=== PATIENT | female | born 1945 | race Caucasian/White ===

== ENCOUNTER → 2016-06-11 | Outpatient (REF) | payer MEDICARE, MEDICAID ==
[~2016-06-11] MED LIST: *BLDWK1; *BLDWK2; *BLDWK3; *BLDWK7; *BLDWK8; *CXR; /ADVA50050; /GLIM4TA; /THIA10TA OR; /WARF3TA; /WARF4TA; /WARF5TA; ACET65TA PO; ADVAIR100 INHALATION; ALBOTERNEB INHALATION; ALBU83IN; ALBU83IN INH; ALBU83IN NEB; ALUMSUS2 PO; AMARYL2 PO; AMARYL4 PO; ANTIV 25 PO; APIDINJ2; ASPI1TAB6 PO; ASPI325T OR; ASPI32ECTA PO; ATARAX25 PO; ATOR1TAB18 PO; AVANDIA8; BABY81CH; BASE PO; BIAXINXL PO; BISA5TAB PO; BUDE150T PO; BUPR300T34 PO; CALC1CAP31 PO; CARV12.5 OR; CARV12.5 PO; CLAR5CHW; CLARITIN10 PO; CLOP75TA2 PO; COLA100C2; COLACE PO; CORE10CA; CORE6.25; COREG125 PO; COREG625 PO; COREGCR10 PO; CORTISPOR OTIC; COUM10TA; COUMADIN; COUMADIN ***DAW****; COUMADIN **daw**; COUMADIN PO; COUMADIN25 ***DAW***; COUMADIN25 PO; CRAN1TAB PO; CROMOLYN NEBULIZED; CYCL5TA PO; DARV100T; DARVOCET-N; DARVOCET-N PO; DIGO0.12 PO; DIOVAN160; DIOVAN160 PO; DIOVAN80 PO; DOC-Q-LACE PO; DOXY100T16 PO; DOXY10CA PO; DOXYCYC100 PO; DULC10SU2 PR; EFFE150C; EFFE150C OR; EFFE150C PO; EFFEXORXL1 PO; EFFEXORXL7; ENAL10TA2 OR; ENAL2.5T; ERYTHROOPT; FERR325T PO; FLEETS PR; FLEXERIL PO; FLEXERIL10; FLON1SPR; FURO1TAB15 PO; FURO80TA2 OR; FUROSEM PO; GLUC1TOUCH TOPICAL; GLUC4CHW PO; GLUCCOSEAC TOPICAL; GLUCOPH850 PO; GLUCOSACCS; GLUCOSE TEST; GLUCULTRA; GLUCULTRA TOPICAL; GLYBURIDE5; GLYBURIDE5 PO; IMDU60TA PO; IMOD2TAB14 PO; INSUH10VL SC; INSULANT; INSULANT SC; INSULIN; ISOS60TA2 PO; JANUVIA; JANUVIA100 PO; LANTINJ4 SC; LANTUS INSULIN; LANTUS SC; LANTUS SQ; LASI40TA; LASI80TA; LIPI80TA; LIPI80TA OR; LIPI80TA PO; LIPITOR40 2 TABS; LIPITOR80; LIPITOR80 PO; LISI-542 PO; LISI10TA4 PO; LOFIBRA PO; LOPE2TAB3 PO; LOPID600 PO; LOPRESS50 PO; LOTRISCREA TOPICALLY; LOZOL25; MAALSUS18 PO; MAALSUS8 PO; MAGO400T PO; MAPA325T2 PO; MAXAIR PO; MECL-68 PO; MECL25TA2; MECL25TA2 OR; MICR10CA PO; MILKSUS PO; NEBTUBING; NEURONTIN3; NEURONTIN3 PO; NEXIUM40 PO; NITR0.4S; NITROSTAT4 SL; NORVASC10 PO; NOVOINJ3 SC; NOVOLOG SC; NYST-6 TOP; OMEP20CA3 PO; OMEP20TA7 OR; OPTI0.5D5 OU; PERC5TAB8 OR; PRIL20CA; PRILOSEC20; PRILOSEC20 PO; PRILOSECOT PO; PROA1AER INH; PROAAER IN; PROAIR INH; PROVENTILI PO; REFRSOL OU; REGL5TAB2 PO; SENN8.6T7 PO; SPIR25TA2 PO; SYRINS1CC SUBQ; TRAM50TA2 OR; TRAM50TA2 PO; TRAMADOL PO; TRIC145T19; TRICOR145 PO; TRICOR160; TRICOR160 PO; TYL RE; TYLE167L PO; VALTREX100 PO; VASO10TA; VASO10TA8 PO; VASO2.5T; VASO5TAB; VASOTEC25 PO; VENL100T OR; VENL150C43 PO; VENL150T PO; VICO5TAB; VICODIN-ES PO; VITA50003 PO; VITAMIN D2 PO; VITMTA PO; WELL100T OR; WELL100T PO; WELLTAB40 PO; ZEST1TAB5 PO; ZITHROZPAK PO; ZOFR20TA PO; ZOFR4TAB3 PO; ZOLOFT50 PO; ZONEGRAM PO; [UNRECOGNIZED DRUG - CODE]; [UNRECOGNIZED DRUG - CODE] PO; [UNRECOGNIZED DRUG - CODE] SUBQ; [UNRECOGNIZED DRUG - OTHER]; [UNRECOGNIZED DRUG - OTHER]; [UNRECOGNIZED DRUG - OTHER]; [UNRECOGNIZED DRUG - OTHER] INHALATION; [UNRECOGNIZED DRUG - OTHER] INHALATION; [UNRECOGNIZED DRUG - OTHER] TOPICAL; [UNRECOGNIZED DRUG - OTHER] TOPICALLY; drisdol OR
[2016-06-11 10:42] LABS: BASO # 0.1 K/mm3 (0.0-0.2); BASO % 1.4 % (0.0-1.0); EOS # 0.4 K/mm3 (0.0-0.50); EOS % 6.4 % (0.0-3.0); LARGE UNSTAINED CELL # 0.2 K/mm3 (0.0-0.4); LARGE UNSTAINED CELL % 3.3 % (0.0-4.0); LYMPH # 1.6 K/mm3 (1.5-4.5); MEAN CORPUSCULAR HEMOGLOBIN 29.4 pg (27.0-33.0); MEAN CORPUSCULAR HGB CONC 31.4 g/dl (32.0-36.5); MEAN CORPUSCULAR VOLUME 93.8 fl (80.0-96.0); MONO # 0.5 K/mm3 (0.0-0.8); MONO % 8.3 % (0.0-5.0); NEUTROPHILS # 3.7 K/mm3 (1.8-7.7); NEUTROPHILS % 58.6 % (36.0-66.0); PLATELET COUNT, AUTOMATED 345 k/mm3 (150-450); RED CELL DISTRIBUTION WIDTH 14.3 % (11.5-14.5); WHITE BLOOD COUNT 6.3 K/mm3 (4.0-10.0)
[2016-06-11 11:12] LABS: ALBUMIN 3.6 GM/DL (3.2-5.2); CALCIUM LEVEL 8.6 MG/DL (8.8-10.2); CREATININE FOR GFR 1.51 MG/DL (0.55-1.02); GLOMERULAR FILTRATION RATE 36.2 (>39); POTASSIUM SERUM 4.8 MEQ/L (3.5-5.1)
== END ==
PROVIDERS: ATTEND Internal Medicine Nephrology
DX: N18.3 Chronic kidney disease, stage 3 (moderate) (principal); D63.1 Anemia in chronic kidney disease; N25.81 Secondary hyperparathyroidism of renal origin; E55.9 Vitamin D deficiency, unspecified; E11.22 Type 2 diabetes mellitus with diabetic chronic kidney disease

== ENCOUNTER → 2016-06-12 | Outpatient (REF) | payer MEDICARE, MEDICAID ==
[~2016-06-12] MED LIST changes: -IMOD2TAB14 PO; +IMOD2TAB16 PO
[2016-06-12 11:46] LABS: ALBUMIN 3.4 GM/DL (3.2-5.2); ALBUMIN/GLOBULIN RATIO 0.92 (1.00-1.93); BILIRUBIN,TOTAL 0.5 MG/DL (0.2-1.0); CALCIUM LEVEL 8.8 MG/DL (8.8-10.2); CREATININE FOR GFR 1.6 MG/DL (0.55-1.02); GLOMERULAR FILTRATION RATE 33.8 (>39); TOTAL PROTEIN 7.1 GM/DL (6.4-8.2)
== END ==
PROVIDERS: ATTEND Internal Medicine
DX: E11.22 Type 2 diabetes mellitus with diabetic chronic kidney disease (principal); I12.9 Hypertensive chronic kidney disease with stage 1 through stage 4 chronic kidney disease, or unspecified chronic kidney disease; N18.3 Chronic kidney disease, stage 3 (moderate); I25.10 Atherosclerotic heart disease of native coronary artery without angina pectoris; I48.0 Paroxysmal atrial fibrillation; I25.5 Ischemic cardiomyopathy; Z85.3 Personal history of malignant neoplasm of breast; J30.2 Other seasonal allergic rhinitis; J45.20 Mild intermittent asthma, uncomplicated; G47.33 Obstructive sleep apnea (adult) (pediatric); M15.9 Polyosteoarthritis, unspecified; R80.9 Proteinuria, unspecified; E55.9 Vitamin D deficiency, unspecified; F32.9 Major depressive disorder, single episode, unspecified; K21.9 Gastro-esophageal reflux disease without esophagitis; I69.90 Unspecified sequelae of unspecified cerebrovascular disease; R25.1 Tremor, unspecified; I87.312 Chronic venous hypertension (idiopathic) with ulcer of left lower extremity; Z92.89 Personal history of other medical treatment
CPT/HCPCS: 15271; 36415; 80053; 83036; 87070; 87077; 87186; G0463; Q4131

== ENCOUNTER → 2016-06-12 | Outpatient (REF) | payer MEDICARE, MEDICAID ==
[~2016-06-12] MED LIST changes: +IMOD2TAB14 PO; -IMOD2TAB16 PO
== END ==
LOC: M LAB REF 16:31
PROVIDERS: ATTEND Surgery
DX: I87.312 Chronic venous hypertension (idiopathic) with ulcer of left lower extremity (principal)

== ENCOUNTER → 2016-06-14 | Outpatient (REF) | payer MEDICARE, MEDICAID ==
[~2016-06-14] MED LIST changes: -LIPITOR40 2 TABS; +LIPITOR40 [, 2 TABS]
== END ==
LOC: M SFHCPLAZ 12:44
PROVIDERS: ATTEND Internal Medicine
DX: E11.9 Type 2 diabetes mellitus without complications (principal)

== ENCOUNTER → 2016-06-18 | Outpatient (REF) | payer MEDICARE, MEDICAID ==
[~2016-06-18] MED LIST changes: +LIPITOR40 2 TABS; -LIPITOR40 [, 2 TABS]
[2016-06-18 10:30] LABS: CALCIUM LEVEL 8.8 MG/DL (8.8-10.2); CREATININE FOR GFR 1.39 MG/DL (0.55-1.02); GLOMERULAR FILTRATION RATE 39.8 (>39)
== END ==
PROVIDERS: ATTEND Internal Medicine Cardiovascular Disease
DX: I50.9 Heart failure, unspecified (principal); I25.10 Atherosclerotic heart disease of native coronary artery without angina pectoris; N18.9 Chronic kidney disease, unspecified

== ENCOUNTER → 2016-07-24 | Outpatient (REF) | payer MEDICARE, MEDICAID ==
[~2016-07-24] MED LIST changes: -IMOD2TAB14 PO; +IMOD2TAB16 PO; -LIPITOR40 2 TABS; +LIPITOR40 [, 2 TABS]
== END ==
LOC: M LAB REF 16:24
PROVIDERS: ATTEND Surgery
DX: L08.9 Local infection of the skin and subcutaneous tissue, unspecified (principal)

== ENCOUNTER → 2016-08-05 | Outpatient (CLI) | payer MEDICARE, MEDICAID ==
[~2016-08-05] MED LIST changes: +LIPITOR40 2 TABS; -LIPITOR40 [, 2 TABS]
--- NOTE | 2016-08-05 11:41 | REP ---
LEFT LOWER EXTREMITY DUPLEX VENOUS ULTRASOUND: Venous insufficiency study. HISTORY: Left leg ulcer, question venous insufficiency, reflux. FINDINGS: The deep veins are anechoic and fully compressible from the groin to the popliteal fossa in the left lower extremity on two-dimensional scanning. Color flow imaging is homogeneous. Spectral Doppler interrogation show no evidence to suggest deep venous thrombosis. REFLUX STUDY FINDINGS: Reflux is noted in the greater saphenous vein at the saphenofemoral junction, 5.7 seconds in duration. The AP dimension of the greater saphenous vein at this level is 4.7 mm. Reflux greater than 0.5 seconds in duration is seen in the common femoral vein and minimal 0.6 second reflux is also noted in the proximal superficial femoral vein. The greater saphenous vein shows reflux of 3.0 seconds in duration with a 3.0 mm AP dimension at midthigh level. The greater saphenous vein could not be seen distal to this. The proximal greater saphenous vein torres are somewhat irregular. This and small size may be related to previous endovascular laser treatment. Reflux is seen into collateral vessels at midthigh. IMPRESSION: No evidence of DVT. Evidence of previous endovascular greater saphenous vein therapy. Reflux seen as above. Signed by Wilian Medina MD 08/05/2016 03:34 P
== END ==
LOC: M RAD 09:23
PROVIDERS: ATTEND Surgery
DX: L97.929 Non-pressure chronic ulcer of unspecified part of left lower leg with unspecified severity (principal)

== ENCOUNTER → 2016-08-13 | Outpatient (REF) ==
[~2016-08-13] MED LIST changes: -LIPITOR40 2 TABS; +LIPITOR40 [, 2 TABS]
[2016-08-13 11:26] LABS: CALCIUM LEVEL 8.5 MG/DL (8.8-10.2); CREATININE FOR GFR 1.48 MG/DL (0.55-1.02)
== END ==
PROVIDERS: ATTEND Internal Medicine
DX: I10 Essential (primary) hypertension (principal)

== ENCOUNTER → 2016-08-16 | Outpatient (REF) ==
[~2016-08-16] MED LIST changes: +LIPITOR40 2 TABS; -LIPITOR40 [, 2 TABS]
[2016-08-16 12:00] LABS: MEAN CORPUSCULAR HGB CONC 32.1 g/dl (32.0-36.5); MEAN CORPUSCULAR VOLUME 90.4 fl (80.0-96.0); RED CELL DISTRIBUTION WIDTH 13.4 % (11.5-14.5); WHITE BLOOD COUNT 4.8 K/mm3 (4.0-10.0)
[2016-08-16 12:16] LABS: CALCIUM LEVEL 8.2 MG/DL (8.8-10.2); CREATININE FOR GFR 1.33 MG/DL (0.55-1.02); GLOMERULAR FILTRATION RATE 41.9 (>39); POTASSIUM SERUM 4.2 MEQ/L (3.5-5.1)
--- NOTE | 2016-08-16 12:49 | REP ---
CHEST, SINGLE VIEW: AP view of the chest is performed and compared to prior study of 09/09/2015. There is cardiomegaly and pulmonary venous hypertension. I see no acute infiltrate. The mediastinal silhouette is unchanged. The visualized osseous structures appear intact. IMPRESSION: Cardiomegaly. Pulmonary venous hypertension. No acute infiltrate. Signed by Bakari Bryant MD 08/16/2016 05:00 P
== END ==
PROVIDERS: ATTEND Internal Medicine
DX: R19.7 Diarrhea, unspecified (principal); R05 Cough; R06.2 Wheezing

== ENCOUNTER → 2016-08-21 | Outpatient (REF) ==
[~2016-08-21] MED LIST changes: -LIPITOR40 2 TABS; +LIPITOR40 [, 2 TABS]
[2016-08-21 14:01] LABS: CALCIUM LEVEL 8.7 MG/DL (8.8-10.2); CREATININE FOR GFR 1.44 MG/DL (0.55-1.02); GLOMERULAR FILTRATION RATE 38.2 (>39); POTASSIUM SERUM 4.9 MEQ/L (3.5-5.1)
== END ==
PROVIDERS: ATTEND Internal Medicine
DX: I10 Essential (primary) hypertension (principal)

== ENCOUNTER → 2016-09-10 | Outpatient (REF) | payer MEDICARE, MEDICAID ==
[~2016-09-10] MED LIST changes: +LIPITOR40 2 TABS; -LIPITOR40 [, 2 TABS]
[2016-09-10 10:19] LABS: MEAN CORPUSCULAR HEMOGLOBIN 28.4 pg (27.0-33.0); MEAN CORPUSCULAR HGB CONC 30.7 g/dl (32.0-36.5); MEAN CORPUSCULAR VOLUME 92.6 fl (80.0-96.0); RED CELL DISTRIBUTION WIDTH 13.6 % (11.5-14.5); WHITE BLOOD COUNT 5.3 K/mm3 (4.0-10.0)
== END ==
PROVIDERS: ATTEND Internal Medicine
DX: I10 Essential (primary) hypertension (principal)

== ENCOUNTER → 2016-09-12 | Outpatient (CLI) | payer MEDICARE, MEDICAID ==
--- NOTE | 2016-09-12 12:57 | REP ---
Left lower extremity Duplex Doppler venous ultrasound: Real time compression and duplex Doppler interrogation of the left lower extremity deep venous system is performed. The left common femoral, superficial femoral and popliteal veins are fully compressible with transducer pressure and demonstrate normal spontaneous and phasic flow, without evidence of deep venous thrombosis. Impression: No evidence of deep venous thrombosis of the left lower extremity femoral popliteal venous system. Signed by Bakari Bryant MD 09/12/2016 12:49 P
== END ==
LOC: M RAD 12:13
PROVIDERS: ATTEND Internal Medicine
DX: M79.661 Pain in right lower leg (principal)

== ENCOUNTER → 2016-09-25 | Outpatient (REF) | payer MEDICARE, MEDICAID ==
[2016-09-25 11:07] LABS: CALCIUM LEVEL 8.4 MG/DL (8.8-10.2); CREATININE FOR GFR 1.59 MG/DL (0.55-1.02); GLOMERULAR FILTRATION RATE 34.1 (>39); POTASSIUM SERUM 4.9 MEQ/L (3.5-5.1)
== END ==
PROVIDERS: ATTEND Internal Medicine
DX: I10 Essential (primary) hypertension (principal)

== ENCOUNTER → 2016-10-09 | Outpatient (REF) | payer MEDICARE, MEDICAID ==
[~2016-10-09] MED LIST changes: +ACET650T2 PO; +FURO20TA2 PO; +FURO40TA2 PO; +MYSO50TA5 PO; +PREPOIN PR; +TOUJ1.2I SC
[2016-10-09 10:27] LABS: ALBUMIN 3.3 GM/DL (3.2-5.2); ALBUMIN/GLOBULIN RATIO 0.92 (1.00-1.93); BILIRUBIN,TOTAL 0.4 MG/DL (0.2-1.0); CALCIUM LEVEL 8.5 MG/DL (8.8-10.2); CREATININE FOR GFR 1.28 MG/DL (0.55-1.02); GLOMERULAR FILTRATION RATE 43.6 (>39); POTASSIUM SERUM 4.5 MEQ/L (3.5-5.1); TOTAL PROTEIN 6.9 GM/DL (6.4-8.2)
== END ==
PROVIDERS: ATTEND Internal Medicine
DX: E11.9 Type 2 diabetes mellitus without complications (principal); I25.10 Atherosclerotic heart disease of native coronary artery without angina pectoris

== ENCOUNTER 2016-10-12 07:49 | Inpatient (IN) | payer MEDICARE, MEDICAID ==
[~2016-10-12] VITALS: Ht 162.6 cm; Wt 134.6 kg
[~2016-10-12 07:49] MED LIST changes: -ACET650T2 PO; -FURO20TA2 PO; -FURO40TA2 PO; -MYSO50TA5 PO; -PREPOIN PR; -TOUJ1.2I SC
[2016-10-12] MEDS ORDERED: VENL150C43 PO (08:57)
[2016-10-12] MEDS ORDERED: NOVOINJ3 SC ×2 (08:57→12:26)
[2016-10-12] MEDS ORDERED: FURO40TA2 PO (08:57)
[2016-10-12] MEDS ORDERED: MYSO50TA5 PO (08:57)
[2016-10-12] MEDS ORDERED: TOUJ1.2I SC (08:57)
[2016-10-12] MEDS ORDERED: PREPOIN PR (08:57)
[2016-10-12] MEDS ORDERED: MORPHINE 4 MG/ML 1ML SYRINGE IV ONE (09:00)
[2016-10-12] MEDS ORDERED: ONDANSETRON 4MG/2ML VIAL (J2405) IV ONE (09:00)
[2016-10-12] MEDS ORDERED: NORCO, ANEXSIA 5/325MG TABLET (HYDROcodone/ACETAMINOPHEN) PO ONE (11:15)
[2016-10-12] MEDS ORDERED: CARVedilol 12.5 MG TAB PO ONE (12:00)
[2016-10-12] MEDS ORDERED: ASPIRIN 325 MG TAB PO ONE (12:00)
[2016-10-12] MEDS ORDERED: CLOPIDOGREL 75 MG TAB PO ONE (12:00)
[2016-10-12] MEDS ORDERED: LISINOPRIL 5 MG TAB PO ONE (12:00)
[2016-10-12] MEDS ORDERED: OMEPRAZOLE 20 MG CAP PO ONE (12:15)
[2016-10-12] MEDS ORDERED: SPIRONOLACTONE 12.5MG PER 1/2 TABLET PO ONE (12:15)
[2016-10-12] MEDS ORDERED: buPROPion **XL** TABLET 150MG (WELLBUTRIN XL) PO ONE (12:15)
[2016-10-12] MEDS ORDERED: LISINOPRIL 10 MG TAB PO ONE (12:15)
[2016-10-12] MEDS ORDERED: FURO20TA2 PO (12:28)
[2016-10-12] MEDS ORDERED: ACET650T2 PO (12:32)
[2016-10-12 12:45] LABS: BASO % 0.7 % (0.0-1.0); EOS # 0.2 K/mm3 (0.0-0.50); EOS % 2.9 % (0.0-3.0); LARGE UNSTAINED CELL # 0.2 K/mm3 (0.0-0.4); LARGE UNSTAINED CELL % 3.5 % (0.0-4.0); LYMPH # 1.3 K/mm3 (1.5-4.5); LYMPH % 19.7 % (24.0-44.0); MEAN CORPUSCULAR HEMOGLOBIN 29.4 pg (27.0-33.0); MEAN CORPUSCULAR VOLUME 91.9 fl (80.0-96.0); MONO # 0.5 K/mm3 (0.0-0.8); MONO % 8.8 % (0.0-5.0); NEUTROPHILS # 3.7 K/mm3 (1.8-7.7); NEUTROPHILS % 64.3 % (36.0-66.0); PLATELET COUNT, AUTOMATED 301 k/mm3 (150-450); RED CELL DISTRIBUTION WIDTH 14.1 % (11.5-14.5); WHITE BLOOD COUNT 5.7 K/mm3 (4.0-10.0)
[2016-10-12] MEDS ORDERED: MORPHINE 2 MG/ML 1ML SYRINGE IV ONE (13:00)
[2016-10-12 13:10] LABS: CALCIUM LEVEL 8.6 MG/DL (8.8-10.2); CREATININE FOR GFR 1.29 MG/DL (0.55-1.02); GLOMERULAR FILTRATION RATE 43.2 (>39); POTASSIUM SERUM 4.3 MEQ/L (3.5-5.1)
[2016-10-12] MEDS ORDERED: GLUCAGON FOR INJ 1 MG VIAL (J1610) SC PRN (13:15)
[2016-10-12] MEDS ORDERED: ONDANSETRON 4MG/2ML VIAL (J2405) IV PRN (13:15)
[2016-10-12] MEDS ORDERED: PREPARATION H OINTMENT (HEMORRHOID) PR PRN (13:15)
[2016-10-12] MEDS ORDERED: DEXTROSE 50% 50 ML SYRINGE IV PRN (13:15)
[2016-10-12] MEDS ORDERED: GLUCOSE 4 GM CHEW TABLET PO PRN (13:15)
[2016-10-12] MEDS ORDERED: LORazepam 2 MG/ML VIAL (J2060) IV ONE (13:30)
[2016-10-12] MEDS: VENLAFAXINE **XR** 75MG CAPSULE PO SCH (13:35)
[2016-10-12] MEDS: HEPARIN SOD (PORCINE) 5000 UNITS/ML VIAL SC SCH ×2 (14:00→21:19)
--- NOTE | 2016-10-12 14:28 | HPEPDOC ---
Medical History and Physical Date of Admission October 12, 2016 at 13:01 History and Physical PRIMARY CARE PROVIDER: Dr. Ramirez ATTENDING: Dick Lazo MD CHIEF COMPLAINT: Back pain HISTORY OF PRESENT ILLNESS: This is a 71-year-old female with past medical history of diabetes, CTD stage III with baseline creatinine 1.3, COPD, systolic and diastolic heart failure, hypertension, V. tach, CAD status post PCI, chronic venous stasis ulcer being managed by Dr. Chamorro who presents complaining of severe back pain. Patient states that she has chronic baseline lumbar back pain however states she 's been up and more active with physical therapy, and started to develop severe lower back pain since yesterday. Patient states she also has a broken bed where half of the bed is more elevated than the other half. Patient states the pain has progressed to radiculopathy down her right lower extremity. No weakness or sensory changes. No urinary incontinence/saddle anesthesia. Patient uses a walker to walk at baseline. In the ED patient had intractable lower back pain. X-ray with chronic changes. CT of the lumbar spine with severe stenosis with recommendations for neurosurgical consult. Have consulted Dr. Ge who will be evaluating the patient after the MRI is complete. PAST MEDICAL HISTORY: As per HPI PAST SURGICAL HISTORY: SOCIAL HISTORY:Denies tobacco, alcohol, illicit drug use. Lives at [facility]. FAMILY HISTORY: Non contributory ALLERGIES: Please see below. REVIEW OF SYSTEMS: HEENT: Denies sore throat/headache CARDIOVASCULAR: Denies chest pain/palpitations RESPIRATORY: No shortness of breath/cough GASTROINTESTINAL: denies nausea/vomiting GENITOURINARY: Denies dysuria/urinary urgency. MUSCULOSKELETAL: Denies myalgias/arthralgias NEUROLOGICAL: Denies any focal weakness Rest of ROS negative. HOME MEDICATIONS: Please see below. PHYSICAL EXAMINATION: Vitals: (see below) General: No acute distress, laying comfortably in bed. HEENT: Moist mucous membranes. Neck: No JVD or lymphadenopathy Cardiac: RRR, No murmurs Pulm: Diminsihed breath sounds at the bases b/l. No wheezing, rhonchi Abd: NT/ND + BS. morbidly obese. Ext: No edema or cyanosis. Strength 5/5 BLE. Sensation to fine touch/pinprick intact BLE. Chronic venous stasis ulcer LE wrapped in CHARLY wrap. Babinski negative b/l. Lumbar region tender to palpation. LABORATORY DATA: See below. IMAGING: Lumbar X ray with chronic changes. CT Lumbar spine/MRI Lumbar spine pending. MICROBIOLOGY: Please see below. ASSESSMENT/PLAN: 1. Lumbar pain with radiculopathy - h/o advanced degenerative disk disease. CT Lumbar spine with severe stenosis and recommendations for neurosurgical evaluation. MRI spine pending. Pain control with morphine/Percocet. Pain management consult .Physical therapy. Dr. Ge consulted. Neuro checks. 2. H/o CAD s/p PCI x5 - on asa/plavix/statin 3. HTN -controlled. 4. Diabetes mellitus- on Levemir and sliding scale insulin. 5. COPD- stable 6. CHF- systolic and diastolic- compensated. Continue Lasix. 7. Chronic venous stasis ulcer- being managed by Dr. Schneider outpatient. 8. History of V. tach 9. CK stage III- baseline creatinine 1.3. Stable. Avoid nephrotoxins. DVT prophylaxis- heparin subcutaneous Patient was followed by Dr. Rush starting 10/13/16 at 7 AM. Vital Signs Vital Signs Date Time Temp Pulse Resp B/P (MAP) Pulse Ox O2 Delivery O2 Flow Rate FiO2 10/12/16 12:21 74 150/67 10/12/16 11:55 18 10/12/16 10:02 97.9 94 Room Air Laboratory Data Labs 24H Laboratory Tests 2 10/12/16 12:32: White Blood Count 5.7, Red Blood Count 3.91L, Hemoglobin 11.5L, Hematocrit 35.9L , Mean Corpuscular Volume 91.9, Mean Corpuscular Hemoglobin 29.4, Mean Corpuscular Hemoglobin Concent 32.0, Red Cell Distribution Width 14.1, Platelet Count 301, Neutrophils (%) (Auto) 64.3, Lymphocytes (%) (Auto) 19.7L, Monocytes (%) (Auto) 8.8H, Eosinophils (%) (Auto) 2.9, Basophils (%) (Auto) 0.7, Neutrophils # (Auto) 3.7, Lymphocytes # (Auto) 1.3L, Monocytes # (Auto) 0.5, Eosinophils # (Auto) 0.2, Basophils # (Auto) 0.0, Large Unclassified Cells % 3.5 , Large Unclassified Cells # 0.2, Anion Gap 5L, Glomerular Filtration Rate 43.2 , Blood Urea Nitrogen 33H, Creatinine 1.29H, Sodium Level 141, Potassium Level 4.3, Chloride Level 108H, Carbon Dioxide Level 28, Calcium Level 8.6L CBC/BMP Laboratory Tests 10/12/16 12:32 Red Blood Count 3.91 L, Mean Corpuscular Volume 91.9, Mean Corpuscular Hemoglobin 29.4, Mean Corpuscular Hemoglobin Concent 32.0, Red Cell Distribution Width 14.1, Neutrophils (%) (Auto) 64.3, Lymphocytes (%) (Auto) 19.7 L, Monocytes (%) (Auto) 8.8 H, Eosinophils (%) (Auto) 2.9, Basophils (%) ( Auto) 0.7, Neutrophils # (Auto) 3.7, Lymphocytes # (Auto) 1.3 L, Monocytes # ( Auto) 0.5, Eosinophils # (Auto) 0.2, Basophils # (Auto) 0.0, Calcium Level 8.6 L Home Medications Scheduled (Kiel Moise) 300 Unit/Ml Inj, 32 UNIT SC QPM 1900 Aspirin (Aspirin EC) 325 Mg Tabec, 325 MG PO DAILY Atorvastatin Calcium (Lipitor) 80 Mg Tab, 80 MG PO QHS Bupropion HCl (Wellbutrin Xl) 300 Mg Tab, 300 MG PO DAILY Calcitriol (Calcitriol) 0.25 Mcg Cap, 0.25 MCG PO 5XW FRIDAY-FRIDAY Carvedilol (Carvedilol) 12.5 Mg Tab, 12.5 MG PO BID Clopidogrel Bisulfate (Clopidogrel) 75 Mg Tab, 75 MG PO DAILY Cranberry Extract (Cranberry) 300 Mg Tab, 300 MG PO BID Furosemide (Furosemide) 40 Mg Tab, 40 MG PO DAILY 0800 Furosemide (Furosemide) 20 Mg Tab, 20 MG PO QPM 1400 Insulin Aspart (Novolog Flexpen) 100 Unit/Ml Inj, 1 DOSE SC BID @ 0800 & 1200 70-90 = 7 units 91-150 = 9 units 151-250 = 10 units 251-350 = 11 units 351-450 = 12 units > 450 = 13 units Insulin Aspart (Novolog Flexpen) 100 Unit/Ml Inj, 1 DOSE SC DAILY @1600 70-90 = 8 units 91-150 = 10 units 151-250 = 11 units 251-350 = 12 units 351-450 = 13 units > 450 = 14 units Lisinopril (Lisinopril) 5 Mg Tab, 5 MG PO DAILY Multivitamins *[facility] (Thera M Plus [facility]*) 1 Tab Tab, 1 TAB PO DAILY Omeprazole (Omeprazole) 20 Mg Cap, 20 MG PO DAILY Primidone (Mysoline) 50 Mg Tab, 50 MG PO BID Spironolactone (Spironolactone) 25 Mg Tab, 12.5 MG PO DAILY Venlafaxine Hydrochloride (Venlafaxine HCl ER) 150 Mg Cap, 150 MG PO DAILY Scheduled PRN (Refresh Optive 0.5-0.9 %) 1 Steven Steven, 1 DROP OU QID PRN for DRY EYES (Preparation H 0.25-3-14-71.9 %) 1 Oin Oin, 1 OIN GA PRN PRN for HEMORRHOIDS Acetaminophen (Acetaminophen ER) 650 Mg Tab, 650 MG PO Q8H PRN for PAIN / FEVER Albuterol Sulfate (Albuterol Sulfate) 2.5 Mg/3 Ml Nebu, 2.5 MG INH Q4H PRN for SHORTNESS OF BREATH Milk Of Magnesia (Milk of Magnesia) 1,200 Mg/15 Ml Yesica, 30 ML PO DAILY PRN for CONSTIPATION Allergies Coded Allergies: Penicillins (Verified Allergy, Severe, ANAPHYLAXIS, 09/10/12) BLACKED OUT AFTER SHOT Penicillins Cross Reactors (Verified Allergy, Severe, ANAPHYLAXIS, 09/10/12) BLACKED OUT AFTER SHOT Captopril (Verified Allergy, Unknown, 09/10/12) Quinolones (Verified Allergy, Unknown, FLOXIN, 09/10/12) Streptokinase (Verified Adverse Reaction, Intermediate, BODY ACHE, MUSCLE SPASM, 10/12/16) BODY ACHE, MUSCLE SPASM Diphenhydramine (Verified Adverse Reaction, Mild, NAUSEA, 09/10/12) NAUSEA Methyldopa (Verified Adverse Reaction, Mild, MENTAL CHANGES, 10/12/16) MENTAL CHANGES, ATTEMPTED SUICIDE Sulfa Drugs (Verified Adverse Reaction, Mild, NAUSEA, 09/10/12) VOMITING Sulfa Drugs Cross Reactors (Verified Adverse Reaction, Mild, NAUSEA, ) VOMITING Aspartame (Verified Adverse Reaction, Unknown, 06/03/15) Hydrochlorothiazide (Verified Adverse Reaction, Unknown, DYAZIDE- NAUSEA, 09/10/12) Replaces MAXZIDE-25 Triamterene (Verified Adverse Reaction, Unknown, DYAZIDE- NAUSEA, 09/10/12) Replaces MAXZIDE-25 DICK LAZO MD October 12, 2016 14:28
--- NOTE | 2016-10-12 15:03 | REP ---
LUMBAR SPINE: HISTORY: Nontraumatic pain. COMPARISON: 07/10/2011 There is a mild dextroconvex curve. There is partial syndesmophyte formation seen on the right at L4-5. This is unchanged to slightly increased. The pedicles of L4 and L5 on the right are sclerotic. Degenerative facet joint changes are seen at L3-4 through L5-S1 bilaterally, increased from the prior exam. There is disc space narrowing at every level, which has increased from the prior exam. Once again, there is a grade 1 L3 upon L4 spondylolisthesis likely secondary to degenerative facet joint changes. This is stable. IMPRESSION: Chronic changes as described above. Signed by Terrence Arroyo DO 10/12/2016 03:46 P
[2016-10-12 16:30] VITALS: BP 133/61
[2016-10-12] MEDS: HumaLOG INSULIN (NovoLOG) PER UNIT SC SCH ×2 (17:22→21:00)
[2016-10-12] MEDS: FUROSEMIDE 20 MG TAB PO SCH (17:22)
[2016-10-12] MEDS: MORPHINE 2 MG/ML 1ML SYRINGE IV PRN (18:37)
[2016-10-12] MEDS: LEVEMIR (INSULIN DETEMIR) 1 UNITS/0.01ML SC SCH (21:00)
[2016-10-12] MEDS: ATORVASTATIN 20 MG TAB PO SCH (21:19)
[2016-10-12] MEDS: DOCUSATE SODIUM 100 MG CAP PO SCH (21:19)
[2016-10-12] MEDS: PRIMIDONE 50 MG TAB PO SCH (21:19)
[2016-10-12] MEDS: CARVedilol 12.5 MG TAB PO SCH (21:19)
[2016-10-12] MEDS: PERCOCET 5MG/325MG TAB PO PRN (21:24)
[2016-10-12 22:00] VITALS: BP 136/61
[2016-10-13] MEDS: HEPARIN SOD (PORCINE) 5000 UNITS/ML VIAL SC SCH ×3 (05:26→20:59)
[2016-10-13 06:00] VITALS: BP 133/60
[2016-10-13 06:06] LABS: MEAN CORPUSCULAR HEMOGLOBIN 28.8 pg (27.0-33.0); MEAN CORPUSCULAR HGB CONC 30.4 g/dl (32.0-36.5); MEAN CORPUSCULAR VOLUME 94.8 fl (80.0-96.0); RED CELL DISTRIBUTION WIDTH 14.1 % (11.5-14.5); WHITE BLOOD COUNT 5.7 K/mm3 (4.0-10.0)
[2016-10-13 06:27] LABS: CALCIUM LEVEL 8.4 MG/DL (8.8-10.2); CREATININE FOR GFR 1.45 MG/DL (0.55-1.02); GLOMERULAR FILTRATION RATE 37.8 (>39); POTASSIUM SERUM 3.8 MEQ/L (3.5-5.1)
[2016-10-13] MEDS: HumaLOG INSULIN (NovoLOG) PER UNIT SC SCH ×4 (07:30→21:00)
--- NOTE | 2016-10-13 07:56 | REP ---
CT LUMBAR SPINE WITHOUT CONTRAST: HISTORY: Back pain and radicular symptoms. COMPARISON: None. A CT examination cannot rule out an acute disc herniation. There is asymmetric disc space narrowing seen at every level. Partial syndesmophyte formation is seen at every level. Broad-based annular bulges are seen at every level. A broad-based annular bulge and thickening of the ligamentum flava at the L2-3 level causes spina stenosis. A disc extrusion cannot be ruled out. A large broad-based annular bulge and posterior spondylosis at the L3-4 level along with thickening of the ligamentum flava cause spinal stenosis. An acute disc extrusion cannot be ruled out. There is also evidence of bilateral foraminal narrowing, left greater than right. A large asymmetric broad-based annular bulge is seen at L4-5 and in conjunction with thickening of the ligamentum flava. This causes central canal stenosis. There is also evidence of bilateral foraminal narrowing. A disc extrusion cannot be ruled out. At the L5-S1 level, there is a large asymmetric broad-based annular bulge seen with a posterior calcification projecting into the central canal causing central canal stenosis. This has the appearance of an old calcified disc fragment, but could represent an old osseous fragment from old trauma. This needs to be correlated clinically. An acute disc herniation at this level cannot be ruled out. IMPRESSION: Marked multilevel chronic changes as described above. A disc herniation cannot be ruled out. MRI is necessary to rule out a disc herniation. Signed by Terrence Arroyo DO 10/13/2016 09:55 A
[2016-10-13] MEDS ORDERED: buPROPion **XL** TABLET 150MG (WELLBUTRIN XL) PO SCH (09:00)
--- NOTE | 2016-10-13 09:02 | REP ---
MRI LUMBAR SPINE: HISTORY: Back pain. The patient could not complete the exam. The only images to review are two sagittal sets of images, one T1 and the other T2. This markedly limited exam cannot rule out an acute disc herniation. When compared to an old exam of 02/05/2010 there is possibly no significant change. There is degenerative disc space narrowing at every level with loss of disc hydration. There is no change in the appearance of the marrow signal. There appears to be central canal stenosis at multiple levels, particularly L3-4. IMPRESSION: Markedly limited exam. A disc extrusion cannot be ruled out. The exam needs to be completed before further comment on the findings can be made. Signed by Terrence Arroyo DO 10/13/2016 09:58 A
[2016-10-13] MEDS: LISINOPRIL 5 MG TAB PO SCH (09:24)
[2016-10-13] MEDS: OMEPRAZOLE 20 MG CAP PO SCH (09:24)
[2016-10-13] MEDS: VENLAFAXINE **XR** 75MG CAPSULE PO SCH (09:24)
[2016-10-13] MEDS: DOCUSATE SODIUM 100 MG CAP PO SCH ×2 (09:25→21:00)
[2016-10-13] MEDS: PRIMIDONE 50 MG TAB PO SCH ×2 (09:25→21:01)
[2016-10-13] MEDS: MULTIVITAMINS/MINERALS THERAP 1 TAB PO SCH (09:25)
[2016-10-13] MEDS: CLOPIDOGREL 75 MG TAB PO SCH (09:25)
[2016-10-13] MEDS: ASPIRIN ENTERIC 325 MG TAB PO SCH (09:25)
[2016-10-13] MEDS: FUROSEMIDE 40 MG TAB PO SCH (09:25)
[2016-10-13] MEDS: PERCOCET 5MG/325MG TAB PO PRN ×2 (09:26→14:24)
[2016-10-13] MEDS: CARVedilol 12.5 MG TAB PO SCH ×2 (09:27→21:01)
[2016-10-13] MEDS: SPIRONOLACTONE 12.5MG PER 1/2 TABLET PO SCH (09:27)
[2016-10-13] MEDS: buPROPion **XL** TABLET 150MG (WELLBUTRIN XL) PO SCH (09:27)
--- NOTE | 2016-10-13 13:47 | REP ---
RIGHT HIP: HISTORY: Right hip pain. No trauma. COMPARISON: AP pelvis obtained 07/31/2007. Degenerative changes are seen involving the right hip, status quo with asymmetric hip joint space narrowing and buttressing. There is a cam deformity seen involving the superolateral femoral head with femoral head marginal osteophytosis. There is no evidence of an acute fracture or dislocation. IMPRESSION: Chronic changes. Signed by Terrence Arroyo DO 10/13/2016 02:47 P
--- NOTE | 2016-10-13 13:50 | REP ---
RIGHT KNEE: HISTORY: Pain. COMPARISON: None. FINDINGS: There is tricompartmental marginal osteophytosis with patellofemoral joint space narrowing and medial compartmental narrowing. There is subchondral sclerosis involving the medial compartment. There is no evidence of an acute fracture. A subtle lucency is seen involving the articular surface of the medial femoral condyle, possibly secondary to an osteochondral lesion. This could be evaluated with MRI if clinically relevant. IMPRESSION: Chronic changes as described above. Signed by Terrence Arroyo DO 10/13/2016 02:47 P
[2016-10-13] MEDS: FUROSEMIDE 20 MG TAB PO SCH (17:23)
[2016-10-13 18:04] LABS: COLLAGEN ADP 108 SECONDS (56-103)
--- NOTE | 2016-10-13 19:32 | IPN ---
DATE: 10/13/2016 Patient seen and examined at the bedside. Chart has been reviewed. This morning she complains of right hip pain, unable to ambulate due to severe pain. She denies any dysuria, urgency, or frequency. She states her back pain is improved today, rating the pain as 4-5 out of 10. No other issues per nursing. Patient states that around 5 a.m. this morning she tried to go to the bathroom and felt that she was slightly weaker on the right side, almost fell, but caught herself. Temperature 96.9, pulse 73, respiratory rate 18, blood pressure 133/60, 97% on room air. GENERALLY: Awake, alert, oriented times three, answering questions appropriately. LUNGS: Clear to auscultation. No wheezing, rales, or rhonchi. HEART: S1, S2, sinus rhythm. ABDOMEN: Soft, nontender, nondistended. Positive bowel sounds. Obese abdomen. EXTREMITIES: No pitting edema or cyanosis. Strength is 5/5. Chronic venous statis ulcer in left lower extremity wrapped in an David wrap. Negative Babinski. Lumbar region no costovertebral angle (CVA) tenderness. Right hip has some tenderness. Right knee has no effusion, range of motion is intact flexion, extension, abduction, adduction. White count 5.7, hemoglobin 10, hematocrit 35, platelet count 341. Sodium 143, potassium 3.9, chloride 108, bicarbonate 27, BUN 31, creatinine 1.45, glucose 101. ASSESSMENT AND PLAN: This is a 71-year-old female with history of chronic obstructive pulmonary disease (COPD), chronic kidney disease, baseline creatinine 1.3 to 1.6, type 2 diabetes, diastolic and systolic heart failure, hypertension, ventricular tachycardia, coronary artery disease (CAD), percutaneous coronary intervention (PCI), chronic venous stasis ulcer followed by Dr. Chamorro, presented to the emergency room with inability to ambulate due to right hip pain and back pain with radiculopathy in the right lower extremity with no urine incontinence of saddle anesthesia, using a walker at baseline. CURRENT ISSUES: 1. Right hip pain, right knee pain, lumbar pain with radiculopathy, history of advanced degenerative disc disease. CT of the lumbar spine showed severe stenosis. Recommendation for neurosurgical evaluation. Dr. Ge has been consulted as well as pain management. As needed pain medications, IV morphine for now. 2. History of coronary artery disease (CAD). Percutaneous coronary intervention (PCI) times five. On aspirin, Plavix and statin. 3. Hypertension, controlled. 4. Type 2 diabetes, on Levemir insulin. 5. Chronic obstructive pulmonary disease (COPD), stable. 6. Congestive heart failure (CHF), systolic and diastolic, compensated on Lasix. 7. Chronic venous ulcer. Managed by Dr. Chamorro as outpatient. 8. History of ventricular tachycardia. 9. Chronic kidney disease stage III, currently at baseline creatinine.
[2016-10-13] MEDS: LEVEMIR (INSULIN DETEMIR) 1 UNITS/0.01ML SC SCH (21:00)
[2016-10-13] MEDS: ATORVASTATIN 20 MG TAB PO SCH (21:01)
[2016-10-13] MEDS: MORPHINE 2 MG/ML 1ML SYRINGE IV PRN (21:04)
[2016-10-13 22:00] VITALS: BP 116/56
[2016-10-14] MEDS: PERCOCET 5MG/325MG TAB PO PRN ×4 (01:03→21:18)
[2016-10-14] MEDS: HEPARIN SOD (PORCINE) 5000 UNITS/ML VIAL SC SCH ×3 (05:50→21:14)
[2016-10-14 06:00] VITALS: BP 111/52
[2016-10-14 06:46] LABS: MEAN CORPUSCULAR HGB CONC 31.9 g/dl (32.0-36.5); WHITE BLOOD COUNT 6.2 K/mm3 (4.0-10.0)
[2016-10-14 07:06] LABS: CALCIUM LEVEL 7.9 MG/DL (8.8-10.2); CREATININE FOR GFR 1.49 MG/DL (0.55-1.02); GLOMERULAR FILTRATION RATE 36.6 (>39); POTASSIUM SERUM 4.1 MEQ/L (3.5-5.1)
[2016-10-14] MEDS: HumaLOG INSULIN (NovoLOG) PER UNIT SC SCH ×4 (07:28→21:13)
[2016-10-14] MEDS: CARVedilol 12.5 MG TAB PO SCH ×2 (07:29→21:17)
[2016-10-14] MEDS: SPIRONOLACTONE 12.5MG PER 1/2 TABLET PO SCH (07:29)
[2016-10-14] MEDS: VENLAFAXINE **XR** 75MG CAPSULE PO SCH (07:29)
[2016-10-14] MEDS: DOCUSATE SODIUM 100 MG CAP PO SCH ×2 (07:29→21:14)
[2016-10-14] MEDS: ASPIRIN ENTERIC 325 MG TAB PO SCH (07:29)
[2016-10-14] MEDS: CALCITRIOL 0.25 MCG CAP (S0169) PO SCH (07:30)
[2016-10-14] MEDS: OMEPRAZOLE 20 MG CAP PO SCH (07:30)
[2016-10-14] MEDS: PRIMIDONE 50 MG TAB PO SCH ×2 (07:30→21:15)
[2016-10-14] MEDS: buPROPion **XL** TABLET 150MG (WELLBUTRIN XL) PO SCH (07:30)
[2016-10-14] MEDS: FUROSEMIDE 40 MG TAB PO SCH (07:30)
[2016-10-14] MEDS: CLOPIDOGREL 75 MG TAB PO SCH (07:30)
[2016-10-14] MEDS: MULTIVITAMINS/MINERALS THERAP 1 TAB PO SCH (07:30)
[2016-10-14] MEDS: LISINOPRIL 5 MG TAB PO SCH (07:30)
[2016-10-14] MEDS: MORPHINE 2 MG/ML 1ML SYRINGE IV PRN ×2 (11:21→16:23)
--- NOTE | 2016-10-14 11:33 | IPNPDOC ---
Subjective Date Seen The patient was seen on 10/14/16. Subjective Chief Complaint/HPI The patient is a 71-year-old female admitted with a reason for visit of Lumbar Back Pain With Radiculopathy. Events since last encounter Patient was seen this morning at bedside. She reports lower back pain, unchanged. Pain radiates down her right leg. No new lower extremity weakness. No numbness or tingling. No saddle anesthesia. No bowel or bladder dysfunction ( retention or incontinence). No fevers, chills, chest pain/pressure, increased SOB, lightheadedness, dizziness, nausea, vomiting, abd pain. She was seen by neurosurgery and will attempt conservative management for now as she is not a good surgical candidate. Patient is aware of risk and would like to try and manage conservatively. Objective Physical Examination General Exam: Positive: Alert, Cooperative, No Acute Distress Eye Exam: Positive: Conjunctiva & lids normal, EOMI, Negative: Sclera icteric ENT Exam: Positive: Mucous membr. moist/pink, Pharynx Normal Neck Exam: Positive: Supple, Negative: thyromegaly Chest Exam: Positive: Normal air movement Heart Exam: Positive: Rate Normal, Regular Rhythm, Normal S1, Normal S2 Abdomen Exam: Positive: Normal bowel sounds, Soft, Other (obese), Negative: Tenderness Extremity Exam: Positive: Normal pulses, Other (left lower extremity wrapped in dressing), Negative: Edema Skin Exam: Positive: Nl turgor and temperature, Negative: Rash Neuro Exam: Positive: Cranial Nerves 3-12 NL Psych Exam: Positive: Mental status NL, Oriented x 3 Assessment /Plan Problems (1) Lumbar back pain with radiculopathy affecting right lower extremity Status: Acute Problem Specific Plan: Monitor Clinically Problem Text: * Pain management consulted for pain control * Lumbar MRI revealed degenerative disc space narrowing at every level with loss of disc hydration, central canal stenosis at multiple levels, particularly L3-4. * Work with physical therapy (2) Spinal stenosis of lumbar region Status: Chronic Problem Specific Plan: Monitor Clinically Problem Text: * Patient was evaluated by neurosurgery * Will attempt conservative management, surgery would be last resort as she is a surgical risk (3) Diabetes Status: Chronic Problem Specific Plan: Monitor Clinically Problem Text: * Continue Levemir * Insulin sliding scale with hypoglycemic protocol * Monitor blood sugars (4) Congestive heart failure Permanent Comment: Chronic systolic dysfunction with LVEF 20-25%, confirmed on repeat echocardiogram 05/2015: Echo 05/20/15 -- [place]: Severely Dilated LV with global hypokinesis, EF 20-25%, Mod Pulm HTN (mid to high 40s), Mild Mitral Stenosis c Mod Insufficiency; grade 2 diastolic dysfunction, severe left ventricular systolic dysfunction; Overall consistent with ischemic cardiomyopathy. Last Edited By: Jenny Lundy DO on Jun 03, 2015 15:44 Status: Chronic Problem Specific Plan: Monitor Clinically Problem Text: * Appears stable at this time * Continue Lasix and spironolactone (5) HTN (hypertension) Status: Chronic Problem Specific Plan: Monitor Clinically Problem Text: * BP stable * Continue Coreg, Lisinopril, Lasix and spironolactone (6) CAD (coronary artery disease) Status: Chronic Problem Specific Plan: Monitor Clinically Problem Text: * Status post PCI x 5 * Continue ASA, Plavix, beta shiva and statin therapy (7) COPD (chronic obstructive pulmonary disease) Status: Chronic Problem Specific Plan: Monitor Clinically Problem Text: * Breathing is stable (8) Hyperlipidemia Status: Chronic Problem Text: * Continue Lipitor (9) Depression Status: Chronic Problem Specific Plan: Monitor Clinically Problem Text: * Continue Effexor and Wellbutrin (10) Chronic ulcer of left lower extremity Status: Chronic Problem Specific Plan: Monitor Clinically Problem Text: * Managed by Dr. Chamorro as outpatient * precision agriculture specialist consulted Plan/VTE VTE Prophylaxis Ordered?: Yes (heparin) Plan Diet: Continue Current Activity: Encourage Ambulation Therapy: PT VS, I&O, 24H, Fishbone Vital Signs/I&O Vital Signs Date Time Temp Pulse Resp B/P (MAP) Pulse Ox O2 Delivery O2 Flow Rate FiO2 10/14/16 08:01 18 10/14/16 07:30 111/52 10/14/16 07:29 67 10/14/16 06:00 97.9 91 Room Air I&O- Last 24 Hours up to 6 AM 10/14/16 06:00 Intake Total 1080 ml Output Total 1350 ml Balance -270 ml Laboratory Data CBC/BMP Laboratory Tests 10/14/16 06:20 Red Blood Count 3.55 L, Mean Corpuscular Volume 94.0, Mean Corpuscular Hemoglobin 30.0, Mean Corpuscular Hemoglobin Concent 31.9 L, Red Cell Distribution Width 14.0, Calcium Level 7.9 L GME ATTESTATION GME ATTESTATION My preceptor for this patient encounter was physically present in the building during the encounter and was fully available. As needed, all aspects of the patient interview, examination, medical decision making process, and medical care plan development were reviewed and approved by the preceptor. Preceptor is aware and concurs with the plan as stated in the body of this note and will attest to such by his/her cosignature. BISHOP TREVIÑO DO October 14, 2016 11:33
--- NOTE | 2016-10-14 13:53 | CR ---
DATE OF CONSULTATION: 10/14/2016 CHIEF COMPLAINT: 1. Low back pain. 2. Right leg pain. REFERRING PHYSICIAN: Dr. Klever Lazo HISTORY OF PRESENT ILLNESS: Jacquelyn is a 71-year-old female with multiple medical comorbidities who resides at [facility] and was admitted 2 days ago for acute low back pain, right leg pain. Denies precipitating event. Two weeks prior to this admission, she had no complaints of back pain. Reports onset of intermittent low back pain in her 30s after she fractured her tail bone carrying her son and slipped and fell. States that she has attended animal care assistant and physical therapy but nothing of recent. She has not needed any medications or treatment for chronic pain at home prior to this admission. Rating pain level as a 6/10. Currently receiving Percocet 5/325 or morphine 2 mg IV p.r.n. for severe pain, which has been helpful. Describes pain as being in her right buttock and traveling down her right leg with severe right ankle pain. Imaging study reveals central canal stenosis at multiple levels. This was a limited exam, probably due to the patient's habitus. Denies bowel or bladder incontinence or urinary retention. No recent fever or illness. She is morbidly obese and denies any recent significant weight gain. PAST MEDICAL HISTORY: Diabetes. Chronic kidney disease (CKD) stage 3 with baseline creatinine of 1.3. Chronic obstructive pulmonary disease (COPD). Systolic and diastolic heart failure. Hypertension. V-tach. Coronary artery disease status post PCI. Chronic venous stasis ulcer. SOCIAL HISTORY: Resides at [facility] for the past 2 years. Denies tobacco, alcohol, illicit drug use. ALLERGIES: Multiple. See hospital listing. REVIEW OF SYSTEMS: HEENT: Denies sore throat/headache. CARDIOVASCULAR: Denies chest pains/shortness of breath. RESPIRATORY: No shortness of breath/cough. GASTROINTESTINAL: Denies nausea/vomiting. GENITOURINARY (): Denies dysuria/urinary urgency or urinary incontinence. MUSCULOSKELETAL: Denies myalgias/arthralgias. NEUROLOGICAL: Denies chronic headache or seizures. Remaining ROS - Negative except for reports in HPI. PHYSICAL EXAMINATION: Laying in bed in no acute distress. VITALS: 97.9, 67, 20, blood pressure 111/52, oxygen saturation 92% on room air. CARDIAC: Pansystolic grade 3/6 systolic murmur. Normal rate and rhythm. RESPIRATORY: Lung sounds clear. Respirations diminished in the bases. Morbidly obese habitus noted. Specific point tenderness noted over right sacroiliac joint. Tenderness noted over the right lumbar paraspinals. Skin is intact. Lower extremities are warm to the touch. Reporting normal sensation to light touch lower extremities. Able to roll side to side without much difficulty. ASSESSMENT: 1. Lumbar spinal stenosis. 2. Right sacroiliac joint pain. 3. Myofascial pain syndrome. 4. Lumbosacral radiculopathy. PLAN: The patient is on chronic Plavix therapy that would have to be held for 7 days prior to doing injection, although I will discuss this with Dr. Live to see if we can offer trigger point injections or right sacroiliac joint injection. Would recommend addition of gabapentin 100 mg t.i.d. Continue use of Percocet 1 tablet for moderate pain, 2 tablets for severe pain and consider discontinuing IV morphine. Continue efforts at physical therapy and rehabilitation. Thank you for allowing us to participate in the care of your patient Jacquelyn Lo. If you have any questions or concerns, please do not hesitate to contact me.
[2016-10-14 14:00] VITALS: BP 128/59
[2016-10-14] MEDS: FUROSEMIDE 20 MG TAB PO SCH (17:30)
[2016-10-14] MEDS: LEVEMIR (INSULIN DETEMIR) 1 UNITS/0.01ML SC SCH (21:14)
[2016-10-14] MEDS: ATORVASTATIN 20 MG TAB PO SCH (21:15)
[2016-10-14 22:00] VITALS: BP 139/63
[2016-10-15] MEDS: PERCOCET 5MG/325MG TAB PO PRN ×4 (02:43→22:49)
[2016-10-15 06:00] VITALS: BP 137/74
[2016-10-15] MEDS: HEPARIN SOD (PORCINE) 5000 UNITS/ML VIAL SC SCH ×3 (06:09→21:04)
[2016-10-15 07:03] LABS: MEAN CORPUSCULAR VOLUME 93.6 fl (80.0-96.0); RED CELL DISTRIBUTION WIDTH 14.2 % (11.5-14.5); WHITE BLOOD COUNT 6.3 K/mm3 (4.0-10.0)
[2016-10-15 07:28] LABS: CALCIUM LEVEL 8.2 MG/DL (8.8-10.2); CREATININE FOR GFR 1.24 MG/DL (0.55-1.02); GLOMERULAR FILTRATION RATE 45.3 (>39); POTASSIUM SERUM 4.6 MEQ/L (3.5-5.1)
[2016-10-15] MEDS: HumaLOG INSULIN (NovoLOG) PER UNIT SC SCH ×4 (08:42→21:00)
[2016-10-15] MEDS: MOM 30ML SUSPENSION UDC PO PRN (08:42)
[2016-10-15] MEDS: buPROPion **XL** TABLET 150MG (WELLBUTRIN XL) PO SCH (08:42)
[2016-10-15] MEDS: SPIRONOLACTONE 12.5MG PER 1/2 TABLET PO SCH (08:43)
[2016-10-15] MEDS: DOCUSATE SODIUM 100 MG CAP PO SCH ×2 (08:43→21:02)
[2016-10-15] MEDS: ASPIRIN ENTERIC 325 MG TAB PO SCH (08:43)
[2016-10-15] MEDS: MULTIVITAMINS/MINERALS THERAP 1 TAB PO SCH (08:43)
[2016-10-15] MEDS: LISINOPRIL 5 MG TAB PO SCH (08:43)
[2016-10-15] MEDS: VENLAFAXINE **XR** 75MG CAPSULE PO SCH (08:43)
[2016-10-15] MEDS: CALCITRIOL 0.25 MCG CAP (S0169) PO SCH (08:43)
[2016-10-15] MEDS: PRIMIDONE 50 MG TAB PO SCH ×2 (08:44→21:02)
[2016-10-15] MEDS: CLOPIDOGREL 75 MG TAB PO SCH (08:44)
[2016-10-15] MEDS: CARVedilol 12.5 MG TAB PO SCH ×2 (08:44→21:02)
[2016-10-15] MEDS: FUROSEMIDE 40 MG TAB PO SCH (08:44)
[2016-10-15] MEDS: OMEPRAZOLE 20 MG CAP PO SCH (08:44)
[2016-10-15] MEDS: GABAPENTIN 100 MG CAP PO SCH ×3 (08:44→21:02)
--- NOTE | 2016-10-15 11:07 | IPNPDOC ---
Subjective Date Seen The patient was seen on 10/15/16. Subjective Chief Complaint/HPI The patient is a 71-year-old female admitted with a reason for visit of Lumbar Back Pain With Radiculopathy. Events since last encounter Patient was seen this morning at bedside. She reports back pain, not significantly changed from yesterday. No increased weakness. No bowel or bladder dysfunction. No fevers or chills. No chest pain/pressure of increased SOB. She was seen by pain management yesterday and will implement recommendations today Objective Physical Examination General Exam: Positive: Alert, Cooperative, No Acute Distress Eye Exam: Positive: Conjunctiva & lids normal, EOMI, Negative: Sclera icteric ENT Exam: Positive: Mucous membr. moist/pink, Pharynx Normal Neck Exam: Positive: Supple, Negative: thyromegaly Chest Exam: Positive: Normal air movement Heart Exam: Positive: Rate Normal, Regular Rhythm, Normal S1, Normal S2 Abdomen Exam: Positive: Normal bowel sounds, Soft, Other (obese), Negative: Tenderness Extremity Exam: Positive: Edema (trace), Normal pulses, Other (left lower extremity wrapped in dressing) Skin Exam: Positive: Nl turgor and temperature, Other skin issue (has a chronic ulcer on left lower extremity), Negative: Rash Neuro Exam: Positive: Normal Speech, Cranial Nerves 3-12 NL Assessment /Plan Problems (1) Lumbar back pain with radiculopathy affecting right lower extremity Status: Acute Problem Specific Plan: Monitor Clinically Problem Text: * Pain medications adjusted based on pain management recommendations. Will see if trigger point injections are needed * Lumbar MRI revealed degenerative disc space narrowing at every level with loss of disc hydration, central canal stenosis at multiple levels, particularly L3-4. * Continue working with physical therapy (2) Spinal stenosis of lumbar region Status: Chronic Problem Specific Plan: Monitor Clinically Problem Text: * Patient was evaluated by neurosurgery * Will attempt conservative management, surgery would be last resort as she is a surgical risk (3) Diabetes Status: Chronic Problem Specific Plan: Monitor Clinically Problem Text: * Continue Levemir * Insulin sliding scale with hypoglycemic protocol * Monitor blood sugars (4) Congestive heart failure Permanent Comment: Chronic systolic dysfunction with LVEF 20-25%, confirmed on repeat echocardiogram 05/2015: Echo 05/20/15 -- Slezka: Severely Dilated LV with global hypokinesis, EF 20-25%, Mod Pulm HTN (mid to high 40s), Mild Mitral Stenosis c Mod Insufficiency; grade 2 diastolic dysfunction, severe left ventricular systolic dysfunction; Overall consistent with ischemic cardiomyopathy. Last Edited By: Jenny Lundy DO on Jun 03, 2015 15:44 Status: Chronic Problem Specific Plan: Monitor Clinically Problem Text: * Appears stable at this time * Continue Lasix and spironolactone (5) HTN (hypertension) Status: Chronic Problem Specific Plan: Monitor Clinically Problem Text: * BP stable * Continue Coreg, Lisinopril, Lasix and spironolactone (6) CAD (coronary artery disease) Status: Chronic Problem Specific Plan: Monitor Clinically Problem Text: * Status post PCI x 5 * Continue ASA, Plavix, beta shiva and statin therapy (7) COPD (chronic obstructive pulmonary disease) Status: Chronic Problem Specific Plan: Monitor Clinically Problem Text: * Breathing is stable (8) Hyperlipidemia Status: Chronic Problem Text: * Continue Lipitor (9) Depression Status: Chronic Problem Specific Plan: Monitor Clinically Problem Text: * Continue Effexor and Wellbutrin (10) Chronic ulcer of left lower extremity Status: Chronic Problem Specific Plan: Monitor Clinically Problem Text: * Managed by Dr. Chamorro as outpatient * global mobility specialist consulted Plan/VTE VTE Prophylaxis Ordered?: Yes (heparin) Plan Diet: Continue Current Activity: Encourage Ambulation Therapy: PT VS, I&O, 24H, Fishbone Vital Signs/I&O Vital Signs Date Time Temp Pulse Resp B/P (MAP) Pulse Ox O2 Delivery O2 Flow Rate FiO2 10/15/16 09:21 14 Room Air 10/15/16 08:44 62 137/74 10/15/16 06:00 96.6 98 I&O- Last 24 Hours up to 6 AM 10/15/16 06:00 Intake Total 1620 ml Output Total 0 ml Balance 1620 ml Laboratory Data CBC/BMP Laboratory Tests 10/15/16 06:32 Red Blood Count 3.59 L, Mean Corpuscular Volume 93.6, Mean Corpuscular Hemoglobin 29.0, Mean Corpuscular Hemoglobin Concent 31.0 L, Red Cell Distribution Width 14.2, Calcium Level 8.2 L GME ATTESTATION GME ATTESTATION My preceptor for this patient encounter was physically present in the building during the encounter and was fully available. As needed, all aspects of the patient interview, examination, medical decision making process, and medical care plan development were reviewed and approved by the preceptor. Preceptor is aware and concurs with the plan as stated in the body of this note and will attest to such by his/her cosignature. BISHOP TREVIÑO DO October 15, 2016 11:07
[2016-10-15 14:00] VITALS: BP 114/57
[2016-10-15] MEDS: FUROSEMIDE 20 MG TAB PO SCH (16:07)
[2016-10-15] MEDS: ATORVASTATIN 20 MG TAB PO SCH (21:04)
[2016-10-15] MEDS: LEVEMIR (INSULIN DETEMIR) 1 UNITS/0.01ML SC SCH (21:05)
[2016-10-15 22:00] VITALS: BP 127/60
[2016-10-16] MEDS: PERCOCET 5MG/325MG TAB PO PRN ×4 (05:25→23:39)
[2016-10-16] MEDS: HEPARIN SOD (PORCINE) 5000 UNITS/ML VIAL SC SCH ×3 (05:59→20:58)
[2016-10-16 06:00] VITALS: BP 143/83
[2016-10-16 06:51] LABS: MEAN CORPUSCULAR HEMOGLOBIN 29.3 pg (27.0-33.0); MEAN CORPUSCULAR HGB CONC 31.3 g/dl (32.0-36.5); MEAN CORPUSCULAR VOLUME 93.6 fl (80.0-96.0); RED CELL DISTRIBUTION WIDTH 14.4 % (11.5-14.5); WHITE BLOOD COUNT 6.1 K/mm3 (4.0-10.0)
[2016-10-16 07:22] LABS: CALCIUM LEVEL 8.4 MG/DL (8.8-10.2); CREATININE FOR GFR 1.31 MG/DL (0.55-1.02); GLOMERULAR FILTRATION RATE 42.5 (>39); POTASSIUM SERUM 4.5 MEQ/L (3.5-5.1)
--- NOTE | 2016-10-16 08:36 | IPNPDOC ---
Subjective Date Seen The patient was seen on 10/16/16. Subjective Chief Complaint/HPI The patient is a 71-year-old female admitted with a reason for visit of Lumbar Back Pain With Radiculopathy. Events since last encounter Patient was seen this morning at bedside. She reports back pain, not significantly changed from yesterday. No increased weakness. No bowel or bladder dysfunction. No fevers or chills. No chest pain/pressure of increased SOB. She reports feeling "woozy" when she sat up in bed, but it resolved after laying back down. Not currently complaining of any lightheadedness or dizziness. Objective Physical Examination General Exam: Positive: Alert, Cooperative, No Acute Distress Eye Exam: Positive: Conjunctiva & lids normal, EOMI, Negative: Sclera icteric ENT Exam: Positive: Mucous membr. moist/pink, Pharynx Normal Neck Exam: Positive: Supple, Negative: thyromegaly Chest Exam: Positive: Normal air movement Heart Exam: Positive: Rate Normal, Regular Rhythm, Normal S1, Normal S2, Murmurs Abdomen Exam: Positive: Normal bowel sounds, Soft, Other (obese), Negative: Tenderness Extremity Exam: Positive: Edema (trace), Normal pulses, Other (left lower extremity wrapped in dressing) Skin Exam: Positive: Nl turgor and temperature, Other skin issue (has a chronic ulceration on left lower anterior extremity), Negative: Rash Neuro Exam: Positive: Normal Speech, Cranial Nerves 3-12 NL Psych Exam: Positive: Mental status NL, Mood NL Assessment /Plan Problems (1) Lumbar back pain with radiculopathy affecting right lower extremity Status: Acute Problem Specific Plan: Monitor Clinically Problem Text: * Currently on Percocet and gabapentin. Will have trigger point injections tomorrow morning. * Lumbar MRI revealed degenerative disc space narrowing at every level with loss of disc hydration, central canal stenosis at multiple levels, particularly L3-4. Not a good surgical candidate * Continue working with physical therapy (2) Spinal stenosis of lumbar region Status: Chronic Problem Specific Plan: Monitor Clinically Problem Text: * Patient was evaluated by neurosurgery * Will attempt conservative management, surgery would be last resort as she is a surgical risk (3) Diabetes Status: Chronic Problem Specific Plan: Monitor Clinically Problem Text: * Continue Levemir * Insulin sliding scale with hypoglycemic protocol * Monitor blood sugars (4) Congestive heart failure Permanent Comment: Chronic systolic dysfunction with LVEF 20-25%, confirmed on repeat echocardiogram 05/2015: Echo 05/20/15 -- Andrea: Severely Dilated LV with global hypokinesis, EF 20-25%, Mod Pulm HTN (mid to high 40s), Mild Mitral Stenosis c Mod Insufficiency; grade 2 diastolic dysfunction, severe left ventricular systolic dysfunction; Overall consistent with ischemic cardiomyopathy. Last Edited By: Jenny Lundy DO on Jun 03, 2015 15:44 Status: Chronic Problem Specific Plan: Monitor Clinically Problem Text: * Appears stable at this time * Continue Lasix and spironolactone (5) HTN (hypertension) Status: Chronic Problem Specific Plan: Monitor Clinically Problem Text: * BP stable * Continue Coreg, Lisinopril, Lasix and spironolactone (6) CAD (coronary artery disease) Status: Chronic Problem Specific Plan: Monitor Clinically Problem Text: * Status post PCI x 5 * Continue ASA, beta shiva and statin therapy * Plavix on hold due to upcoming trigger point injections (7) COPD (chronic obstructive pulmonary disease) Status: Chronic Problem Specific Plan: Monitor Clinically Problem Text: * Breathing is stable (8) Hyperlipidemia Status: Chronic Problem Text: * Continue Lipitor (9) Depression Status: Chronic Problem Specific Plan: Monitor Clinically Problem Text: * Continue Effexor and Wellbutrin (10) Chronic ulcer of left lower extremity Status: Chronic Problem Specific Plan: Monitor Clinically Problem Text: * Managed by Dr. Chamorro as outpatient * word processing specialist consulted and dressing being changed 3x/week while inpatient Plan/VTE VTE Prophylaxis Ordered?: Yes (heparin) Plan Diet: Continue Current Activity: Encourage Ambulation Therapy: PT VS, I&O, 24H, Fishbone Vital Signs/I&O Vital Signs Date Time Temp Pulse Resp B/P (MAP) Pulse Ox O2 Delivery O2 Flow Rate FiO2 10/16/16 06:00 98.7 80 18 143/83 (103) 92 Room Air I&O- Last 24 Hours up to 6 AM 10/16/16 05:59 Intake Total 1460 ml Output Total 650 ml Balance 810 ml Laboratory Data CBC/BMP Laboratory Tests 10/16/16 06:16 Red Blood Count 3.79 L, Mean Corpuscular Volume 93.6, Mean Corpuscular Hemoglobin 29.3, Mean Corpuscular Hemoglobin Concent 31.3 L, Red Cell Distribution Width 14.4, Calcium Level 8.4 L GME ATTESTATION GME ATTESTATION My preceptor for this patient encounter was physically present in the building during the encounter and was fully available. As needed, all aspects of the patient interview, examination, medical decision making process, and medical care plan development were reviewed and approved by the preceptor. Preceptor is aware and concurs with the plan as stated in the body of this note and will attest to such by his/her cosignature. BISHOP TREVIÑO DO October 16, 2016 08:36
[2016-10-16] MEDS: MULTIVITAMINS/MINERALS THERAP 1 TAB PO SCH (08:40)
[2016-10-16] MEDS: CARVedilol 12.5 MG TAB PO SCH ×2 (08:40→20:58)
[2016-10-16] MEDS: PRIMIDONE 50 MG TAB PO SCH ×2 (08:40→20:57)
[2016-10-16] MEDS: ASPIRIN ENTERIC 325 MG TAB PO SCH (08:40)
[2016-10-16] MEDS: DOCUSATE SODIUM 100 MG CAP PO SCH ×2 (08:40→20:57)
[2016-10-16] MEDS: VENLAFAXINE **XR** 75MG CAPSULE PO SCH (08:40)
[2016-10-16] MEDS: buPROPion **XL** TABLET 150MG (WELLBUTRIN XL) PO SCH (08:40)
[2016-10-16] MEDS: SPIRONOLACTONE 12.5MG PER 1/2 TABLET PO SCH (08:41)
[2016-10-16] MEDS: CALCITRIOL 0.25 MCG CAP (S0169) PO SCH (08:41)
[2016-10-16] MEDS: HumaLOG INSULIN (NovoLOG) PER UNIT SC SCH ×4 (08:41→20:59)
[2016-10-16] MEDS: FUROSEMIDE 40 MG TAB PO SCH (08:42)
[2016-10-16] MEDS: LISINOPRIL 5 MG TAB PO SCH (08:42)
[2016-10-16] MEDS: GABAPENTIN 100 MG CAP PO SCH ×3 (08:42→20:57)
[2016-10-16] MEDS: OMEPRAZOLE 20 MG CAP PO SCH (08:43)
--- NOTE | 2016-10-16 13:18 | CR.PDOC ---
General Reason for Consultation/CC The patient is a 71-year-old female admitted with a reason for visit of Lumbar Back Pain With Radiculopathy. History of Present Illness HISTORY OF PRESENT ILLNESS: Ms Lo is a 71 yo female who was admitted for lumbar back pain with radiculopathy. Dr Herrera has been asked for a consult. ALLERGIES: Please see below. HOME MEDICATIONS: Please see below. PHYSICAL EXAMINATION: VITAL SIGNS: Please see below. GENERAL APPEARANCE: morbid obesity. NEURO: alert and orientated x3. LABORATORY DATA: Please see below. IMPRESSION: 1. Low back pain with right leg radiculopathy PLAN/RECOMMENDATIONS: -Patient failed to proceed with MRI study d/t pain. Recommend to arrange anesthesia consult for MRI with general anesthesia. Thank you for the consultation. Dr Javier Becerra, [facility] Vital Signs/I&O Vital Signs Date Time Temp Pulse Resp B/P (MAP) Pulse Ox O2 Delivery O2 Flow Rate FiO2 10/15/16 14:00 97.8 70 18 114/57 (76) 95 Room Air I&O- Last 24 Hours up to 6 AM 10/15/16 06:00 Intake Total 1620 ml Output Total 0 ml Balance 1620 ml Laboratory Data 24H Labs Laboratory Tests 2 10/14/16 17:08: Bedside Glucose (Misc Panel) 232H 10/14/16 21:06: Bedside Glucose (Misc Panel) 278H 10/15/16 06:32: Anion Gap 8, Glomerular Filtration Rate 45.3, Blood Urea Nitrogen 31H, Creatinine 1.24H, Sodium Level 141, Potassium Level 4.6, Chloride Level 108H, Carbon Dioxide Level 25, Calcium Level 8.2L 10/15/16 11:40: Bedside Glucose (Misc Panel) 162H 10/15/16 16:34: Bedside Glucose (Misc Panel) 299H CBC/BMP Laboratory Tests 10/15/16 06:32 Red Blood Count 3.59 L, Mean Corpuscular Volume 93.6, Mean Corpuscular Hemoglobin 29.0, Mean Corpuscular Hemoglobin Concent 31.0 L, Red Cell Distribution Width 14.2, Calcium Level 8.2 L Allergies Coded Allergies: Penicillins (Verified Allergy, Severe, ANAPHYLAXIS, 09/10/12) BLACKED OUT AFTER SHOT Penicillins Cross Reactors (Verified Allergy, Severe, ANAPHYLAXIS, 09/10/12) BLACKED OUT AFTER SHOT Captopril (Verified Allergy, Unknown, 09/10/12) Quinolones (Verified Allergy, Unknown, FLOXIN, 09/10/12) Streptokinase (Verified Adverse Reaction, Intermediate, BODY ACHE, MUSCLE SPASM, 10/12/16) BODY ACHE, MUSCLE SPASM Diphenhydramine (Verified Adverse Reaction, Mild, NAUSEA, 09/10/12) NAUSEA Methyldopa (Verified Adverse Reaction, Mild, MENTAL CHANGES, 10/12/16) MENTAL CHANGES, ATTEMPTED SUICIDE Sulfa Drugs (Verified Adverse Reaction, Mild, NAUSEA, 09/10/12) VOMITING Sulfa Drugs Cross Reactors (Verified Adverse Reaction, Mild, NAUSEA, ) VOMITING Aspartame (Verified Adverse Reaction, Unknown, 06/03/15) Hydrochlorothiazide (Verified Adverse Reaction, Unknown, DYAZIDE- NAUSEA, 09/10/12) Replaces MAXZIDE-25 Triamterene (Verified Adverse Reaction, Unknown, DYAZIDE- NAUSEA, 09/10/12) Replaces MAXZIDE-25 Home Medications Scheduled (Kiel Moise) 300 Unit/Ml Inj, 32 UNIT SC QPM, (Reported) 1900 Aspirin (Aspirin EC) 325 Mg Tabec, 325 MG PO DAILY, (Reported) Atorvastatin Calcium (Lipitor) 80 Mg Tab, 80 MG PO QHS, (Reported) Bupropion HCl (Wellbutrin Xl) 300 Mg Tab, 300 MG PO DAILY, (Reported) Calcitriol (Calcitriol) 0.25 Mcg Cap, 0.25 MCG PO 5XW, (Reported) FRIDAY-FRIDAY Carvedilol (Carvedilol) 12.5 Mg Tab, 12.5 MG PO BID, (Reported) Clopidogrel Bisulfate (Clopidogrel) 75 Mg Tab, 75 MG PO DAILY, (Reported) Cranberry Extract (Cranberry) 300 Mg Tab, 300 MG PO BID, (Reported) Furosemide (Furosemide) 40 Mg Tab, 40 MG PO DAILY, (Reported) 0800 Furosemide (Furosemide) 20 Mg Tab, 20 MG PO QPM, (Reported) 1400 Insulin Aspart (Novolog Flexpen) 100 Unit/Ml Inj, 1 DOSE SC BID, (Reported) @ 0800 & 1200 70-90 = 7 units 91-150 = 9 units 151-250 = 10 units 251-350 = 11 units 351-450 = 12 units > 450 = 13 units Insulin Aspart (Novolog Flexpen) 100 Unit/Ml Inj, 1 DOSE SC DAILY, (Reported) @1600 70-90 = 8 units 91-150 = 10 units 151-250 = 11 units 251-350 = 12 units 351-450 = 13 units > 450 = 14 units Lisinopril (Lisinopril) 5 Mg Tab, 5 MG PO DAILY, (Reported) Multivitamins *[facility] STOCKED* (Thera M Plus *[facility] STOCKED*) 1 Tab Tab, 1 TAB PO DAILY, (Reported) Omeprazole (Omeprazole) 20 Mg Cap, 20 MG PO DAILY, (Reported) Primidone (Mysoline) 50 Mg Tab, 50 MG PO BID, (Reported) Spironolactone (Spironolactone) 25 Mg Tab, 12.5 MG PO DAILY, (Reported) Venlafaxine Hydrochloride (Venlafaxine HCl ER) 150 Mg Cap, 150 MG PO DAILY, ( Reported) Scheduled PRN (Refresh Optive 0.5-0.9 %) 1 Steven Steven, 1 DROP OU QID PRN for DRY EYES, (Reported ) (Preparation H 0.25-3-14-71.9 %) 1 Oin Oin, 1 OIN [place] PRN PRN for HEMORRHOIDS, ( Reported) Acetaminophen (Acetaminophen ER) 650 Mg Tab, 650 MG PO Q8H PRN for PAIN / FEVER, (Reported) Albuterol Sulfate (Albuterol Sulfate) 2.5 Mg/3 Ml Nebu, 2.5 MG INH Q4H PRN for SHORTNESS OF BREATH, (Reported) Milk Of Magnesia (Milk of Magnesia) 1,200 Mg/15 Ml Yesica, 30 ML PO DAILY PRN for CONSTIPATION, (Reported) JOSÉ MIGUEL BECERRA PA-C October 15, 2016 16:56
[2016-10-16 14:00] VITALS: BP 165/73
--- NOTE | 2016-10-16 14:42 | CR.PDOC ---
General Reason for Consultation/CC The patient is a 71-year-old female admitted with a reason for visit of Lumbar Back Pain With Radiculopathy. History of Present Illness Pt seen. Her pain control is improved. She is scheduled for epidural injections tomorrow by pain service. In case this does not provide pain relief, MRI lumbar spine with anesthesia sedation will need to be arranged. Meanwhile, NSx signed off. We will be happy to reassess this pt if needed. Otherwise, no need to follow up with NSx. Thank you for the consultation. Dr Javier Becerra RPA-C Vital Signs/I&O Vital Signs Date Time Temp Pulse Resp B/P (MAP) Pulse Ox O2 Delivery O2 Flow Rate FiO2 10/16/16 14:24 20 10/16/16 08:40 80 143/83 10/16/16 06:00 98.7 92 Room Air I&O- Last 24 Hours up to 6 AM 10/16/16 06:00 Intake Total 1480 ml Output Total 650 ml Balance 830 ml Laboratory Data 24H Labs Laboratory Tests 2 10/15/16 16:34: Bedside Glucose (Misc Panel) 299H 10/15/16 20:05: Bedside Glucose (Misc Panel) 163H 10/16/16 05:37: Bedside Glucose (Misc Panel) 146H 10/16/16 06:16: Anion Gap 7L, Glomerular Filtration Rate 42.5, Blood Urea Nitrogen 28H, Creatinine 1.31H, Sodium Level 138, Potassium Level 4.5, Chloride Level 107, Carbon Dioxide Level 24, Calcium Level 8.4L 10/16/16 11:31: Bedside Glucose (Misc Panel) 234H CBC/BMP Laboratory Tests 10/16/16 06:16 Red Blood Count 3.79 L, Mean Corpuscular Volume 93.6, Mean Corpuscular Hemoglobin 29.3, Mean Corpuscular Hemoglobin Concent 31.3 L, Red Cell Distribution Width 14.4, Calcium Level 8.4 L Allergies Coded Allergies: Penicillins (Verified Allergy, Severe, ANAPHYLAXIS, 09/10/12) BLACKED OUT AFTER SHOT Penicillins Cross Reactors (Verified Allergy, Severe, ANAPHYLAXIS, 09/10/12) BLACKED OUT AFTER SHOT Captopril (Verified Allergy, Unknown, 09/10/12) Quinolones (Verified Allergy, Unknown, FLOXIN, 09/10/12) Streptokinase (Verified Adverse Reaction, Intermediate, BODY ACHE, MUSCLE SPASM, 10/12/16) BODY ACHE, MUSCLE SPASM Diphenhydramine (Verified Adverse Reaction, Mild, NAUSEA, 09/10/12) NAUSEA Methyldopa (Verified Adverse Reaction, Mild, MENTAL CHANGES, 10/12/16) MENTAL CHANGES, ATTEMPTED SUICIDE Sulfa Drugs (Verified Adverse Reaction, Mild, NAUSEA, 09/10/12) VOMITING Sulfa Drugs Cross Reactors (Verified Adverse Reaction, Mild, NAUSEA, ) VOMITING Aspartame (Verified Adverse Reaction, Unknown, 06/03/15) Hydrochlorothiazide (Verified Adverse Reaction, Unknown, DYAZIDE- NAUSEA, 09/10/12) Replaces MAXZIDE-25 Triamterene (Verified Adverse Reaction, Unknown, DYAZIDE- NAUSEA, 09/10/12) Replaces MAXZIDE-25 Home Medications Scheduled (Kiel Moise) 300 Unit/Ml Inj, 32 UNIT SC QPM, (Reported) 1900 Aspirin (Aspirin EC) 325 Mg Tabec, 325 MG PO DAILY, (Reported) Atorvastatin Calcium (Lipitor) 80 Mg Tab, 80 MG PO QHS, (Reported) Bupropion HCl (Wellbutrin Xl) 300 Mg Tab, 300 MG PO DAILY, (Reported) Calcitriol (Calcitriol) 0.25 Mcg Cap, 0.25 MCG PO 5XW, (Reported) FRIDAY-FRIDAY Carvedilol (Carvedilol) 12.5 Mg Tab, 12.5 MG PO BID, (Reported) Clopidogrel Bisulfate (Clopidogrel) 75 Mg Tab, 75 MG PO DAILY, (Reported) Cranberry Extract (Cranberry) 300 Mg Tab, 300 MG PO BID, (Reported) Furosemide (Furosemide) 40 Mg Tab, 40 MG PO DAILY, (Reported) 0800 Furosemide (Furosemide) 20 Mg Tab, 20 MG PO QPM, (Reported) 1400 Insulin Aspart (Novolog Flexpen) 100 Unit/Ml Inj, 1 DOSE SC BID, (Reported) @ 0800 & 1200 70-90 = 7 units 91-150 = 9 units 151-250 = 10 units 251-350 = 11 units 351-450 = 12 units > 450 = 13 units Insulin Aspart (Novolog Flexpen) 100 Unit/Ml Inj, 1 DOSE SC DAILY, (Reported) @1600 70-90 = 8 units 91-150 = 10 units 151-250 = 11 units 251-350 = 12 units 351-450 = 13 units > 450 = 14 units Lisinopril (Lisinopril) 5 Mg Tab, 5 MG PO DAILY, (Reported) Multivitamins *[facility] STOCKED* (Thera M Plus *[facility] STOCKED*) 1 Tab Tab, 1 TAB PO DAILY, (Reported) Omeprazole (Omeprazole) 20 Mg Cap, 20 MG PO DAILY, (Reported) Primidone (Mysoline) 50 Mg Tab, 50 MG PO BID, (Reported) Spironolactone (Spironolactone) 25 Mg Tab, 12.5 MG PO DAILY, (Reported) Venlafaxine Hydrochloride (Venlafaxine HCl ER) 150 Mg Cap, 150 MG PO DAILY, ( Reported) Scheduled PRN (Refresh Optive 0.5-0.9 %) 1 Steven Steven, 1 DROP OU QID PRN for DRY EYES, (Reported ) (Preparation H 0.25-3-14-71.9 %) 1 Oin Oin, 1 OIN [place] PRN PRN for HEMORRHOIDS, ( Reported) Acetaminophen (Acetaminophen ER) 650 Mg Tab, 650 MG PO Q8H PRN for PAIN / FEVER, (Reported) Albuterol Sulfate (Albuterol Sulfate) 2.5 Mg/3 Ml Nebu, 2.5 MG INH Q4H PRN for SHORTNESS OF BREATH, (Reported) Milk Of Magnesia (Milk of Magnesia) 1,200 Mg/15 Ml Yesica, 30 ML PO DAILY PRN for CONSTIPATION, (Reported) JOSÉ MIGUEL BECERRA PA-C October 16, 2016 14:42
[2016-10-16] MEDS: FUROSEMIDE 20 MG TAB PO SCH (18:25)
[2016-10-16] MEDS: ATORVASTATIN 20 MG TAB PO SCH (20:58)
[2016-10-16] MEDS: LEVEMIR (INSULIN DETEMIR) 1 UNITS/0.01ML SC SCH (20:59)
[2016-10-16 22:00] VITALS: BP 142/66
[2016-10-17 06:00] VITALS: BP 160/72
[2016-10-17] MEDS: PERCOCET 5MG/325MG TAB PO PRN ×3 (06:15→21:40)
[2016-10-17 07:03] LABS: MEAN CORPUSCULAR HEMOGLOBIN 29.1 pg (27.0-33.0); MEAN CORPUSCULAR HGB CONC 30.7 g/dl (32.0-36.5); MEAN CORPUSCULAR VOLUME 94.8 fl (80.0-96.0); RED CELL DISTRIBUTION WIDTH 14.5 % (11.5-14.5); WHITE BLOOD COUNT 6.4 K/mm3 (4.0-10.0)
[2016-10-17 07:19] LABS: CALCIUM LEVEL 8.5 MG/DL (8.8-10.2); CREATININE FOR GFR 1.39 MG/DL (0.55-1.02); GLOMERULAR FILTRATION RATE 39.7 (>39); POTASSIUM SERUM 4.4 MEQ/L (3.5-5.1)
[2016-10-17] MEDS: VENLAFAXINE **XR** 75MG CAPSULE PO SCH (08:09)
[2016-10-17] MEDS: CALCITRIOL 0.25 MCG CAP (S0169) PO SCH (08:09)
[2016-10-17] MEDS: OMEPRAZOLE 20 MG CAP PO SCH (08:09)
[2016-10-17] MEDS: CARVedilol 12.5 MG TAB PO SCH ×2 (08:09→21:40)
[2016-10-17] MEDS: buPROPion **XL** TABLET 150MG (WELLBUTRIN XL) PO SCH (08:09)
[2016-10-17] MEDS: PRIMIDONE 50 MG TAB PO SCH ×2 (08:09→21:40)
[2016-10-17] MEDS: GABAPENTIN 100 MG CAP PO SCH ×3 (08:09→21:40)
[2016-10-17] MEDS: LISINOPRIL 5 MG TAB PO SCH (08:10)
[2016-10-17] MEDS: ASPIRIN ENTERIC 325 MG TAB PO SCH (08:11)
[2016-10-17] MEDS: MULTIVITAMINS/MINERALS THERAP 1 TAB PO SCH (08:11)
[2016-10-17] MEDS: DOCUSATE SODIUM 100 MG CAP PO SCH ×2 (08:11→21:40)
--- NOTE | 2016-10-17 08:53 | IPNPDOC ---
Subjective Date Seen The patient was seen on 10/17/16. Subjective Chief Complaint/HPI The patient is a 71-year-old female admitted with a reason for visit of Lumbar Back Pain With Radiculopathy. Events since last encounter Patient was seen this morning at bedside. No acute overnight issues. She is scheduled for trigger point injections this morning. Patient is comfortable as long as she doesn't move around too much. No increased weakness. She is moving her bowels. No bladder dysfunction. No chest pain or increased shortness of breath. No nausea vomiting, dizziness. Afebrile and vitals are stable. Objective Physical Examination General Exam: Positive: Alert, Cooperative, No Acute Distress Eye Exam: Positive: Conjunctiva & lids normal, EOMI, Negative: Sclera icteric ENT Exam: Positive: Atraumatic, Pharynx Normal, Negative: Mucous membr. moist/pink Neck Exam: Positive: Supple, Negative: thyromegaly Chest Exam: Positive: Normal air movement Heart Exam: Positive: Rate Normal, Regular Rhythm, Normal S1, Normal S2, Murmurs Abdomen Exam: Positive: Normal bowel sounds, Soft, Other (obese), Negative: Tenderness Extremity Exam: Positive: Edema (trace), Normal pulses, Other (left lower extremity wrapped in dressing) Skin Exam: Positive: Nl turgor and temperature, Other skin issue (has a chronic ulceration on left lower anterior extremity), Negative: Rash Neuro Exam: Positive: Normal Speech, Cranial Nerves 3-12 NL Psych Exam: Positive: Mental status NL, Mood NL Assessment /Plan Problems (1) Lumbar back pain with radiculopathy affecting right lower extremity Status: Acute Problem Specific Plan: Monitor Clinically Problem Text: * Currently on Percocet and gabapentin. Will have trigger point injections this morning. * Lumbar MRI revealed degenerative disc space narrowing at every level with loss of disc hydration, central canal stenosis at multiple levels, particularly L3-4. Not a good surgical candidate * Continue working with physical therapy * Will need rehab upon discharge, likely to go to [facility], awaiting bed availability (2) Spinal stenosis of lumbar region Status: Chronic Problem Specific Plan: Monitor Clinically Problem Text: * Patient was evaluated by neurosurgery on 10/13 * Will attempt conservative management, surgery would be last resort as she is a surgical risk (3) Diabetes Status: Chronic Problem Specific Plan: Monitor Clinically Problem Text: * Continue Levemir * Insulin sliding scale with hypoglycemic protocol * Monitor blood sugars (4) Congestive heart failure Permanent Comment: Chronic systolic dysfunction with LVEF 20-25%, confirmed on repeat echocardiogram 05/2015: Echo 05/20/15 -- [place]: Severely Dilated LV with global hypokinesis, EF 20-25%, Mod Pulm HTN (mid to high 40s), Mild Mitral Stenosis c Mod Insufficiency; grade 2 diastolic dysfunction, severe left ventricular systolic dysfunction; Overall consistent with ischemic cardiomyopathy. Last Edited By: Jenny Lundy DO on Jun 03, 2015 15:44 Status: Chronic Problem Specific Plan: Monitor Clinically Problem Text: * Appears stable at this time * Continue Lasix and spironolactone (5) HTN (hypertension) Status: Chronic Problem Specific Plan: Monitor Clinically Problem Text: * BP stable * Continue Coreg, Lisinopril, Lasix and spironolactone (6) CAD (coronary artery disease) Status: Chronic Problem Specific Plan: Monitor Clinically Problem Text: * Status post PCI x 5 * Continue ASA, beta shiva and statin therapy * Plavix on hold due to upcoming trigger point injections (7) COPD (chronic obstructive pulmonary disease) Status: Chronic Problem Specific Plan: Monitor Clinically Problem Text: * Breathing is stable (8) Hyperlipidemia Status: Chronic Problem Text: * Continue Lipitor (9) Depression Status: Chronic Problem Specific Plan: Monitor Clinically Problem Text: * Continue Effexor and Wellbutrin (10) Chronic ulcer of left lower extremity Status: Chronic Problem Specific Plan: Monitor Clinically Problem Text: * Managed by Dr. Chamorro as outpatient * multimedia authoring specialist consulted and dressing being changed 3x/week while inpatient Plan/VTE VTE Prophylaxis Ordered?: Yes (heparin) Plan Diet: Continue Current Activity: Encourage Ambulation Therapy: PT VS, I&O, 24H, Fishbone Vital Signs/I&O Vital Signs Date Time Temp Pulse Resp B/P (MAP) Pulse Ox O2 Delivery O2 Flow Rate FiO2 10/17/16 08:10 160/72 10/17/16 08:09 83 10/17/16 08:08 20 10/17/16 06:00 98.6 94 Room Air I&O- Last 24 Hours up to 6 AM 10/17/16 06:00 Intake Total 960 ml Output Total 200 ml Balance 760 ml Laboratory Data CBC/BMP Laboratory Tests 10/17/16 06:29 Red Blood Count 3.48 L, Mean Corpuscular Volume 94.8, Mean Corpuscular Hemoglobin 29.1, Mean Corpuscular Hemoglobin Concent 30.7 L, Red Cell Distribution Width 14.5, Calcium Level 8.5 L GME ATTESTATION GME ATTESTATION My preceptor for this patient encounter was physically present in the building during the encounter and was fully available. As needed, all aspects of the patient interview, examination, medical decision making process, and medical care plan development were reviewed and approved by the preceptor. Preceptor is aware and concurs with the plan as stated in the body of this note and will attest to such by his/her cosignature. BISHOP TREVIÑO DO October 17, 2016 08:52
[2016-10-17] MEDS ORDERED: BUPIVACAINE HCL 0.25% 30 ML VIAL As Ordered ONE (08:57)
[2016-10-17] MEDS ORDERED: TRIAMCINOLONE ACETONIDE SUSP 40 MG/ML VIAL (J3301) As Ordered ONE (08:57)
[2016-10-17] MEDS ORDERED: BUPIVACAINE HCL 0.25% 10 ML VIAL As Ordered ONE (08:57)
[2016-10-17 10:00] VITALS: BP 130/69
[2016-10-17] MEDS: FUROSEMIDE 40 MG TAB PO SCH (10:30)
[2016-10-17] MEDS: SPIRONOLACTONE 12.5MG PER 1/2 TABLET PO SCH (10:30)
[2016-10-17] MEDS: HumaLOG INSULIN (NovoLOG) PER UNIT SC SCH ×3 (12:22→21:38)
[2016-10-17 14:00] VITALS: BP 104/51
[2016-10-17] MEDS: MOM 30ML SUSPENSION UDC PO PRN (17:08)
[2016-10-17] MEDS: FUROSEMIDE 20 MG TAB PO SCH (17:08)
[2016-10-17] MEDS: HEPARIN SOD (PORCINE) 5000 UNITS/ML VIAL SC SCH (21:39)
[2016-10-17] MEDS: ATORVASTATIN 20 MG TAB PO SCH (21:39)
[2016-10-17] MEDS: LEVEMIR (INSULIN DETEMIR) 1 UNITS/0.01ML SC SCH (21:39)
[2016-10-17 22:00] VITALS: BP 169/83
[2016-10-18] MEDS: HEPARIN SOD (PORCINE) 5000 UNITS/ML VIAL SC SCH ×3 (05:59→20:53)
[2016-10-18 06:00] VITALS: BP 163/80
[2016-10-18 06:56] LABS: MEAN CORPUSCULAR HEMOGLOBIN 29.4 pg (27.0-33.0); MEAN CORPUSCULAR HGB CONC 31.6 g/dl (32.0-36.5); MEAN CORPUSCULAR VOLUME 93.1 fl (80.0-96.0); RED CELL DISTRIBUTION WIDTH 14.4 % (11.5-14.5); WHITE BLOOD COUNT 5.9 K/mm3 (4.0-10.0)
[2016-10-18 07:15] LABS: CALCIUM LEVEL 8.5 MG/DL (8.8-10.2); CREATININE FOR GFR 1.39 MG/DL (0.55-1.02); GLOMERULAR FILTRATION RATE 39.7 (>39)
[2016-10-18 07:29] LABS: POTASSIUM SERUM 5.5 MEQ/L (3.5-5.1)
[2016-10-18] MEDS: MULTIVITAMINS/MINERALS THERAP 1 TAB PO SCH (08:39)
[2016-10-18] MEDS: SPIRONOLACTONE 12.5MG PER 1/2 TABLET PO SCH (08:39)
[2016-10-18] MEDS: HumaLOG INSULIN (NovoLOG) PER UNIT SC SCH ×4 (08:39→20:54)
[2016-10-18] MEDS: CALCITRIOL 0.25 MCG CAP (S0169) PO SCH (08:39)
[2016-10-18] MEDS: CARVedilol 12.5 MG TAB PO SCH ×2 (08:40→20:52)
[2016-10-18] MEDS: VENLAFAXINE **XR** 75MG CAPSULE PO SCH (08:40)
[2016-10-18] MEDS: buPROPion **XL** TABLET 150MG (WELLBUTRIN XL) PO SCH (08:40)
[2016-10-18] MEDS: FUROSEMIDE 40 MG TAB PO SCH (08:40)
[2016-10-18] MEDS: ASPIRIN ENTERIC 325 MG TAB PO SCH (08:41)
[2016-10-18] MEDS: PRIMIDONE 50 MG TAB PO SCH ×2 (08:41→20:51)
[2016-10-18] MEDS: LISINOPRIL 5 MG TAB PO SCH (08:41)
[2016-10-18] MEDS: GABAPENTIN 100 MG CAP PO SCH ×3 (08:41→20:51)
[2016-10-18] MEDS: DOCUSATE SODIUM 100 MG CAP PO SCH ×2 (08:41→20:51)
[2016-10-18] MEDS: OMEPRAZOLE 20 MG CAP PO SCH (08:41)
[2016-10-18] MEDS: PERCOCET 5MG/325MG TAB PO PRN ×2 (08:57→20:53)
[2016-10-18] MEDS: CLOPIDOGREL 75 MG TAB PO SCH (09:26)
[2016-10-18] MEDS ORDERED: SOD POLYSTYRENE SULFONATE SUSP 15 GM/60 ML UD PO ONE (10:30)
--- NOTE | 2016-10-18 10:30 | IPNPDOC ---
Subjective Date Seen The patient was seen on 10/18/16. Subjective Chief Complaint/HPI The patient is a 71-year-old female admitted with a reason for visit of Lumbar Back Pain With Radiculopathy. Events since last encounter Patient was seen this morning at bedside. She had trigger point injections yesterday. She still has some back pain, but reports that it is improved after receiving trigger point injections. She denies any increased weakness. No chest pain, shortness of breath, nausea, vomiting, lightheadedness, diarrhea. Urinating well. Taking stool softener for bowel movements. States that she had to take stool softeners at home as well. No fevers or chills. Objective Physical Examination General Exam: Positive: Alert, Cooperative, No Acute Distress Eye Exam: Positive: Conjunctiva & lids normal, EOMI, Negative: Sclera icteric ENT Exam: Positive: Atraumatic, Mucous membr. moist/pink, Pharynx Normal Neck Exam: Positive: Supple, Negative: thyromegaly Chest Exam: Positive: Normal air movement Heart Exam: Positive: Rate Normal, Regular Rhythm, Normal S1, Normal S2, Murmurs Abdomen Exam: Positive: Normal bowel sounds, Soft, Other (obese), Negative: Tenderness Extremity Exam: Positive: Edema (trace), Normal pulses, Other (left lower extremity wrapped in dressing) Skin Exam: Positive: Nl turgor and temperature, Other skin issue (has a chronic ulceration on left lower anterior extremity), Negative: Rash Neuro Exam: Positive: Normal Speech, Cranial Nerves 3-12 NL Assessment /Plan Problems (1) Lumbar back pain with radiculopathy affecting right lower extremity Status: Acute Response to Treatment: Improving Problem Specific Plan: Monitor Clinically Problem Text: * Currently on Percocet and gabapentin. Had trigger point injections on 10/17. * Lumbar MRI revealed degenerative disc space narrowing at every level with loss of disc hydration, central canal stenosis at multiple levels, particularly L3-4. Not a good surgical candidate * Continue working with physical therapy * Will need rehab upon discharge, awaiting bed availability at [facility] (2) Spinal stenosis of lumbar region Status: Chronic Problem Specific Plan: Monitor Clinically Problem Text: * Patient was evaluated by neurosurgery on 10/13 * Will attempt conservative management, surgery would be last resort as she is a surgical risk (3) Hyperkalemia Status: Acute Problem Specific Plan: Monitor Clinically, Repeat Labs Problem Text: * Potassium was 5.5 this morning * Will give 1 dose of Kayexalate * If she has recurrence of hyperkalemia, will consider discontinuing spironolactone. She is also on a beta shiva and an ACEi which can both increase her potassium levels as well. But she does take Lasix as well. (4) Congestive heart failure Permanent Comment: Chronic systolic dysfunction with LVEF 20-25%, confirmed on repeat echocardiogram 05/2015: Echo 05/20/15 -- [place]: Severely Dilated LV with global hypokinesis, EF 20-25%, Mod Pulm HTN (mid to high 40s), Mild Mitral Stenosis c Mod Insufficiency; grade 2 diastolic dysfunction, severe left ventricular systolic dysfunction; Overall consistent with ischemic cardiomyopathy. Last Edited By: Jenny Lundy DO on Jun 03, 2015 15:44 Status: Chronic Problem Specific Plan: Monitor Clinically Problem Text: * Appears stable at this time * Continue Lasix and spironolactone (5) HTN (hypertension) Status: Chronic Problem Specific Plan: Monitor Clinically Problem Text: * BP stable * Continue Coreg, Lisinopril, Lasix and spironolactone (6) Diabetes Status: Chronic Problem Specific Plan: Monitor Clinically Problem Text: * Continue Levemir * Insulin sliding scale with hypoglycemic protocol * Monitor blood sugars (7) CAD (coronary artery disease) Status: Chronic Problem Specific Plan: Monitor Clinically Problem Text: * Status post PCI x 5 * Continue ASA, Plavix, beta shiva and statin therapy (8) COPD (chronic obstructive pulmonary disease) Status: Chronic Problem Specific Plan: Monitor Clinically Problem Text: * Breathing is stable (9) Hyperlipidemia Status: Chronic Problem Text: * Continue Lipitor (10) Depression Status: Chronic Problem Specific Plan: Monitor Clinically Problem Text: * Continue Effexor and Wellbutrin (11) Chronic ulcer of left lower extremity Status: Chronic Problem Specific Plan: Monitor Clinically Problem Text: * Managed by Dr. Chamorro as outpatient * multimedia authoring specialist consulted and dressing being changed 3x/week while inpatient Plan/VTE VTE Prophylaxis Ordered?: Yes (heparin) Plan Diet: Continue Current Activity: Encourage Ambulation Therapy: PT VS, I&O, 24H, Fishbone Vital Signs/I&O Vital Signs Date Time Temp Pulse Resp B/P (MAP) Pulse Ox O2 Delivery O2 Flow Rate FiO2 10/18/16 09:27 20 5/12/17 08:41 163/80 10/18/16 08:40 76 10/18/16 06:00 96.6 95 Room Air I&O- Last 24 Hours up to 6 AM 10/18/16 06:00 Intake Total 1080 ml Output Total 0 ml Balance 1080 ml Laboratory Data CBC/BMP Laboratory Tests 10/18/16 06:26 Red Blood Count 3.37 L, Mean Corpuscular Volume 93.1, Mean Corpuscular Hemoglobin 29.4, Mean Corpuscular Hemoglobin Concent 31.6 L, Red Cell Distribution Width 14.4, Calcium Level 8.5 L GME ATTESTATION GME ATTESTATION My preceptor for this patient encounter was physically present in the building during the encounter and was fully available. As needed, all aspects of the patient interview, examination, medical decision making process, and medical care plan development were reviewed and approved by the preceptor. Preceptor is aware and concurs with the plan as stated in the body of this note and will attest to such by his/her cosignature. BISHOP TREVIÑO DO October 18, 2016 10:30
[2016-10-18 14:00] VITALS: BP 131/60
[2016-10-18] MEDS: FUROSEMIDE 20 MG TAB PO SCH (16:00)
[2016-10-18] MEDS: ATORVASTATIN 20 MG TAB PO SCH (20:52)
[2016-10-18] MEDS: LEVEMIR (INSULIN DETEMIR) 1 UNITS/0.01ML SC SCH (20:53)
[2016-10-18 22:00] VITALS: BP 169/70
[2016-10-19] MEDS: PERCOCET 5MG/325MG TAB PO PRN ×4 (00:57→21:51)
[2016-10-19] MEDS: HEPARIN SOD (PORCINE) 5000 UNITS/ML VIAL SC SCH ×3 (05:46→21:45)
[2016-10-19 06:00] VITALS: BP 136/86
[2016-10-19 06:03] LABS: MEAN CORPUSCULAR HEMOGLOBIN 29.5 pg (27.0-33.0); MEAN CORPUSCULAR HGB CONC 31.3 g/dl (32.0-36.5); MEAN CORPUSCULAR VOLUME 94.4 fl (80.0-96.0); RED CELL DISTRIBUTION WIDTH 14.5 % (11.5-14.5); WHITE BLOOD COUNT 7.4 K/mm3 (4.0-10.0)
[2016-10-19 06:17] LABS: CALCIUM LEVEL 8.6 MG/DL (8.8-10.2); CREATININE FOR GFR 1.5 MG/DL (0.55-1.02); GLOMERULAR FILTRATION RATE 36.3 (>39)
[2016-10-19 06:19] LABS: POTASSIUM SERUM 5.3 MEQ/L (3.5-5.1)
[2016-10-19] MEDS ORDERED: SOD POLYSTYRENE SULFONATE SUSP 15 GM/60 ML UD PO ONE (07:15)
[2016-10-19] MEDS: HumaLOG INSULIN (NovoLOG) PER UNIT SC SCH ×4 (08:08→21:47)
[2016-10-19] MEDS: LISINOPRIL 5 MG TAB PO SCH (08:09)
[2016-10-19] MEDS: ASPIRIN ENTERIC 325 MG TAB PO SCH (08:09)
[2016-10-19] MEDS: VENLAFAXINE **XR** 75MG CAPSULE PO SCH (08:09)
[2016-10-19] MEDS: MULTIVITAMINS/MINERALS THERAP 1 TAB PO SCH (08:09)
[2016-10-19] MEDS: buPROPion **XL** TABLET 150MG (WELLBUTRIN XL) PO SCH (08:10)
[2016-10-19] MEDS: DOCUSATE SODIUM 100 MG CAP PO SCH ×2 (08:10→21:44)
[2016-10-19] MEDS: CLOPIDOGREL 75 MG TAB PO SCH (08:10)
[2016-10-19] MEDS: PRIMIDONE 50 MG TAB PO SCH ×2 (08:10→21:44)
[2016-10-19] MEDS: FUROSEMIDE 40 MG TAB PO SCH (08:10)
[2016-10-19] MEDS: GABAPENTIN 100 MG CAP PO SCH ×3 (08:10→21:44)
[2016-10-19] MEDS: OMEPRAZOLE 20 MG CAP PO SCH (08:11)
[2016-10-19] MEDS: CARVedilol 12.5 MG TAB PO SCH ×2 (08:11→21:45)
--- NOTE | 2016-10-19 10:16 | IPNPDOC ---
Subjective Date Seen The patient was seen on 10/19/16. Subjective Chief Complaint/HPI The patient is a 71-year-old female admitted with a reason for visit of Lumbar Back Pain With Radiculopathy. Events since last encounter Patient was seen this morning at bedside. No acute overnight issues. She reports that her back pain is improved. She stated that her ulceration on her left leg is causing more pain than her back at this point. No increased weakness. She is moving her bowels and urinating well. No retention or incontinence. Appetite is good. No nausea, vomiting, abdominal pain, chest pain/ pressure, increased shortness of breath, lightheadedness, dizziness, headache, fevers or chills. Objective Physical Examination General Exam: Positive: Alert, Cooperative, No Acute Distress Eye Exam: Positive: Conjunctiva & lids normal, EOMI, Negative: Sclera icteric ENT Exam: Positive: Atraumatic, Mucous membr. moist/pink, Pharynx Normal Neck Exam: Positive: Supple, Negative: thyromegaly Chest Exam: Positive: Normal air movement Heart Exam: Positive: Rate Normal, Regular Rhythm, Normal S1, Normal S2, Murmurs Abdomen Exam: Positive: Normal bowel sounds, Soft, Other (obese), Negative: Tenderness Extremity Exam: Positive: Normal pulses, Other (left lower extremity wrapped in dressing), Negative: Edema Skin Exam: Positive: Nl turgor and temperature, Other skin issue (has a chronic ulceration on left lower anterior extremity), Negative: Rash Neuro Exam: Positive: Normal Speech, Cranial Nerves 3-12 NL Assessment /Plan Problems (1) Lumbar back pain with radiculopathy affecting right lower extremity Status: Acute Response to Treatment: Improving Problem Specific Plan: Monitor Clinically Problem Text: * Currently on Percocet and gabapentin. Had trigger point injections on 10/17. * Lumbar MRI revealed degenerative disc space narrowing at every level with loss of disc hydration, central canal stenosis at multiple levels, particularly L3-4. Not a good surgical candidate * Continue working with physical therapy * Will need rehab upon discharge, awaiting bed availability at [facility] (2) Spinal stenosis of lumbar region Status: Chronic Problem Specific Plan: Monitor Clinically Problem Text: * Patient was evaluated by neurosurgery on 10/13 * Will attempt conservative management, surgery would be last resort as she is a surgical risk (3) Hyperkalemia Status: Acute Problem Specific Plan: Monitor Clinically, Repeat Labs Problem Text: * Potassium was 5.3 this morning * Will give Kayexalate and discontinue spironolactone for now * Monitor electrolytes given that she is on Lasix (4) Congestive heart failure Permanent Comment: Chronic systolic dysfunction with LVEF 20-25%, confirmed on repeat echocardiogram 05/2015: Echo 05/20/15 -- [place]: Severely Dilated LV with global hypokinesis, EF 20-25%, Mod Pulm HTN (mid to high 40s), Mild Mitral Stenosis c Mod Insufficiency; grade 2 diastolic dysfunction, severe left ventricular systolic dysfunction; Overall consistent with ischemic cardiomyopathy. Last Edited By: Jenny Lundy DO on Jun 03, 2015 15:44 Status: Chronic Problem Specific Plan: Monitor Clinically Problem Text: * Appears stable at this time * Continue Lasix (5) HTN (hypertension) Status: Chronic Problem Specific Plan: Monitor Clinically Problem Text: * BP stable * Continue Coreg, Lisinopril, Lasix (6) Diabetes Status: Chronic Problem Specific Plan: Monitor Clinically Problem Text: * Continue Levemir * Insulin sliding scale with hypoglycemic protocol * Monitor blood sugars (7) CAD (coronary artery disease) Status: Chronic Problem Specific Plan: Monitor Clinically Problem Text: * Status post PCI x 5 * Continue ASA, Plavix, beta shiva and statin therapy (8) COPD (chronic obstructive pulmonary disease) Status: Chronic Problem Specific Plan: Monitor Clinically Problem Text: * Breathing is stable (9) Hyperlipidemia Status: Chronic Problem Text: * Continue Lipitor (10) Depression Status: Chronic Problem Specific Plan: Monitor Clinically Problem Text: * Continue Effexor and Wellbutrin (11) Chronic ulcer of left lower extremity Status: Chronic Problem Specific Plan: Monitor Clinically Problem Text: * Managed by Dr. Chamorro as outpatient * incident response specialist consulted and dressing being changed every other day while inpatient Plan/VTE VTE Prophylaxis Ordered?: Yes (heparin) Plan Diet: Continue Current Activity: Encourage Ambulation Therapy: PT VS, I&O, 24H, Fishbone Vital Signs/I&O Vital Signs Date Time Temp Pulse Resp B/P (MAP) Pulse Ox O2 Delivery O2 Flow Rate FiO2 10/19/16 08:11 72 136/86 10/19/16 06:17 18 10/19/16 06:00 97.3 92 Room Air I&O- Last 24 Hours up to 6 AM 10/19/16 06:00 Intake Total 1500 ml Output Total 600 ml Balance 900 ml Laboratory Data CBC/BMP Laboratory Tests 10/19/16 05:28 Red Blood Count 3.44 L, Mean Corpuscular Volume 94.4, Mean Corpuscular Hemoglobin 29.5, Mean Corpuscular Hemoglobin Concent 31.3 L, Red Cell Distribution Width 14.5, Calcium Level 8.6 L GME ATTESTATION GME ATTESTATION My preceptor for this patient encounter was physically present in the building during the encounter and was fully available. As needed, all aspects of the patient interview, examination, medical decision making process, and medical care plan development were reviewed and approved by the preceptor. Preceptor is aware and concurs with the plan as stated in the body of this note and will attest to such by his/her cosignature. BISHOP TREVIÑO DO October 19, 2016 10:16
[2016-10-19 14:00] VITALS: BP 133/62
[2016-10-19] MEDS: FUROSEMIDE 20 MG TAB PO SCH (16:57)
[2016-10-19] MEDS: ATORVASTATIN 20 MG TAB PO SCH (21:44)
[2016-10-19] MEDS: LEVEMIR (INSULIN DETEMIR) 1 UNITS/0.01ML SC SCH (21:48)
[2016-10-19 22:00] VITALS: BP 143/63
[2016-10-20] MEDS ORDERED: MORPHINE 2 MG/ML 1ML SYRINGE IV ONE
[2016-10-20] MEDS: PERCOCET 5MG/325MG TAB PO PRN ×4 (01:52→19:34)
[2016-10-20] MEDS ORDERED: ALBUTEROL SULFATE 2.5 MG/0.5 ML INH NEB SOLN NEB PRN (05:00)
[2016-10-20 06:00] VITALS: BP 144/68
[2016-10-20] MEDS: HEPARIN SOD (PORCINE) 5000 UNITS/ML VIAL SC SCH ×3 (06:59→21:05)
[2016-10-20] MEDS: HumaLOG INSULIN (NovoLOG) PER UNIT SC SCH ×4 (08:32→21:34)
[2016-10-20] MEDS: DOCUSATE SODIUM 100 MG CAP PO SCH ×2 (08:32→19:32)
[2016-10-20] MEDS: MULTIVITAMINS/MINERALS THERAP 1 TAB PO SCH (08:32)
[2016-10-20] MEDS: LISINOPRIL 5 MG TAB PO SCH (08:33)
[2016-10-20] MEDS: CLOPIDOGREL 75 MG TAB PO SCH (08:33)
[2016-10-20] MEDS: OMEPRAZOLE 20 MG CAP PO SCH (08:33)
[2016-10-20] MEDS: PRIMIDONE 50 MG TAB PO SCH ×2 (08:33→19:33)
[2016-10-20] MEDS: CARVedilol 12.5 MG TAB PO SCH ×2 (08:33→19:33)
[2016-10-20] MEDS: GABAPENTIN 100 MG CAP PO SCH ×3 (08:34→19:33)
[2016-10-20] MEDS: FUROSEMIDE 40 MG TAB PO SCH (08:34)
[2016-10-20] MEDS: ASPIRIN ENTERIC 325 MG TAB PO SCH (08:34)
[2016-10-20] MEDS: VENLAFAXINE **XR** 75MG CAPSULE PO SCH (08:34)
[2016-10-20] MEDS: buPROPion **XL** TABLET 150MG (WELLBUTRIN XL) PO SCH (08:34)
--- NOTE | 2016-10-20 10:29 | IPNPDOC ---
Subjective Date Seen The patient was seen on 10/20/16. Subjective Chief Complaint/HPI The patient is a 71-year-old female admitted with a reason for visit of Lumbar Back Pain With Radiculopathy. Events since last encounter pt seen and examined, was complaining of leg pain this morning, overnight pt has no events, she was offered pain medications at change of shift but her pain was controlled then. no nausea or vomiting, working with PT Objective Physical Examination General Exam: Positive: Alert, Cooperative, No Acute Distress Eye Exam: Positive: Conjunctiva & lids normal, EOMI, Negative: Sclera icteric ENT Exam: Positive: Atraumatic, Mucous membr. moist/pink, Pharynx Normal Neck Exam: Positive: Supple, Negative: thyromegaly Chest Exam: Positive: Normal air movement Heart Exam: Positive: Rate Normal, Regular Rhythm, Normal S1, Normal S2, Murmurs Abdomen Exam: Positive: Normal bowel sounds, Soft, Other (obese), Negative: Tenderness Extremity Exam: Positive: Normal pulses, Other (left lower extremity wrapped in dressing), Negative: Edema Skin Exam: Positive: Nl turgor and temperature, Other skin issue (has a chronic ulceration on left lower anterior extremity), Negative: Rash Neuro Exam: Positive: Normal Speech, Cranial Nerves 3-12 NL Assessment /Plan Problems (1) Lumbar back pain with radiculopathy affecting right lower extremity Status: Acute Response to Treatment: Improving Problem Specific Plan: Monitor Clinically Problem Text: * Currently on Percocet and gabapentin. Had trigger point injections on 10/17. * Lumbar MRI revealed degenerative disc space narrowing at every level with loss of disc hydration, central canal stenosis at multiple levels, particularly L3-4. Not a good surgical candidate * Continue working with physical therapy * Will need rehab upon discharge, awaiting bed availability at [facility] (2) Spinal stenosis of lumbar region Status: Chronic Problem Specific Plan: Monitor Clinically Problem Text: * Patient was evaluated by neurosurgery on 10/13 * Will attempt conservative management, surgery would be last resort as she is a surgical risk (3) Hyperkalemia Status: Acute Problem Specific Plan: Monitor Clinically, Repeat Labs Problem Text: * Potassium was 5.3 this morning * spironolactone was discontinued, will order labs for today * Monitor electrolytes given that she is on Lasix (4) Congestive heart failure Permanent Comment: Chronic systolic dysfunction with LVEF 20-25%, confirmed on repeat echocardiogram 05/2015: Echo 05/20/15 -- [place]: Severely Dilated LV with global hypokinesis, EF 20-25%, Mod Pulm HTN (mid to high 40s), Mild Mitral Stenosis c Mod Insufficiency; grade 2 diastolic dysfunction, severe left ventricular systolic dysfunction; Overall consistent with ischemic cardiomyopathy. Last Edited By: Jenny Lundy DO on Jun 03, 2015 15:44 Status: Chronic Problem Specific Plan: Monitor Clinically Problem Text: * Appears stable at this time * Continue Lasix (5) HTN (hypertension) Status: Chronic Problem Specific Plan: Monitor Clinically Problem Text: * BP stable * Continue Coreg, Lisinopril, Lasix (6) Diabetes Status: Chronic Problem Specific Plan: Monitor Clinically Problem Text: * Continue Levemir * Insulin sliding scale with hypoglycemic protocol * Monitor blood sugars (7) CAD (coronary artery disease) Status: Chronic Problem Specific Plan: Monitor Clinically Problem Text: * Status post PCI x 5 * Continue ASA, Plavix, beta shiva and statin therapy (8) COPD (chronic obstructive pulmonary disease) Status: Chronic Problem Specific Plan: Monitor Clinically Problem Text: * Breathing is stable (9) Hyperlipidemia Status: Chronic Problem Text: * Continue Lipitor (10) Depression Status: Chronic Problem Specific Plan: Monitor Clinically Problem Text: * Continue Effexor and Wellbutrin (11) Chronic ulcer of left lower extremity Status: Chronic Problem Specific Plan: Monitor Clinically Problem Text: * Managed by Dr. Chamorro as outpatient * consumer affairs specialist consulted and dressing being changed every other day while inpatient Plan/VTE VTE Prophylaxis Ordered?: Yes (heparin) Plan Diet: Continue Current Activity: Encourage Ambulation Therapy: PT VS, I&O, 24H, [facility] Vital Signs/I&O Vital Signs Date Time Temp Pulse Resp B/P (MAP) Pulse Ox O2 Delivery O2 Flow Rate FiO2 10/20/16 09:05 12 Room Air 10/20/16 08:33 108 144/68 10/20/16 06:00 98.2 92 I&O- Last 24 Hours up to 6 AM 10/20/16 05:59 Intake Total 3000 ml Balance 3000 ml Laboratory Data 24H LABS Laboratory Tests 2 10/19/16 11:57: Bedside Glucose (Misc Panel) 345H 10/19/16 16:38: Bedside Glucose (Misc Panel) 281H 10/19/16 20:33: Bedside Glucose (Misc Panel) 261H 10/20/16 06:17: Bedside Glucose (Misc Panel) 237H ADILSON ROQUE DO October 20, 2016 10:29
[2016-10-20 11:05] LABS: BASO % 0.5 % (0.0-1.0); EOS # 0.3 K/mm3 (0.0-0.50); EOS % 3.4 % (0.0-3.0); LARGE UNSTAINED CELL # 0.2 K/mm3 (0.0-0.4); LARGE UNSTAINED CELL % 3.1 % (0.0-4.0); LYMPH # 1.5 K/mm3 (1.5-4.5); LYMPH % 19.7 % (24.0-44.0); MEAN CORPUSCULAR HEMOGLOBIN 29.8 pg (27.0-33.0); MEAN CORPUSCULAR HGB CONC 31.2 g/dl (32.0-36.5); MEAN CORPUSCULAR VOLUME 95.6 fl (80.0-96.0); MONO # 0.7 K/mm3 (0.0-0.8); MONO % 8.5 % (0.0-5.0); NEUTROPHILS # 5.1 K/mm3 (1.8-7.7); NEUTROPHILS % 64.7 % (36.0-66.0); PLATELET COUNT, AUTOMATED 339 k/mm3 (150-450); RED CELL DISTRIBUTION WIDTH 14.7 % (11.5-14.5); WHITE BLOOD COUNT 7.8 K/mm3 (4.0-10.0)
[2016-10-20 11:26] LABS: ALBUMIN 3.1 GM/DL (3.2-5.2); ALBUMIN/GLOBULIN RATIO 0.86 (1.00-1.93); BILIRUBIN,TOTAL 0.5 MG/DL (0.2-1.0); CALCIUM LEVEL 8.5 MG/DL (8.8-10.2); CREATININE FOR GFR 1.37 MG/DL (0.55-1.02); GLOMERULAR FILTRATION RATE 40.3 (>39); POTASSIUM SERUM 4.6 MEQ/L (3.5-5.1); TOTAL PROTEIN 6.7 GM/DL (6.4-8.2)
[2016-10-20 14:00] VITALS: BP 149/70
[2016-10-20] MEDS: FUROSEMIDE 20 MG TAB PO SCH (16:15)
[2016-10-20] MEDS: ATORVASTATIN 20 MG TAB PO SCH (19:32)
[2016-10-20] MEDS: LEVEMIR (INSULIN DETEMIR) 1 UNITS/0.01ML SC SCH (19:35)
[2016-10-20] MEDS: MOM 30ML SUSPENSION UDC PO PRN (21:05)
[2016-10-20] MEDS ORDERED: FLEET ENEMA PR PRN (21:15)
[2016-10-20 22:00] VITALS: BP 169/78
[2016-10-21] MEDS: HEPARIN SOD (PORCINE) 5000 UNITS/ML VIAL SC SCH ×3 (05:47→21:29)
[2016-10-21 06:00] VITALS: BP 150/71
[2016-10-21 06:43] LABS: MEAN CORPUSCULAR HEMOGLOBIN 29.6 pg (27.0-33.0); MEAN CORPUSCULAR VOLUME 92.5 fl (80.0-96.0); RED CELL DISTRIBUTION WIDTH 14.7 % (11.5-14.5); WHITE BLOOD COUNT 6.6 K/mm3 (4.0-10.0)
[2016-10-21 07:03] LABS: ALBUMIN/GLOBULIN RATIO 0.81 (1.00-1.93); BILIRUBIN,TOTAL 0.4 MG/DL (0.2-1.0); CALCIUM LEVEL 8.4 MG/DL (8.8-10.2); CREATININE FOR GFR 1.23 MG/DL (0.55-1.02); GLOMERULAR FILTRATION RATE 45.7 (>39); POTASSIUM SERUM 4.8 MEQ/L (3.5-5.1); TOTAL PROTEIN 6.7 GM/DL (6.4-8.2)
[2016-10-21] MEDS: GABAPENTIN 100 MG CAP PO SCH ×3 (08:24→21:30)
[2016-10-21] MEDS: HumaLOG INSULIN (NovoLOG) PER UNIT SC SCH ×4 (08:24→21:41)
[2016-10-21] MEDS: buPROPion **XL** TABLET 150MG (WELLBUTRIN XL) PO SCH (08:24)
[2016-10-21] MEDS: DOCUSATE SODIUM 100 MG CAP PO SCH ×2 (08:24→21:30)
[2016-10-21] MEDS: MULTIVITAMINS/MINERALS THERAP 1 TAB PO SCH (08:24)
[2016-10-21] MEDS: CARVedilol 12.5 MG TAB PO SCH ×2 (08:24→21:30)
[2016-10-21] MEDS: CALCITRIOL 0.25 MCG CAP (S0169) PO SCH (08:24)
[2016-10-21] MEDS: OMEPRAZOLE 20 MG CAP PO SCH (08:25)
[2016-10-21] MEDS: PRIMIDONE 50 MG TAB PO SCH ×2 (08:25→21:30)
[2016-10-21] MEDS: VENLAFAXINE **XR** 75MG CAPSULE PO SCH (08:25)
[2016-10-21] MEDS: FUROSEMIDE 40 MG TAB PO SCH (08:25)
[2016-10-21] MEDS: LISINOPRIL 5 MG TAB PO SCH (08:25)
[2016-10-21] MEDS: CLOPIDOGREL 75 MG TAB PO SCH (08:25)
[2016-10-21] MEDS: ASPIRIN ENTERIC 325 MG TAB PO SCH (08:25)
--- NOTE | 2016-10-21 09:12 | IPNPDOC ---
Subjective Date Seen The patient was seen on 10/21/16. Subjective Chief Complaint/HPI The patient is a 71-year-old female admitted with a reason for visit of Lumbar Back Pain With Radiculopathy. Events since last encounter Patient was seen this morning at bedside. No acute overnight events. She was sitting in the chair comfortably. States her back s doing better. Leg is a "little sore" where her ulcer is. She denies any chest pain/pressure, shortness of breath, nausea, vomiting, abd pain. Urinating well. She had a BM this morning. No increased weakness. Objective Physical Examination General Exam: Positive: Alert, Cooperative, No Acute Distress Eye Exam: Positive: Conjunctiva & lids normal, EOMI, Negative: Sclera icteric ENT Exam: Positive: Atraumatic, Mucous membr. moist/pink, Pharynx Normal Neck Exam: Positive: Supple, Negative: thyromegaly Chest Exam: Positive: Normal air movement Heart Exam: Positive: Rate Normal, Regular Rhythm, Normal S1, Normal S2, Murmurs Abdomen Exam: Positive: Normal bowel sounds, Soft, Other (obese), Negative: Tenderness Extremity Exam: Positive: Normal pulses, Other (left lower extremity wrapped in dressing), Negative: Edema Skin Exam: Positive: Nl turgor and temperature, Other skin issue (has a chronic ulceration on left lower anterior extremity), Negative: Rash Neuro Exam: Positive: Normal Speech, Cranial Nerves 3-12 NL Assessment /Plan Problems (1) Lumbar back pain with radiculopathy affecting right lower extremity Status: Acute Response to Treatment: Improving Problem Specific Plan: Monitor Clinically Problem Text: * Currently on Percocet and gabapentin. Had trigger point injections on 10/17. * Lumbar MRI revealed degenerative disc space narrowing at every level with loss of disc hydration, central canal stenosis at multiple levels, particularly L3-4. Not a good surgical candidate * Continue working with physical therapy * Will need rehab upon discharge, awaiting bed availability at [facility] (2) Spinal stenosis of lumbar region Status: Chronic Problem Specific Plan: Monitor Clinically Problem Text: * Patient was evaluated by neurosurgery on 10/13 * Will attempt conservative management, surgery would be last resort as she is a surgical risk (3) Hyperkalemia Status: Resolved Problem Specific Plan: Monitor Clinically, Repeat Labs Problem Text: * Potassium was normal this morning * Spironolactone discontinued on 10/19 * Monitor electrolytes given that she is on Lasix (4) Congestive heart failure Permanent Comment: Chronic systolic dysfunction with LVEF 20-25%, confirmed on repeat echocardiogram 05/2015: Echo 05/20/15 -- Andrea: Severely Dilated LV with global hypokinesis, EF 20-25%, Mod Pulm HTN (mid to high 40s), Mild Mitral Stenosis c Mod Insufficiency; grade 2 diastolic dysfunction, severe left ventricular systolic dysfunction; Overall consistent with ischemic cardiomyopathy. Last Edited By: Jenny Lundy DO on Jun 03, 2015 15:44 Status: Chronic Problem Specific Plan: Monitor Clinically Problem Text: * Appears stable at this time * Continue Lasix (5) HTN (hypertension) Status: Chronic Problem Specific Plan: Monitor Clinically Problem Text: * BP stable * Continue Coreg, Lisinopril, Lasix (6) Diabetes Status: Chronic Problem Specific Plan: Monitor Clinically Problem Text: * Continue Levemir * Insulin sliding scale with hypoglycemic protocol * Monitor blood sugars (7) CAD (coronary artery disease) Status: Chronic Problem Specific Plan: Monitor Clinically Problem Text: * Status post PCI x 5 * Continue ASA, Plavix, beta shiva and statin therapy (8) COPD (chronic obstructive pulmonary disease) Status: Chronic Problem Specific Plan: Monitor Clinically Problem Text: * Breathing is stable (9) Hyperlipidemia Status: Chronic Problem Text: * Continue Lipitor (10) Depression Status: Chronic Problem Specific Plan: Monitor Clinically Problem Text: * Continue Effexor and Wellbutrin (11) Chronic ulcer of left lower extremity Status: Chronic Problem Specific Plan: Monitor Clinically Problem Text: * Managed by Dr. Chamorro as outpatient * technical operations specialist consulted and dressing being changed every other day while inpatient Plan/VTE VTE Prophylaxis Ordered?: Yes (heparin) Plan Diet: Continue Current Activity: Encourage Ambulation Therapy: PT VS, I&O, 24H, Fishbone Vital Signs/I&O Vital Signs Date Time Temp Pulse Resp B/P (MAP) Pulse Ox O2 Delivery O2 Flow Rate FiO2 10/21/16 08:25 150/71 10/21/16 08:24 94 10/21/16 06:00 97.6 18 93 Room Air I&O- Last 24 Hours up to 6 AM 10/21/16 06:00 Intake Total 1200 ml Balance 1200 ml Laboratory Data CBC/BMP Laboratory Tests 10/20/16 10:51 Red Blood Count 3.56 L, Mean Corpuscular Volume 95.6, Mean Corpuscular Hemoglobin 29.8, Mean Corpuscular Hemoglobin Concent 31.2 L, Red Cell Distribution Width 14.7 H, Neutrophils (%) (Auto) 64.7, Lymphocytes (%) (Auto) 19.7 L, Monocytes (%) (Auto) 8.5 H, Eosinophils (%) (Auto) 3.4 H, Basophils (%) (Auto) 0.5, Neutrophils # (Auto) 5.1, Lymphocytes # (Auto) 1.5, Monocytes # ( Auto) 0.7, Eosinophils # (Auto) 0.3, Basophils # (Auto) 0.0, Calcium Level 8.5 L , Aspartate Amino Transf (AST/SGOT) 44 H, Alanine Aminotransferase (ALT/SGPT) 37 , Alkaline Phosphatase 181 H, Total Bilirubin 0.5, Total Protein 6.7, Albumin 3.1 L 10/21/16 06:18 Red Blood Count 3.49 L, Mean Corpuscular Volume 92.5, Mean Corpuscular Hemoglobin 29.6, Mean Corpuscular Hemoglobin Concent 32.0, Red Cell Distribution Width 14.7 H, Calcium Level 8.4 L, Aspartate Amino Transf (AST/SGOT ) 28, Alanine Aminotransferase (ALT/SGPT) 34, Alkaline Phosphatase 180 H, Total Bilirubin 0.4, Total Protein 6.7, Albumin 3.0 L GME ATTESTATION GME ATTESTATION My preceptor for this patient encounter was physically present in the building during the encounter and was fully available. As needed, all aspects of the patient interview, examination, medical decision making process, and medical care plan development were reviewed and approved by the preceptor. Preceptor is aware and concurs with the plan as stated in the body of this note and will attest to such by his/her cosignature. BISHOP TREVIÑO DO October 21, 2016 09:12
[2016-10-21 14:00] VITALS: BP 123/57
[2016-10-21] MEDS: PERCOCET 5MG/325MG TAB PO PRN ×2 (16:05→21:30)
[2016-10-21] MEDS: FUROSEMIDE 20 MG TAB PO SCH (17:40)
[2016-10-21] MEDS ORDERED: LEVEMIR (INSULIN DETEMIR) 1 UNITS/0.01ML SC SCH (21:00)
[2016-10-21] MEDS: ATORVASTATIN 20 MG TAB PO SCH (21:29)
[2016-10-21 22:00] VITALS: BP 126/60
[2016-10-22] MEDS: PERCOCET 5MG/325MG TAB PO PRN ×3 (02:02→12:44)
[2016-10-22 06:00] VITALS: BP 147/69
[2016-10-22] MEDS: HEPARIN SOD (PORCINE) 5000 UNITS/ML VIAL SC SCH (06:35)
[2016-10-22 07:33] LABS: MEAN CORPUSCULAR HEMOGLOBIN 28.6 pg (27.0-33.0); MEAN CORPUSCULAR HGB CONC 30.9 g/dl (32.0-36.5); MEAN CORPUSCULAR VOLUME 92.5 fl (80.0-96.0); RED CELL DISTRIBUTION WIDTH 14.7 % (11.5-14.5); WHITE BLOOD COUNT 6.2 K/mm3 (4.0-10.0)
[2016-10-22 08:03] LABS: ALBUMIN 2.9 GM/DL (3.2-5.2); ALBUMIN/GLOBULIN RATIO 0.76 (1.00-1.93); BILIRUBIN,TOTAL 0.5 MG/DL (0.2-1.0); CALCIUM LEVEL 8.5 MG/DL (8.8-10.2); CREATININE FOR GFR 1.28 MG/DL (0.55-1.02); GLOMERULAR FILTRATION RATE 43.6 (>39); POTASSIUM SERUM 4.8 MEQ/L (3.5-5.1); TOTAL PROTEIN 6.7 GM/DL (6.4-8.2)
[2016-10-22] MEDS: VENLAFAXINE **XR** 75MG CAPSULE PO SCH (08:22)
[2016-10-22] MEDS: ASPIRIN ENTERIC 325 MG TAB PO SCH (08:22)
[2016-10-22] MEDS: buPROPion **XL** TABLET 150MG (WELLBUTRIN XL) PO SCH (08:22)
[2016-10-22] MEDS: MULTIVITAMINS/MINERALS THERAP 1 TAB PO SCH (08:22)
[2016-10-22] MEDS: OMEPRAZOLE 20 MG CAP PO SCH (08:22)
[2016-10-22] MEDS: HumaLOG INSULIN (NovoLOG) PER UNIT SC SCH ×2 (08:22→12:43)
[2016-10-22] MEDS: PRIMIDONE 50 MG TAB PO SCH (08:22)
[2016-10-22] MEDS: GABAPENTIN 100 MG CAP PO SCH (08:22)
[2016-10-22] MEDS: DOCUSATE SODIUM 100 MG CAP PO SCH (08:22)
[2016-10-22 08:23] VITALS: BP 147/69
[2016-10-22] MEDS: CALCITRIOL 0.25 MCG CAP (S0169) PO SCH (08:23)
[2016-10-22] MEDS: LISINOPRIL 5 MG TAB PO SCH (08:23)
[2016-10-22] MEDS: FUROSEMIDE 40 MG TAB PO SCH (08:23)
[2016-10-22] MEDS: CARVedilol 12.5 MG TAB PO SCH (08:23)
[2016-10-22] MEDS: CLOPIDOGREL 75 MG TAB PO SCH (08:23)
[2016-10-22] MEDS ORDERED: INSUDET SC (10:17)
[2016-10-22] MEDS ORDERED: PERCOCET PO (10:17)
--- NOTE | 2016-10-24 09:34 | DSES ---
DATE OF ADMISSION: 10/15/2016 DATE OF DISCHARGE: 10/22/2016 DISCHARGE DIAGNOSES: 1. Lumbar back pain with radiculopathy affecting the right lower extremity. 2. Spinal stenosis of the lumbar region. 3. Hyperkalemia, resolved. 4. Congestive heart failure. 5. Hypertension. 6. Diabetes on insulin. 7. Coronary artery disease. 8. Chronic pulmonary obstructive disease (COPD). 9. Hyperlipidemia. 10. Chronic ulcer of the left lower extremity. 11. Depression. 12. History of ventricular tachycardia (V-tach). 13. Chronic kidney disease. DISCHARGE MEDICATIONS: - Levemir 24 units at night - Percocet 1 tablet by mouth every four hours as needed - albuterol sulfate 2.5 inhaled every four hours as needed - aspirin 325 mg daily - Lipitor 80 mg by mouth at night - Wellbutrin 300 mg by mouth daily - calcitriol 0.25 mcg by mouth five times a week - carvedilol 12.5 mg by mouth twice daily - Plavix 75 mg by mouth daily - cranberry 300 mg by mouth twice daily - furosemide 40 mg by mouth daily - furosemide 20 mg by mouth at night - lisinopril 5 mg by mouth daily - Milk of Magnesia 30 mL by mouth daily as needed - multivitamins one tablet by mouth daily - omeprazole 20 mg by mouth daily - preparation H ointment applied to hemorrhoids as needed - primidone 50 mg by mouth twice daily - Refresh Eye Drops one drop in each eye four times a day as needed - Venlafaxine 150 mg by mouth daily DISCONTINUED MEDICATIONS: - acetaminophen 650 mg by mouth every eight hours as needed - insulin aspart twice daily. Insulin aspart twice daily - spironolactone 12.5 mg by mouth daily - Toujeo 32 units at night BRIEF HOSPITAL COURSE: The patient originally presented with complaints of lower back pain that was worse than her baseline. She had been off physical therapy prior to this episode occurring. She also complained of radiculopathy to the right lower extremity. No weakness or sensory changes. No bowel or bladder dysfunction. She had x-rays done in the emergency department which revealed chronic changes. Lumbar MRI revealed degenerative disk space narrowing at every level with loss of disk hydration, central canal stenosis at multiple levels particularly L3-4. She was evaluated by neurosurgery and not deemed to be a good surgical candidate. Conservative management was recommended due to her being a surgical risk. She was treated with oral pain medications. She also was evaluated by pain management and recommendations were for trigger point injections. The patient did undergo trigger point injections during hospitalization and reports that she felt her back pain had improved after that intervention. She continued to work with physical therapy during hospitalization until she was stable to be discharged back to rehabilitation. During her hospitalization the patient had several episodes of hyperkalemia for which she received Kayexalate. She had been on spironolactone which was discontinued secondary to recurrent hyperkalemia. Once this medication was discontinued her potassium levels remained within normal. She also has a chronic lower extremity ulceration for which she follows with Dr. Chamorro as an outpatient. During hospitalization public finance specialist was consulted and wound dressing was changed every other day. Other chronic medical conditions remained stable during hospitalization. On day of discharge the patient states that she felt okay. She still has some back pain but it is significantly improved from admission. She denied any increased lower extremity weakness. No bowel or bladder dysfunction. No saddle anesthesia. Vitals were stable. No complaints of chest pain/pressure, increased shortness of breath, nausea, vomiting, lightheadedness, dizziness. No urinary complaints. LABORATORY DATA: On discharge WBC 6.2, hemoglobin 10.0, hematocrit 32.4, platelet count 317. Sodium 137, potassium 4.8, chloride 103, carbon dioxide 26, anion gap 8, BUN 20, creatinine 1.28, GFR 43.6, fasting glucose 198, calcium 8.5, total bilirubin 0.5, AST 22, ALT 29, alkaline phosphatase 160, total protein 6.7, albumin 2.9. IMAGING STUDIES: As stated above. In addition, she also had a hip x-ray which revealed degenerative changes. She had a knee x-ray which revealed chronic degenerative changes. PHYSICAL EXAMINATION: VITAL SIGNS: Temperature 97.0, pulse 80, respiratory rate 14, blood pressure 147/69, pulse ox 95% on room air. GENERAL: The patient is alert and oriented in no acute distress. HEENT: Normocephalic, atraumatic. Extraocular muscles are intact. Pupils are equally round and reactive to light. No scleral icterus. Moist mucosa. NECK: Supple. No cervical lymphadenopathy or thyromegaly. No jugular venous distension appreciated. HEART: Normal S1-S2, regular rate and rhythm. Positive for systolic ejection murmur. LUNGS: Clear to auscultation bilaterally. No rales, rhonchi or wheezing appreciated. ABDOMEN: Soft, nontender, nondistended. Bowel sounds are present. No rebound, guarding or rigidity. EXTREMITIES: She has the left lower extremity wrapped in dressing due to a chronic ulceration of the anterior side. No significant edema. Pulses are present bilaterally. SKIN: Warm and dry. No rashes noted. She does have a chronic ulceration of the left lower extremity. NEUROLOGIC: No focal deficits. Cranial nerves II-XII are grossly intact. Motor and sensation intact. Tone is intact. DISCHARGE INSTRUCTIONS: The patient is discharged in stable condition. She should followup with her primary care physician (PCP) in 1-2 weeks, followup with neurosurgery as needed. Activity as tolerated. Diet as tolerated. Return to emergency department with any worsening or recurring symptoms. Followup with pain management as needed. TIME SPENT ON DISCHARGE: Greater than 30 minutes. in of the patient. My preceptor for this patient encounter was Dr. Claudio. The preceptor was physically present in the building during the encounter and was fully available as needed. All aspects of the patient interview, examination, medical decision making process, and medical care plan development were reviewed and approved by the preceptor. The preceptor is aware and concurs with the plan as stated in the body of this note and will attest to such by his/her co-signature.
== END 2016-10-22 13:55 | disposition home or self-care (01) | DRG 552 ==
LOC: EDBD 07:49 → M ED 08:39 → M ED INP 13:01 → M MS5PR 16:20 → OBSVTOIN 10-15 07:40
PROVIDERS: ADMIT Internal Medicine; ATTEND Internal Medicine
DX: M48.06 Spinal stenosis, lumbar region (principal); I50.42 Chronic combined systolic (congestive) and diastolic (congestive) heart failure; I13.0 Hypertensive heart and chronic kidney disease with heart failure and stage 1 through stage 4 chronic kidney disease, or unspecified chronic kidney disease; L97.929 Non-pressure chronic ulcer of unspecified part of left lower leg with unspecified severity; E87.5 Hyperkalemia; E78.5 Hyperlipidemia, unspecified; F32.9 Major depressive disorder, single episode, unspecified; N18.3 Chronic kidney disease, stage 3 (moderate); E11.9 Type 2 diabetes mellitus without complications; J44.9 Chronic obstructive pulmonary disease, unspecified; I25.10 Atherosclerotic heart disease of native coronary artery without angina pectoris; Z79.899 Other long term (current) drug therapy; Z79.82 Long term (current) use of aspirin; I87.9 Disorder of vein, unspecified; Z88.0 Allergy status to penicillin; Z88.2 Allergy status to sulfonamides; Z88.8 Allergy status to other drugs, medicaments and biological substances; Z79.4 Long term (current) use of insulin

== ENCOUNTER → 2016-10-23 | Outpatient (REF) ==
[~2016-10-23] MED LIST changes: +ACET650T2 PO; +FURO20TA2 PO; +FURO40TA2 PO; +INSUDET SC; +MYSO50TA5 PO; +PERCOCET PO; +PREPOIN PR; +TOUJ1.2I SC
== END ==
LOC: SKLAB4 10:33
PROVIDERS: ATTEND Family Medicine
DX: Z11.2 Encounter for screening for other bacterial diseases (principal)

== ENCOUNTER → 2016-10-30 | Outpatient (REF) ==
[~2016-10-30] MED LIST changes: -LIPITOR40 2 TABS; +LIPITOR40 [, 2 TABS]
== END ==
LOC: SKLAB4 11:18
PROVIDERS: ATTEND Family Medicine
DX: Z11.2 Encounter for screening for other bacterial diseases (principal)

== ENCOUNTER → 2016-11-15 | Outpatient (CLI) | payer MEDICARE, MEDICAID ==
[~2016-11-15] MED LIST changes: +GABA-283 PO; +HUMA100I3 SC; +LIPITOR40 2 TABS; -LIPITOR40 [, 2 TABS]
--- NOTE | 2016-11-16 00:03 | ECWPNPC ---
PATIENT NAME: DEMETRA GUZMAN : 1945 GENDER: FEMALE VISIT DATE: 11/15/2016 DISCHARGE DATE: 11/15/16 1122 VISIT LOCKED DATE TIME: PHYSICIAN: ISREAL GROSS RESOURCE: ISREAL GROSS REASON FOR APPOINTMENT 1. POST PROCEDURE HISTORY OF PRESENT ILLNESS HISTORY OF PRESENT ILLNESS: HERE FOR POST PROCEDURE F/U.HAD TPI RIGHT LOW BACK THAT PATIENT STATES WAS HELPFUL FOR A SHORT TIME.C/O RIGHT LOW BACK AND RIGHT POSTRIOR LATERAL LEG PAIN.DESCRIBES PAIN A CONSTANT ACHING AND SHOOTING PAIN.RATING PAIN VAS 7/10.KIT CURRENTLY RESIDING AT [facility] FOR TWO MORE WEEKS IN THERE REHAB. PROGRAM,THEN SHE WILL RETURN TO [facility].CONTINUES ON PLAVIX THERAPY.PATIENT WAS HOSPITALIZED LAST MONTH FOR ACUTE LOW BACK PAIN AND RIGHT LEG PAIN.SHE HAS MULTIPLE COMORBIDITIES.DENIES BOWEL OR BLADDER INCONTINENCE.NO RECENT FEVER,ILLNESS OR WEIGHT LOSS. PAIN THE PATIENT DESCRIBES THE PAIN... FALL RISK SCREENING: SCREENING :NO FALLS IN THE PAST YEAR CURRENT MEDICATIONS TAKING MILK OF MAGNESIA 2400 MG/10ML SUSPENSION 10ML ORALLY DAILY NEEDED FOR CONSTIPATION, NOTES: 10/15/16 TAKING CALCITRIOL 0.25 MCG CAPSULE 1 CAPSULE ORALLY MON-FRI, NOTES: 10/17/16 0800 TAKING LASIX 20 MG TABLET 1 TAB ORALLY DAILY @ 1700, NOTES: 10/16/16 0900 40MGS TAKING ACETAMINOPHEN 325 MG TABLET 2 TABLET NEEDED ORALLY EVERY 4 HOURS NEEDED FOR PAIN OR FEVER, NOTES: NONE RECENT TAKING OMEPRAZOLE 20 MG CAPSULE DELAYED RELEASE 1 CAP(S) ORALLY ONCE A DAY, NOTES: 10/17/16 0800 TAKING LIPITOR 80 MG TABLET 1 TABLET ORALLY ONCE A DAY, NOTES: 10/16/16 2100 TAKING BUPROPION HCL ER (XL) 300 MG TABLET EXTENDED RELEASE 24 HOUR 1 TABLET IN THE MORNING ORALLY ONCE A DAY, NOTES: 10/17/16 0800 TAKING MULTIPLE VITAMINS-MINERALS _ TABLET 1 TAB(S) ORALLY DAILY, NOTES: 10/16/16 0900 TAKING EFFEXOR XR 150 MG CAPSULE EXTENDED RELEASE 24 HOUR 1 CAPSULE WITH FOOD ORALLY ONCE A DAY TAKING DULCOLAX 10 MG SUPPOSITORY 1 SUPPOSITORY NEEDED RECTAL ONCE A DAY NEEDED TAKING ENEMA 19-7 GM/118ML ENEMA RECTAL ONCE DAILY PRN TAKING PRIMIDONE 50 MG TABLET 1 TAB ORALLY TWICE DAILY TAKING LISINOPRIL 5 MG TABLET 1 TABLET ORALLY ONCE A DAY TAKING CARVEDILOL 12.5 MG TABLET 1 TABLET WITH FOOD ORALLY TWICE A DAY TAKING ASPIRIN 325 MG TABLET 1 TABLET ORALLY ONCE A DAY TAKING PLAVIX 75 MG TABLET 1 TABLET ORALLY ONCE A DAY TAKING LEVEMIR 100 UNIT/ML SOLUTION 24 UNITS SUBCUTANEOUS DAILY AT 2100 TAKING PERCOCET 5-325 MG TABLET 1 TABLET NEEDED ORALLY THREE TIMES DAILY NEEDED TAKING HUMALOG 100 UNIT/ML SOLUTION PER SLIDING SCALE SUBCUTANEOUS AT 0800, 1200 AND 1700 TAKING COLACE 100 MG CAPSULE ORALLY DAILY TAKING CRANBERRY 300 MG TABLET 1 TABLET WITH MEALS ORALLY TWICE A DAY TAKING ALBUTEROL 0.083% AEROSOL SOLUTION 1 UNIT INHALATION FOUR TIMES A DAY NEEDED FOR SOB/WHEEZING--MAY KEEP AT BEDSIDE TAKING REFRESH OPTIVE 0.5-0.9 % SOLUTION OPHTHALMIC ONE DROP BOTH EYES FOUR TIMES PER DAY, NOTES: NONE RECENT TAKING VENLAFAXINE HCL ER 150 MG CAPSULE EXTENDED RELEASE 24 HOUR 1 CAPSULE WITH FOOD ORALLY ONCE A DAY TAKING GABAPENTIN 100 MG CAPSULE 200MGS ORALLY TID TAKING ENEMA DISPOSABLE 19-7 GM/118ML ENEMA RECTAL TAKING MILK OF MAGNESIA CONCENTRATE 2400 MG/10ML SUSPENSION 5 ML ORALLY TWICE A DAY TAKING GLUCAGON EMERGENCY 1 MG KIT INJECTION PRN NOT-TAKING PREPARATION H 0.25-14-74.9 % OINTMENT 1 STRIP TOPICALLY RECTAL MAY SELF ADMINISTER, MAY LEAVE AT BEDSIDE TWICE DAILY NEEDED RECTAL DISCOMFORT, NOTES: NONE RECENT NOT-TAKING ICY HOT ARTHRITIS PAIN RELIEF 16-4 % LOTION TOPICALLY 3 TIMES PER DAY, NOTES: NONE RECENT NOT-TAKING NOVOLOG FLEXPEN 100 UNIT/ML SOLUTION PEN-INJECTOR SUBCUTANEOUS AT BEDTIME, NOTES: 10/16/16 4 UNITS 2100 NOT-TAKING TYLENOL EXTRA STRENGTH 500 MG TABLET 1 TABLETS NEEDED ORALLY 2 TIMES PER DAY, NOTES: NONE RECENT NOT-TAKING TOUJEO SOLOSTAR 300 UNIT/ML SOLUTION PEN-INJECTOR 32 UNITS DAILY SUBCUTANEOUS AT 1900-PATIENT MAY SELF ADMINISTER, NOTES: NONE RECENT NOT-TAKING LASIX 40 MG TABLET 1 TABLET ORALLY DAILY AT 9:00, NOTES: 10/16/16 0900 NOT-TAKING SPIRONOLACTONE 25 MG TABLET 1/2 TABLET ORALLY DAILY AT 8:00, NOTES: 10/16/16 0900 NOT-TAKING NOVOLOG FLEXPEN 100 UNIT/ML SOLUTION PEN-INJECTOR PER SLIDING SCALE SUBCUTANEOUS THREE TIMES A DAY NOT-TAKING HOSPITAL BED PLEASE REPAIR OR REPLACE HOSPITAL BED DX: Z74.09, I87.312 DIRECTED NOT-TAKING ATORVASTATIN CALCIUM 80 MG TABLET 1 TABLET ORALLY ONCE A DAY, NOTES: 10/16/16 2100 NOT-TAKING PERCOCET 5-325 MG TABLET 1 TABLET NEEDED ORALLY EVERY 4 HRS MDD=6 NOT-TAKING SENNA S 8.6-50 MG TABLET 2 TABS ORALLY TWICE A DAY NEEDED FOR CONSTIPATION NOT-TAKING HYDROCODONE-ACETAMINOPHEN 5-325 MG TABLET 1 TABLET ORALLY EVERY 6 HOURS NEEDED FOR PAIN MDD=4 NOT-TAKING LOPERAMIDE HCL 2 MG TABLET 2 TABLET ORALLY FOUR TIMES A DAY NEEDED FOR LOOSE STOOLS NOT-TAKING MECLIZINE HCL 25 MG CAPSULE 1 CAP(S) ORALLY EVERY 8 HOURS NEEDED NOT-TAKING FLONASE 50 MCG/DOSE INHALER 1 SPRAY IN EACH NOSTRIL NASALLY ONCE A DAY NOT-TAKING PROAIR HFA 108 (90 BASE) MCG/ACT AEROSOL SOLUTION 2 PUFFS NEEDED INHALATION EVERY 4 HRS; PLEASE INCLUDE A SPACER. MAY KEEP AT BEDSIDE NOT-TAKING MAALOX ADVANCED 200-200-20 MG/5ML SUSPENSION 30 ML NEEDED ORALLY EVERY 4 HOURS NEEDED NOT-TAKING HYDROXYZINE HCL 10 MG TABLET 1 TAB ORALLY ONCE DAILY NEEDED FOR INSOMNIA NOT-TAKING WHEELCHAIR _ MISCELLANEOUS DIRECTED _ REPAIR MOTORIZED WHEELCHAIR NOT-TAKING BLOOD GLUCOSE TEST _ STRIP 1 STRIP IN VITRO DX:E11.9 FOUR TIMES DAILY NOT-TAKING GLUCOMETER _ GLUCOMETER DIRECTED DX:E11.9 FOUR TIMES DAILY NOT-TAKING MISC. DEVICES 30 GAUGE X 3/16 BD AU;TOSHIELD PEN NEEDLES DIRECTED INTRADERMALLY FOUR TIMES A DAY WITH INSULIN NOT-TAKING NYSTATIN 738816 UNIT/GM POWDER APPLY TO AFFECTED AREA EXTERNALLY TWICE A DAY NEEDED NOT-TAKING EUCERIN - CREAM APPLY TO AREAS THAT ITCH TOPICALLY TWICE A DAY NOT-TAKING AVELOX 400 MG TABLET 1 TABLET ORALLY ONCE A DAY NOT-TAKING ALUM & MAG HYDROXIDE-SIMETH 200-200-20 MG/5ML SUSPENSION 30 ML NEEDED ORALLY EVERY 4 HOURS NEEDED NOT-TAKING DOXYCYCLINE HYCLATE 100 MG TABLET 1 TABLET ORALLY EVERY 12 HRS DISCONTINUED GABAPENTIN 100 MG CAPSULE ORALLY TID PAST MEDICAL HISTORY HYPERLIPIDEMIA UNS NONINF GASTROENTERITIS &COLITIS CHRONIC AIRWAY OBSTRUCTION NEC COR ARTHRSCL-UNS VESSEL KALTAG GFT DIABETES TYPE 2 DEPRESSIVE DISORDER HTN ABRASION OF LEFT HAND BREAST PAIN, RIGHT LEG WOUND, LEFT ALLERGIES CAPTOPRIL-HYDROCHLOROTHIAZIDE: CONFUSION: ALLERGY DIPHENHYDRAMINE HCL: NAUSEA/VOMITING: ALLERGY PENICILLIN (FOR ALLERGIES USE ONLY): ANAPHYLAXIS: ALLERGY SULFA (FOR ALLERGY USE ONLY): ANAPHYLAXIS: ALLERGY METHYLDOPA: PT UNAWARE OF REACTION: ALLERGY HYDROCHLOROTHIAZIDE: NAUSEA/VOMITING: ALLERGY STREPTOKINASE: BODY ACHES: ALLERGY QUINOLONES: ALLERGY ASPARTAM: ALLERGY TRIAMTERENE: NAUSEA/VOMITING: ALLERGY REVIEW OF SYSTEMS CONSTITUTIONAL: ANY CHANGE IN YOUR MEDICAL CONDITION? NO . CHILLS NO . FEVER NO . INFECTION: DO YOU HAVE NEW INFECTIONS? NO . DO YOU HAVE HISTORY OF MRSA? NO . MUSCULOSKELETAL: ANY NEW PATTERNS OF PAIN OR NUMBNESS? NO . GASTROENTEROLOGY: ANY NEW CHANGE IN BOWEL CONTROL? NO . GENITOURINARY: ANY NEW CHANGE IN BLADDER CONTROL? NO . IS THERE A CHANCE YOU COULD BE ? NO . HEMATOLOGY/LYMPH: DO YOU TAKE ANY BLOOD THINNERS? (FOR EXAMPLE- COUMADIN, PLAVIX, AGGRENOX, PLATEL, PRADAXA, OR XARELTO) YES, PLAVIX . WHEN WAS YOUR LAST DOSE? DATE: TIME: 11/15/16 0800 . NEUROLOGY: HAVE YOU FALLEN IN THE PAST 6 MONTHS? NO . ANY NEW EXTREMITY NUMBNESS OR WEAKNESS? NO . CARDIOLOGY: DO YOU HAVE A PACEMAKER OR DEFIBRILLATOR? NO . RESPIRATORY: HAVE YOU BEEN SICK IN THE PAST WEEK? NO . FEVER NO . FLU LIKE SYMPTOMS? NO . COUGH YES . INTEGUMENTARY: DO YOU HAVE ANY RASHES OR OPEN SORES? YES, SORE LEFT LOWER LEG--SEES DR. CRUMP . ALLERGIC/IMMUNO: ARE YOU ALLERGIC TO SHELLFISH OR IV DYE? NO . ANY NEW ALLERGIES? NO . PSYCHIATRIC: DO YOU HAVE THOUGHTS OF HURTING YOURSELF OR SOMEONE ELSE? NO . ARE YOU ABUSED, NEGLECTED, OR IN AN UNSAFE ENVIRONMENT? NO . ENDOCRINOLOGY: ARE YOU DIABETIC? YES . OTHER: DO YOU NEED ANY PRESCRIPTIONS? NO . IF YES, PLEASE LIST: ____ . ANY NEW PROBLEMS WITH YOUR MEDICATIONS? NO . WHEN DID YOU LAST EAT? ____ . WHEN DID YOU LAST DRINK? ____ . WHAT DID YOU LAST DRINK? ____ . NAME OF PERSON DRIVING YOU HOME? ____ . DO YOU HAVE ANY OTHER QUESTIONS OR CONCERNS YES, TPI HELPED A LITTLE . REVIEWED BY: PROVIDER: ISREAL MAR . VITAL SIGNS WT 285 LBS, HT 64 IN, BMI 48.91 INDEX, BP 134/62 MM HG, HR 71 /MIN, RR 18 /MIN, TEMP 96.9 F, OXYGEN SAT % 97%, NA INITIALS SC 10:43. EXAMINATION GENERAL EXAMINATION: GENERAL APPEARANCE:OBESE/COMFORTABLE,IN WHEELCHAIR. PSYCHAFFECT NORMAL. LUNGS:LUNG ART ARE CLEAR TO AUSCULTATION BILATERALLY. GOOD MOVEMENT OF AIR. HEART:S1, S2 IN A REGULAR RATE AND RHYTHM. NO SIGNIFICANT MURMURS, RUBS OR GALLOPS NOTED. BACK:PERILUMBAR TENDERNESS R>L.SPECIFIC TENDERNESS NOTED OVER RSIJ. ASSESSMENTS LOW BACK PAIN AT MULTIPLE SITES - M54.5 (PRIMARY) SACROILIAC JOINT DYSFUNCTION OF RIGHT SIDE - M53.3 TREATMENT LOW BACK PAIN AT MULTIPLE SITES NOTES: SEND STOP PLAVIX FORM TO HENNA HAGER MD /DR. DOLL L/S SPINE-REQUEST AUTH. PROCEDURE CODES FA211 ESTABILISHED PATIENT [facility] CHARGE G8730 PAIN ASSESS POS TOOL F/U PLAN DOC G8427 DOC MEDS VERIFIED W/PT OR RE DISPOSITION & COMMUNICATION FOLLOW UP 4 WEEKS ELECTRONICALLY SIGNED BY ZAID COX ON 11/15/2016 AT 05:16 PM EDT DISCLAIMER : THIS IS A VISIT SUMMARY EXTRACTED FROM THE [employer] CHART. IT IS NOT A COPY OF THE [employer] PROGRESS NOTE. MTDD
== END ==
LOC: M PAIN 10:20
PROVIDERS: ATTEND Nurse Practitioner Family
DX: G89.29 Other chronic pain (principal); M54.5 Low back pain; M53.3 Sacrococcygeal disorders, not elsewhere classified; I87.312 Chronic venous hypertension (idiopathic) with ulcer of left lower extremity; E11.9 Type 2 diabetes mellitus without complications; I12.9 Hypertensive chronic kidney disease with stage 1 through stage 4 chronic kidney disease, or unspecified chronic kidney disease; N18.3 Chronic kidney disease, stage 3 (moderate); I25.10 Atherosclerotic heart disease of native coronary artery without angina pectoris; E78.5 Hyperlipidemia, unspecified; I48.0 Paroxysmal atrial fibrillation; I25.5 Ischemic cardiomyopathy; J30.2 Other seasonal allergic rhinitis; J45.20 Mild intermittent asthma, uncomplicated; G47.33 Obstructive sleep apnea (adult) (pediatric); M15.9 Polyosteoarthritis, unspecified; G43.B0 Ophthalmoplegic migraine, not intractable; R80.9 Proteinuria, unspecified; E55.9 Vitamin D deficiency, unspecified; F32.9 Major depressive disorder, single episode, unspecified; K21.9 Gastro-esophageal reflux disease without esophagitis; R25.1 Tremor, unspecified; Z88.8 Allergy status to other drugs, medicaments and biological substances; Z88.0 Allergy status to penicillin; Z88.2 Allergy status to sulfonamides; Z79.01 Long term (current) use of anticoagulants; Z79.4 Long term (current) use of insulin; Z79.82 Long term (current) use of aspirin; Z79.899 Other long term (current) drug therapy

== ENCOUNTER 2016-11-16 03:04 | Emergency (ER) | payer MEDICARE, MEDICAID ==
[~2016-11-16 03:04] MED LIST changes: -GABA-283 PO; -HUMA100I3 SC
[2016-11-16] MEDS ORDERED: GABA-283 PO (03:34)
[2016-11-16] MEDS ORDERED: HUMA100I3 SC (03:34)
--- NOTE | 2016-11-16 03:50 | REPUSA ---
CLINICAL HISTORY: Trauma. TECHNIQUE: Multiple axial CT images were obtained through the brain without IV contrast material. COMMENTS: There is normal configuration of sella turcica. There are no intra or extra-axial collections. There is no mass effect or midline shift. There is no evidence of hematoma formation. No hydrocephalus is p resent. The ventricles are symmetrical. No abnormal calcifications are present. There is diffuse age-appropriate cerebellar and cerebral atrophy with proportionally dilated ventricl es and cortical sulci. There are bilateral periventricular and subcortical white matter hypolucencies compatible with mild c hronic microvascular disease. Otherwise, no significant focal abnormalities are seen either in the posterior fossa or supratentoria l compartment. IMPRESSION: 1. Age-appropriate cerebellar and cerebral atrophy. 2. Mild chronic microvascular disease. 3. No evidence of acute intracranial pathology. Left preseptal soft tissue hematoma. Thank you for your kind referral of this patient.
--- NOTE | 2016-11-16 04:00 | REPUSA ---
HISTORY: Trauma. COMPARISON: Not provided. TECHNIQUE: Multiple thin section helically-acquired axially-displayed and helically acquired coronall y displayed computed tomographic images of the face are obtained from the mandible through the fronta l sinuses, with images obtained at soft tissue and bone window. 2D reformatted images were performed. FINDINGS: Left preseptal soft tissue hematoma. Normal bony mineralization. No fractures. Normal orbits. Normal, clear paranasal sinuses. Normal oral and nasal cavities. Normal infratemporal fossa and deep parapharyngeal spaces with normal muscles of mastication. Normal parotid and submandibular glands. IMPRESSION: Left preseptal soft tissue hematoma. Thank you for your kind referral of this patient
[2016-11-16] MEDS ORDERED: BENZOIN TINCTURE 60 ML BTL (FLOOR STOCK) TOP ONE (04:45)
[2016-11-16 04:54] VITALS: BP 132/60
== END 2016-11-16 06:02 | disposition home or self-care (01) ==
LOC: M ED 03:04 → EDBD 03:04 → M ED 05:04
DX: S00.83XA Contusion of other part of head, initial encounter (principal); W06.XXXA Fall from bed, initial encounter; Y92.129 Unspecified place in nursing home as the place of occurrence of the external cause; Y93.89 Activity, other specified; Y99.9 Unspecified external cause status; E11.9 Type 2 diabetes mellitus without complications; I10 Essential (primary) hypertension; K21.9 Gastro-esophageal reflux disease without esophagitis; J44.9 Chronic obstructive pulmonary disease, unspecified; D64.9 Anemia, unspecified; I51.9 Heart disease, unspecified; N28.9 Disorder of kidney and ureter, unspecified; Z79.82 Long term (current) use of aspirin; Z79.899 Other long term (current) drug therapy; Z79.4 Long term (current) use of insulin; Z88.0 Allergy status to penicillin; Z88.8 Allergy status to other drugs, medicaments and biological substances; Z88.2 Allergy status to sulfonamides

== ENCOUNTER 2016-12-01 23:53 | Inpatient (IN) | payer MEDICARE, MEDICAID ==
[~2016-12-01] VITALS: Ht 160 cm; Wt 130.0 kg
[~2016-12-01 23:53] MED LIST changes: +GABA-283 PO; +HUMA100I3 SC
[2016-12-02] MEDS ORDERED: methylPREDNISolone INJ 125 MG/2 ML VIAL (J2930) IV ONE (00:30)
[2016-12-02] MEDS: IPRATROPIUM 0.5MG/ALBUTEROL 2.5MG INH SOL UD 3ML (DUONEB)(J7620) NEB PRN (00:54)
[2016-12-02 00:57] LABS: ABG BASE EXCESS -1.7 (-2.0-2.0); ABG HCO3 22.5 MEQ/L (22.0-26.0); ABG PARTIAL PRESSURE CO2 36.2 mmHg (35.0-45.0); ABG PARTIAL PRESSURE O2 174.4 mmHg (75.0-100.0); ABG STANDARD HCO3 23.1 MEQ/L (22.0-26.0); ABG TOTAL CO2 23.6 MEQ/L (23.0-31.0); ABG pH (ARTERIAL) 7.412 UNITS (7.350-7.450)
[2016-12-02 01:07] LABS: BASO % 0.5 % (0.0-1.0); EOS # 0.3 K/mm3 (0.0-0.50); EOS % 4.2 % (0.0-3.0); LARGE UNSTAINED CELL # 0.2 K/mm3 (0.0-0.4); LARGE UNSTAINED CELL % 3.5 % (0.0-4.0); LYMPH # 1.3 K/mm3 (1.5-4.5); MEAN CORPUSCULAR HEMOGLOBIN 28.9 pg (27.0-33.0); MEAN CORPUSCULAR HGB CONC 30.8 g/dl (32.0-36.5); MEAN CORPUSCULAR VOLUME 93.9 fl (80.0-96.0); MONO # 0.8 K/mm3 (0.0-0.8); MONO % 12.4 % (0.0-5.0); NEUTROPHILS # 3.8 K/mm3 (1.8-7.7); NEUTROPHILS % 61.4 % (36.0-66.0); PLATELET COUNT, AUTOMATED 278 k/mm3 (150-450); RED CELL DISTRIBUTION WIDTH 14.9 % (11.5-14.5); WHITE BLOOD COUNT 6.2 K/mm3 (4.0-10.0)
[2016-12-02 01:31] LABS: ANION GAP 4 MEQ/L (8-16); BLOOD UREA NITROGEN 29 MG/DL (7-18); CALCIUM LEVEL 8.3 MG/DL (8.8-10.2); CARBON DIOXIDE LEVEL 30 MEQ/L (21-32); CHLORIDE LEVEL 105 MEQ/L (98-107); CREATININE FOR GFR 1.38 MG/DL (0.55-1.02); GLUCOSE, FASTING 161 MG/DL (83-110); POTASSIUM SERUM 4.2 MEQ/L (3.5-5.1); SODIUM LEVEL 139 MEQ/L (136-145)
[2016-12-02] MEDS ORDERED: FUROSEMIDE 40 MG/4 ML VIAL (J1940) IV ONE (05:15)
[2016-12-02] MEDS ORDERED: GABA-279 PO (05:43)
[2016-12-02] MEDS ORDERED: OXYC1TAB23 PO (05:45)
--- NOTE | 2016-12-02 05:50 | ECGEPIP ---
Stationary ECG Study [facility] - ED Test Date: 2016-12-02 Pat Name: DEMETRA GUZMAN Department: Room: - Gender: F Senior Clinical Study Manager: : [id number] Requested By: SAEID Tay Order Number: [id number] Reading MD: Garry Jorgensen Measurements Intervals [place] Rate: 104 P: -6 IN: 199 QRS: -58 QRSD: 173 T: 98 QT: 376 QTc: 497 Interpretive Statements SINUS TACHYCARDIA LBBB SIMILAR TO 09/29/15 Electronically Signed On 12-02-2016 5:49:47 EDT by Garry Jorgensen
[2016-12-02] MEDS ORDERED: BENCRE TOP (05:55)
[2016-12-02] MEDS ORDERED: TYLE650T35 PO (05:55)
[2016-12-02] MEDS ORDERED: BISA10SU PR (05:55)
[2016-12-02] MEDS ORDERED: ENEMENE6 PR (05:55)
[2016-12-02] MEDS ORDERED: INSUDET SC (05:57)
[2016-12-02] MEDS ORDERED: COLA100C3 PO (05:57)
[2016-12-02] MEDS ORDERED: ASPI325T28 PO (05:57)
[2016-12-02] MEDS ORDERED: TYLE325T5 PO (06:42)
[2016-12-02] MEDS ORDERED: GLUCOSE 4 GM CHEW TABLET PO PRN (06:45)
[2016-12-02] MEDS ORDERED: ANALGESIC BALM CRM 120 GM TOP PRN (06:45)
[2016-12-02] MEDS ORDERED: DEXTROSE 50% 50 ML SYRINGE IV PRN (06:45)
[2016-12-02] MEDS ORDERED: BISACODYL 10 MG SUPP PR PRN (06:45)
[2016-12-02] MEDS ORDERED: GLUCAGON FOR INJ 1 MG VIAL (J1610) SC PRN (06:45)
[2016-12-02] MEDS ORDERED: ACETAMINOPHEN TAB 650MG DOSE (2X325MG) PO PRN (06:45)
[2016-12-02] MEDS ORDERED: MOM 30ML SUSPENSION UDC PO PRN (06:45)
--- NOTE | 2016-12-02 06:46 | HPEPDOC ---
General Date of Admission Primary Care Physician: Jaren Ernst M.D. Attending Physician: Jaren Ernst M.D. Chief Complaint The patient is a 71-year-old female admitted with a reason for visit of SOB. Source: Patient Exam Limitations: Clinical conditions, Other (short of breath) Timing/Duration: Day(s) (3), Getting worse Severity: Severe Associated Symptoms: Cough, Loss of appetite, Shortness of breath History of Present Illness 71-year-old female, history of CHF, CAD status post a stent, diabetes mellitus, breast cancer status post mastectomy, presented with shortness of breath. Her shortness of breath is associated with the dyspnea on exertion and cough, loss of appetite. [facility] and was sent for CHF exacerbation. Denies any fever, chills, diarrhea, constipation, hematuria, dysuria. She has bilateral leg swelling. She also had a fall on 7-10 days back on the left side of the face and head. The old bruise on the left side of the face from that Home Medications Scheduled Aspirin (Aspirin) 325 Mg Tab, 325 MG PO DAILY, (Reported) Atorvastatin Calcium (Lipitor) 80 Mg Tab, 80 MG PO QHS, (Reported) Bupropion HCl (Wellbutrin Xl) 300 Mg Tab, 300 MG PO QHS, (Reported) Calcitriol (Calcitriol) 0.25 Mcg Cap, 0.25 MCG PO 5XW, (Reported) FRIDAY-FRIDAY Carvedilol (Carvedilol) 12.5 Mg Tab, 12.5 MG PO BID, (Reported) Clopidogrel Bisulfate (Clopidogrel) 75 Mg Tab, 75 MG PO DAILY, (Reported) Cranberry Extract (Cranberry) 300 Mg Tab, 300 MG PO BID, (Reported) Docusate Sodium (Colace) 100 Mg Cap, 100 MG PO DAILY, (Reported) Furosemide (Furosemide) 40 Mg Tab, 40 MG PO DAILY, (Reported) 0800 Furosemide (Furosemide) 20 Mg Tab, 20 MG PO QPM, (Reported) 1700 Gabapentin (Gabapentin) 100 Mg Cap, 200 MG PO TID, (Reported) Insulin Detemir (Levemir) 1 Units/0.01 Ml Susp, 24 UNITS SC QHS, (Reported) Insulin Human Lispro (Humalog) 100 Unit/Ml Inj, 1 DOSE SC AC, (Reported) PER SLIDING SCALE Lisinopril (Lisinopril) 5 Mg Tab, 5 MG PO DAILY, (Reported) Multivitamins *[facility]* (Thera M Plus *[facility]*) 1 Tab Tab, 1 TAB PO DAILY, (Reported) Omeprazole (Omeprazole) 20 Mg Cap, 20 MG PO DAILY, (Reported) Oxycodone/Acetaminophen (Oxycodone/Acetaminophen 5-325 mg) 1 Tab Tab, 1 TAB PO TID, (Reported) 0600, 1200, 1800 Primidone (Mysoline) 50 Mg Tab, 50 MG PO BID, (Reported) Venlafaxine Hydrochloride (Venlafaxine HCl ER) 150 Mg Cap, 150 MG PO DAILY, ( Reported) Scheduled PRN (Refresh Optive 0.5-0.9 %) 1 Steven Steven, 1 DROP OU QID PRN for DRY EYES, (Reported ) (Bengay Greaseless 10-15 %) 1 Cre Cre, 1 DOSE TOP QID PRN for PAIN OR DISCOMFORT, (Reported) (Enema Disposable) 1 Tamera Tamera, 1 TAMERA [place] DAILY PRN for CONSTIPATION, (Reported) Acetaminophen (Tylenol 8 Hour Arthritis) 650 Mg Tab, 650 MG PO Q4H PRN for PAIN OR FEVER, (Reported) Albuterol Sulfate (Albuterol Sulfate) 2.5 Mg/3 Ml Nebu, 1 VIAL INH Q4H PRN for SHORTNESS OF BREATH, (Reported) Bisacodyl (Bisac-Evac) 10 Mg Supp, 10 MG [place] DAILY PRN for CONSTIPATION, ( Reported) Milk Of Magnesia (Milk of Magnesia) 1,200 Mg/15 Ml Yesica, 30 ML PO DAILY PRN for CONSTIPATION, (Reported) Allergies Coded Allergies: Penicillins (Verified Allergy, Severe, ANAPHYLAXIS, 11/16/16) BLACKED OUT AFTER SHOT Penicillins Cross Reactors (Verified Allergy, Severe, ANAPHYLAXIS, 11/16/16 ) BLACKED OUT AFTER SHOT Captopril (Verified Allergy, Unknown, 11/16/16) Quinolones (Verified Allergy, Unknown, FLOXIN, 11/16/16) Streptokinase (Verified Adverse Reaction, Intermediate, BODY ACHE, MUSCLE SPASM, 11/16/16) BODY ACHE, MUSCLE SPASM Diphenhydramine (Verified Adverse Reaction, Mild, NAUSEA, 11/16/16) NAUSEA Methyldopa (Verified Adverse Reaction, Mild, MENTAL CHANGES, 11/16/16) MENTAL CHANGES, ATTEMPTED SUICIDE Sulfa Drugs (Verified Adverse Reaction, Mild, NAUSEA, 11/16/16) VOMITING Sulfa Drugs Cross Reactors (Verified Adverse Reaction, Mild, NAUSEA, ) VOMITING Aspartame (Verified Adverse Reaction, Unknown, 11/16/16) Hydrochlorothiazide (Verified Adverse Reaction, Unknown, DYAZIDE- NAUSEA, 11/16/16) Replaces MAXZIDE-25 Triamterene (Verified Adverse Reaction, Unknown, DYAZIDE- NAUSEA, 11/16/16) Replaces MAXZIDE-25 Past Medical History Medical History CHF, CAD, diabetes mellitus, breast cancer Surgical History Mastectomy, coronary stent Family History Significant Family History: No pertinent family hx Social History * Smoker: Denies Alcohol: Denies Drugs: denies Recent Travel/Sick Contacts: Denies: Recent travel, Recent sick contacts Psychosocial History: No pertinent psych hx Review of Symptoms Constitutional: Reports: Weakness, Fatigue, Denies: Chills, Fever, Night Sweats Eyes: Denies: Pain, Vision change ENT: Denies: Head Aches, Ear Pain, Dysphagia Skin: Denies: Rash, Lesions, Breakdown Pulmonary: Reports: Dyspnea, Cough Cardiovascular: Reports: Orthopnea, Edema, Denies: Chest Pain, Palpitations, Paroxysmal Noc. Dyspnea, Lt Headedness Gastrointestinal: Denies: Nausea, Vomiting, Abdominal Pain, Diarrhea Genitourinary: Denies: Dysuria, Frequency, Incontinence, Retention Hematologic: Denies: Bruising, Bleeding Excessively Musculoskeletal: Reports: Other Symptoms (edema), Denies: Neck Pain, Back Pain, Joint Pain, Muscle Pain, Spasms Neurological: Denies: Weakness, Numbness, Change in speech, Confusion Psych: Reports: Mood Normal, Denies: Depression, Memory Issues Physical Examination General Exam: Positive: Alert, Moderate Distress Eye Exam: Positive: PERRLA, Conjunctiva & lids normal, EOMI, Negative: Sclera icteric ENT Exam: Positive: Pharynx Normal, Other ENT (on bruise on the left side of the face and forehead from last week fALL) Neck Exam: Positive: Supple, Negative: JVD, thyromegaly Chest Exam: Positive: Rhonchi, Diminished Heart Exam: Positive: Rate Normal, Regular Rhythm, Normal S1, Normal S2, Negative: Murmurs, Rubs Telemetry: Positive: No significant arrhythmia Abdomen Exam: Positive: Normal bowel sounds, Soft, Negative: Tenderness, Hepatospenomegaly Extremity Exam: Positive: Edema, Normal pulses, Negative: Clubbing, Cyanosis Skin Exam: Positive: Nl turgor and temperature, Negative: Breakdown, Lesion Neuro Exam: Positive: Cranial Nerves 3-12 NL, Reflexes 2+ Psych Exam: Positive: Mental status NL, Mood NL, Oriented x 3 Vital Signs Vital Signs Date Time Temp Pulse Resp B/P (MAP) Pulse Ox O2 Delivery O2 Flow Rate FiO2 12/02/16 06:26 98.1 12/02/16 06:15 106 92 12/02/16 02:38 Nasal Cannula 4.0 12/02/16 01:53 16 Laboratory Data Labs 24H Laboratory Tests 2 12/02/16 00:37: Blood Gas Bicarbonate Standard 23.1, Arterial Blood pH 7.412, Arterial Blood Partial Pressure CO2 36.2, Arterial Blood Partial Pressure O2 174.4H, Arterial Blood Total CO2 23.6, Arterial Blood HCO3 22.5, Arterial Blood Base Excess -1.7 , Arterial Blood Oxygen Saturation 99.1H 12/02/16 00:52: White Blood Count 6.2, Red Blood Count 3.60L, Hemoglobin 10.4L, Hematocrit 33.8L , Mean Corpuscular Volume 93.9, Mean Corpuscular Hemoglobin 28.9, Mean Corpuscular Hemoglobin Concent 30.8L, Red Cell Distribution Width 14.9H, Platelet Count 278, Neutrophils (%) (Auto) 61.4, Lymphocytes (%) (Auto) 18.0L, Monocytes (%) (Auto) 12.4H, Eosinophils (%) (Auto) 4.2H, Basophils (%) (Auto) 0.5, Neutrophils # (Auto) 3.8, Lymphocytes # (Auto) 1.3L, Monocytes # (Auto) 0.8 , Eosinophils # (Auto) 0.3, Basophils # (Auto) 0.0, Large Unclassified Cells % 3.5, Large Unclassified Cells # 0.2, Anion Gap 4L, Glomerular Filtration Rate 40.0, Lactic Acid Level 1.2, Blood Urea Nitrogen 29H, Creatinine 1.38H, Sodium Level 139, Potassium Level 4.2, Chloride Level 105, Carbon Dioxide Level 30, Calcium Level 8.3L, Total Creatine Kinase 68, Creatine Kinase MB 1.0, Creatine Kinase MB Relative Index 1.47, Troponin I < 0.02, B-Type Natriuretic Peptide 1070H CBC/BMP Laboratory Tests 12/02/16 00:52 Red Blood Count 3.60 L, Mean Corpuscular Volume 93.9, Mean Corpuscular Hemoglobin 28.9, Mean Corpuscular Hemoglobin Concent 30.8 L, Red Cell Distribution Width 14.9 H, Neutrophils (%) (Auto) 61.4, Lymphocytes (%) (Auto) 18.0 L, Monocytes (%) (Auto) 12.4 H, Eosinophils (%) (Auto) 4.2 H, Basophils (% ) (Auto) 0.5, Neutrophils # (Auto) 3.8, Lymphocytes # (Auto) 1.3 L, Monocytes # (Auto) 0.8, Eosinophils # (Auto) 0.3, Basophils # (Auto) 0.0, Calcium Level 8.3 L, Total Creatine Kinase 68 Microbiology Microbiology 12/02/16 Blood Culture, Received Pending 12/02/16 Blood Culture, Received Pending Assessment/Plan 71-year-old female, history of CHF, diabetes mellitus, CAD, presented with the shortness of breath due to CHF exacerbation Problems (1) Acute on chronic kidney failure Status: Resolved Problem Text: Likely due to diuretics. Continue to monitor (2) Acute exacerbation of CHF (congestive heart failure) Status: Acute Problem Text: Started beta shiva, CHARLY inhibitor and IV Lasix 40 mg every 6 hours, get echocardiogram (3) CAD (coronary artery disease) Status: Chronic Problem Text: Continue with aspirin, Lipitor, Plavix (4) Diabetes Status: Chronic Problem Text: Continue with Levemir 24 units and sliding scale insulin Plan / VTE VTE Prophylaxis Ordered?: Yes Plan / Urinary Catheter Reason for insertion/continuin: Critical Pt monitoring Plan Diet: Continue Current Activity: Continue Current Therapy: PT, OT Respiratory: Increase Oxygen Diagnostics: Repeat Labs in AM, TTE Anticipated Discharge: Senior Living Advanced Directives: Do Not Resuscitate (DNR), Do Not Intubate (DNI) RENEE BALTAZAR MD Dec 02, 2016 06:46
[2016-12-02] MEDS ORDERED: FUROSEMIDE 40 MG/4 ML VIAL (J1940) IV SCH (08:00)
[2016-12-02] MEDS: HumaLOG INSULIN (NovoLOG) PER UNIT SC SCH ×3 (08:52→18:14)
[2016-12-02] MEDS: MULTIVITAMINS/MINERALS THERAP 1 TAB PO SCH (09:00)
[2016-12-02] MEDS ORDERED: DOCUSATE SODIUM 100 MG CAP PO SCH (09:00)
[2016-12-02] MEDS: PERCOCET 5MG/325MG TAB PO SCH ×3 (09:00→21:49)
[2016-12-02] MEDS: OMEPRAZOLE 20 MG CAP PO SCH (09:10)
[2016-12-02] MEDS: CLOPIDOGREL 75 MG TAB PO SCH (09:11)
[2016-12-02] MEDS: CARVedilol 12.5 MG TAB PO SCH ×2 (09:12→21:49)
[2016-12-02] MEDS: VENLAFAXINE **XR** 75MG CAPSULE PO SCH (09:12)
[2016-12-02] MEDS: GABAPENTIN 100 MG CAP PO SCH ×3 (09:13→21:48)
[2016-12-02] MEDS: ASPIRIN ENTERIC 325 MG TAB PO SCH (10:03)
[2016-12-02] MEDS: PRIMIDONE 50 MG TAB PO SCH ×2 (10:03→21:51)
[2016-12-02] MEDS: LISINOPRIL 5 MG TAB PO SCH (10:04)
--- NOTE | 2016-12-02 11:07 | IPNPDOC ---
Subjective Date Seen The patient was seen on 12/02/16. Subjective Chief Complaint/HPI The patient is a 71-year-old female admitted with a reason for visit of Congestive Heart Failure. Events since last encounter Pt this morning cont to c/o SOB. She denies cough, feels her breathing is about the same as last night. She has not been out of bed. General: Denies: Fatigue Constitutional: Denies: Chills, Fever ENT: Denies: Head Aches Pulmonary: Reports: Dyspnea, Denies: Cough Cardiovascular: Denies: Chest Pain, Palpitations Gastrointestinal: Denies: Nausea, Vomiting, Diarrhea Neurological: Reports: Weakness Objective Physical Examination General Exam: Positive: Alert, Moderate Distress ENT Exam: Positive: Pharynx Normal, Other ENT (on bruise on the left side of the face and forehead from last week fALL) Neck Exam: Positive: Supple, Negative: JVD, thyromegaly Chest Exam: Positive: Rhonchi, Diminished Heart Exam: Positive: Rate Normal, Regular Rhythm, Normal S1, Normal S2, Negative: Murmurs, Rubs Telemetry: Positive: No significant arrhythmia Abdomen Exam: Positive: Normal bowel sounds, Soft, Negative: Tenderness, Hepatospenomegaly Extremity Exam: Positive: Edema (1-2 mm pitting pretibial edema), Normal pulses , Negative: Clubbing, Cyanosis Skin Exam: Positive: Nl turgor and temperature, Other skin issue (L face with steri strips above the eye, and bruising to the face, 5-10 days old), Negative: Breakdown Neuro Exam: Positive: Cranial Nerves 3-12 NL, Reflexes 2+ Psych Exam: Positive: Mental status NL, Mood NL, Oriented x 3 Assessment /Plan Problems (1) Acute on chronic combined systolic and diastolic CHF (congestive heart failure) Status: Acute Response to Treatment: Stable Discussed With: Patient Problem Specific Plan: Monitor Clinically, Repeat Labs Problem Text: 06/24 ECHO revealed diastolic dysfunction and EF 30%, BNP on admission 1070 (06/2016 332), she has been started on Lasix 40 mg IV q 6h, monitor for I & Os, JESÚS diet, elevate legs when in bed. Repeat ECHO ordered. (2) CAD (coronary artery disease) Status: Chronic Problem Text: No angina Continue with aspirin, Lipitor, Plavix, asymptomatic 12/02 -T-I (3) Diabetes Status: Chronic Problem Text: Continue with Levemir 24 units and sliding scale insulin (4) CKD (chronic kidney disease) stage 3, GFR 30-59 ml/min Status: Chronic Response to Treatment: Stable Problem Specific Plan: Monitor Clinically Problem Text: Baseline Scr 1.3, monitor Plan/VTE VTE Prophylaxis Ordered?: Yes Plan/Urinary Catheter Reason for insertion/continuin: Critical Pt monitoring Plan Diet: Continue Current Activity: Continue Current Therapy: PT, OT Respiratory: Increase Oxygen Diagnostics: Repeat Labs in AM, TTE Anticipated Discharge: Half-Way VS, I&O, 24H, Fishbone Vital Signs/I&O Vital Signs Date Time Temp Pulse Resp B/P (MAP) Pulse Ox O2 Delivery O2 Flow Rate FiO2 12/02/16 10:04 133/61 12/02/16 09:12 85 12/02/16 07:45 18 99 Nasal Cannula 2.0 12/02/16 06:26 98.1 Laboratory Data 24H LABS Laboratory Tests 2 12/02/16 00:37: Blood Gas Bicarbonate Standard 23.1, Arterial Blood pH 7.412, Arterial Blood Partial Pressure CO2 36.2, Arterial Blood Partial Pressure O2 174.4H, Arterial Blood Total CO2 23.6, Arterial Blood HCO3 22.5, Arterial Blood Base Excess -1.7 , Arterial Blood Oxygen Saturation 99.1H 12/02/16 00:52: White Blood Count 6.2, Red Blood Count 3.60L, Hemoglobin 10.4L, Hematocrit 33.8L , Mean Corpuscular Volume 93.9, Mean Corpuscular Hemoglobin 28.9, Mean Corpuscular Hemoglobin Concent 30.8L, Red Cell Distribution Width 14.9H, Platelet Count 278, Neutrophils (%) (Auto) 61.4, Lymphocytes (%) (Auto) 18.0L, Monocytes (%) (Auto) 12.4H, Eosinophils (%) (Auto) 4.2H, Basophils (%) (Auto) 0.5, Neutrophils # (Auto) 3.8, Lymphocytes # (Auto) 1.3L, Monocytes # (Auto) 0.8 , Eosinophils # (Auto) 0.3, Basophils # (Auto) 0.0, Large Unclassified Cells % 3.5, Large Unclassified Cells # 0.2, Anion Gap 4L, Glomerular Filtration Rate 40.0, Lactic Acid Level 1.2, Blood Urea Nitrogen 29H, Creatinine 1.38H, Sodium Level 139, Potassium Level 4.2, Chloride Level 105, Carbon Dioxide Level 30, Calcium Level 8.3L, Total Creatine Kinase 68, Creatine Kinase MB 1.0, Creatine Kinase MB Relative Index 1.47, Troponin I < 0.02, B-Type Natriuretic Peptide 1070H 12/02/16 08:28: Bedside Glucose (Misc Panel) 240H CBC/BMP Laboratory Tests 12/02/16 00:52 Red Blood Count 3.60 L, Mean Corpuscular Volume 93.9, Mean Corpuscular Hemoglobin 28.9, Mean Corpuscular Hemoglobin Concent 30.8 L, Red Cell Distribution Width 14.9 H, Neutrophils (%) (Auto) 61.4, Lymphocytes (%) (Auto) 18.0 L, Monocytes (%) (Auto) 12.4 H, Eosinophils (%) (Auto) 4.2 H, Basophils (% ) (Auto) 0.5, Neutrophils # (Auto) 3.8, Lymphocytes # (Auto) 1.3 L, Monocytes # (Auto) 0.8, Eosinophils # (Auto) 0.3, Basophils # (Auto) 0.0, Calcium Level 8.3 L, Total Creatine Kinase 68 Microbiology Microbiology 12/02/16 Blood Culture, Received Pending 12/02/16 Blood Culture, Received Pending TRINO LLAMAS PA-C Dec 02, 2016 11:07 Alphonso Mauricio M.D. Dec 02, 2016 15:49
[2016-12-02] MEDS: FUROSEMIDE 40 MG/4 ML VIAL (J1940) IV SCH ×3 (12:11→23:47)
[2016-12-02 15:05] VITALS: BP 131/58
[2016-12-02 20:00] VITALS: BP 177/90
[2016-12-02] MEDS: buPROPion **XL** TABLET 150MG (WELLBUTRIN XL) PO SCH (21:47)
[2016-12-02] MEDS: SENOKOT S TAB PO SCH (21:47)
[2016-12-02] MEDS: ATORVASTATIN 20 MG TAB PO SCH (21:47)
[2016-12-02] MEDS: LEVEMIR (INSULIN DETEMIR) 1 UNITS/0.01ML SC SCH (21:50)
[2016-12-03] VITALS: BP 122/57
[2016-12-03 04:00] VITALS: BP 127/70
[2016-12-03] MEDS: FUROSEMIDE 40 MG/4 ML VIAL (J1940) IV SCH ×3 (05:12→17:26)
[2016-12-03 05:22] LABS: MEAN CORPUSCULAR HEMOGLOBIN 29.3 pg (27.0-33.0); MEAN CORPUSCULAR HGB CONC 31.5 g/dl (32.0-36.5); MEAN CORPUSCULAR VOLUME 92.9 fl (80.0-96.0); RED CELL DISTRIBUTION WIDTH 14.8 % (11.5-14.5); WHITE BLOOD COUNT 6.4 K/mm3 (4.0-10.0)
[2016-12-03 05:58] LABS: ALBUMIN 2.7 GM/DL (3.2-5.2); ALBUMIN/GLOBULIN RATIO 0.79 (1.00-1.93); BILIRUBIN,TOTAL 0.4 MG/DL (0.2-1.0); CALCIUM LEVEL 8.4 MG/DL (8.8-10.2); CREATININE FOR GFR 1.31 MG/DL (0.55-1.02); GLOMERULAR FILTRATION RATE 42.5 (>39); POTASSIUM SERUM 3.8 MEQ/L (3.5-5.1); TOTAL PROTEIN 6.1 GM/DL (6.4-8.2)
[2016-12-03 08:00] VITALS: BP 120/56
[2016-12-03] MEDS: CARVedilol 12.5 MG TAB PO SCH ×3 (08:28→22:00)
[2016-12-03] MEDS: LISINOPRIL 5 MG TAB PO SCH ×2 (08:28→08:34)
[2016-12-03] MEDS: GABAPENTIN 100 MG CAP PO SCH ×3 (08:28→21:56)
[2016-12-03] MEDS: OMEPRAZOLE 20 MG CAP PO SCH (08:28)
[2016-12-03] MEDS: CLOPIDOGREL 75 MG TAB PO SCH (08:28)
[2016-12-03] MEDS: MULTIVITAMINS/MINERALS THERAP 1 TAB PO SCH (08:28)
[2016-12-03] MEDS: HumaLOG INSULIN (NovoLOG) PER UNIT SC SCH ×3 (08:28→17:25)
[2016-12-03] MEDS: SENOKOT S TAB PO SCH ×2 (08:28→21:59)
[2016-12-03] MEDS: PERCOCET 5MG/325MG TAB PO SCH ×3 (08:29→21:58)
--- NOTE | 2016-12-03 08:48 | IPNPDOC ---
Subjective Date Seen The patient was seen on 12/03/16. Subjective Chief Complaint/HPI The patient is a 71-year-old female admitted with a reason for visit of Congestive Heart Failure. Events since last encounter Pt reports improvement in her breathing today. She is less SOB. She is also coughing less. She slept well last night. General: Denies: Fatigue Constitutional: Denies: Chills, Fever ENT: Denies: Head Aches Pulmonary: Reports: Dyspnea, Denies: Cough Cardiovascular: Denies: Chest Pain, Palpitations Gastrointestinal: Denies: Nausea, Vomiting, Diarrhea Neurological: Reports: Weakness Psych: Reports: Mood Normal Objective Physical Examination General Exam: Positive: Alert, No Acute Distress ENT Exam: Positive: Pharynx Normal, Other ENT (on bruise on the left side of the face and forehead from last week fALL) Neck Exam: Positive: Supple, Negative: JVD, thyromegaly Chest Exam: Positive: Rales (B bases), Diminished Heart Exam: Positive: Rate Normal, Regular Rhythm, Normal S1, Normal S2, Negative: Murmurs, Rubs Telemetry: Positive: No significant arrhythmia Abdomen Exam: Positive: Normal bowel sounds, Soft, Negative: Tenderness, Hepatospenomegaly Extremity Exam: Positive: Edema ( trace -1 mm pitting pretibial edema), Normal pulses, Negative: Clubbing, Cyanosis Skin Exam: Positive: Nl turgor and temperature, Other skin issue (L face with steri strips above the eye, and bruising to the face, 5-10 days old), Negative: Breakdown Neuro Exam: Positive: Cranial Nerves 3-12 NL, Reflexes 2+ Psych Exam: Positive: Mental status NL, Mood NL, Oriented x 3 Assessment /Plan Problems (1) Acute on chronic combined systolic and diastolic CHF (congestive heart failure) Status: Acute Response to Treatment: Stable Discussed With: Patient Problem Specific Plan: Monitor Clinically, Repeat Labs Problem Text: 12/03 - I And O's yesterday appear to be inaccurate as no documented intake, she did have 3 L of output. ECHO has not been done yet. Cont with IV Lasix today, likely can be d/c back to [facility] 12/04. 12/02 - 06/24 ECHO revealed diastolic dysfunction and EF 30%, BNP on admission 1070 (06/2016 332), she has been started on Lasix 40 mg IV q 6h, monitor for I & Os, JESÚS diet, elevate legs when in bed. Repeat ECHO ordered. (2) CAD (coronary artery disease) Status: Chronic Problem Text: No angina Continue with aspirin, Lipitor, Plavix, asymptomatic (3) Diabetes Status: Chronic Problem Text: Continue with Levemir 24 units and sliding scale insulin (4) CKD (chronic kidney disease) stage 3, GFR 30-59 ml/min Status: Chronic Response to Treatment: Stable Problem Specific Plan: Monitor Clinically Problem Text: at Baseline Scr 1.3, monitor (5) Morbid obesity Status: Chronic Response to Treatment: Stable Plan/VTE VTE Prophylaxis Ordered?: Yes Plan/Urinary Catheter Reason for insertion/continuin: Critical Pt monitoring Plan Diet: Continue Current Activity: Continue Current Therapy: PT, OT Respiratory: Increase Oxygen Diagnostics: Repeat Labs in AM, TTE Anticipated Discharge: [facility] VS, I&O, 24H, Fishbone Vital Signs/I&O Vital Signs Date Time Temp Pulse Resp B/P (MAP) Pulse Ox O2 Delivery O2 Flow Rate FiO2 12/03/16 08:33 69 120/56 12/03/16 08:29 18 12/03/16 04:00 97.5 97 Nasal Cannula 2.0 I&O- Last 24 Hours up to 6 AM 12/03/16 05:59 Intake Total 120 ml Output Total 3175 ml Balance -3055 ml Laboratory Data 24H LABS Laboratory Tests 2 12/02/16 12:13: Bedside Glucose (Misc Panel) 336H 12/02/16 14:24: Bedside Glucose (Misc Panel) 295H 12/02/16 16:55: Bedside Glucose (Misc Panel) 278H 12/02/16 21:38: Bedside Glucose (Misc Panel) 253H 12/03/16 05:06: Anion Gap 5L, Glomerular Filtration Rate 42.5, Blood Urea Nitrogen 31H, Creatinine 1.31H, Sodium Level 140, Potassium Level 3.8, Chloride Level 106, Carbon Dioxide Level 29, Calcium Level 8.4L, Aspartate Amino Transf (AST/SGOT) 14L, Alanine Aminotransferase (ALT/SGPT) 18, Alkaline Phosphatase 131H, Total Bilirubin 0.4, Total Protein 6.1L, Albumin 2.7L, Magnesium Level 2.0, Troponin I 0.08#, Albumin/Globulin Ratio 0.79L CBC/BMP Laboratory Tests 12/03/16 05:06 Red Blood Count 3.24 L, Mean Corpuscular Volume 92.9, Mean Corpuscular Hemoglobin 29.3, Mean Corpuscular Hemoglobin Concent 31.5 L, Red Cell Distribution Width 14.8 H, Calcium Level 8.4 L, Aspartate Amino Transf (AST/SGOT ) 14 L, Alanine Aminotransferase (ALT/SGPT) 18, Alkaline Phosphatase 131 H, Total Bilirubin 0.4, Total Protein 6.1 L, Albumin 2.7 L Microbiology Microbiology 12/02/16 Blood Culture - Preliminary, Resulted No growth after 24 hours . All specim... 12/02/16 Blood Culture - Preliminary, Resulted No growth after 24 hours . All specim... TRINO LLAMAS PA-C Dec 03, 2016 08:48 Alphonso Mauricio M.D. Dec 03, 2016 14:27
[2016-12-03 12:00] VITALS: BP 134/60
[2016-12-03] MEDS: PRIMIDONE 50 MG TAB PO SCH ×2 (12:33→22:00)
[2016-12-03] MEDS: VENLAFAXINE **XR** 75MG CAPSULE PO SCH (12:33)
[2016-12-03] MEDS: ASPIRIN ENTERIC 325 MG TAB PO SCH (12:33)
[2016-12-03 16:00] VITALS: BP 116/64
[2016-12-03 20:00] VITALS: BP 104/52
--- NOTE | 2016-12-03 20:31 | ECHO ---
DATE OF PROCEDURE: 12/03/2016 REFERRING PHYSICIAN: Dr. Alphonso Mauricio INDICATION: Congestive heart failure. Study was performed on 12/03/2016. The patient measures 160 cm and weighs 129 kg. DIMENSIONS: IVS: 1.4 LV: 6.5 LVPW: 1.4 LA: 4.5 Aorta: 3.5 FINDINGS: The study is of very limited technical quality. This is corresponding to the patient's body habitus and also the fact that she was not able to be properly positioned for the exam. Left ventricle is severely dilated. Unfortunately, large segments of the left ventricle wall were not well seen. There is a wall motion abnormality involving distal septum and also very likely mid and distal anterior wall and apex. I assume that these segments are severely hypokinetic, if not akinetic in spite of very poor visualization. Overall estimated left ventricular ejection fraction (LVEF) is going to be at least moderately reduced. Right ventricle was poorly visualized. It does not appear grossly enlarged. Left atrium is at least moderately enlarged, right atrium appears normal. Aortic valve is heavily sclerotic but mobility is preserved. Mitral valve also exhibits degenerative abnormalities with mitral annular calcifications and some thickening of mitral leaflets. Mobility, though, is preserved. Tricuspid valve appears normal. Pulmonic valve also appears normal. Trace pericardial effusion is noted. Inferior vena cava is dilated, and there is no appreciable collapse with respiration indicative of very high central venous pressure. Aortic root is normal. Aortic arch and abdominal aorta were not seen. Doppler interrogation reveals no significant aortic stenosis or insufficiency. There is approximately moderate mitral insufficiency with MR jet oriented towards lateral and posterior wall of left atrium. There is approximately moderate tricuspid insufficiency. Calculated pulmonary artery pressure is at least in mid 70s to 80s corresponding to severe pulmonary hypertension. Pulmonic valve exhibits mild insufficiency. Mitral inflow pattern and tissue Doppler imaging of mitral annulus revealed grade 2 diastolic dysfunction indicative of elevated left ventricle end-diastolic pressure. velocity on mitral inflow is 131 cm/s, E prime velocity septal is 5.0 and lateral 7.5 cm/s. CONCLUSIONS: 1. Study is of rather limited technical quality. 2. Severely dilated left ventricle with anterior apical wall motion abnormality but overall very poorly visualized torres, and I assume at least moderate left ventricular systolic dysfunction. 3. Poorly visualized right ventricle does not appear grossly enlarged. 4. Moderate mitral and tricuspid insufficiency. 5. Very high central venous pressure. 6. Very likely severe pulmonary hypertension. COMMENTS: Overall study most consistent with ischemic cardiomyopathy and systolic congestive heart failure that is currently exacerbated.
[2016-12-03] MEDS: ATORVASTATIN 20 MG TAB PO SCH (21:55)
[2016-12-03] MEDS: buPROPion **XL** TABLET 150MG (WELLBUTRIN XL) PO SCH (21:59)
[2016-12-03] MEDS: LEVEMIR (INSULIN DETEMIR) 1 UNITS/0.01ML SC SCH (22:01)
[2016-12-04] VITALS: BP 101/51
[2016-12-04] MEDS: FUROSEMIDE 40 MG/4 ML VIAL (J1940) IV SCH ×2 (01:03→06:12)
[2016-12-04 04:00] VITALS: BP 110/53
[2016-12-04 05:12] LABS: MEAN CORPUSCULAR HEMOGLOBIN 29.7 pg (27.0-33.0); MEAN CORPUSCULAR HGB CONC 31.4 g/dl (32.0-36.5); MEAN CORPUSCULAR VOLUME 94.8 fl (80.0-96.0); RED CELL DISTRIBUTION WIDTH 14.8 % (11.5-14.5); WHITE BLOOD COUNT 7.5 K/mm3 (4.0-10.0)
[2016-12-04 05:39] LABS: ALBUMIN 2.9 GM/DL (3.2-5.2); ALBUMIN/GLOBULIN RATIO 0.74 (1.00-1.93); BILIRUBIN,TOTAL 0.3 MG/DL (0.2-1.0); CALCIUM LEVEL 8.6 MG/DL (8.8-10.2); CREATININE FOR GFR 1.61 MG/DL (0.55-1.02); GLOMERULAR FILTRATION RATE 33.5 (>39); POTASSIUM SERUM 4.1 MEQ/L (3.5-5.1); TOTAL PROTEIN 6.8 GM/DL (6.4-8.2)
[2016-12-04] MEDS: HumaLOG INSULIN (NovoLOG) PER UNIT SC SCH (07:59)
[2016-12-04 08:00] VITALS: BP 124/62
[2016-12-04] MEDS: PERCOCET 5MG/325MG TAB PO SCH (09:16)
--- NOTE | 2016-12-04 09:16 | DSES ---
DATE OF ADMISSION: 12/02/2016 DATE OF DISCHARGE: PRIMARY CARE PHYSICIAN: Dr. Jaren Ernst at [facility]. ATTENDING PHYSICIAN: Dr. Jaja Pearl HISTORY OF PRESENT ILLNESS: This is a 71-year-old female patient of Dr. Jaren Ernst who presented to the emergency department with shortness of breath and was admitted with acute exacerbation of congestive heart failure and acute on chronic kidney failure. She received IV Lasix and diuresed well during the course of her admission here. By day of discharge, her creatinine did bump to 1.61. Her baseline appears to be around 1.2. By day of discharge, she was feeling much better. An echocardiogram was obtained and read by Dr. Mendez. He notes overall study is most consistent with ischemic cardiomyopathy and systolic congestive heart failure exacerbation. Patient was continued on aspirin, Plavix, Lipitor for history of coronary artery disease. She was continued with Levemir and sliding-scale insulin for diabetes. By day of discharge, the patient was doing well and it was arranged for her to be transferred back to [facility]. She does have a left lower extremity chronic wound that is managed by Dr. Chamorro. PHYSICAL EXAMINATION: Vitals: Temperature 97.3, pulse 69, respiratory rate 18, blood pressure is 124/62, pulse ox 100%. General: The patient is alert, in no acute distress, no respiratory distress. HEENT: Head is normocephalic, atraumatic. Chest: Diminished but clear. Heart: Regular rate and rhythm. Abdomen: Positive bowel sounds, soft, nontender. Extremities with trace edema bilaterally. Left lower extremity is wrapped. Skin: Patient with bruising to the left side of the face. LABORATORY DATA: WBC 7.5, hemoglobin 10.0, hematocrit 31.9, platelets 286. Sodium 141, potassium 4.1, chloride 105, carbon dioxide 29, BUN 38, creatinine 1.61, glucose 110, calcium 8.6, total bili 0.3, AST 17, ALT 22, alk phos 151, total protein 6.8, albumin 2.9. MEDICATIONS: - acetaminophen 650 mg by mouth every 4 hours as needed pain or fever - albuterol nebs every 4 hours as needed shortness of breath - aspirin 325 mg by mouth daily - Lipitor 80 mg by mouth daily at bedtime - bisacodyl suppository as needed constipation - Wellbutrin XL 300 mg by mouth daily - calcitriol 0.25 mcg five times a week - carvedilol 12.5 mg by mouth twice daily - Plavix 75 mg by mouth daily, - Colace 100 mg by mouth daily - enema per rectum as needed constipation - furosemide 40 mg by mouth daily - furosemide 20 mg by mouth daily at bedtime - gabapentin 200 mg by mouth three times daily - Levemir 24 units subcutaneous at bedtime - Humalog as directed - lisinopril 5 mg by mouth daily - milk of magnesia 30 mL by mouth as needed constipation - multivitamin by mouth daily - omeprazole 20 mg by mouth daily - Percocet 5/325 mg by mouth three times daily - Mysoline 50 mg by mouth twice daily - venlafaxine ER 150 mg by mouth daily DISCHARGE INSTRUCTIONS: Followup with Dr. Ernst this week. Activity with assist. Diet is 1500 mL fluid restriction, consistent carbohydrate, [address] Chamorro for left lower extremity wound care. DISCHARGE DIAGNOSES Acute on chronic systolic, diastolic congestive heart failure. Coronary artery disease. Diabetes. Chronic kidney disease, Morbid obesity.
[2016-12-04 09:17] VITALS: BP 124/62
[2016-12-04] MEDS: CARVedilol 12.5 MG TAB PO SCH (09:17)
[2016-12-04] MEDS: ASPIRIN ENTERIC 325 MG TAB PO SCH (09:18)
[2016-12-04] MEDS: VENLAFAXINE **XR** 75MG CAPSULE PO SCH (09:18)
[2016-12-04] MEDS: SENOKOT S TAB PO SCH (09:18)
[2016-12-04] MEDS: LISINOPRIL 5 MG TAB PO SCH (09:18)
[2016-12-04] MEDS: PRIMIDONE 50 MG TAB PO SCH (09:19)
[2016-12-04] MEDS: MULTIVITAMINS/MINERALS THERAP 1 TAB PO SCH (09:19)
[2016-12-04] MEDS: OMEPRAZOLE 20 MG CAP PO SCH (09:19)
[2016-12-04] MEDS: CLOPIDOGREL 75 MG TAB PO SCH (09:19)
[2016-12-04] MEDS: GABAPENTIN 100 MG CAP PO SCH (09:25)
--- NOTE | 2016-12-05 09:48 | REP ---
Clinical: Dyspnea and cough. Technique: Portable semiupright. Comparison: 08/16/2016. Findings: Cardiomegaly remains stable. Perihilar and lower lobe opacities with possible layering effusions. No pneumothorax. Skeletal structures intact. Impression: Findings suggest CHF versus multifocal pneumonia and include perihilar and lower lobe opacities and suspected layering effusions. Signed by Ar Khan MD 12/02/2016 07:49 A
== END 2016-12-04 11:19 | disposition home or self-care (01) | DRG 292 ==
LOC: EDBD 23:53 → M ED 12-02 02:16 → M ED INP 12-02 06:31 → M PCU 12-02 15:08
PROVIDERS: ADMIT Internal Medicine; ATTEND Family Medicine
DX: I50.43 Acute on chronic combined systolic (congestive) and diastolic (congestive) heart failure (principal); Z68.43 Body mass index [BMI] 50.0-59.9, adult; N17.9 Acute kidney failure, unspecified; E66.01 Morbid (severe) obesity due to excess calories; I25.10 Atherosclerotic heart disease of native coronary artery without angina pectoris; E11.9 Type 2 diabetes mellitus without complications; N18.9 Chronic kidney disease, unspecified; Z79.899 Other long term (current) drug therapy; Z79.82 Long term (current) use of aspirin; Z79.4 Long term (current) use of insulin; I25.5 Ischemic cardiomyopathy; Z85.3 Personal history of malignant neoplasm of breast; Z88.0 Allergy status to penicillin; Z88.2 Allergy status to sulfonamides; Z88.8 Allergy status to other drugs, medicaments and biological substances

== ENCOUNTER → 2016-12-09 | Outpatient (REF) ==
[~2016-12-09] MED LIST changes: -ACET650T2 PO; +ACET650T3 PO; +ASPI325T24 PO; +ASPI325T28 PO; -ASPI32ECTA PO; -ATOR1TAB18 PO; +ATOR80TA59 PO; +BENCRE3 TOP; +BISA10SU PR; +COLA100C5 PO; +ENEMENE6 PR; +FERR1TAB8 PO; -FERR325T PO; -FURO1TAB15 PO; +FURO80TA2 PO; +GABA-279 PO; +OXYC1TAB23 PO; +PRED20TA PO; -PROA1AER INH; +PROAAER10 INH; +SIME1CAP PO; +TRAM37.53 PO; +TYLE325T5 PO; +TYLE650T35 PO; +ULTR37.54 PO; +VITA1CAP40 PO; -VITA50003 PO
[2016-12-09 09:20] LABS: CALCIUM LEVEL 8.9 MG/DL (8.8-10.2); CREATININE FOR GFR 1.44 MG/DL (0.55-1.02); GLOMERULAR FILTRATION RATE 38.1 (>39); POTASSIUM SERUM 4.4 MEQ/L (3.5-5.1)
== END ==
LOC: SKLAB4 11:17
PROVIDERS: ATTEND Family Medicine
DX: I50.9 Heart failure, unspecified (principal)

== ENCOUNTER → 2016-12-13 | Outpatient (CLI) | payer MEDICARE, MEDICAID ==
--- NOTE | 2016-12-14 00:44 | ECWPNPC ---
PATIENT NAME: DEMETRA GUZMAN : 1945 GENDER: FEMALE VISIT DATE: 12/13/2016 DISCHARGE DATE: 12/13/16 1040 VISIT LOCKED DATE TIME: PHYSICIAN: ISREAL GROSS RESOURCE: ISREAL GROSS REASON FOR APPOINTMENT 1. FOLLOWUP HISTORY OF PRESENT ILLNESS HISTORY OF PRESENT ILLNESS: HERE FOR F/U CHRONIC LOW BACK PAIN AND RIGHT LEG PAIN.HAD TPI RIGHT LOW BACK THAT PATIENT STATES WAS HELPFUL FOR A SHORT TIME.C/O INTERMITTENT RIGHT LOW BACK AND RIGHT POSTRIOR LATERAL LEG PAIN.DESCRIBES PAIN A CONSTANT ACHING AND SHOOTING PAIN.RATING PAIN VAS 1/10.KIT CURRENTLY RESIDING AT [facility] IN THERE REHAB. PROGRAM.DOING MUCH BETTER SINCE HER LAST VISIT.CONTINUES ON PLAVIX THERAPY.PATIENT WAS HOSPITALIZED 3 MONTHS AGO FOR ACUTE LOW BACK PAIN. SHE HAS MULTIPLE COMORBIDITIES.DENIES BOWEL OR BLADDER INCONTINENCE.NO RECENT FEVER,ILLNESS OR WEIGHT LOSS. PAIN THE PATIENT DESCRIBES THE PAIN... THE PATIENT DESCRIBES THE PAIN... FALL RISK SCREENING: SCREENING :NO FALLS IN THE PAST YEAR CURRENT MEDICATIONS TAKING MILK OF MAGNESIA 2400 MG/10ML SUSPENSION 10ML ORALLY DAILY NEEDED FOR CONSTIPATION, NOTES: 10/15/16 TAKING CALCITRIOL 0.25 MCG CAPSULE 1 CAPSULE ORALLY MON-FRI, NOTES: 10/17/16 0800 TAKING LASIX 20 MG TABLET 1 TAB ORALLY DAILY @ 1700, NOTES: 10/16/16 0900 40MGS TAKING ACETAMINOPHEN 325 MG TABLET 2 TABLET NEEDED ORALLY EVERY 4 HOURS NEEDED FOR PAIN OR FEVER, NOTES: NONE RECENT TAKING OMEPRAZOLE 20 MG CAPSULE DELAYED RELEASE 1 CAP(S) ORALLY ONCE A DAY, NOTES: 10/17/16 08 TAKING LIPITOR 80 MG TABLET 1 TABLET ORALLY ONCE A DAY, NOTES: 10/16/16 2100 TAKING BUPROPION HCL ER (XL) 300 MG TABLET EXTENDED RELEASE 24 HOUR 1 TABLET IN THE MORNING ORALLY ONCE A DAY, NOTES: 10/17/16 0800 TAKING MULTIPLE VITAMINS-MINERALS _ TABLET 1 TAB(S) ORALLY DAILY, NOTES: 10/16/16 0900 TAKING EFFEXOR XR 150 MG CAPSULE EXTENDED RELEASE 24 HOUR 1 CAPSULE WITH FOOD ORALLY ONCE A DAY TAKING DULCOLAX 10 MG SUPPOSITORY 1 SUPPOSITORY NEEDED RECTAL ONCE A DAY NEEDED TAKING ENEMA 19-7 GM/118ML ENEMA RECTAL ONCE DAILY PRN TAKING PRIMIDONE 50 MG TABLET 1 TAB ORALLY TWICE DAILY TAKING LISINOPRIL 5 MG TABLET 1 TABLET ORALLY ONCE A DAY TAKING CARVEDILOL 12.5 MG TABLET 1 TABLET WITH FOOD ORALLY TWICE A DAY TAKING ASPIRIN 325 MG TABLET 1 TABLET ORALLY ONCE A DAY TAKING PLAVIX 75 MG TABLET 1 TABLET ORALLY ONCE A DAY TAKING LEVEMIR 100 UNIT/ML SOLUTION 24 UNITS SUBCUTANEOUS DAILY AT 2100 TAKING PERCOCET 5-325 MG TABLET 1 TABLET NEEDED ORALLY THREE TIMES DAILY NEEDED TAKING HUMALOG 100 UNIT/ML SOLUTION PER SLIDING SCALE SUBCUTANEOUS AT 0800, 1200 AND 1700 TAKING COLACE 100 MG CAPSULE ORALLY DAILY TAKING CRANBERRY 300 MG TABLET 1 TABLET WITH MEALS ORALLY TWICE A DAY TAKING ALBUTEROL 0.083% AEROSOL SOLUTION 1 UNIT INHALATION FOUR TIMES A DAY NEEDED FOR SOB/WHEEZING--MAY KEEP AT BEDSIDE TAKING REFRESH OPTIVE 0.5-0.9 % SOLUTION OPHTHALMIC ONE DROP BOTH EYES FOUR TIMES PER DAY, NOTES: NONE RECENT TAKING VENLAFAXINE HCL ER 150 MG CAPSULE EXTENDED RELEASE 24 HOUR 1 CAPSULE WITH FOOD ORALLY ONCE A DAY TAKING GABAPENTIN 100 MG CAPSULE 200MGS ORALLY TID TAKING GLUCAGON EMERGENCY 1 MG KIT INJECTION PRN NOT-TAKING ENEMA DISPOSABLE 19-7 GM/118ML ENEMA RECTAL NOT-TAKING MILK OF MAGNESIA CONCENTRATE 2400 MG/10ML SUSPENSION 5 ML ORALLY TWICE A DAY NOT-TAKING PREPARATION H 0.25-14-74.9 % OINTMENT 1 STRIP TOPICALLY RECTAL MAY SELF ADMINISTER, MAY LEAVE AT BEDSIDE TWICE DAILY NEEDED RECTAL DISCOMFORT, NOTES: NONE RECENT NOT-TAKING ICY HOT ARTHRITIS PAIN RELIEF 16-4 % LOTION TOPICALLY 3 TIMES PER DAY, NOTES: NONE RECENT NOT-TAKING NOVOLOG FLEXPEN 100 UNIT/ML SOLUTION PEN-INJECTOR SUBCUTANEOUS AT BEDTIME, NOTES: 10/16/16 4 UNITS 2100 NOT-TAKING TYLENOL EXTRA STRENGTH 500 MG TABLET 1 TABLETS NEEDED ORALLY 2 TIMES PER DAY, NOTES: NONE RECENT NOT-TAKING TOUJEO SOLOSTAR 300 UNIT/ML SOLUTION PEN-INJECTOR 32 UNITS DAILY SUBCUTANEOUS AT 1900-PATIENT MAY SELF ADMINISTER, NOTES: NONE RECENT NOT-TAKING LASIX 40 MG TABLET 1 TABLET ORALLY DAILY AT 9:00, NOTES: 10/16/16 0900 NOT-TAKING SPIRONOLACTONE 25 MG TABLET 1/2 TABLET ORALLY DAILY AT 8:00, NOTES: 10/16/16 0900 NOT-TAKING NOVOLOG FLEXPEN 100 UNIT/ML SOLUTION PEN-INJECTOR PER SLIDING SCALE SUBCUTANEOUS THREE TIMES A DAY NOT-TAKING HOSPITAL BED PLEASE REPAIR OR REPLACE HOSPITAL BED DX: Z74.09, I87.312 DIRECTED NOT-TAKING ATORVASTATIN CALCIUM 80 MG TABLET 1 TABLET ORALLY ONCE A DAY, NOTES: 10/16/16 2100 NOT-TAKING PERCOCET 5-325 MG TABLET 1 TABLET NEEDED ORALLY EVERY 4 HRS MDD=6 NOT-TAKING SENNA S 8.6-50 MG TABLET 2 TABS ORALLY TWICE A DAY NEEDED FOR CONSTIPATION NOT-TAKING HYDROCODONE-ACETAMINOPHEN 5-325 MG TABLET 1 TABLET ORALLY EVERY 6 HOURS NEEDED FOR PAIN MDD=4 NOT-TAKING LOPERAMIDE HCL 2 MG TABLET 2 TABLET ORALLY FOUR TIMES A DAY NEEDED FOR LOOSE STOOLS NOT-TAKING MECLIZINE HCL 25 MG CAPSULE 1 CAP(S) ORALLY EVERY 8 HOURS NEEDED NOT-TAKING FLONASE 50 MCG/DOSE INHALER 1 SPRAY IN EACH NOSTRIL NASALLY ONCE A DAY NOT-TAKING PROAIR HFA 108 (90 BASE) MCG/ACT AEROSOL SOLUTION 2 PUFFS NEEDED INHALATION EVERY 4 HRS; PLEASE INCLUDE A SPACER. MAY KEEP AT BEDSIDE NOT-TAKING MAALOX ADVANCED 200-200-20 MG/5ML SUSPENSION 30 ML NEEDED ORALLY EVERY 4 HOURS NEEDED NOT-TAKING HYDROXYZINE HCL 10 MG TABLET 1 TAB ORALLY ONCE DAILY NEEDED FOR INSOMNIA NOT-TAKING WHEELCHAIR _ MISCELLANEOUS DIRECTED _ REPAIR MOTORIZED WHEELCHAIR NOT-TAKING BLOOD GLUCOSE TEST _ STRIP 1 STRIP IN VITRO DX:E11.9 FOUR TIMES DAILY NOT-TAKING GLUCOMETER _ GLUCOMETER DIRECTED DX:E11.9 FOUR TIMES DAILY NOT-TAKING MISC. DEVICES 30 GAUGE X 3/16 BD AU;TOSHIELD PEN NEEDLES DIRECTED INTRADERMALLY FOUR TIMES A DAY WITH INSULIN NOT-TAKING NYSTATIN 446625 UNIT/GM POWDER APPLY TO AFFECTED AREA EXTERNALLY TWICE A DAY NEEDED NOT-TAKING EUCERIN - CREAM APPLY TO AREAS THAT ITCH TOPICALLY TWICE A DAY NOT-TAKING AVELOX 400 MG TABLET 1 TABLET ORALLY ONCE A DAY NOT-TAKING ALUM & MAG HYDROXIDE-SIMETH 200-200-20 MG/5ML SUSPENSION 30 ML NEEDED ORALLY EVERY 4 HOURS NEEDED NOT-TAKING DOXYCYCLINE HYCLATE 100 MG TABLET 1 TABLET ORALLY EVERY 12 HRS MEDICATION LIST REVIEWED AND RECONCILED WITH THE PATIENT PAST MEDICAL HISTORY HYPERLIPIDEMIA UNS NONINF GASTROENTERITIS &COLITIS CHRONIC AIRWAY OBSTRUCTION NEC COR ARTHRSCL-UNS VESSEL MASHPEE GFT DIABETES TYPE 2 DEPRESSIVE DISORDER HTN ABRASION OF LEFT HAND BREAST PAIN, RIGHT LEG WOUND, LEFT ALLERGIES CAPTOPRIL-HYDROCHLOROTHIAZIDE: CONFUSION: ALLERGY DIPHENHYDRAMINE HCL: NAUSEA/VOMITING: ALLERGY PENICILLIN (FOR ALLERGIES USE ONLY): ANAPHYLAXIS: ALLERGY SULFA (FOR ALLERGY USE ONLY): ANAPHYLAXIS: ALLERGY METHYLDOPA: PT UNAWARE OF REACTION: ALLERGY HYDROCHLOROTHIAZIDE: NAUSEA/VOMITING: ALLERGY STREPTOKINASE: BODY ACHES: ALLERGY QUINOLONES: ALLERGY ASPARTAM: ALLERGY TRIAMTERENE: NAUSEA/VOMITING: ALLERGY REVIEW OF SYSTEMS REVIEWED BY: PROVIDER: ISREAL MAR . CONSTITUTIONAL: ANY CHANGE IN YOUR MEDICAL CONDITION? NO . CHILLS NO . FEVER NO . INFECTION: DO YOU HAVE NEW INFECTIONS? NO . DO YOU HAVE HISTORY OF MRSA? NO . MUSCULOSKELETAL: ANY NEW PATTERNS OF PAIN OR NUMBNESS? YES LITTLE FINGER LEFT HAND NEW NUMBNESS . GASTROENTEROLOGY: ANY NEW CHANGE IN BOWEL CONTROL? NO . GENITOURINARY: ANY NEW CHANGE IN BLADDER CONTROL? NO . IS THERE A CHANCE YOU COULD BE ? NO . HEMATOLOGY/LYMPH: DO YOU TAKE ANY BLOOD THINNERS? (FOR EXAMPLE- COUMADIN, PLAVIX, AGGRENOX, PLATEL, PRADAXA, OR XARELTO) NO . WHEN WAS YOUR LAST DOSE? DATE: TIME: . NEUROLOGY: HAVE YOU FALLEN IN THE PAST 6 MONTHS? YES FEEL OUT OF BED WHILE SLEEPING 2 OR 3 WEEKS AGO . ANY NEW EXTREMITY NUMBNESS OR WEAKNESS? NO . CARDIOLOGY: DO YOU HAVE A PACEMAKER OR DEFIBRILLATOR? NO . RESPIRATORY: HAVE YOU BEEN SICK IN THE PAST WEEK? NO . FEVER NO . FLU LIKE SYMPTOMS? NO . COUGH NO . INTEGUMENTARY: DO YOU HAVE ANY RASHES OR OPEN SORES? NO . ALLERGIC/IMMUNO: ARE YOU ALLERGIC TO SHELLFISH OR IV DYE? NO . ANY NEW ALLERGIES? NO . PSYCHIATRIC: DO YOU HAVE THOUGHTS OF HURTING YOURSELF OR SOMEONE ELSE? NO . ARE YOU ABUSED, NEGLECTED, OR IN AN UNSAFE ENVIRONMENT? NO . ENDOCRINOLOGY: ARE YOU DIABETIC? YES . OTHER: DO YOU NEED ANY PRESCRIPTIONS? NO . IF YES, PLEASE LIST: ____ . ANY NEW PROBLEMS WITH YOUR MEDICATIONS? NO . WHEN DID YOU LAST EAT? ____ . WHEN DID YOU LAST DRINK? ____ . WHAT DID YOU LAST DRINK? ____ . NAME OF PERSON DRIVING YOU HOME? ____ . DO YOU HAVE ANY OTHER QUESTIONS OR CONCERNS NO . VITAL SIGNS WT 280 LBS, HT 64 IN, BMI 48.06 INDEX, BP 125/65 MM HG, HR 68 /MIN, RR 18 /MIN, TEMP 97.0 F, OXYGEN SAT % 92%, NA INITIALS AW 1008, REVIEWED BY: KG. EXAMINATION GENERAL EXAMINATION: GENERAL APPEARANCE:OBESE/COMFORTABLE,IN WHEELCHAIR. PSYCHAFFECT NORMAL. LUNGS:LUNG ART ARE CLEAR TO AUSCULTATION BILATERALLY. GOOD MOVEMENT OF AIR. HEART:S1, S2 IN A REGULAR RATE AND RHYTHM. NO SIGNIFICANT MURMURS, RUBS OR GALLOPS NOTED. BACK:PERILUMBAR TENDERNESS R>L.SPECIFIC TENDERNESS NOTED OVER RSIJ. ASSESSMENTS LOW BACK PAIN AT MULTIPLE SITES - M54.5 (PRIMARY) SACROILIAC JOINT DYSFUNCTION OF RIGHT SIDE - M53.3 TREATMENT LOW BACK PAIN AT MULTIPLE SITES NOTES: CONTINUE CURRENT CONSERVATIVE CARE FOR LOW BACK PAIN. PROCEDURE CODES FA211 ESTABILISHED PATIENT [facility] FACILITY CHARGE G8730 PAIN ASSESS POS TOOL F/U PLAN DOC G8427 DOC MEDS VERIFIED W/PT OR RE DISPOSITION & COMMUNICATION FOLLOW UP 3 MONTHS ELECTRONICALLY SIGNED BY ZAID COX ON 12/13/2016 AT 10:48 AM EDT DISCLAIMER : THIS IS A VISIT SUMMARY EXTRACTED FROM THE [employer] CHART. IT IS NOT A COPY OF THE [employer] PROGRESS NOTE. [email or web address]
== END ==
LOC: M PAIN 09:20
PROVIDERS: ATTEND Nurse Practitioner Family
DX: G89.29 Other chronic pain (principal); M54.5 Low back pain; M53.3 Sacrococcygeal disorders, not elsewhere classified; M79.604 Pain in right leg; E78.5 Hyperlipidemia, unspecified; E11.9 Type 2 diabetes mellitus without complications; F32.9 Major depressive disorder, single episode, unspecified; I12.9 Hypertensive chronic kidney disease with stage 1 through stage 4 chronic kidney disease, or unspecified chronic kidney disease; N18.3 Chronic kidney disease, stage 3 (moderate); I48.0 Paroxysmal atrial fibrillation; I25.5 Ischemic cardiomyopathy; J45.20 Mild intermittent asthma, uncomplicated; G47.33 Obstructive sleep apnea (adult) (pediatric); M15.9 Polyosteoarthritis, unspecified; G43.B0 Ophthalmoplegic migraine, not intractable; E55.9 Vitamin D deficiency, unspecified; Z88.0 Allergy status to penicillin; Z88.2 Allergy status to sulfonamides; Z88.8 Allergy status to other drugs, medicaments and biological substances; Z79.82 Long term (current) use of aspirin; Z79.4 Long term (current) use of insulin; Z79.899 Other long term (current) drug therapy

== ENCOUNTER → 2016-12-16 | Outpatient (REF) ==
[2016-12-16 09:53] LABS: CALCIUM LEVEL 8.8 MG/DL (8.8-10.2); CREATININE FOR GFR 1.26 MG/DL (0.55-1.02); GLOMERULAR FILTRATION RATE 44.4 (>39); POTASSIUM SERUM 4.3 MEQ/L (3.5-5.1)
== END ==
LOC: SKLAB4 09:41
PROVIDERS: ATTEND Family Medicine
DX: I50.9 Heart failure, unspecified (principal)

== ENCOUNTER → 2016-12-23 | Outpatient (REF) ==
[2016-12-23 08:42] LABS: CALCIUM LEVEL 8.7 MG/DL (8.8-10.2); CREATININE FOR GFR 1.09 MG/DL (0.55-1.02); GLOMERULAR FILTRATION RATE 52.5 (>39); POTASSIUM SERUM 4.1 MEQ/L (3.5-5.1)
== END ==
LOC: SKLAB4 09:54
PROVIDERS: ATTEND Family Medicine
DX: I50.9 Heart failure, unspecified (principal)

== ENCOUNTER → 2016-12-25 | Outpatient (REF) | payer MEDICARE, MEDICAID | LOC: M LAB REF 16:14 | PROVIDERS: ATTEND Surgery | DX: L97.821 Non-pressure chronic ulcer of other part of left lower leg limited to breakdown of skin (principal); E11.621 Type 2 diabetes mellitus with foot ulcer; I77.9 Disorder of arteries and arterioles, unspecified; Z79.82 Long term (current) use of aspirin; Z79.4 Long term (current) use of insulin; Z79.899 Other long term (current) drug therapy | CPT/HCPCS: 87070; 87077; 87186; C5273; Q4117 ==

== ENCOUNTER → 2016-12-30 | Outpatient (REF) ==
[~2016-12-30] MED LIST changes: -LIPITOR40 2 TABS; +LIPITOR40 [, 2 TABS]
[2016-12-30 09:22] LABS: CALCIUM LEVEL 8.6 MG/DL (8.8-10.2); CREATININE FOR GFR 1.18 MG/DL (0.55-1.02); GLOMERULAR FILTRATION RATE 47.9 (>39); POTASSIUM SERUM 4.2 MEQ/L (3.5-5.1)
== END ==
LOC: SKLAB4 09:45
PROVIDERS: ATTEND Family Medicine
DX: I50.9 Heart failure, unspecified (principal)

== ENCOUNTER → 2017-01-06 | Outpatient (REF) | payer MEDICAID, MEDICARE ==
[~2017-01-06] MED LIST changes: +LIPITOR40 2 TABS; -LIPITOR40 [, 2 TABS]
[2017-01-06 08:01] LABS: CALCIUM LEVEL 9.1 MG/DL (8.8-10.2); CREATININE FOR GFR 1.36 MG/DL (0.55-1.02); GLOMERULAR FILTRATION RATE 40.7 (>39); POTASSIUM SERUM 4.2 MEQ/L (3.5-5.1)
== END ==
LOC: SKLAB4 12:03
PROVIDERS: ATTEND Family Medicine
DX: I50.9 Heart failure, unspecified (principal)

== ENCOUNTER → 2017-01-13 | Outpatient (REF) ==
[2017-01-13 09:15] LABS: CALCIUM LEVEL 8.6 MG/DL (8.8-10.2); CREATININE FOR GFR 1.31 MG/DL (0.55-1.02); GLOMERULAR FILTRATION RATE 42.5 (>39); POTASSIUM SERUM 4.4 MEQ/L (3.5-5.1)
== END ==
LOC: SKLAB4 11:49
PROVIDERS: ATTEND Family Medicine
DX: I50.9 Heart failure, unspecified (principal)

== ENCOUNTER → 2017-02-18 | Outpatient (REF) | payer MEDICARE, MEDICAID ==
[2017-02-18 10:58] LABS: BASO % 0.3 % (0.0-1.0); EOS % 0.3 % (0.0-3.0); LARGE UNSTAINED CELL # 0.2 K/mm3 (0.0-0.4); LARGE UNSTAINED CELL % 2.8 % (0.0-4.0); LYMPH # 1.9 K/mm3 (1.5-4.5); LYMPH % 20.7 % (24.0-44.0); MEAN CORPUSCULAR HEMOGLOBIN 26.9 pg (27.0-33.0); MEAN CORPUSCULAR HGB CONC 30.1 g/dl (32.0-36.5); MEAN CORPUSCULAR VOLUME 89.4 fl (80.0-96.0); MONO # 0.6 K/mm3 (0.0-0.8); MONO % 7.2 % (0.0-5.0); NEUTROPHILS # 5.6 K/mm3 (1.8-7.7); NEUTROPHILS % 68.6 % (36.0-66.0); PLATELET COUNT, AUTOMATED 241 k/mm3 (150-450); RED CELL DISTRIBUTION WIDTH 15.6 % (11.5-14.5); WHITE BLOOD COUNT 8.2 K/mm3 (4.0-10.0)
[2017-02-18 11:17] LABS: ALBUMIN 3.2 GM/DL (3.2-5.2); CALCIUM LEVEL 8.7 MG/DL (8.8-10.2); CREATININE FOR GFR 1.43 MG/DL (0.55-1.02); GLOMERULAR FILTRATION RATE 38.4 (>39); PHOSPHORUS LEVEL 2.6 MG/DL (2.5-4.9); POTASSIUM SERUM 4.3 MEQ/L (3.5-5.1)
== END ==
PROVIDERS: ATTEND Internal Medicine Nephrology
DX: N18.3 Chronic kidney disease, stage 3 (moderate) (principal); N25.81 Secondary hyperparathyroidism of renal origin; E11.22 Type 2 diabetes mellitus with diabetic chronic kidney disease; I12.9 Hypertensive chronic kidney disease with stage 1 through stage 4 chronic kidney disease, or unspecified chronic kidney disease

== ENCOUNTER → 2017-03-05 | Outpatient (REF) | payer MEDICARE, MEDICAID ==
[~2017-03-05] MED LIST changes: -LIPITOR40 2 TABS; +LIPITOR40 [, 2 TABS]
== END ==
LOC: M LAB REF 16:48
PROVIDERS: ATTEND Internal Medicine
DX: R19.7 Diarrhea, unspecified (principal)

== ENCOUNTER → 2017-03-17 | Outpatient (CLI) | payer MEDICARE, MEDICAID ==
[~2017-03-17] MED LIST changes: +LIPITOR40 2 TABS; -LIPITOR40 [, 2 TABS]
--- NOTE | 2017-04-03 02:03 | ECWPNPC ---
PATIENT NAME: DEMETRA GUZMAN : 1945 GENDER: FEMALE VISIT DATE: 03/17/2017 DISCHARGE DATE: 03/17/17 1050 VISIT LOCKED DATE TIME: PHYSICIAN: ISREAL GROSS RESOURCE: ISREAL GROSS REASON FOR APPOINTMENT 1. FOLLOWUP HISTORY OF PRESENT ILLNESS HISTORY OF PRESENT ILLNESS: HERE FOR F/U CHRONIC LOW BACK PAIN AND RIGHT LEG PAIN.HAD TPI RIGHT LOW BACK THAT PATIENT STATES WAS HELPFUL FOR A SHORT TIME.C/O INTERMITTENT RIGHT LOW BACK AND RIGHT POSTRIOR LATERAL LEG PAIN.DESCRIBES PAIN A CONSTANT ACHING AND SHOOTING PAIN.RATING PAIN VAS 0/10.KIT CURRENTLY RESIDING AT [facility] IN [facility].CONTINUES ON PLAVIX THERAPY. SHE HAS MULTIPLE COMORBIDITIES.DENIES BOWEL OR BLADDER INCONTINENCE.NO RECENT FEVER,ILLNESS OR WEIGHT LOSS. PAIN THE PATIENT DESCRIBES THE PAIN... THE PATIENT DESCRIBES THE PAIN... THE PATIENT DESCRIBES THE PAIN... FALL RISK SCREENING: SCREENING :NO FALLS IN THE PAST YEAR CURRENT MEDICATIONS TAKING ACETAMINOPHEN 325 MG TABLET 2 TABLET NEEDED ORALLY EVERY 6 HOURS NEEDED FOR PAIN OR FEVER TAKING LIPITOR 80 MG TABLET 1 TABLET ORALLY ONCE A DAY TAKING EFFEXOR XR 150 MG CAPSULE EXTENDED RELEASE 24 HOUR 1 CAPSULE WITH FOOD ORALLY ONCE A DAY TAKING REFRESH OPTIVE 0.5-0.9 % SOLUTION OPHTHALMIC ONE DROP BOTH EYES FOUR TIMES PER DAY TAKING OMEPRAZOLE 20 MG CAPSULE DELAYED RELEASE 1 CAP(S) ORALLY ONCE A DAY TAKING CALCITRIOL 0.25 MCG CAPSULE 1 CAPSULE ORALLY MON-FRI TAKING GABAPENTIN 100 MG CAPSULE 2 CAPS ORALLY THREE TIMES A DAY TAKING ALBUTEROL 0.083% AEROSOL SOLUTION 1 UNIT INHALATION FOUR TIMES A DAY NEEDED FOR SOB/WHEEZING--MAY KEEP AT BEDSIDE TAKING CRANBERRY 300 MG TABLET 1 TABLET WITH MEALS ORALLY TWICE A DAY TAKING COLACE 100 MG CAPSULE 1 CAP ORALLY DAILY TAKING PLAVIX 75 MG TABLET 1 TABLET ORALLY ONCE A DAY TAKING ASPIRIN 325 MG TABLET 1 TABLET ORALLY ONCE A DAY TAKING CARVEDILOL 12.5 MG TABLET 1 TABLET WITH FOOD ORALLY TWICE A DAY TAKING MULTIPLE VITAMINS-MINERALS _ TABLET 1 TAB(S) ORALLY DAILY TAKING BUPROPION HCL ER (XL) 300 MG TABLET EXTENDED RELEASE 24 HOUR 1 TABLET IN THE MORNING ORALLY ONCE A DAY TAKING SIMETHICONE EXTRA STRENGTH 125 MG CAPSULE 1 CAPSULE AFTER MEALS AND AT BEDTIME ORALLY FOUR TIMES A DAY TAKING LASIX 40 MG TABLET 1 TABLET ORALLY TWICE DAILY TAKING BENGAY GREASELESS 10-15 % CREAM ONE APPLICATION EXTERNALLY FOUR TIMES A DAY NEEDED FOR JOINT PAIN, MAY KEEP AT BEDSIDE AND SELF-ADMINISTER TAKING LISINOPRIL 5 MG TABLET 1 TABLET ORALLY ONCE A DAY TAKING NOVOLOG FLEXPEN 100 UNIT/ML SOLUTION PEN-INJECTOR PER SLIDING SCALE SUBCUTANEOUS THREE TIMES A DAY TAKING PERCOCET 5-325 MG TABLET 1 TABLET ORALLY EVERY 6 HOURS ONLY NEEDED FOR SEVERE PAIN TAKING PREDNISONE 20 MG TABLET 3 TABLET ORALLY DAILY TAKING TRAMADOL-ACETAMINOPHEN 37.5-325 MG TABLET 1 TAB ORALLY EVERY 8 HRS, MDD=3 TAKING LEVEMIR FLEXTOUCH 100 UNIT/ML SOLUTION PEN-INJECTOR 24 UNITS SUBCUTANEOUS DAILY TAKING PRIMIDONE 50 MG TABLET 1 TAB ORALLY TWICE DAILY TAKING COREG 12.5 MG TABLET ORALLY TAKING ALBUTEROL UNKNOWN DOXYCYCLINE HYCLATE 100 MG TABLET 1 TABLET ORALLY TWICE A DAY UNKNOWN TYLENOL 325 MG TABLET 2 TABLETS NEEDED ORALLY EVERY 6 HRS UNKNOWN GLUCAGON EMERGENCY 1 MG KIT INJECTION PRN UNKNOWN PREPARATION H 0.25-14-74.9 % OINTMENT 1 STRIP TOPICALLY RECTAL MAY SELF ADMINISTER, MAY LEAVE AT BEDSIDE TWICE DAILY NEEDED RECTAL DISCOMFORT, NOTES: NONE RECENT UNKNOWN ICY HOT ARTHRITIS PAIN RELIEF 16-4 % LOTION TOPICALLY 3 TIMES PER DAY, NOTES: NONE RECENT UNKNOWN SENNA S 8.6-50 MG TABLET 2 TABS ORALLY TWICE A DAY NEEDED FOR CONSTIPATION UNKNOWN MECLIZINE HCL 25 MG CAPSULE 1 CAP(S) ORALLY EVERY 8 HOURS NEEDED UNKNOWN FLONASE 50 MCG/DOSE INHALER 1 SPRAY IN EACH NOSTRIL NASALLY ONCE A DAY UNKNOWN PROAIR HFA 108 (90 BASE) MCG/ACT AEROSOL SOLUTION 2 PUFFS NEEDED INHALATION EVERY 4 HRS; PLEASE INCLUDE A SPACER. MAY KEEP AT BEDSIDE UNKNOWN MAALOX ADVANCED 200-200-20 MG/5ML SUSPENSION 30 ML NEEDED ORALLY EVERY 4 HOURS NEEDED UNKNOWN HYDROXYZINE HCL 10 MG TABLET 1 TAB ORALLY ONCE DAILY NEEDED FOR INSOMNIA UNKNOWN WHEELCHAIR _ MISCELLANEOUS DIRECTED _ REPAIR MOTORIZED WHEELCHAIR UNKNOWN BLOOD GLUCOSE TEST _ STRIP 1 STRIP IN VITRO DX:E11.9 FOUR TIMES DAILY UNKNOWN GLUCOMETER _ GLUCOMETER DIRECTED DX:E11.9 FOUR TIMES DAILY UNKNOWN MISC. DEVICES 30 GAUGE X 3/16 BD AU;TOSHIELD PEN NEEDLES DIRECTED INTRADERMALLY FOUR TIMES A DAY WITH INSULIN UNKNOWN NYSTATIN [id number] UNIT/GM POWDER APPLY TO AFFECTED AREA EXTERNALLY TWICE A DAY NEEDED UNKNOWN EUCERIN - CREAM APPLY TO AREAS THAT ITCH TOPICALLY TWICE A DAY UNKNOWN ALUM & MAG HYDROXIDE-SIMETH 200-200-20 MG/5ML SUSPENSION 30 ML NEEDED ORALLY EVERY 4 HOURS NEEDED UNKNOWN DOXYCYCLINE HYCLATE 100 MG TABLET 1 TABLET ORALLY EVERY 12 HRS MEDICATION LIST REVIEWED AND RECONCILED WITH THE PATIENT PAST MEDICAL HISTORY HYPERLIPIDEMIA UNS NONINF GASTROENTERITIS &COLITIS CHRONIC AIRWAY OBSTRUCTION NEC COR ARTHRSCL-UNS VESSEL [place] APACHE TRIBE OF [place] GFT DIABETES TYPE 2 DEPRESSIVE DISORDER HTN ABRASION OF LEFT HAND BREAST PAIN, RIGHT LEG WOUND, LEFT ALLERGIES CAPTOPRIL-HYDROCHLOROTHIAZIDE: CONFUSION: ALLERGY DIPHENHYDRAMINE HCL: NAUSEA/VOMITING: ALLERGY PENICILLIN (FOR ALLERGIES USE ONLY): ANAPHYLAXIS: ALLERGY SULFA (FOR ALLERGY USE ONLY): ANAPHYLAXIS: ALLERGY METHYLDOPA: PT UNAWARE OF REACTION: ALLERGY HYDROCHLOROTHIAZIDE: NAUSEA/VOMITING: ALLERGY STREPTOKINASE: BODY ACHES: ALLERGY QUINOLONES: ALLERGY ASPARTAM: ALLERGY TRIAMTERENE: NAUSEA/VOMITING: ALLERGY SURGICAL HISTORY TONSILLECTOMY 1969 OPEN CHOLECYSTECTOMY 1970 APPENDECTOMY 1970 SECTION 1977 MULTIPLE D&C'S IN THE PAST MASTECTOMY ON THE LEFT BREAST WITH LYMPH NODE DISSECTION DR. SANCHEZ 1999 BREAST BIOPSY ORIF OF LEFT HIP FRACTURE 2007 PERCUTANEOUS TRANSLUMINAL CORONARY ANGIOPLASTY (PTCA) - 02-18-2012 (APPROX.); COMMENT: X 2 VESSELS. 02/2012 CARDIAC CATHETERIZATION; COMMENT: 2012 AT [facility]. 02/2013 EVLT PROCEDURE L LE 03/16/15 SOCIAL HISTORY GENERAL: TOBACCO USE ARE YOU A:NONSMOKER BMI CARE GOAL FOLLOW-UP ABOVE NORMAL BMI FOLLOW-UPWEIGHT MONITORING ALCOHOL SCREENING POINTS: 0, INTERPRETATION: NEGATIVE. RECREATIONAL DRUG USE DRUG USE?NO CAFFEINE CAFFEINE USE?YES HOW OFTEN AND HOW MUCH? SODA 1-2 TIMES PER WEEK, TEA 3-4 TIMES PER WEEK HIV / HEP-C SCREENING HIV TEST OFFERED TO PATIENT:NO N/A HEP-C TEST OFFERED TO PATIENT:YES DATE OFFERED:07/09/2016 TEST ACCEPTED:NO REASON:PATIENT DECLINED DIET: DIABETIC DIET, NO ADDED SALT. EXERCISE: NO REGULAR EXERCISE. MARITAL STATUS: .. PETS: NONE. ALEVISM WORSHIP - NO BLOOD PRODUCTS. LANGUAGE JAPANESE. EDUCATION 2 YEARS OF COLLEGE. LEARNING BARRIERS / SPECIAL NEEDS CHANGE FROM LAST VISIT?NO BARRIERS TO LEARNING?NO VISION IMPAIRED?YES GLASSES COGNITIVELY IMPAIRED?NO READINESS TO LEARN?YES LEARNING PREFERENCES?NO ANY METHOD IS FINE LEARNING CAPABILITIES PRESENT?YES EMOTIONAL BARRIERS?NO SPECIAL DEVICES?YES :WALKER, OTHER MOTORIZED WHEELCHAIR NEW PATIENT PAIN DIARY FROM 0-10, WHAT NUMBER IS YOUR PAIN TODAY? 0. PAIN CLINIC PFS, CLERGY, PUBLIC HEALTH REFERRALS HAS THE PATIENT BEEN EDUCATED REGARDING HIS/HER PLAN OF CARE?YES HAS THE PATIENT BEEN EDUCATED REGARDING PAIN, THE RISK FOR PAIN, THE IMPORTANCE OF EFFECTIVE PAIN MANAGEMENT, AND THE PAIN ASSESSMENT PROCESS?YES RETIRED: YES. TRAVEL OUTSIDE US: NO TRAVEL IN THE LAST 21 DAYS. HOUSING: [facility]. CUSTODIAL: ASS[facility]ED LIVING. : YES. DISABLED NURSE'S AIDE. . LIVES IN ASSISTED LIVING. HOSPITALIZATION/MAJOR DIAGNOSTIC PROCEDURE SURGERY RELATED ABDOMINAL PAIN NAUSEA/VOMITING INTRACTABLE R HIP PAIN 10/2016 REVIEW OF SYSTEMS REVIEWED BY: PROVIDER: ISREAL MAR . CONSTITUTIONAL: ANY CHANGE IN YOUR MEDICAL CONDITION? NO . CHILLS NO . FEVER NO . INFECTION: DO YOU HAVE NEW INFECTIONS? NO . DO YOU HAVE HISTORY OF MRSA? NO . MUSCULOSKELETAL: ANY NEW PATTERNS OF PAIN OR NUMBNESS? YES, NUMBNESS IN LEFT HAND DIGIT #5 . GASTROENTEROLOGY: ANY NEW CHANGE IN BOWEL CONTROL? NO . GENITOURINARY: ANY NEW CHANGE IN BLADDER CONTROL? NO . IS THERE A CHANCE YOU COULD BE ? NO . HEMATOLOGY/LYMPH: DO YOU TAKE ANY BLOOD THINNERS? (FOR EXAMPLE- COUMADIN, PLAVIX, AGGRENOX, PLATEL, PRADAXA, OR XARELTO) NO . WHEN WAS YOUR LAST DOSE? DATE: TIME: . NEUROLOGY: HAVE YOU FALLEN IN THE PAST 6 MONTHS? NO . ANY NEW EXTREMITY NUMBNESS OR WEAKNESS? NO . CARDIOLOGY: DO YOU HAVE A PACEMAKER OR DEFIBRILLATOR? NO . RESPIRATORY: HAVE YOU BEEN SICK IN THE PAST WEEK? NO . FEVER NO . FLU LIKE SYMPTOMS? NO . COUGH NO . INTEGUMENTARY: DO YOU HAVE ANY RASHES OR OPEN SORES? YES, BILAT FOREARMS BRUISING, SCRAPES AND SCABS, NO OPEN SKIN . ALLERGIC/IMMUNO: ARE YOU ALLERGIC TO SHELLFISH OR IV DYE? NO . ANY NEW ALLERGIES? NO . PSYCHIATRIC: DO YOU HAVE THOUGHTS OF HURTING YOURSELF OR SOMEONE ELSE? NO . ARE YOU ABUSED, NEGLECTED, OR IN AN UNSAFE ENVIRONMENT? NO . ENDOCRINOLOGY: ARE YOU DIABETIC? YES . OTHER: DO YOU NEED ANY PRESCRIPTIONS? NO . IF YES, PLEASE LIST: ____ . ANY NEW PROBLEMS WITH YOUR MEDICATIONS? NO . WHEN DID YOU LAST EAT? ____ . WHEN DID YOU LAST DRINK? ____ . WHAT DID YOU LAST DRINK? ____ . NAME OF PERSON DRIVING YOU HOME? ____ . DO YOU HAVE ANY OTHER QUESTIONS OR CONCERNS NO . VITAL SIGNS WT 281 LBS, HT 64 IN, BMI 48.23 INDEX, BP 121/58 MM HG, HR 70 /MIN, RR 16 /MIN, TEMP 96.9 F, OXYGEN SAT % 95, REVIEWED BY: EM. EXAMINATION GENERAL EXAMINATION: GENERAL APPEARANCE:OBESE/COMFORTABLE,IN WHEELCHAIR. PSYCHAFFECT NORMAL. LUNGS:LUNG ART ARE CLEAR TO AUSCULTATION BILATERALLY. GOOD MOVEMENT OF AIR. HEART:S1, S2 IN A REGULAR RATE AND RHYTHM. NO SIGNIFICANT MURMURS, RUBS OR GALLOPS NOTED. BACK:PERILUMBAR TENDERNESS R>L.SPECIFIC TENDERNESS NOTED OVER RSIJ. 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 REN. PROCEDURE CODES FA211 ESTABILISHED PATIENT [facility] FACILITY CHARGE G8730 PAIN ASSESS POS TOOL F/U PLAN DOC G8427 DOC MEDS VERIFIED W/PT OR RE DISPOSITION & COMMUNICATION FOLLOW UP NO F/U NECESSARY ELECTRONICALLY SIGNED BY ZAID COX ON 03/31/2017 AT 09:09 PM EDT DISCLAIMER : THIS IS A VISIT SUMMARY EXTRACTED FROM THE creads CHART. IT IS NOT A COPY OF THE creads PROGRESS NOTE. MTDD
== END ==
LOC: M PAIN 10:00
PROVIDERS: ATTEND Nurse Practitioner Family
DX: G89.29 Other chronic pain (principal); M54.5 Low back pain; M53.3 Sacrococcygeal disorders, not elsewhere classified; I25.10 Atherosclerotic heart disease of native coronary artery without angina pectoris; E11.9 Type 2 diabetes mellitus without complications; E78.5 Hyperlipidemia, unspecified; I48.0 Paroxysmal atrial fibrillation; I25.5 Ischemic cardiomyopathy; J45.20 Mild intermittent asthma, uncomplicated; G47.33 Obstructive sleep apnea (adult) (pediatric); M15.9 Polyosteoarthritis, unspecified; I69.90 Unspecified sequelae of unspecified cerebrovascular disease; I12.9 Hypertensive chronic kidney disease with stage 1 through stage 4 chronic kidney disease, or unspecified chronic kidney disease; N18.3 Chronic kidney disease, stage 3 (moderate); I77.9 Disorder of arteries and arterioles, unspecified; E55.9 Vitamin D deficiency, unspecified; F32.9 Major depressive disorder, single episode, unspecified; R25.1 Tremor, unspecified; K21.9 Gastro-esophageal reflux disease without esophagitis; Z88.0 Allergy status to penicillin; Z88.2 Allergy status to sulfonamides; Z88.8 Allergy status to other drugs, medicaments and biological substances; Z91.02 Food additives allergy status; Z79.82 Long term (current) use of aspirin; Z79.4 Long term (current) use of insulin; Z79.52 Long term (current) use of systemic steroids; Z79.891 Long term (current) use of opiate analgesic; Z79.899 Other long term (current) drug therapy

== ENCOUNTER 2017-03-28 11:45 | Emergency (ER) | payer MEDICARE, MEDICAID ==
[~2017-03-28] VITALS: Ht 167.6 cm; Wt 128.0 kg
[~2017-03-28 11:45] MED LIST changes: -ULTR37.54 PO
[2017-03-28] MEDS ORDERED: NOVOINJ3 SC (12:25)
--- NOTE | 2017-03-28 14:12 | REP ---
RIGHT ELBOW, FOUR VIEWS: HISTORY: Trauma. There is no acute fracture or dislocation. The joint space is normal in appearance. Small radiopaque densities are present in the soft tissue posterior to the ulna. IMPRESSION: There is no acute fracture or dislocation. Signed by Leonardo Ramirez MD 03/28/2017 02:21 P
[2017-03-28 14:22] LABS: MEAN CORPUSCULAR HEMOGLOBIN 27.7 pg (27.0-33.0); MEAN CORPUSCULAR VOLUME 89.4 fl (80.0-96.0); PLATELET COUNT, AUTOMATED 223 10^3/uL (150-450); RED CELL DISTRIBUTION WIDTH 18.8 % (11.5-14.5); WHITE BLOOD COUNT 12.2 10^3/uL (4.0-10.0)
--- NOTE | 2017-03-28 14:32 | REP ---
RIGHT HIP, AP PELVIC, THREE VIEWS: HISTORY: Trauma. The patient is status post repair of a left femoral neck fracture. Three metal screws are present. There is mild narrowing of the left hip joint space. There is no acute fracture or dislocation. There is moderate narrowing of the right hip joint space with associated osteophyte formation and sclerosis. IMPRESSION: There is no acute fracture or dislocation. Signed by Leonardo Ramirez MD 03/28/2017 02:35 P
[2017-03-28 15:38] VITALS: BP 120/56
== END 2017-03-28 15:41 | disposition home or self-care (01) ==
LOC: EDBD 11:45 → M ED 11:45
DX: S50.01XA Contusion of right elbow, initial encounter (principal); S70.01XA Contusion of right hip, initial encounter; E11.9 Type 2 diabetes mellitus without complications; I25.10 Atherosclerotic heart disease of native coronary artery without angina pectoris; I11.0 Hypertensive heart disease with heart failure; I50.9 Heart failure, unspecified; W18.40XA Slipping, tripping and stumbling without falling, unspecified, initial encounter; Y92.018 Other place in single-family (private) house as the place of occurrence of the external cause; Y99.9 Unspecified external cause status; Y93.9 Activity, unspecified; Z85.3 Personal history of malignant neoplasm of breast; Z88.0 Allergy status to penicillin; Z88.2 Allergy status to sulfonamides; Z88.6 Allergy status to analgesic agent; Z88.8 Allergy status to other drugs, medicaments and biological substances; Z79.82 Long term (current) use of aspirin; Z79.4 Long term (current) use of insulin; Z79.52 Long term (current) use of systemic steroids; Z79.899 Other long term (current) drug therapy

== ENCOUNTER 2017-04-05 08:33 | Emergency (ER) | payer MEDICARE, MEDICAID ==
[~2017-04-05] VITALS: Ht 160 cm; Wt 126.8 kg
--- NOTE | 2017-04-05 09:41 | REP ---
CT study of the cervical spine without contrast: History: Trauma. Comparison CT study July 04, 2015. Technique: Helical scanning is acquired and overlapping 2 mm high resolution axial images were generated and reviewed at bone and soft tissue window settings. Coronal and sagittal multiplanar re-formations images are generated. CT findings: There is no evidence of cervical spine element fracture. No skull base fracture is seen. Cervical vertebral body heights are preserved. Alignment is normal. Facet joints are normally aligned bilaterally at each cervical level on multiplanar re-formations images. There is no evidence of intraspinal or paraspinal hematoma. No extra vertebral abnormality is seen. There are again noted to be degenerative disc changes at C5-6 and C6-7 as on prior study. Some osteoarthritic facet changes are noted in the mid cervical spine. Degenerative changes seen at the C1-2 articulation unchanged. Impression: Degenerative spondylosis, otherwise negative CT study of the cervical spine. No fracture seen. Signed by Wilian Medina MD 04/05/2017 09:33 A
[2017-04-05 10:42] LABS: BASO # 0.1 10^3/uL (0.0-0.2); BASO % 0.5 % (0.0-1.0); EOS # 0.1 10^3/uL (0.0-0.50); EOS % 0.8 % (0.0-3.0); IMMATURE GRANULOCYTE % 1.6 % (0-0); LYMPH # 1.2 10^3/uL (1.5-4.5); LYMPH % 9.7 % (24.0-44.0); MEAN CORPUSCULAR HEMOGLOBIN 27.6 pg (27.0-33.0); MEAN CORPUSCULAR HGB CONC 30.7 g/dl (32.0-36.5); MEAN CORPUSCULAR VOLUME 90.1 fl (80.0-96.0); MONO # 1.3 10^3/uL (0.0-0.8); MONO % 10.8 % (0.0-5.0); NEUTROPHILS # 9.1 10^3/uL (1.8-7.7); NEUTROPHILS % 76.6 % (36.0-66.0); PLATELET COUNT, AUTOMATED 267 10^3/uL (150-450); RED CELL DISTRIBUTION WIDTH 19.1 % (11.5-14.5); WHITE BLOOD COUNT 11.9 10^3/uL (4.0-10.0)
--- NOTE | 2017-04-05 10:42 | REP ---
CT brain without contrast: History: Trauma. Findings: Bone window settings demonstrate an intact bony calvarium. No skull fracture is seen. No significant scalp hematoma is noted. Visualized paranasal sinuses are clear. No intraorbital abnormality. Vascular calcification is noted in the distal carotid arteries bilaterally. There is diffuse moderate cerebral atrophy. There is no evidence of intracranial hemorrhage. No extra-axial fluid collection is seen. No mass, infarct, or midline shift is seen. Some small vessel changes are noted. Impression: Diffuse moderate atrophy and vascular calcification. No acute intracranial lesion. No skull fracture or intracranial injury. Signed by Wilian Medina MD 04/05/2017 12:05 P
--- NOTE | 2017-04-05 10:49 | REP ---
Right femur series: Two views. History: Injury in a fall. Findings: AP and lateral views of the mid and distal femur demonstrate diffuse osteopenia and knee joint osteoarthritis, moderate in degree. No fracture is seen. Lateral views shows what appears to be an osteocartilaginous loose body at the anterior joint line, 1.5 cm in diameter. Impression: Osteoarthritis at the knee with anterior joint line loose body. Vascular calcification. No mid or distal femoral fracture. Signed by Wilian Medina MD 04/05/2017 12:06 P
--- NOTE | 2017-04-05 10:50 | REP ---
Right ankle series: Four views. History: Injury in a fall. Findings: Four views of the right ankle demonstrate diffuse soft tissue swelling and diffuse osteopenia. Vascular calcification is noted. Dystrophic soft-tissue calcifications are seen. Plantar calcaneal spurring is noted. Ankle mortise is intact. No fracture is seen. Impression: No fracture noted. Signed by Wilian Medina MD 04/05/2017 12:06 P
--- NOTE | 2017-04-05 10:51 | REP ---
Right foot series: Four views. History: Injury in a fall. Findings: Four views of the right foot show diffuse osteopenia. Vascular calcification is noted. There is diffuse soft tissue swelling. Plantar heel spurring is noted. No fracture or subluxation is seen. Impression: Diffuse swelling and vascular calcification. No fracture seen. Signed by Wilian Medina MD 04/05/2017 12:06 P
--- NOTE | 2017-04-05 10:51 | REP ---
Right hip series: Two views. History: Injury in a fall. Findings: AP and frog-leg views of the right hip demonstrate moderate right hip osteoarthritis. Vascular calcification is noted. No fracture is seen. Impression: Moderate right hip osteoarthritis. No fracture noted. Signed by Wilian Medina MD 04/05/2017 12:06 P
[2017-04-05 11:30] LABS: ALBUMIN/GLOBULIN RATIO 1.03 (1.00-1.93); BILIRUBIN,DIRECT 0.3 MG/DL (0.0-0.2); BILIRUBIN,TOTAL 1.1 MG/DL (0.2-1.0); CALCIUM LEVEL 8.4 MG/DL (8.8-10.2); CREATININE FOR GFR 1.33 MG/DL (0.55-1.02); GLOMERULAR FILTRATION RATE 41.7 (>39); POTASSIUM SERUM 3.7 MEQ/L (3.5-5.1); TOTAL PROTEIN 5.9 GM/DL (6.4-8.2)
[2017-04-05 14:10] VITALS: BP 154/56
[2017-04-06] MEDS ORDERED: ULTR37.54 PO (00:38)
== END 2017-04-05 14:13 | disposition home or self-care (01) ==
LOC: M ED 08:33
DX: S90.31XA Contusion of right foot, initial encounter (principal); S00.93XA Contusion of unspecified part of head, initial encounter; S70.11XA Contusion of right thigh, initial encounter; W19.XXXA Unspecified fall, initial encounter; Y92.129 Unspecified place in nursing home as the place of occurrence of the external cause; Y93.89 Activity, other specified; Y99.8 Other external cause status; E11.9 Type 2 diabetes mellitus without complications; I10 Essential (primary) hypertension; I48.91 Unspecified atrial fibrillation; Z95.5 Presence of coronary angioplasty implant and graft; Z79.899 Other long term (current) drug therapy; Z79.82 Long term (current) use of aspirin; Z79.4 Long term (current) use of insulin; Z88.0 Allergy status to penicillin; Z88.1 Allergy status to other antibiotic agents; Z88.2 Allergy status to sulfonamides; Z88.8 Allergy status to other drugs, medicaments and biological substances

== ENCOUNTER 2017-04-05 20:18 | Observation (INO) | payer MEDICARE, MEDICAID ==
[~2017-04-05] VITALS: Ht 160 cm; Wt 125.5 kg
[2017-04-05] MEDS ORDERED: ACETAMINOPHEN 325 MG TAB PO ONE (20:45)
[2017-04-05] MEDS ORDERED: NS 1,000 ML IV ONE (20:45)
[2017-04-05 22:53] LABS: BASO % 0.2 % (0.0-1.0); EOS # 0.1 10^3/uL (0.0-0.50); EOS % 1.1 % (0.0-3.0); IMMATURE GRANULOCYTE % 1.2 % (0-0); LYMPH % 7.6 % (24.0-44.0); MEAN CORPUSCULAR HEMOGLOBIN 27.1 pg (27.0-33.0); MEAN CORPUSCULAR HGB CONC 30.1 g/dl (32.0-36.5); MEAN CORPUSCULAR VOLUME 89.9 fl (80.0-96.0); MONO # 1.6 10^3/uL (0.0-0.8); MONO % 11.8 % (0.0-5.0); NEUTROPHILS # 10.2 10^3/uL (1.8-7.7); NEUTROPHILS % 78.1 % (36.0-66.0); PLATELET COUNT, AUTOMATED 281 10^3/uL (150-450); WHITE BLOOD COUNT 13.1 10^3/uL (4.0-10.0)
[2017-04-05 23:46] LABS: ALBUMIN 2.9 GM/DL (3.2-5.2); ALBUMIN/GLOBULIN RATIO 1.07 (1.00-1.93); BILIRUBIN,DIRECT 0.4 MG/DL (0.0-0.2); BILIRUBIN,TOTAL 1.2 MG/DL (0.2-1.0); CALCIUM LEVEL 8.7 MG/DL (8.8-10.2); CREATININE FOR GFR 1.32 MG/DL (0.55-1.02); GLOMERULAR FILTRATION RATE 42.1 (>39); POTASSIUM SERUM 4.4 MEQ/L (3.5-5.1); TOTAL PROTEIN 5.6 GM/DL (6.4-8.2)
[2017-04-06] MEDS ORDERED: ULTR37.54 PO (00:38)
[2017-04-06] MEDS ORDERED: ACETAMINOPHEN TAB 650MG DOSE (2X325MG) PO PRN (03:00)
[2017-04-06] MEDS ORDERED: SODIUM CHLORIDE 0.9% 1000 ML IV SCH (03:15)
[2017-04-06] MEDS ORDERED: ULTRACET TAB PO PRN (03:30)
[2017-04-06] MEDS ORDERED: ANALGESIC BALM CRM 120 GM TOP PRN (03:30)
[2017-04-06 04:26] VITALS: BP 151/78
[2017-04-06] MEDS: LISINOPRIL 5 MG TAB PO SCH ×2 (05:05→22:26)
[2017-04-06] MEDS: NS 1,000 ML IV SCH ×2 (05:06→17:45)
[2017-04-06] MEDS: LEVEMIR (INSULIN DETEMIR) 1 UNITS/0.01ML SC SCH ×2 (05:06→22:26)
[2017-04-06] MEDS: CALCITRIOL 0.25 MCG CAP (S0169) PO SCH ×3 (05:06→17:44)
[2017-04-06] MEDS: buPROPion **XL** TABLET 150MG (WELLBUTRIN XL) PO SCH (08:31)
[2017-04-06] MEDS: ATORVASTATIN 20 MG TAB PO SCH (08:31)
[2017-04-06] MEDS: VENLAFAXINE **XR** 75MG CAPSULE PO SCH (08:32)
[2017-04-06] MEDS: GABAPENTIN 100 MG CAP PO SCH ×3 (08:32→22:25)
[2017-04-06] MEDS: DOCUSATE SODIUM 100 MG CAP PO SCH (08:32)
[2017-04-06] MEDS: ASPIRIN ENTERIC 325 MG TAB PO SCH (08:33)
[2017-04-06] MEDS: MULTIVITAMINS/MINERALS THERAP 1 TAB PO SCH (08:33)
[2017-04-06] MEDS: PRIMIDONE 50 MG TAB PO SCH ×2 (08:33→22:25)
[2017-04-06] MEDS: CARVedilol 12.5 MG TAB PO SCH ×2 (08:33→22:25)
[2017-04-06] MEDS: predniSONE 20 MG TAB PO SCH (08:33)
[2017-04-06] MEDS: OMEPRAZOLE 20 MG CAP PO SCH (08:33)
[2017-04-06] MEDS: CLOPIDOGREL 75 MG TAB PO SCH (08:33)
[2017-04-06] MEDS: HumaLOG INSULIN (NovoLOG) PER UNIT SC SCH ×3 (08:35→17:45)
--- NOTE | 2017-04-06 11:33 | IPNPDOC ---
Subjective Date Seen The patient was seen on 04/06/17. Subjective Chief Complaint/HPI The patient is a 71-year-old female admitted with a reason for visit of Contusion Of Right Hip And Thigh. Events since last encounter Jacquelyn is a pleasant woman who states that yesterday she was transferring from her wheelchair to her chair, felt her left knee buckle, and subsequently fell on her right side. She states that she has fallen quite a few times recently, once last week and then twice before that. She denies any loss of consciousness , vertigo, dizziness, feeling faint, changes to her vision, or tripping. She remembers falling and all subsequent events. Patient states that she is a resident of the [facility], and she recently saw Dr. Ramirez in the office last week. She says that Dr. Chamorro is taking care of the wound on her left leg, and that he is the one who normally changes the dressing. General: Reports: Normal Appetite, Denies: Malaise Constitutional: Denies: Chills, Fever Eyes: Denies: Vision change ENT: Denies: Head Aches Pulmonary: Denies: Dyspnea Cardiovascular: Denies: Chest Pain, Palpitations Gastrointestinal: Reports: Diarrhea (has been having loose stools recently, she also states that she burps a lot), Denies: Nausea, Vomiting Hematologic: Reports: Bruising (Patient is on Plavix and has sustained numerous falls recently) Objective Physical Examination General Exam: Positive: Alert, Cooperative, No Acute Distress ENT Exam: Negative: Atraumatic (There is a contusion ringing her right eye.) Neck Exam: Positive: JVD (JVD 2 cm above the clavicle noted with patient at about a 30 degree angle) Chest Exam: Positive: Clear to auscultation Heart Exam: Positive: Rate Normal Abdomen Exam: Positive: BS Hyperactive Extremity Exam: Positive: Edema (Left extremity has a foam dressing covered by a stocking, bother lower extremities have significant edema.) Skin Exam: Positive: Other skin issue (Multiple bruises are present all over her body, especially concetrated on the right side with large contusions on her right distal foot involving the toes and on the lateral and posterior aspect of her right thigh, which is quite diffuse.) Psych Exam: Positive: Mental status NL Assessment /Plan Assessment Patient is a 71-year-old female with a history of frequent falls, her most recent one being last week. She is currently on Plavix for atrial fibrillation, and has multiple medical problems. Problems (1) Fall Onset Date: ~ 04/05/2017 Status: Acute Problem Text: Patient states that she fell at her place of residence at the [facility] while she was trying to transfer from her wheelchair to a regular chair. She states that she had a another fall last week , and previously fell twice before during the month of March. As per indicated in her HPI, I believe this is a mechanical fall as she stated that her left knee buckled before giving out. Per PT evaluation patient is not safe to return home due to increasing need for assistance with transferring and mobility. When patient was seen by Dr. Lundy, she exhibited increased sleepiness and difficulty to arouse. CT scan of the head ordered by Dr. Lundy showed no acute intracranial abnormality. Due to patient's increasing need for assistance with transferring and ambulation , as well as increased number of falls in recent weeks, she will most likely need placement at a senior care facility as she may not be safe to go back to assisted living. (2) Lower extremity cellulitis Status: Chronic Problem Text: Patient's wound on her left lower extremity is managed by Dr. Chamorro. He has been consulted to continue with her care. (3) Atrial fibrillation Status: Chronic Problem Text: Patient is currently on Plavix for atrial fibrillation, though she was in sinus rhythm today during physical examination. Since she has had multiple falls within the past month, and these have resulted in quite extensive contusions on the right side of her body, we may want to consider asking the patient whether or not she wants to continue on Plavix or any other type of anticoagulation. (4) HTN (hypertension) Status: Chronic Problem Text: Patient is currently on lisinopril 5 mg daily at bedtime and carvedilol 12.5 mg twice a day. She got her last dose of lisinopril at 5 AM this morning. As her blood pressure was 163/99 this afternoon, I have ordered a dose of 2.5 mg lisinopril. (5) Diabetes mellitus Status: Chronic Problem Text: Patient is currently managed by the [facility], though she has not been to see them in quite some time. She is on Levemir 24 units daily at bedtime. (6) Depression Status: Chronic Problem Text: Patient is on Wellbutrin XL 300 mg daily and Effexor 150 mg daily (7) Hyperlipidemia Status: Chronic Problem Text: Patient is on Lipitor 80 mg daily Plan/VTE VTE Prophylaxis Ordered?: No VTE Exclusion Pharmacological: Other (Patient is currently on Plavix) VS, I&O, 24H, Fishbone Vital Signs/I&O Vital Signs Date Time Temp Pulse Resp B/P (MAP) Pulse Ox O2 Delivery O2 Flow Rate FiO2 04/06/17 08:33 89 151/78 04/06/17 04:26 97.9 18 92 Room Air Laboratory Data 24H LABS Laboratory Tests 2 04/05/17 22:46: Immature Granulocyte % (Auto) 1.2H, White Blood Count 13.1H, Red Blood Count 4.06, Hemoglobin 11.0L, Hematocrit 36.5, Mean Corpuscular Volume 89.9, Mean Corpuscular Hemoglobin 27.1, Mean Corpuscular Hemoglobin Concent 30.1L, Red Cell Distribution Width 19.0H, Platelet Count 281, Neutrophils (%) (Auto) 78.1H , Lymphocytes (%) (Auto) 7.6L, Monocytes (%) (Auto) 11.8H, Eosinophils (%) (Auto ) 1.1, Basophils (%) (Auto) 0.2, Neutrophils # (Auto) 10.2H, Lymphocytes # (Auto ) 1.0L, Monocytes # (Auto) 1.6H, Eosinophils # (Auto) 0.1, Basophils # (Auto) 0.0, Immature Granulocyte # (Auto) 0.2H, Nucleated Red Blood Cells % (auto) 0.0 , Urine Appearance CLEAR, Urine Color YELLOW, Urine pH 5.0, Urine Specific [place] 1.013, Urine Protein 1+H, Urine Glucose (UA) 3+H, Urine Ketones NEGATIVE , Urine Urobilinogen 0.2, Urine Bilirubin NEGATIVE, Urine Leukocyte Esterase NEGATIVE, Urine Blood NEGATIVE, Urine Nitrite NEGATIVE, Urine WBC (Auto) 0, Urine RBC (Auto) 0, Urine Hyaline Casts (Auto) 0, Urine Bacteria (Auto) NEGATIVE , Urine Squamous Epithelial Cells 0, Urine Sperm (Auto) , Anion Gap 9, Glomerular Filtration Rate 42.1, Calcium Level 8.7L, Aspartate Amino Transf (AST /SGOT) 21, Alanine Aminotransferase (ALT/SGPT) 33, Alkaline Phosphatase 115, Total Bilirubin 1.2H, Direct Bilirubin 0.4H, Ammonia 14, Total Protein 5.6L, Albumin 2.9L, Albumin/Globulin Ratio 1.07, Thyroid Stimulating Hormone (TSH) 0.693 04/06/17 04:58: Bedside Glucose (Misc Panel) 230H CBC/BMP Laboratory Tests 04/05/17 22:46 Red Blood Count 4.06, Mean Corpuscular Volume 89.9, Mean Corpuscular Hemoglobin 27.1, Mean Corpuscular Hemoglobin Concent 30.1 L, Red Cell Distribution Width 19.0 H, Neutrophils (%) (Auto) 78.1 H, Lymphocytes (%) (Auto) 7.6 L, Monocytes ( %) (Auto) 11.8 H, Eosinophils (%) (Auto) 1.1, Basophils (%) (Auto) 0.2, Neutrophils # (Auto) 10.2 H, Lymphocytes # (Auto) 1.0 L, Monocytes # (Auto) 1.6 H, Eosinophils # (Auto) 0.1, Basophils # (Auto) 0.0 Microbiology Microbiology 04/05/17 Blood Culture, Received Pending 04/05/17 Blood Culture, Received Pending 04/05/17 Urine Culture, Received Pending GME ATTESTATION GME ATTESTATION My preceptor for this patient encounter was physically present in the building during the encounter and was fully available. As needed, all aspects of the patient interview, examination, medical decision making process, and medical care plan development were reviewed and approved by the preceptor. Preceptor is aware and concurs with the plan as stated in the body of this note and will attest to such by his/her cosignature. LUIS ARMANDO PRUITT DO Apr 06, 2017 11:33
[2017-04-06 14:00] VITALS: BP 163/99
[2017-04-06] MEDS: ACETAMINOPHEN TAB 650MG DOSE (2X325MG) PO PRN (14:04)
--- NOTE | 2017-04-06 14:29 | REP ---
Portable chest x-ray: Single view. History: Altered mental status. Comparison study: December 02, 2016. Findings: EKG monitoring electrodes overlie the chest. Moderate to marked cardiomegaly is again observed unchanged. There is cephalization of the pulmonary vasculature. Pulmonary vascular congestion is improved. Pleural angles are sharp. No pulmonary edema or focal infiltrate is seen. Signed by Wilian Medina MD 04/06/2017 08:08 A
--- NOTE | 2017-04-06 15:00 | REP ---
CT brain without contrast: History: Sleepiness after a fall. Comparison study: April 05, 2017. Findings: Bone window settings demonstrate an intact bony calvarium. Visualized paranasal sinuses are clear. There is vascular calcification in the distal carotid arteries bilaterally. There is diffuse moderate cerebral atrophy again noted. Mild small vessel atherosclerotic changes are seen in the periventricular white matter of the frontal and occipital lobes, unchanged. There is no evidence of intracranial hemorrhage. No infarct or extra-axial fluid collection is seen. No mass or midline shift noted. Impression: Vascular calcification, diffuse atrophy, small vessel microvascular changes as before. No acute intracranial lesion. Signed by Wilian Medina MD 04/06/2017 03:32 P
[2017-04-06] MEDS ORDERED: LISINOPRIL *2.5 MG* TAB PO ONE (17:00)
--- NOTE | 2017-04-06 20:49 | HPE ---
DATE OF ADMISSION: 04/06/2017 This is a 71-year-old female who has been having falls. On the morning of 04/05/2017, she had again fallen. She was found lying on her stomach with the right side of her head leaning on her chair with the seat under the bed. She states she was transferring from her bed to her wheelchair, when her left knee gave out and she fell. She hit her head on the chair, was brought to the emergency room, assessed, and returned to assisted living where she was sore. She was unable to get out of bed without pain, she felt weak, she was complaining of severe pain in her right hip from which she has a large contusion of the hip and thigh from a fall approximately over a week ago. She said she was getting weaker from the pain, she could not get out of bed. She had an abrasion and ecchymosis around her right orbit. CT of the brain was negative. In the morning, she had a CT of her neck, right femur, right foot, these all showed no fracture. Assessment was done. Patient was unable to sit on the side of the stretcher, could not transfer or get up. Labs were done. Urinalysis was sent. Culture and sensitivity (C and S) was sent. Laboratory studies showed white count slightly elevated at 13.1, hemoglobin 11, hematocrit 36.5. Electrolytes were normal. BUN was elevated at 24, creatinine was 1.32, nonfasting glucose 214, calcium slightly low at 8.7, total bilirubin was 1.2, direct bilirubin was 0.4. Urinalysis showed 3+ glucose, 1+ urine protein. Blood cultures and urine cultures were drawn. Patient also has an appointment for an outpatient great vein ablation under anesthesia on 04/11/2017. Assessment was done and patient is going to be admitted for weakness and inability to ambulate or transfer, contusion of the right hip and thigh to the medical floor. Will get a physical therapy/occupational therapy (PT/OT) evaluation. Patient may ultimately be placed at a prison. SOCIAL HISTORY: She is a resident of assisted living. PAST MEDICAL HISTORY: 1. Hyperlipidemia. 2. Gastroenteritis and colitis. 3. Coronary atherosclerosis. 4. She has a vessel of the [place] GFT. 5. Insulin-dependent diabetes type 2. 6. Depressive disorder. 7. Hypertension. 8. Abrasion on her left hand. 9. Leg wound on the right. PAST SURGICAL HISTORY: 1. Tonsillectomy 1968. 2. Open cholecystectomy 1970. 3. Appendectomy 1970. 4. section 1977. 5. Multiple dilatation and curettages (D and Cs) in the past. 6. Mastectomy on the left breast with lymph node dissection. 7. Breast biopsy. 8. Open reduction internal fixation (ORIF) of left hip fracture 2007. 9. Coronary angioplasty times two vessels 02/18/2012, 02/27/2012. 10. Cardiac catheterization 02/20/2013, at [facility]. FAMILY HISTORY: Father 69 with diabetes and heart disease. Mother age 86 with diabetes. CURRENT MEDICATIONS: - Tylenol 650 by mouth every 6 hours as needed for pain or fever - albuterol via nebulizer every 4 hours as needed for shortness of breath or wheeze - Lasix 40 mg by mouth daily, which I will hold as patient is slightly dehydrated - cranberry extract 300 mg by mouth twice a day - Refresh Optive 0.5-0.9% one drop each eye four times a day - simethicone 125 mg by mouth before food and nightly - aspirin 325 mg by mouth daily - atorvastatin 80 mg by mouth daily - Beng[place] Greaseless 10% four times a day topically as needed for pain or discomfort - Wellbutrin XL 300 mg by mouth daily - calcitriol 0.25 mcg by mouth five times a week - Coreg 12.5 mg by mouth twice a day - Plavix 75 mg by mouth daily - Colace 100 mg by mouth daily - gabapentin 200 mg by mouth three times a day - NovoLog FlexPen before food insulin coverage - insulin detemir - gabapentin 200 mg by mouth three times a day - sliding scale insulin before food - Levemir 24 units subcutaneous nightly - lisinopril 5 mg by mouth daily - omeprazole 20 mg by mouth daily - prednisone 60 mg by mouth daily - primidone 50 mg by mouth twice a day - Effexor 150 mg every morning and 100 mg every evening - multivitamin one by mouth daily - tramadol 37.5/325 one by mouth three times a day as needed for pain - venlafaxine HCl 150 mg capsule by mouth daily REVIEW OF SYSTEMS: No complaint of headache. No blurred or double vision. No fever, no chills. No tinnitus. No hoarseness. No difficulty swallowing. She has been lightheaded. No vertigo. BREASTS: She has had a left mastectomy. CARDIOVASCULAR: No complaints of chest pain, shortness of breath, palpitations, or edema. RESPIRATORY: No chronic cough. No sputum production. No hemoptysis. No orthopnea. No wheeze. GASTROINTESTINAL (GI): She has been slightly nauseated. No vomiting. She has had one or two loose stools. MUSCULOSKELETAL: She is having joint pain of the legs and arms. ENDOCRINE: History of insulin-dependent diabetes. HEMATOLOGICAL: Slightly anemic. NEUROLOGICAL: No history of seizures. PSYCHOLOGICAL: See psychiatric history of present illness (HPI). PHYSICAL EXAMINATION: 71-year-old cooperative obese female in no acute distress. Blood pressure is 124/75, pulse 83, respirations 20. Patient is alert and oriented to person and place. Pupils equal and reactive to light. Ecchymosis and bruising noted around the right orbit. Extraocular movements are intact. Cornea and sclerae clear. Conjunctivae is normal. No facial asymmetry. Pharynx, tongue, gums pink and moist. Tongue is midline. NECK: Supple without lymphadenopathy. No thyromegaly. No goiter. Carotids 2+ without bruit. CHEST: Decreased breath sounds, no wheeze or retraction. HEART: Regular. ABDOMEN: Benign. Bowel sounds positive. GENITOURINARY/RECTAL: Not done. EXTREMITIES: Show extensive bruising on the right hip down to the thigh. The right foot is swollen and all the toes are swollen and bruised. Capillary refill is less than 2 seconds. She has various little open areas on her arms. IMPRESSION/PLAN: Patient will be admitted to the medical floor for weakness, lightheadedness, falling, pain in the right hip and thigh with a large hematoma. Will get a social service consult. Patient may ultimately need to be placed on full nursing. JOHN
[2017-04-06 22:00] VITALS: BP 132/62
[2017-04-07] MEDS: CALCITRIOL 0.25 MCG CAP (S0169) PO SCH ×4 (00:36→17:26)
[2017-04-07 06:00] VITALS: BP 107/58
[2017-04-07 06:37] LABS: BASO % 0.1 % (0.0-1.0); EOS % 0.3 % (0.0-3.0); IMMATURE GRANULOCYTE % 0.8 % (0-0); LYMPH # 1.1 10^3/uL (1.5-4.5); LYMPH % 7.8 % (24.0-44.0); MEAN CORPUSCULAR HEMOGLOBIN 27.3 pg (27.0-33.0); MEAN CORPUSCULAR HGB CONC 30.5 g/dl (32.0-36.5); MEAN CORPUSCULAR VOLUME 89.6 fl (80.0-96.0); MONO # 1.2 10^3/uL (0.0-0.8); MONO % 7.8 % (0.0-5.0); NEUTROPHILS # 12.2 10^3/uL (1.8-7.7); NEUTROPHILS % 83.2 % (36.0-66.0); PLATELET COUNT, AUTOMATED 241 10^3/uL (150-450); RED CELL DISTRIBUTION WIDTH 19.2 % (11.5-14.5); WHITE BLOOD COUNT 14.7 10^3/uL (4.0-10.0)
[2017-04-07 06:57] LABS: ALBUMIN 2.3 GM/DL (3.2-5.2); ALBUMIN/GLOBULIN RATIO 0.88 (1.00-1.93); BILIRUBIN,TOTAL 0.9 MG/DL (0.2-1.0); CALCIUM LEVEL 7.5 MG/DL (8.8-10.2); CREATININE FOR GFR 1.38 MG/DL (0.55-1.02); POTASSIUM SERUM 3.6 MEQ/L (3.5-5.1); TOTAL PROTEIN 4.9 GM/DL (6.4-8.2)
[2017-04-07] MEDS: HumaLOG INSULIN (NovoLOG) PER UNIT SC SCH ×3 (07:39→17:27)
[2017-04-07 08:00] VITALS: BP 136/66
[2017-04-07] MEDS: GABAPENTIN 100 MG CAP PO SCH ×3 (08:26→21:33)
[2017-04-07] MEDS: NS 1,000 ML IV SCH ×2 (08:26→14:26)
[2017-04-07] MEDS: CLOPIDOGREL 75 MG TAB PO SCH (08:27)
[2017-04-07] MEDS: ACETAMINOPHEN TAB 650MG DOSE (2X325MG) PO PRN ×2 (08:27→14:25)
[2017-04-07] MEDS: predniSONE 20 MG TAB PO SCH (08:27)
[2017-04-07] MEDS: buPROPion **XL** TABLET 150MG (WELLBUTRIN XL) PO SCH (08:27)
[2017-04-07] MEDS: VENLAFAXINE **XR** 75MG CAPSULE PO SCH (08:28)
[2017-04-07] MEDS: MULTIVITAMINS/MINERALS THERAP 1 TAB PO SCH (08:28)
[2017-04-07] MEDS: PRIMIDONE 50 MG TAB PO SCH ×2 (08:28→21:33)
[2017-04-07] MEDS: ASPIRIN ENTERIC 325 MG TAB PO SCH (08:28)
[2017-04-07] MEDS: DOCUSATE SODIUM 100 MG CAP PO SCH (08:28)
[2017-04-07] MEDS: OMEPRAZOLE 20 MG CAP PO SCH (08:28)
[2017-04-07] MEDS: ATORVASTATIN 20 MG TAB PO SCH (08:28)
[2017-04-07] MEDS: CARVedilol 12.5 MG TAB PO SCH ×2 (08:34→21:34)
[2017-04-07 14:00] VITALS: BP 131/56
--- NOTE | 2017-04-07 19:54 | REP ---
CT of the right hip, femur and tibia-fibula: Right hip: Axial images are acquired. Reformatted sagittal and coronal projections. There is no fracture of the femoral head or neck. There is advanced osteoarthritis. There is a subcortical cyst in the femoral head as a consequence of the osteoarthritis. There is no fracture of the acetabulum, superior pubic ramus and the ischium. Impression: Advanced osteoarthritis. No femoral head or neck fracture. Right femur: There is no fracture of the shaft or distal femoral condyles. There is osteoarthritis of the right knee in all three compartments. No knee effusion. There are no lytic, blastic or destructive skeletal changes. Impression: No fracture of the right femur. Right knee tricompartment osteoarthritis. Right tibia-fibula: Tricompartment osteoarthritis of the knee is again identified. There is no fracture of the tibia or fibula. No fracture of the ankle and ankle. Impression: No tibial or fibular fracture. Signed by Bakari Brsyon MD 04/07/2017 07:46 P
[2017-04-07] MEDS: LEVEMIR (INSULIN DETEMIR) 1 UNITS/0.01ML SC SCH (21:32)
[2017-04-07] MEDS: LISINOPRIL 5 MG TAB PO SCH (21:33)
[2017-04-07 22:00] VITALS: BP 143/64
[2017-04-08] MEDS: CALCITRIOL 0.25 MCG CAP (S0169) PO SCH ×3 (00:25→12:47)
[2017-04-08 06:00] VITALS: BP 168/77
[2017-04-08] MEDS: NS 1,000 ML IV SCH (06:33)
[2017-04-08] MEDS: DOCUSATE SODIUM 100 MG CAP PO SCH (08:29)
[2017-04-08] MEDS: VENLAFAXINE **XR** 75MG CAPSULE PO SCH (08:29)
[2017-04-08] MEDS: ASPIRIN ENTERIC 325 MG TAB PO SCH (08:29)
[2017-04-08] MEDS: PRIMIDONE 50 MG TAB PO SCH (08:29)
[2017-04-08] MEDS: buPROPion **XL** TABLET 150MG (WELLBUTRIN XL) PO SCH (08:30)
[2017-04-08] MEDS: predniSONE 20 MG TAB PO SCH (08:30)
[2017-04-08] MEDS: CLOPIDOGREL 75 MG TAB PO SCH (08:30)
[2017-04-08] MEDS: HumaLOG INSULIN (NovoLOG) PER UNIT SC SCH ×2 (08:30→12:47)
[2017-04-08] MEDS: MULTIVITAMINS/MINERALS THERAP 1 TAB PO SCH (08:30)
[2017-04-08 08:31] VITALS: BP 168/77
[2017-04-08] MEDS: GABAPENTIN 100 MG CAP PO SCH (08:31)
[2017-04-08] MEDS: ATORVASTATIN 20 MG TAB PO SCH (08:31)
[2017-04-08] MEDS: CARVedilol 12.5 MG TAB PO SCH (08:31)
[2017-04-08] MEDS: OMEPRAZOLE 20 MG CAP PO SCH (08:31)
[2017-04-08 09:18] LABS: MEAN CORPUSCULAR HEMOGLOBIN 27.7 pg (27.0-33.0); MEAN CORPUSCULAR HGB CONC 30.9 g/dl (32.0-36.5); MEAN CORPUSCULAR VOLUME 89.8 fl (80.0-96.0); PLATELET COUNT, AUTOMATED 299 10^3/uL (150-450); RED CELL DISTRIBUTION WIDTH 19.3 % (11.5-14.5)
[2017-04-08 09:44] LABS: ALBUMIN 2.6 GM/DL (3.2-5.2); ALBUMIN/GLOBULIN RATIO 0.9 (1.00-1.93); BILIRUBIN,TOTAL 0.8 MG/DL (0.2-1.0); CALCIUM LEVEL 8.5 MG/DL (8.8-10.2); CREATININE FOR GFR 1.52 MG/DL (0.55-1.02); GLOMERULAR FILTRATION RATE 35.8 (>39); POTASSIUM SERUM 4.5 MEQ/L (3.5-5.1); TOTAL PROTEIN 5.5 GM/DL (6.4-8.2)
--- NOTE | 2017-04-08 13:34 | IPN ---
DATE OF SERVICE: 04/07/2017 Patient is not complaining of chest pain or shortness of breath. She has right lower extremity pain. She has worked with physical therapy. She is complaining of dyspepsia. Temperature is 98.5, pulse is 78, respiratory rate 18, blood pressure 131/56, 96% on room air. She is eructing during the exam. Breathing is symmetrically diminished. Heart is distant sounding. Radial pulses 2+. Abdomen soft, doughy, nontender. There is tenderness over her right hip. There is diffuse bruising on her right leg and down to her right ankle. White cell count 14.7, hemoglobin 9.2, platelets 241. BUN 27, creatinine 1.38. ASSESSMENT: This is a 71-year-old with mechanical fall and right lower extremity contusion. PLAN: 1. Fall. This appears to be a mechanical fall. She does not give any history of focal weakness or paresthesia or syncope, palpitations. She still has quite a bit of pain and an impressive amount of bruising. I believe followup imaging with CT scan of her right lower extremity is warranted. I discussed this with the endoscopic technician to obtain the appropriate coverage of the exam. 2. Patient has atrial fibrillation, is on Plavix and aspirin with is continued which is an interesting choice of anticoagulation but that may be for a different purpose. 3. Patient has hypertension which is reasonably well controlled. 4. Patient has diabetes. 5. Patient has depression. 6. Patient has hyperlipidemia.
--- NOTE | 2017-04-09 09:46 | IPN ---
DATE: 04/08/2017 Ms. Lo is feeling okay today. She has no complaints of chest pain or shortness of breath. She has been tolerating a diet. Still has pain, but has been able to move with physical therapy. Temperature 98.5, pulse 95, respiratory rate 18, blood pressure 168/77, 98% on room air. Ins and outs notable for a positive fluid balance of 680, 4 bowel movements yesterday. She is awake, appropriately interactive. Neck supple. Breathing is symmetrical. Heart is distant sounding. Abdomen soft, doughy, nontender. She has diffuse bruising, especially on the right extremity. CT was done yesterday and shows no evidence of fracture on the entire right lower extremity. ASSESSMENT: 71-year-old with mechanical fall and right lower extremity contusion. PLAN: 1. She does not give any history that makes me suspect any other insidious cause. She is continued on aspirin and Plavix, but this will need to be considered in the outpatient setting whether this is appropriate. 2. Patient has atrial fibrillation. She is on aspirin and Plavix. 3. Patient has hypertension which is reasonably well controlled for the current setting. It can be adjusted as an outpatient as needed. 4. Patient has diabetes. 5. Patient has depression. 6. Patient has hyperlipidemia. 7. Patient is getting wound care and is being followed by Dr. Chamorro, which will be continued upon discharge. She will have a nurse available for her to assist with dressing changes.
== END 2017-04-08 13:40 ==
LOC: M ED 20:18 → EDBD 20:18 → M ED INP 20:20 → UNDOADMOB 04-06 02:53 → INTOOBSV 04-06 02:53 → M ED INP 04-06 04:26 → M MS5PR 04-06 04:26 → UNDODISOB 04-08 13:40
PROVIDERS: ADMIT Internal Medicine Nephrology; ATTEND Internal Medicine
DX: S80.11XA Contusion of right lower leg, initial encounter (principal); W19.XXXA Unspecified fall, initial encounter; Y92.099 Unspecified place in other non-institutional residence as the place of occurrence of the external cause; Y93.9 Activity, unspecified; I48.91 Unspecified atrial fibrillation; I10 Essential (primary) hypertension; I25.10 Atherosclerotic heart disease of native coronary artery without angina pectoris; E11.9 Type 2 diabetes mellitus without complications; E78.5 Hyperlipidemia, unspecified; F32.9 Major depressive disorder, single episode, unspecified; Z79.4 Long term (current) use of insulin; Z79.82 Long term (current) use of aspirin; Z79.02 Long term (current) use of antithrombotics/antiplatelets; Z79.899 Other long term (current) drug therapy; K52.89 Other specified noninfective gastroenteritis and colitis; Y99.8 Other external cause status; Z91.81 History of falling
CPT/HCPCS: 36415; 51701; 70450; 71010; 72125; 73502; 73552; 73610; 73630; 73700; 80048; 80053; 80076; 81001; 82140; 82550; 82553; 84443; 84484; 85025; 85027; 87040; 87086; 96360; 96361; 97116; 97161; 97530; 99284; 99285; G0378; G8981; G8982; G8983

== ENCOUNTER 2017-04-11 12:24 | Day surgery (SDC) | payer MEDICARE, MEDICAID ==
[~2017-04-11] VITALS: Ht 162.6 cm; Wt 126.6 kg
[~2017-04-11 12:24] MED LIST changes: +ULTR37.54 PO
[2017-04-11] MEDS ORDERED: LR 1,000 ML IV ONE (12:30)
[2017-04-11] MEDS ORDERED: LIDOCAINE 1% MDV 20ML VIAL SC ONE (13:00)
[2017-04-11] MEDS ORDERED: LIDOCAINE W/EPINEPHRINE 1% 20ML VIAL As Ordered ONE (15:21)
[2017-04-11] MEDS ORDERED: fentaNYL 100 MCG/2 ML INJECTION (J3010) As Ordered ONE (16:00)
[2017-04-11] MEDS ORDERED: MIDAZOLAM INJ 2 MG/2 ML VIAL (J2250) As Ordered ONE (16:00)
[2017-04-11] MEDS ORDERED: PROPOFOL 200 MG/20 ML VIAL As Ordered ONE (16:13)
[2017-04-11 18:00] VITALS: BP 138/69
--- NOTE | 2017-04-18 14:18 | RO ---
DATE OF PROCEDURE: 04/11/2017 PREOPERATIVE DIAGNOSIS: Left greater saphenous vein and venous valvular insufficiency with nonhealing left venous stasis ulcer. POSTOPERATIVE DIAGNOSIS: Left greater saphenous vein and venous valvular insufficiency with nonhealing left venous stasis ulcer. PROCEDURE: Left greater saphenous vein radiofrequency ablation with ultrasound guided cannulation of the left greater saphenous vein. SURGEON: Dr. Home Pedersen ELECTRONIC WARFARE TECHNICIAN: None. ANESTHESIA: Local, monitored anesthesia care (MAC). ESTIMATED BLOOD LOSS: 30. IV FLUIDS: 400 mL. SPECIMEN: None. COMPLICATIONS: None. DRAINS: None. IMPLANTS: None. INDICATION: Patient is a 71-year-old female with a nonhealing left lower extremity venous stasis ulcer who was evaluated and found to have venous valvular insufficiency in her left greater saphenous vein. Patient will undergo radiofrequency ablation of the left greater saphenous vein due to her venous stasis ulcer and valvular insufficiency. The risks, benefits and alternative treatment options were discussed with the patient. DESCRIPTION OF PROCEDURE: The patient was taken to the operating room and placed supine on the operating room table and the left lower extremity was prepped and draped in a standard surgical fashion. A time-out was then conducted confirming the correct patient, procedure and laterality. Ultrasound was then used to guide cannulation of the left greater saphenous vein in the below knee region with real time concurrent visualization of entry of the micropuncture needle into the left greater saphenous vein with a hard copy image preserved. The micropuncture wire was then advanced through the micropuncture needle, which was up sized to a micropuncture sheath. A J wire catheter was advanced through the micropuncture sheath, which was up sized to a 7-Romansh sheath. The radiofrequency ablation catheter was advanced through the greater saphenous vein and placed 2 cm distal to the saphenofemoral junction under ultrasound guidance. Tranexamic solution was then circumferentially injected around the greater saphenous vein from the saphenofemoral junction to the entry site in the below knee region, after which, the greater saphenous vein was ablated using the radiofrequency ablation catheter from 2 cm distal to the saphenofemoral junction to the below knee region using ultrasound guidance. Catheters and wires were then removed. The sheath was removed and dressings were applied. The patient tolerated the procedure well. All instrument, sponge and needle counts were correct at the end of the case. There were no complications. Dr. Pedersen was present for and directed the entire case. The patient was transferred to the recovery room in stable condition
== END 2017-04-11 18:15 | disposition home or self-care (01) ==
LOC: M SDC 12:24
PROVIDERS: ATTEND Surgery Vascular Surgery
DX: I83.228 Varicose veins of left lower extremity with both ulcer of other part of lower extremity and inflammation (principal); L97.829 Non-pressure chronic ulcer of other part of left lower leg with unspecified severity; I10 Essential (primary) hypertension; E78.5 Hyperlipidemia, unspecified; F41.9 Anxiety disorder, unspecified; F32.9 Major depressive disorder, single episode, unspecified; Z79.899 Other long term (current) drug therapy; R56.9 Unspecified convulsions; Z88.0 Allergy status to penicillin; Z88.2 Allergy status to sulfonamides; Z88.8 Allergy status to other drugs, medicaments and biological substances; Z79.51 Long term (current) use of inhaled steroids
CPT/HCPCS: 36475; J2250; J3010

== ENCOUNTER → 2017-04-18 | Outpatient (CLI) | payer MEDICARE, MEDICAID ==
[~2017-04-18] MED LIST changes: -LIPITOR40 2 TABS; +LIPITOR40 [, 2 TABS]
--- NOTE | 2017-04-18 12:57 | REP ---
LEFT LOWER EXTREMITY DOPPLER VENOUS ULTRASOUND: 04/18/2017. Clinical history: Status post ablation of the superficial veins. Comparison: 09/12/2016. Technique: The deep venous system of the left lower extremity is evaluated with fry scale imaging, compression ultrasound, color imaging and duplex Doppler interrogation. Examination from the groin through the popliteal fossa into the proximal calf. Findings: There is full compressibility from the common femoral vein in the inguinal region through the popliteal vein. Color imaging confirms patency throughout the course of the deep venous system. There is respiratory variation and augmented flow at all levels. The left greater saphenous vein is thrombosed as would be expected after ablation. Thrombus extends to within 8 mm of the junction with the common femoral vein. Impression: 1. No Doppler venous ultrasound evidence of DVT in the left lower extremity. Signed by Morales Coleman MD 04/18/2017 05:34 P
== END ==
LOC: M RAD 04-17 10:44
PROVIDERS: ATTEND Surgery Vascular Surgery
DX: I87.312 Chronic venous hypertension (idiopathic) with ulcer of left lower extremity (principal); I82.812 Embolism and thrombosis of superficial veins of left lower extremity; Z98.890 Other specified postprocedural states

== ENCOUNTER 2017-06-09 13:34 | Inpatient (IN) | payer MEDICARE, MEDICAID ==
[2017-06-09 15:45] LABS: BEDSIDE GLUCOSE 116 MG/DL (83-110)
[2017-06-09 15:59] LABS: BASO % 0.1 % (0.0-1.0); EOS % 0.1 % (0.0-3.0); HEMATOCRIT 36.2 % (36.0-47.0); HEMOGLOBIN 10.9 g/dl (12.0-16.0); IMMATURE GRANULOCYTE # 0.1 10^3/uL (0-0); LYMPH # 0.5 10^3/uL (1.5-4.5); LYMPH % 5.5 % (24.0-44.0); MEAN CORPUSCULAR HGB CONC 30.1 g/dl (32.0-36.5); MEAN CORPUSCULAR VOLUME 93.1 fl (80.0-96.0); MONO # 0.3 10^3/uL (0.0-0.8); NEUTROPHILS # 7.5 10^3/uL (1.8-7.7); NEUTROPHILS % 90.3 % (36.0-66.0); RED BLOOD COUNT 3.89 10^6/uL (4.00-5.40); RED CELL DISTRIBUTION WIDTH 16.4 % (11.5-14.5); WHITE BLOOD COUNT 8.3 10^3/uL (4.0-10.0)
[2017-06-09 16:06] LABS: ABG BASE EXCESS -3.8 (-2.0-2.0); ABG HCO3 21.1 MEQ/L (22.0-26.0); ABG O2 SATURATION 95.4 % (95.0-99.0); ABG PARTIAL PRESSURE CO2 37.8 mmHg (35.0-45.0); ABG PARTIAL PRESSURE O2 81.2 mmHg (75.0-100.0); ABG STANDARD HCO3 21.3 MEQ/L (22.0-26.0); ABG TOTAL CO2 22.3 MEQ/L (23.0-31.0); ABG pH (ARTERIAL) 7.365 UNITS (7.350-7.450)
[2017-06-09 16:20] LABS: AMMONIA 43 uMOL/L (<32)
[2017-06-09 16:21] LABS: ALBUMIN 2.8 GM/DL (3.2-5.2); ALBUMIN/GLOBULIN RATIO 1.17 (1.00-1.93); ALKALINE PHOSPHATASE 85 U/L (45-117); ALT/SGPT 33 U/L (12-78); ANION GAP 10 MEQ/L (8-16); AST/SGOT 30 U/L (7-37); BILIRUBIN,TOTAL 0.7 MG/DL (0.2-1.0); BLOOD UREA NITROGEN 34 MG/DL (7-18); CALCIUM LEVEL 7.8 MG/DL (8.8-10.2); CARBON DIOXIDE LEVEL 25 MEQ/L (21-32); CHLORIDE LEVEL 113 MEQ/L (98-107); CREATININE FOR GFR 1.09 MG/DL (0.55-1.02); GLOMERULAR FILTRATION RATE 52.5 (>39); GLUCOSE, FASTING 109 MG/DL (83-110); POTASSIUM SERUM 4.9 MEQ/L (3.5-5.1); SODIUM LEVEL 148 MEQ/L (136-145); TOTAL PROTEIN 5.2 GM/DL (6.4-8.2)
[2017-06-09 16:25] LABS: PLATELET COUNT, AUTOMATED 97 10^3/uL (150-450); PLT CLUMPS? POS FLAG; POS COUNT POS FLAG
[2017-06-09 16:26] LABS: IMMATURE PLATELET FRACTION % 3.9 % (0.0-9.6)
[2017-06-09 16:28] LABS: APPEARANCE, URINE TURBID (CLEAR); BACTERIA, URINE AUTO 2+ (NEGATIVE); BILIRUBIN, URINE AUTO NEGATIVE (NEGATIVE); BLOOD, URINE BLOOD 2+ (NEGATIVE); COLOR, URINE YELLOW (YELLOW); GLUCOSE, URINE (UA) AUTO NEGATIVE (NEGATIVE); KETONE, URINE AUTO NEGATIVE (NEGATIVE); LEUKOCYTE ESTERASE, URINE AUTO 3+ (NEGATIVE); NITRITE, URINE AUTO POSITIVE (NEGATIVE); PROTEIN, URINE AUTO 2+ mg/dL (NEGATIVE); RBC, URINE AUTO 62 /HPF (0-3); SPECIFIC GRAVITY URINE AUTO 1.015 (1.002-1.035); SQUAMOUS EPITHELIAL CELL UR AU 0 /HPF (0-6); UROBILINOGEN, URINE AUTO 0.2 mg/dL (0.0-2.0); WBC, URINE AUTO TNTC /HPF (0-3)
[2017-06-09] MEDS: GENTAMICIN 120 MG in D5W 50 ML IV (19:09)
[2017-06-09 19:21] LABS: CK-MB VALUE MASS 2.5 NG/ML (0.0-3.6); CPK CREATINE PHOSPHOKINASE 45 U/L (26-192); MB/CK RELATIVE INDEX 5.55 (< OR =4); TROPONIN I 0.04 NG/ML (< 0.10)
[2017-06-09] MEDS ORDERED: DEXTROSE 50% 50 ML SYRINGE IV (21:00)
[2017-06-09] MEDS ORDERED: ANALGESIC BALM CRM 120 GM TOP (21:00)
[2017-06-09] MEDS ORDERED: ALBUTEROL SULFATE 2.5 MG/0.5 ML INH NEB SOLN INH (21:00)
[2017-06-09] MEDS ORDERED: ULTRACET TAB PO (21:00)
[2017-06-09] MEDS ORDERED: ACETAMINOPHEN 325 MG TAB PO (21:00)
[2017-06-09] MEDS ORDERED: GLUCAGON FOR INJ 1 MG VIAL (J1610) SC (21:00)
[2017-06-09] MEDS ORDERED: GLUCOSE 4 GM CHEW TABLET PO (21:00)
[2017-06-09] MEDS: NS 1,000 ML IV (21:02)
[2017-06-09] MEDS: HumaLOG INSULIN (NovoLOG) PER UNIT SC (21:44)
[2017-06-09 21:49] LABS: BEDSIDE GLUCOSE 181 MG/DL (83-110)
[2017-06-09] MEDS: CARVedilol 12.5 MG TAB PO (21:53)
[2017-06-09] MEDS: LEVEMIR (INSULIN DETEMIR) 1 UNITS/0.01ML SC (21:53)
[2017-06-09] MEDS: GABAPENTIN 100 MG CAP PO (21:53)
[2017-06-09] MEDS: PRIMIDONE 50 MG TAB PO (22:05)
[2017-06-09] MEDS: LISINOPRIL 5 MG TAB PO (22:05)
[2017-06-10 07:23] LABS: HEMATOCRIT 38.9 % (36.0-47.0); HEMOGLOBIN 11.9 g/dl (12.0-16.0); MEAN CORPUSCULAR HEMOGLOBIN 28.3 pg (27.0-33.0); MEAN CORPUSCULAR HGB CONC 30.6 g/dl (32.0-36.5); MEAN CORPUSCULAR VOLUME 92.4 fl (80.0-96.0); RED BLOOD COUNT 4.21 10^6/uL (4.00-5.40); RED CELL DISTRIBUTION WIDTH 16.5 % (11.5-14.5); WHITE BLOOD COUNT 8.7 10^3/uL (4.0-10.0)
[2017-06-10 07:51] LABS: ANION GAP 7 MEQ/L (8-16); BLOOD UREA NITROGEN 33 MG/DL (7-18); CALCIUM LEVEL 8.6 MG/DL (8.8-10.2); CARBON DIOXIDE LEVEL 28 MEQ/L (21-32); CHLORIDE LEVEL 111 MEQ/L (98-107); GLUCOSE, FASTING 154 MG/DL (83-110); POTASSIUM SERUM 4.1 MEQ/L (3.5-5.1); SODIUM LEVEL 146 MEQ/L (136-145)
[2017-06-10 07:58] LABS: PLATELET COUNT, AUTOMATED 247 10^3/uL (150-450)
[2017-06-10] MEDS: LEVEMIR (INSULIN DETEMIR) 1 UNITS/0.01ML SC ×2 (08:59→22:08)
[2017-06-10] MEDS: HumaLOG INSULIN (NovoLOG) PER UNIT SC ×4 (08:59→21:00)
[2017-06-10] MEDS: PRIMIDONE 50 MG TAB PO ×2 (09:00→22:07)
[2017-06-10] MEDS: ASPIRIN ENTERIC 325 MG TAB PO (09:00)
[2017-06-10] MEDS: predniSONE 50 MG TAB PO (09:00)
[2017-06-10] MEDS: CLOPIDOGREL 75 MG TAB PO (09:00)
[2017-06-10] MEDS: ENOXAPARIN 40 MG/0.4 ML SYRINGE (J1650) SC (09:00)
[2017-06-10] MEDS: ATORVASTATIN 20 MG TAB PO (09:00)
[2017-06-10] MEDS: GABAPENTIN 100 MG CAP PO ×3 (09:00→22:07)
[2017-06-10] MEDS: DOCUSATE SODIUM 100 MG CAP PO (09:00)
[2017-06-10] MEDS: CALCITRIOL 0.25 MCG CAP (S0169) PO (09:00)
[2017-06-10] MEDS: CHOLESTYRAMINE 4 GM PWD PKT PO (09:00)
[2017-06-10] MEDS: MULTIVITAMINS/MINERALS THERAP 1 TAB PO (09:01)
[2017-06-10] MEDS: CARVedilol 12.5 MG TAB PO ×2 (09:01→22:07)
[2017-06-10] MEDS: VENLAFAXINE **XR** 75MG CAPSULE PO (09:01)
[2017-06-10] MEDS: OMEPRAZOLE 20 MG CAP PO (09:01)
[2017-06-10] MEDS: GENTAMICIN 100 MG in APPROPRIATE DILUENT 1 EA IV ×2 (09:02→22:07)
[2017-06-10] MEDS: buPROPion **XL** TABLET 150MG (WELLBUTRIN XL) PO (09:08)
[2017-06-10 11:52] LABS: BEDSIDE GLUCOSE 108 MG/DL (83-110)
[2017-06-10] MEDS ORDERED: ACETAMINOPHEN TAB 650MG DOSE (2X325MG) PO (14:47)
[2017-06-10 20:14] LABS: GENTAMICIN LEVEL TROUGH 1.9 MCG/ML (0.0-2.0)
[2017-06-10 20:24] LABS: BEDSIDE GLUCOSE 319 MG/DL (83-110)
[2017-06-10 23:46] LABS: GENTAMICIN LEVEL PEAK 4.6 MCG/ML (3.0-10.0)
[2017-06-11 06:37] LABS: HEMATOCRIT 37.7 % (36.0-47.0); HEMOGLOBIN 11.5 g/dl (12.0-16.0); MEAN CORPUSCULAR HEMOGLOBIN 28.4 pg (27.0-33.0); MEAN CORPUSCULAR HGB CONC 30.5 g/dl (32.0-36.5); MEAN CORPUSCULAR VOLUME 93.1 fl (80.0-96.0); PLATELET COUNT, AUTOMATED 211 10^3/uL (150-450); RED BLOOD COUNT 4.05 10^6/uL (4.00-5.40); RED CELL DISTRIBUTION WIDTH 16.4 % (11.5-14.5); WHITE BLOOD COUNT 8.5 10^3/uL (4.0-10.0)
[2017-06-11 06:57] LABS: ANION GAP 7 MEQ/L (8-16); BLOOD UREA NITROGEN 33 MG/DL (7-18); CALCIUM LEVEL 8.3 MG/DL (8.8-10.2); CARBON DIOXIDE LEVEL 26 MEQ/L (21-32); CHLORIDE LEVEL 111 MEQ/L (98-107); CREATININE FOR GFR 1.13 MG/DL (0.55-1.02); GLOMERULAR FILTRATION RATE 50.4 (>39); GLUCOSE, FASTING 198 MG/DL (83-110); POTASSIUM SERUM 4.2 MEQ/L (3.5-5.1); SODIUM LEVEL 144 MEQ/L (136-145)
[2017-06-11] MEDS: CHOLESTYRAMINE 4 GM PWD PKT PO (08:48)
[2017-06-11] MEDS: VENLAFAXINE **XR** 75MG CAPSULE PO (08:48)
[2017-06-11] MEDS: GENTAMICIN 100 MG in APPROPRIATE DILUENT 1 EA IV (08:48)
[2017-06-11] MEDS: buPROPion **XL** TABLET 150MG (WELLBUTRIN XL) PO (08:48)
[2017-06-11] MEDS: MULTIVITAMINS/MINERALS THERAP 1 TAB PO (08:49)
[2017-06-11] MEDS: PRIMIDONE 50 MG TAB PO ×2 (08:49→20:35)
[2017-06-11] MEDS: OMEPRAZOLE 20 MG CAP PO (08:49)
[2017-06-11] MEDS: ATORVASTATIN 20 MG TAB PO (08:49)
[2017-06-11] MEDS: ASPIRIN ENTERIC 325 MG TAB PO (08:49)
[2017-06-11] MEDS: GABAPENTIN 100 MG CAP PO ×3 (08:49→20:26)
[2017-06-11] MEDS: CARVedilol 12.5 MG TAB PO ×2 (08:49→20:27)
[2017-06-11] MEDS: CALCITRIOL 0.25 MCG CAP (S0169) PO (08:49)
[2017-06-11] MEDS: CLOPIDOGREL 75 MG TAB PO (08:49)
[2017-06-11] MEDS: predniSONE 50 MG TAB PO (08:49)
[2017-06-11] MEDS: DOCUSATE SODIUM 100 MG CAP PO (08:50)
[2017-06-11] MEDS: HumaLOG INSULIN (NovoLOG) PER UNIT SC ×4 (08:50→20:37)
[2017-06-11] MEDS: LEVEMIR (INSULIN DETEMIR) 1 UNITS/0.01ML SC ×2 (08:51→20:36)
[2017-06-11] MEDS: ENOXAPARIN 40 MG/0.4 ML SYRINGE (J1650) SC (08:51)
[2017-06-11 12:06] LABS: BEDSIDE GLUCOSE 197 MG/DL (83-110)
[2017-06-11 12:18] LABS: BEDSIDE GLUCOSE 204 MG/DL (83-110)
[2017-06-11] MEDS: BACTRIM 160MG/800MG DS TAB PO ×2 (13:28→20:26)
[2017-06-11] MEDS: NYSTATIN 100,000 UNITS/GM TOPICAL PWD 15 GM TOP (15:14)
[2017-06-11 16:41] LABS: BEDSIDE GLUCOSE 221 MG/DL (83-110)
[2017-06-11 21:21] LABS: BEDSIDE GLUCOSE 355 MG/DL (83-110)
[2017-06-12] MEDS: CHOLESTYRAMINE 4 GM PWD PKT PO (08:15)
[2017-06-12] MEDS: LEVEMIR (INSULIN DETEMIR) 1 UNITS/0.01ML SC (08:15)
[2017-06-12] MEDS: ENOXAPARIN 40 MG/0.4 ML SYRINGE (J1650) SC (08:15)
[2017-06-12] MEDS: HumaLOG INSULIN (NovoLOG) PER UNIT SC ×2 (08:16→12:00)
[2017-06-12] MEDS: NYSTATIN 100,000 UNITS/GM TOPICAL PWD 15 GM TOP (08:16)
[2017-06-12] MEDS: CLOPIDOGREL 75 MG TAB PO (08:17)
[2017-06-12] MEDS: BACTRIM 160MG/800MG DS TAB PO (08:17)
[2017-06-12] MEDS: OMEPRAZOLE 20 MG CAP PO (08:17)
[2017-06-12] MEDS: VENLAFAXINE **XR** 75MG CAPSULE PO (08:17)
[2017-06-12] MEDS: GABAPENTIN 100 MG CAP PO (08:17)
[2017-06-12] MEDS: CARVedilol 12.5 MG TAB PO (08:17)
[2017-06-12] MEDS: ASPIRIN ENTERIC 325 MG TAB PO (08:18)
[2017-06-12] MEDS: PRIMIDONE 50 MG TAB PO (08:18)
[2017-06-12] MEDS: MULTIVITAMINS/MINERALS THERAP 1 TAB PO (08:18)
[2017-06-12] MEDS: predniSONE 50 MG TAB PO (08:18)
[2017-06-12] MEDS: CALCITRIOL 0.25 MCG CAP (S0169) PO (08:18)
[2017-06-12] MEDS: DOCUSATE SODIUM 100 MG CAP PO (08:18)
[2017-06-12] MEDS: ATORVASTATIN 20 MG TAB PO (08:18)
[2017-06-12 08:21] LABS: HEMATOCRIT 39.9 % (36.0-47.0); MEAN CORPUSCULAR HGB CONC 30.1 g/dl (32.0-36.5); MEAN CORPUSCULAR VOLUME 93.2 fl (80.0-96.0); PLATELET COUNT, AUTOMATED 248 10^3/uL (150-450); RED BLOOD COUNT 4.28 10^6/uL (4.00-5.40); RED CELL DISTRIBUTION WIDTH 16.3 % (11.5-14.5); WHITE BLOOD COUNT 9.2 10^3/uL (4.0-10.0)
[2017-06-12] MEDS: buPROPion **XL** TABLET 150MG (WELLBUTRIN XL) PO (08:29)
[2017-06-12 08:39] LABS: ANION GAP 6 MEQ/L (8-16); BLOOD UREA NITROGEN 30 MG/DL (7-18); CALCIUM LEVEL 8.6 MG/DL (8.8-10.2); CARBON DIOXIDE LEVEL 30 MEQ/L (21-32); CHLORIDE LEVEL 110 MEQ/L (98-107); CREATININE FOR GFR 1.23 MG/DL (0.55-1.02); GLOMERULAR FILTRATION RATE 45.7 (>39); GLUCOSE, FASTING 158 MG/DL (83-110); POTASSIUM SERUM 4.7 MEQ/L (3.5-5.1); SODIUM LEVEL 146 MEQ/L (136-145)
[2017-06-12 12:55] LABS: BEDSIDE GLUCOSE 190 MG/DL (83-110)
[2017-06-12 12:55] LABS: BEDSIDE GLUCOSE 170 MG/DL (83-110)
== END 2017-06-12 14:07 | DRG 690 ==
LOC: M ED 13:34 → M ED INP 20:38 → M MSPAV 22:25
DX: N39.0 Urinary tract infection, site not specified (principal); I50.22 Chronic systolic (congestive) heart failure; Z68.43 Body mass index [BMI] 50.0-59.9, adult; L88 Pyoderma gangrenosum; E66.01 Morbid (severe) obesity due to excess calories; B96.20 Unspecified Escherichia coli [E. coli] as the cause of diseases classified elsewhere; E78.5 Hyperlipidemia, unspecified; E11.9 Type 2 diabetes mellitus without complications; J44.9 Chronic obstructive pulmonary disease, unspecified; I25.10 Atherosclerotic heart disease of native coronary artery without angina pectoris; I11.0 Hypertensive heart disease with heart failure; Z79.4 Long term (current) use of insulin; Z79.01 Long term (current) use of anticoagulants; Z79.899 Other long term (current) drug therapy; Z88.0 Allergy status to penicillin; Z88.2 Allergy status to sulfonamides; Z88.8 Allergy status to other drugs, medicaments and biological substances; Z91.02 Food additives allergy status; Z90.49 Acquired absence of other specified parts of digestive tract; Z90.12 Acquired absence of left breast and nipple; Z98.61 Coronary angioplasty status; Z79.02 Long term (current) use of antithrombotics/antiplatelets

== ENCOUNTER 2017-06-30 14:23 | Inpatient (IN) | payer MEDICARE, MEDICAID ==
[2017-06-30 15:40] LABS: BASO % 0.3 % (0.0-1.0); HEMATOCRIT 36.8 % (36.0-47.0); IMMATURE GRANULOCYTE # 0.2 10^3/uL (0-0); IMMATURE GRANULOCYTE % 1.8 % (0-0); LYMPH # 0.4 10^3/uL (1.5-4.5); LYMPH % 4.5 % (24.0-44.0); MEAN CORPUSCULAR HEMOGLOBIN 28.4 pg (27.0-33.0); MEAN CORPUSCULAR HGB CONC 29.9 g/dl (32.0-36.5); MEAN CORPUSCULAR VOLUME 94.8 fl (80.0-96.0); MONO # 0.6 10^3/uL (0.0-0.8); MONO % 6.3 % (0.0-5.0); NEUTROPHILS # 8.3 10^3/uL (1.8-7.7); NEUTROPHILS % 87.1 % (36.0-66.0); PLATELET COUNT, AUTOMATED 200 10^3/uL (150-450); RED BLOOD COUNT 3.88 10^6/uL (4.00-5.40); RED CELL DISTRIBUTION WIDTH 16.7 % (11.5-14.5); WHITE BLOOD COUNT 9.5 10^3/uL (4.0-10.0)
[2017-06-30 16:05] LABS: ANION GAP 5 MEQ/L (8-16); BLOOD UREA NITROGEN 27 MG/DL (7-18); CARBON DIOXIDE LEVEL 29 MEQ/L (21-32); CHLORIDE LEVEL 104 MEQ/L (98-107); CPK CREATINE PHOSPHOKINASE 32 U/L (26-192); CREATININE FOR GFR 1.37 MG/DL (0.55-1.02); GLOMERULAR FILTRATION RATE 40.3 (>39); GLUCOSE, FASTING 264 MG/DL (70-100); POTASSIUM SERUM 4.9 MEQ/L (3.5-5.1); SODIUM LEVEL 138 MEQ/L (136-145); TROPONIN I 0.04 NG/ML (< 0.10)
[2017-06-30 16:10] LABS: MB/CK RELATIVE INDEX 3.12 (< OR =4); NT-PRO BNP 10689 PG/ML (<125); THYROID STIMULATING HORMONE 0.445 uIU/ML (0.358-3.740)
[2017-06-30] MEDS: FUROSEMIDE 100 MG/10 ML VIAL (J1940) IV (16:30)
[2017-06-30 18:06] LABS: ABG BASE EXCESS 3.3 (-2.0-2.0); ABG HCO3 29.1 MEQ/L (22.0-26.0); ABG O2 SATURATION 90.9 % (95.0-99.0); ABG PARTIAL PRESSURE CO2 49.2 mmHg (35.0-45.0); ABG STANDARD HCO3 27.3 MEQ/L (22.0-26.0); ABG TOTAL CO2 30.6 MEQ/L (23.0-31.0)
[2017-06-30] MEDS ORDERED: GLUCOSE 4 GM CHEW TABLET PO (18:45)
[2017-06-30] MEDS ORDERED: DEXTROSE 50% 50 ML SYRINGE IV (18:45)
[2017-06-30] MEDS ORDERED: GLUCAGON FOR INJ 1 MG VIAL (J1610) SC (18:45)
[2017-06-30] MEDS ORDERED: BISACODYL 10 MG SUPP PR (19:00)
[2017-06-30] MEDS ORDERED: FLEET ENEMA PR (19:00)
[2017-06-30] MEDS ORDERED: ALBUTEROL 90 MCG/ACT 8GM HFA INHALER INH (19:00)
[2017-06-30] MEDS ORDERED: ACETAMINOPHEN 650 MG SUPP PR (19:00)
[2017-06-30 19:54] LABS: C REACTIVE PROTEIN QUANTITATIV 2.13 MG/DL (0.00-0.30)
[2017-06-30 20:41] LABS: APPEARANCE, URINE HAZY (CLEAR); BACTERIA, URINE AUTO 2+ (NEGATIVE); BILIRUBIN, URINE AUTO NEGATIVE (NEGATIVE); BLOOD, URINE BLOOD 1+ (NEGATIVE); COLOR, URINE STRAW (YELLOW); GLUCOSE, URINE (UA) AUTO NEGATIVE (NEGATIVE); KETONE, URINE AUTO NEGATIVE (NEGATIVE); LEUKOCYTE ESTERASE, URINE AUTO 3+ (NEGATIVE); MUCUS, URINE SMALL (NEGATIVE); NITRITE, URINE AUTO NEGATIVE (NEGATIVE); PROTEIN, URINE AUTO NEGATIVE (NEGATIVE); RBC, URINE AUTO 9 /HPF (0-3); SPECIFIC GRAVITY URINE AUTO 1.004 (1.002-1.035); SQUAMOUS EPITHELIAL CELL UR AU 0 /HPF (0-6); UROBILINOGEN, URINE AUTO 0.2 mg/dL (0.0-2.0); WBC, URINE AUTO 28 /HPF (0-3)
[2017-06-30] MEDS: HumaLOG INSULIN (NovoLOG) PER UNIT SC (21:00)
[2017-06-30] MEDS: LEVEMIR (INSULIN DETEMIR) 1 UNITS/0.01ML SC (21:31)
[2017-06-30] MEDS: MIRALAX *UNIT DOSE* 17GM PACKET PO (21:31)
[2017-06-30] MEDS: CARVedilol 12.5 MG TAB PO (21:32)
[2017-06-30] MEDS: SENOKOT S TAB PO (21:32)
[2017-06-30] MEDS: PRIMIDONE 50 MG TAB PO (21:33)
[2017-06-30] MEDS: GABAPENTIN 100 MG CAP PO (21:33)
[2017-06-30 22:11] LABS: CPK CREATINE PHOSPHOKINASE 54 U/L (26-192); MB/CK RELATIVE INDEX 1.85 (< OR =4); TROPONIN I 0.02 NG/ML (< 0.10)
[2017-07-01] MEDS: FUROSEMIDE 40 MG/4 ML VIAL (J1940) IV ×5 (00:07→23:58)
[2017-07-01] MEDS: IPRATROPIUM 0.5MG/ALBUTEROL 2.5MG INH SOL UD 3ML (DUONEB)(J7620) NEB ×5 (02:05→21:12)
[2017-07-01] MEDS: ACETAMINOPHEN TAB 650MG DOSE (2X325MG) PO (02:36)
[2017-07-01 03:46] LABS: CPK CREATINE PHOSPHOKINASE 25 U/L (26-192)
[2017-07-01 04:12] LABS: TROPONIN I 0.04 NG/ML (< 0.10)
[2017-07-01] MEDS: CARVedilol 12.5 MG TAB PO (04:44)
[2017-07-01] MEDS: NS 0.45% 1,000 ML IV (04:49)
[2017-07-01] MEDS: HEPARIN SOD (PORCINE) 5000 UNITS/ML VIAL SC ×3 (05:52→20:43)
[2017-07-01 07:03] LABS: BEDSIDE GLUCOSE 138 MG/DL (83-110)
[2017-07-01 07:47] LABS: HEMATOCRIT 36.4 % (36.0-47.0); HEMOGLOBIN 11.2 g/dl (12.0-16.0); MEAN CORPUSCULAR HEMOGLOBIN 28.9 pg (27.0-33.0); MEAN CORPUSCULAR HGB CONC 30.8 g/dl (32.0-36.5); MEAN CORPUSCULAR VOLUME 93.8 fl (80.0-96.0); PLATELET COUNT, AUTOMATED 171 10^3/uL (150-450); RED BLOOD COUNT 3.88 10^6/uL (4.00-5.40); RED CELL DISTRIBUTION WIDTH 16.7 % (11.5-14.5); WHITE BLOOD COUNT 8.7 10^3/uL (4.0-10.0)
[2017-07-01 08:14] LABS: ANION GAP 4 MEQ/L (8-16); BLOOD UREA NITROGEN 25 MG/DL (7-18); CALCIUM LEVEL 8.3 MG/DL (8.8-10.2); CARBON DIOXIDE LEVEL 31 MEQ/L (21-32); CHLORIDE LEVEL 105 MEQ/L (98-107); CREATININE FOR GFR 1.44 MG/DL (0.55-1.02); GLOMERULAR FILTRATION RATE 38.1 (>39); GLUCOSE, FASTING 123 MG/DL (70-100); SODIUM LEVEL 140 MEQ/L (136-145)
[2017-07-01] MEDS: GABAPENTIN 100 MG CAP PO ×3 (09:06→20:42)
[2017-07-01] MEDS: OMEPRAZOLE 20 MG CAP PO (09:06)
[2017-07-01] MEDS: ASPIRIN ENTERIC 325 MG TAB PO (09:06)
[2017-07-01] MEDS: HumaLOG INSULIN (NovoLOG) PER UNIT SC ×4 (09:06→20:43)
[2017-07-01] MEDS: SENOKOT S TAB PO ×2 (09:06→20:42)
[2017-07-01] MEDS: CLOPIDOGREL 75 MG TAB PO (09:06)
[2017-07-01] MEDS: CALCITRIOL 0.25 MCG CAP (S0169) PO (09:06)
[2017-07-01] MEDS: DOCUSATE SODIUM 100 MG CAP PO (09:07)
[2017-07-01] MEDS: buPROPion **XL** TABLET 150MG (WELLBUTRIN XL) PO (09:07)
[2017-07-01] MEDS: predniSONE 10 MG TAB PO (09:07)
[2017-07-01] MEDS: VENLAFAXINE **XR** 75MG CAPSULE PO (09:07)
[2017-07-01] MEDS: MULTIVITAMINS/MINERALS THERAP 1 TAB PO (09:07)
[2017-07-01] MEDS: ATORVASTATIN 20 MG TAB PO (09:07)
[2017-07-01] MEDS: PRIMIDONE 50 MG TAB PO ×2 (09:07→20:41)
[2017-07-01] MEDS: NYSTATIN 100,000 UNITS/GM TOPICAL PWD 15 GM TOP (09:08)
[2017-07-01] MEDS: CHOLESTYRAMINE 4 GM PWD PKT PO (09:08)
[2017-07-01] MEDS: MIRALAX *UNIT DOSE* 17GM PACKET PO ×2 (09:08→20:42)
[2017-07-01 13:23] LABS: BEDSIDE GLUCOSE 226 MG/DL (83-110)
[2017-07-01 13:23] LABS: BEDSIDE GLUCOSE 136 MG/DL (83-110)
[2017-07-01 16:53] LABS: BEDSIDE GLUCOSE 239 MG/DL (83-110)
[2017-07-01 20:14] LABS: BEDSIDE GLUCOSE 320 MG/DL (83-110)
[2017-07-01] MEDS: CARVedilol 6.25 MG TAB PO (20:42)
[2017-07-01] MEDS: LEVEMIR (INSULIN DETEMIR) 1 UNITS/0.01ML SC (20:44)
[2017-07-02] MEDS: IPRATROPIUM 0.5MG/ALBUTEROL 2.5MG INH SOL UD 3ML (DUONEB)(J7620) NEB ×4 (01:36→21:01)
[2017-07-02] MEDS: FUROSEMIDE 40 MG/4 ML VIAL (J1940) IV ×4 (06:10→23:52)
[2017-07-02] MEDS: HEPARIN SOD (PORCINE) 5000 UNITS/ML VIAL SC ×3 (06:11→21:08)
[2017-07-02 07:03] LABS: HEMATOCRIT 37.6 % (36.0-47.0); HEMOGLOBIN 11.6 g/dl (12.0-16.0); MEAN CORPUSCULAR HEMOGLOBIN 28.2 pg (27.0-33.0); MEAN CORPUSCULAR HGB CONC 30.9 g/dl (32.0-36.5); MEAN CORPUSCULAR VOLUME 91.5 fl (80.0-96.0); PLATELET COUNT, AUTOMATED 188 10^3/uL (150-450); RED BLOOD COUNT 4.11 10^6/uL (4.00-5.40); RED CELL DISTRIBUTION WIDTH 16.5 % (11.5-14.5); WHITE BLOOD COUNT 6.4 10^3/uL (4.0-10.0)
[2017-07-02 07:19] LABS: ANION GAP 6 MEQ/L (8-16); BLOOD UREA NITROGEN 26 MG/DL (7-18); CALCIUM LEVEL 8.5 MG/DL (8.8-10.2); CARBON DIOXIDE LEVEL 34 MEQ/L (21-32); CHLORIDE LEVEL 99 MEQ/L (98-107); CREATININE FOR GFR 1.43 MG/DL (0.55-1.02); GLOMERULAR FILTRATION RATE 38.4 (>39); GLUCOSE, FASTING 137 MG/DL (70-100); MAGNESIUM LEVEL 1.8 MG/DL (1.8-2.4); POTASSIUM SERUM 3.8 MEQ/L (3.5-5.1); SODIUM LEVEL 139 MEQ/L (136-145)
[2017-07-02] MEDS: MIRALAX *UNIT DOSE* 17GM PACKET PO ×2 (08:52→21:07)
[2017-07-02] MEDS: HumaLOG INSULIN (NovoLOG) PER UNIT SC ×4 (08:52→21:08)
[2017-07-02] MEDS: CHOLESTYRAMINE 4 GM PWD PKT PO (08:52)
[2017-07-02] MEDS: GABAPENTIN 100 MG CAP PO ×3 (08:54→21:08)
[2017-07-02] MEDS: ATORVASTATIN 20 MG TAB PO (08:54)
[2017-07-02] MEDS: DOCUSATE SODIUM 100 MG CAP PO (08:54)
[2017-07-02] MEDS: predniSONE 10 MG TAB PO (08:55)
[2017-07-02] MEDS: VENLAFAXINE **XR** 75MG CAPSULE PO (08:56)
[2017-07-02] MEDS: MULTIVITAMINS/MINERALS THERAP 1 TAB PO (08:56)
[2017-07-02] MEDS: OMEPRAZOLE 20 MG CAP PO (08:57)
[2017-07-02] MEDS: SENOKOT S TAB PO ×2 (08:57→21:08)
[2017-07-02] MEDS: CLOPIDOGREL 75 MG TAB PO (08:57)
[2017-07-02] MEDS: CALCITRIOL 0.25 MCG CAP (S0169) PO (08:58)
[2017-07-02] MEDS: ASPIRIN ENTERIC 325 MG TAB PO (08:58)
[2017-07-02] MEDS: PRIMIDONE 50 MG TAB PO ×2 (08:58→22:04)
[2017-07-02] MEDS: NYSTATIN 100,000 UNITS/GM TOPICAL PWD 15 GM TOP (08:59)
[2017-07-02] MEDS: buPROPion **XL** TABLET 150MG (WELLBUTRIN XL) PO (08:59)
[2017-07-02] MEDS: CARVedilol 6.25 MG TAB PO ×2 (09:03→21:09)
[2017-07-02 12:18] LABS: BEDSIDE GLUCOSE 194 MG/DL (83-110)
[2017-07-02] MEDS ORDERED: SLF 3 ML SYR IV (14:00)
[2017-07-02] MEDS: SLF 3 ML SYR IV ×2 (15:13→21:09)
[2017-07-02] MEDS: ACETAMINOPHEN TAB 650MG DOSE (2X325MG) PO (18:16)
[2017-07-02 18:48] LABS: BEDSIDE GLUCOSE 254 MG/DL (83-110)
[2017-07-02] MEDS: LEVEMIR (INSULIN DETEMIR) 1 UNITS/0.01ML SC (21:07)
[2017-07-02 22:05] LABS: BEDSIDE GLUCOSE 268 MG/DL (83-110)
[2017-07-03] MEDS: IPRATROPIUM 0.5MG/ALBUTEROL 2.5MG INH SOL UD 3ML (DUONEB)(J7620) NEB ×5 (01:14→20:40)
[2017-07-03] MEDS: SLF 3 ML SYR IV ×3 (05:14→22:14)
[2017-07-03] MEDS: HEPARIN SOD (PORCINE) 5000 UNITS/ML VIAL SC ×3 (05:14→22:15)
[2017-07-03] MEDS: FUROSEMIDE 40 MG/4 ML VIAL (J1940) IV ×3 (05:14→17:29)
[2017-07-03 06:16] LABS: HEMATOCRIT 37.1 % (36.0-47.0); HEMOGLOBIN 11.3 g/dl (12.0-16.0); MEAN CORPUSCULAR HEMOGLOBIN 28.5 pg (27.0-33.0); MEAN CORPUSCULAR HGB CONC 30.5 g/dl (32.0-36.5); MEAN CORPUSCULAR VOLUME 93.5 fl (80.0-96.0); PLATELET COUNT, AUTOMATED 189 10^3/uL (150-450); RED BLOOD COUNT 3.97 10^6/uL (4.00-5.40); RED CELL DISTRIBUTION WIDTH 16.2 % (11.5-14.5); WHITE BLOOD COUNT 5.7 10^3/uL (4.0-10.0)
[2017-07-03 06:37] LABS: ANION GAP 4 MEQ/L (8-16); BLOOD UREA NITROGEN 26 MG/DL (7-18); CALCIUM LEVEL 8.3 MG/DL (8.8-10.2); CARBON DIOXIDE LEVEL 36 MEQ/L (21-32); CHLORIDE LEVEL 101 MEQ/L (98-107); CREATININE FOR GFR 1.38 MG/DL (0.55-1.02); GLUCOSE, FASTING 213 MG/DL (70-100); MAGNESIUM LEVEL 1.9 MG/DL (1.8-2.4); POTASSIUM SERUM 3.8 MEQ/L (3.5-5.1); SODIUM LEVEL 141 MEQ/L (136-145)
[2017-07-03] MEDS: MIRALAX *UNIT DOSE* 17GM PACKET PO ×2 (09:01→20:27)
[2017-07-03] MEDS: HumaLOG INSULIN (NovoLOG) PER UNIT SC ×4 (09:01→20:26)
[2017-07-03] MEDS: GABAPENTIN 100 MG CAP PO ×3 (09:02→20:26)
[2017-07-03] MEDS: ATORVASTATIN 20 MG TAB PO (09:02)
[2017-07-03] MEDS: buPROPion **XL** TABLET 150MG (WELLBUTRIN XL) PO (09:02)
[2017-07-03] MEDS: predniSONE 10 MG TAB PO (09:02)
[2017-07-03] MEDS: CALCITRIOL 0.25 MCG CAP (S0169) PO (09:02)
[2017-07-03] MEDS: ASPIRIN ENTERIC 325 MG TAB PO (09:02)
[2017-07-03] MEDS: OMEPRAZOLE 20 MG CAP PO (09:02)
[2017-07-03] MEDS: MULTIVITAMINS/MINERALS THERAP 1 TAB PO (09:02)
[2017-07-03] MEDS: PRIMIDONE 50 MG TAB PO ×2 (09:02→20:26)
[2017-07-03] MEDS: DOCUSATE SODIUM 100 MG CAP PO (09:02)
[2017-07-03] MEDS: CLOPIDOGREL 75 MG TAB PO (09:03)
[2017-07-03] MEDS: CARVedilol 6.25 MG TAB PO ×2 (09:03→20:27)
[2017-07-03] MEDS: SENOKOT S TAB PO ×2 (09:03→20:26)
[2017-07-03] MEDS: methylPREDNISolone INJ 125 MG/2 ML VIAL (J2930) IV ×2 (12:01→17:04)
[2017-07-03] MEDS: NYSTATIN 100,000 UNITS/GM TOPICAL PWD 15 GM TOP (12:02)
[2017-07-03] MEDS: CHOLESTYRAMINE 4 GM PWD PKT PO (12:02)
[2017-07-03] MEDS: VENLAFAXINE **XR** 75MG CAPSULE PO (12:02)
[2017-07-03 12:13] LABS: BEDSIDE GLUCOSE 203 MG/DL (83-110)
[2017-07-03 17:26] LABS: BEDSIDE GLUCOSE 207 MG/DL (83-110)
[2017-07-03 20:25] LABS: BEDSIDE GLUCOSE 352 MG/DL (83-110)
[2017-07-03] MEDS: LEVEMIR (INSULIN DETEMIR) 1 UNITS/0.01ML SC (20:26)
[2017-07-04] MEDS: methylPREDNISolone INJ 125 MG/2 ML VIAL (J2930) IV ×2 (00:10→08:37)
[2017-07-04] MEDS: FUROSEMIDE 40 MG/4 ML VIAL (J1940) IV (00:10)
[2017-07-04] MEDS: IPRATROPIUM 0.5MG/ALBUTEROL 2.5MG INH SOL UD 3ML (DUONEB)(J7620) NEB ×4 (01:48→19:54)
[2017-07-04] MEDS: HEPARIN SOD (PORCINE) 5000 UNITS/ML VIAL SC ×3 (05:44→22:20)
[2017-07-04] MEDS: SLF 3 ML SYR IV ×3 (05:45→22:00)
[2017-07-04 06:02] LABS: HEMATOCRIT 40.5 % (36.0-47.0); HEMOGLOBIN 12.5 g/dl (12.0-16.0); MEAN CORPUSCULAR HEMOGLOBIN 28.2 pg (27.0-33.0); MEAN CORPUSCULAR HGB CONC 30.9 g/dl (32.0-36.5); MEAN CORPUSCULAR VOLUME 91.4 fl (80.0-96.0); PLATELET COUNT, AUTOMATED 219 10^3/uL (150-450); RED BLOOD COUNT 4.43 10^6/uL (4.00-5.40); WHITE BLOOD COUNT 5.9 10^3/uL (4.0-10.0)
[2017-07-04 06:19] LABS: ANION GAP 6 MEQ/L (8-16); BLOOD UREA NITROGEN 29 MG/DL (7-18); CALCIUM LEVEL 8.7 MG/DL (8.8-10.2); CARBON DIOXIDE LEVEL 33 MEQ/L (21-32); CHLORIDE LEVEL 97 MEQ/L (98-107); GLOMERULAR FILTRATION RATE 39.4 (>39); GLUCOSE, FASTING 322 MG/DL (70-100); MAGNESIUM LEVEL 1.9 MG/DL (1.8-2.4); SODIUM LEVEL 136 MEQ/L (136-145)
[2017-07-04 06:20] LABS: POTASSIUM SERUM 5.7 MEQ/L (3.5-5.1)
[2017-07-04] MEDS: CALCITRIOL 0.25 MCG CAP (S0169) PO (08:34)
[2017-07-04] MEDS: HumaLOG INSULIN (NovoLOG) PER UNIT SC ×4 (08:34→22:18)
[2017-07-04] MEDS: buPROPion **XL** TABLET 150MG (WELLBUTRIN XL) PO (08:35)
[2017-07-04] MEDS: CARVedilol 6.25 MG TAB PO ×2 (08:35→22:15)
[2017-07-04] MEDS: PRIMIDONE 50 MG TAB PO ×2 (08:35→22:17)
[2017-07-04] MEDS: VENLAFAXINE **XR** 75MG CAPSULE PO (08:35)
[2017-07-04] MEDS: ASPIRIN ENTERIC 325 MG TAB PO (08:35)
[2017-07-04] MEDS: MULTIVITAMINS/MINERALS THERAP 1 TAB PO (08:36)
[2017-07-04] MEDS: OMEPRAZOLE 20 MG CAP PO (08:36)
[2017-07-04] MEDS: GABAPENTIN 100 MG CAP PO ×3 (08:36→22:14)
[2017-07-04] MEDS: FUROSEMIDE 40 MG TAB PO (08:36)
[2017-07-04] MEDS: DOCUSATE SODIUM 100 MG CAP PO (08:36)
[2017-07-04] MEDS: MIRALAX *UNIT DOSE* 17GM PACKET PO ×2 (08:36→22:17)
[2017-07-04] MEDS: ATORVASTATIN 20 MG TAB PO (08:36)
[2017-07-04] MEDS: CLOPIDOGREL 75 MG TAB PO (08:36)
[2017-07-04] MEDS: SENOKOT S TAB PO ×2 (08:37→22:15)
[2017-07-04] MEDS: CHOLESTYRAMINE 4 GM PWD PKT PO (08:37)
[2017-07-04] MEDS: NYSTATIN 100,000 UNITS/GM TOPICAL PWD 15 GM TOP (08:37)
[2017-07-04 11:57] LABS: BEDSIDE GLUCOSE 302 MG/DL (83-110)
[2017-07-04] MEDS: predniSONE 20 MG TAB PO (12:07)
[2017-07-04] MEDS ORDERED: methylPREDNISolone INJ 40 MG/1 ML VIAL (J2920) IV (13:00)
[2017-07-04 17:51] LABS: BEDSIDE GLUCOSE 341 MG/DL (83-110)
[2017-07-04 22:09] LABS: BEDSIDE GLUCOSE 335 MG/DL (83-110)
[2017-07-04] MEDS: LEVEMIR (INSULIN DETEMIR) 1 UNITS/0.01ML SC (22:19)
[2017-07-05] MEDS: IPRATROPIUM 0.5MG/ALBUTEROL 2.5MG INH SOL UD 3ML (DUONEB)(J7620) NEB ×4 (01:52→21:27)
[2017-07-05 05:43] LABS: ANION GAP 5 MEQ/L (8-16); BLOOD UREA NITROGEN 33 MG/DL (7-18); CALCIUM LEVEL 8.6 MG/DL (8.8-10.2); CARBON DIOXIDE LEVEL 34 MEQ/L (21-32); CHLORIDE LEVEL 100 MEQ/L (98-107); CREATININE FOR GFR 1.48 MG/DL (0.55-1.02); GLOMERULAR FILTRATION RATE 36.9 (>39); GLUCOSE, FASTING 272 MG/DL (70-100); MAGNESIUM LEVEL 2.2 MG/DL (1.8-2.4); POTASSIUM SERUM 4.6 MEQ/L (3.5-5.1); SODIUM LEVEL 139 MEQ/L (136-145)
[2017-07-05 06:06] LABS: HEMATOCRIT 38.4 % (36.0-47.0); HEMOGLOBIN 11.9 g/dl (12.0-16.0); MEAN CORPUSCULAR HEMOGLOBIN 28.4 pg (27.0-33.0); MEAN CORPUSCULAR VOLUME 91.6 fl (80.0-96.0); PLATELET COUNT, AUTOMATED 226 10^3/uL (150-450); RED BLOOD COUNT 4.19 10^6/uL (4.00-5.40); WHITE BLOOD COUNT 8.5 10^3/uL (4.0-10.0)
[2017-07-05] MEDS: SLF 3 ML SYR IV ×3 (06:51→21:32)
[2017-07-05] MEDS: HEPARIN SOD (PORCINE) 5000 UNITS/ML VIAL SC ×3 (06:51→21:30)
[2017-07-05] MEDS: HumaLOG INSULIN (NovoLOG) PER UNIT SC ×4 (07:30→21:30)
[2017-07-05] MEDS: NYSTATIN 100,000 UNITS/GM TOPICAL PWD 15 GM TOP (09:00)
[2017-07-05] MEDS: CHOLESTYRAMINE 4 GM PWD PKT PO (09:22)
[2017-07-05] MEDS: MIRALAX *UNIT DOSE* 17GM PACKET PO ×2 (09:22→21:31)
[2017-07-05] MEDS: OMEPRAZOLE 20 MG CAP PO (09:23)
[2017-07-05] MEDS: MULTIVITAMINS/MINERALS THERAP 1 TAB PO (09:24)
[2017-07-05] MEDS: GABAPENTIN 100 MG CAP PO ×3 (09:24→21:28)
[2017-07-05] MEDS: FUROSEMIDE 40 MG TAB PO (09:24)
[2017-07-05] MEDS: ATORVASTATIN 20 MG TAB PO (09:24)
[2017-07-05] MEDS: SENOKOT S TAB PO ×2 (09:24→21:27)
[2017-07-05] MEDS: VENLAFAXINE **XR** 75MG CAPSULE PO (09:24)
[2017-07-05] MEDS: ASPIRIN ENTERIC 325 MG TAB PO (09:24)
[2017-07-05] MEDS: predniSONE 20 MG TAB PO (09:25)
[2017-07-05] MEDS: buPROPion **XL** TABLET 150MG (WELLBUTRIN XL) PO (09:25)
[2017-07-05] MEDS: CARVedilol 6.25 MG TAB PO ×2 (09:26→21:28)
[2017-07-05] MEDS: CLOPIDOGREL 75 MG TAB PO (09:26)
[2017-07-05] MEDS: PRIMIDONE 50 MG TAB PO ×2 (09:26→21:28)
[2017-07-05] MEDS: DOCUSATE SODIUM 100 MG CAP PO (09:31)
[2017-07-05 11:35] LABS: BEDSIDE GLUCOSE 217 MG/DL (83-110)
[2017-07-05] MEDS: LOSARTAN 25 MG TAB PO (14:51)
[2017-07-05 16:58] LABS: BEDSIDE GLUCOSE 303 MG/DL (83-110)
[2017-07-05] MEDS: LEVEMIR (INSULIN DETEMIR) 1 UNITS/0.01ML SC (21:31)
[2017-07-05 21:33] LABS: BEDSIDE GLUCOSE 264 MG/DL (83-110)
[2017-07-06] MEDS: IPRATROPIUM 0.5MG/ALBUTEROL 2.5MG INH SOL UD 3ML (DUONEB)(J7620) NEB ×4 (01:12→20:59)
[2017-07-06 05:05] LABS: HEMATOCRIT 38.5 % (36.0-47.0); HEMOGLOBIN 11.6 g/dl (12.0-16.0); MEAN CORPUSCULAR HEMOGLOBIN 27.8 pg (27.0-33.0); MEAN CORPUSCULAR HGB CONC 30.1 g/dl (32.0-36.5); MEAN CORPUSCULAR VOLUME 92.3 fl (80.0-96.0); PLATELET COUNT, AUTOMATED 220 10^3/uL (150-450); RED BLOOD COUNT 4.17 10^6/uL (4.00-5.40); WHITE BLOOD COUNT 12.2 10^3/uL (4.0-10.0)
[2017-07-06 05:26] LABS: ANION GAP 6 MEQ/L (8-16); BLOOD UREA NITROGEN 31 MG/DL (7-18); CALCIUM LEVEL 8.8 MG/DL (8.8-10.2); CARBON DIOXIDE LEVEL 35 MEQ/L (21-32); CHLORIDE LEVEL 99 MEQ/L (98-107); CREATININE FOR GFR 1.27 MG/DL (0.55-1.02); GLUCOSE, FASTING 150 MG/DL (70-100); MAGNESIUM LEVEL 2.2 MG/DL (1.8-2.4); SODIUM LEVEL 140 MEQ/L (136-145)
[2017-07-06] MEDS: HEPARIN SOD (PORCINE) 5000 UNITS/ML VIAL SC ×3 (06:26→21:28)
[2017-07-06] MEDS: SLF 3 ML SYR IV ×3 (06:27→21:30)
[2017-07-06] MEDS: CHOLESTYRAMINE 4 GM PWD PKT PO (08:02)
[2017-07-06] MEDS: ASPIRIN ENTERIC 325 MG TAB PO (08:03)
[2017-07-06] MEDS: HumaLOG INSULIN (NovoLOG) PER UNIT SC ×4 (08:03→21:30)
[2017-07-06] MEDS: CARVedilol 6.25 MG TAB PO ×2 (08:04→21:29)
[2017-07-06] MEDS: buPROPion **XL** TABLET 150MG (WELLBUTRIN XL) PO (08:04)
[2017-07-06] MEDS: OMEPRAZOLE 20 MG CAP PO (08:04)
[2017-07-06] MEDS: ATORVASTATIN 20 MG TAB PO (08:05)
[2017-07-06] MEDS: LOSARTAN 25 MG TAB PO (08:05)
[2017-07-06] MEDS: MULTIVITAMINS/MINERALS THERAP 1 TAB PO (08:05)
[2017-07-06] MEDS: predniSONE 20 MG TAB PO (08:05)
[2017-07-06] MEDS: GABAPENTIN 100 MG CAP PO ×3 (08:06→21:28)
[2017-07-06] MEDS: CLOPIDOGREL 75 MG TAB PO (08:06)
[2017-07-06] MEDS: PRIMIDONE 50 MG TAB PO ×2 (08:06→21:28)
[2017-07-06] MEDS: FUROSEMIDE 40 MG TAB PO (08:06)
[2017-07-06] MEDS: VENLAFAXINE **XR** 75MG CAPSULE PO (08:06)
[2017-07-06] MEDS: NYSTATIN 100,000 UNITS/GM TOPICAL PWD 15 GM TOP (08:07)
[2017-07-06] MEDS: SENOKOT S TAB PO ×2 (08:16→21:29)
[2017-07-06] MEDS: DOCUSATE SODIUM 100 MG CAP PO (08:16)
[2017-07-06] MEDS: MIRALAX *UNIT DOSE* 17GM PACKET PO ×2 (08:16→21:29)
[2017-07-06 11:45] LABS: BEDSIDE GLUCOSE 188 MG/DL (83-110)
[2017-07-06] MEDS: FUROSEMIDE 40 MG/4 ML VIAL (J1940) IV ×2 (12:14→16:46)
[2017-07-06 19:50] LABS: BEDSIDE GLUCOSE 251 MG/DL (83-110)
[2017-07-06] MEDS: LEVEMIR (INSULIN DETEMIR) 1 UNITS/0.01ML SC (21:30)
[2017-07-06 21:32] LABS: BEDSIDE GLUCOSE 257 MG/DL (83-110)
[2017-07-07] MEDS: IPRATROPIUM 0.5MG/ALBUTEROL 2.5MG INH SOL UD 3ML (DUONEB)(J7620) NEB ×4 (01:39→20:52)
[2017-07-07 05:18] LABS: HEMATOCRIT 36.2 % (36.0-47.0); MEAN CORPUSCULAR HEMOGLOBIN 27.9 pg (27.0-33.0); MEAN CORPUSCULAR HGB CONC 30.4 g/dl (32.0-36.5); MEAN CORPUSCULAR VOLUME 91.9 fl (80.0-96.0); PLATELET COUNT, AUTOMATED 223 10^3/uL (150-450); RED BLOOD COUNT 3.94 10^6/uL (4.00-5.40); RED CELL DISTRIBUTION WIDTH 15.9 % (11.5-14.5); WHITE BLOOD COUNT 9.6 10^3/uL (4.0-10.0)
[2017-07-07 05:41] LABS: ANION GAP 6 MEQ/L (8-16); BLOOD UREA NITROGEN 28 MG/DL (7-18); CALCIUM LEVEL 8.3 MG/DL (8.8-10.2); CARBON DIOXIDE LEVEL 36 MEQ/L (21-32); CHLORIDE LEVEL 100 MEQ/L (98-107); CREATININE FOR GFR 1.19 MG/DL (0.55-1.02); GLOMERULAR FILTRATION RATE 47.5 (>39); GLUCOSE, FASTING 145 MG/DL (70-100); MAGNESIUM LEVEL 2.1 MG/DL (1.8-2.4); POTASSIUM SERUM 3.9 MEQ/L (3.5-5.1); SODIUM LEVEL 142 MEQ/L (136-145)
[2017-07-07] MEDS: HEPARIN SOD (PORCINE) 5000 UNITS/ML VIAL SC ×3 (06:43→21:49)
[2017-07-07] MEDS: SLF 3 ML SYR IV ×3 (06:43→21:49)
[2017-07-07] MEDS: CHOLESTYRAMINE 4 GM PWD PKT PO (08:58)
[2017-07-07] MEDS: MIRALAX *UNIT DOSE* 17GM PACKET PO ×3 (08:58→21:49)
[2017-07-07] MEDS: HumaLOG INSULIN (NovoLOG) PER UNIT SC ×4 (08:58→21:47)
[2017-07-07] MEDS: FUROSEMIDE 40 MG/4 ML VIAL (J1940) IV ×2 (08:58→17:11)
[2017-07-07] MEDS: PRIMIDONE 50 MG TAB PO ×2 (08:59→21:50)
[2017-07-07] MEDS: VENLAFAXINE **XR** 75MG CAPSULE PO (08:59)
[2017-07-07] MEDS: ASPIRIN ENTERIC 325 MG TAB PO (08:59)
[2017-07-07] MEDS: buPROPion **XL** TABLET 150MG (WELLBUTRIN XL) PO (08:59)
[2017-07-07] MEDS: OMEPRAZOLE 20 MG CAP PO (09:00)
[2017-07-07] MEDS: GABAPENTIN 100 MG CAP PO ×3 (09:00→21:49)
[2017-07-07] MEDS: CALCITRIOL 0.25 MCG CAP (S0169) PO (09:00)
[2017-07-07] MEDS: LOSARTAN 25 MG TAB PO (09:00)
[2017-07-07] MEDS: CLOPIDOGREL 75 MG TAB PO (09:00)
[2017-07-07] MEDS: predniSONE 20 MG TAB PO (09:01)
[2017-07-07] MEDS: DOCUSATE SODIUM 100 MG CAP PO (09:01)
[2017-07-07] MEDS: NYSTATIN 100,000 UNITS/GM TOPICAL PWD 15 GM TOP (09:01)
[2017-07-07] MEDS: ATORVASTATIN 20 MG TAB PO (09:01)
[2017-07-07] MEDS: MULTIVITAMINS/MINERALS THERAP 1 TAB PO (09:01)
[2017-07-07] MEDS: SENOKOT S TAB PO ×2 (09:01→21:49)
[2017-07-07] MEDS: CARVedilol 6.25 MG TAB PO ×2 (09:01→21:50)
[2017-07-07 16:48] LABS: BEDSIDE GLUCOSE 166 MG/DL (83-110)
[2017-07-07] MEDS: LEVEMIR (INSULIN DETEMIR) 1 UNITS/0.01ML SC (21:48)
[2017-07-07 21:51] LABS: BEDSIDE GLUCOSE 310 MG/DL (83-110)
[2017-07-07 21:51] LABS: BEDSIDE GLUCOSE 284 MG/DL (83-110)
[2017-07-08] MEDS: IPRATROPIUM 0.5MG/ALBUTEROL 2.5MG INH SOL UD 3ML (DUONEB)(J7620) NEB ×4 (01:34→20:12)
[2017-07-08] MEDS: SLF 3 ML SYR IV ×3 (06:06→22:04)
[2017-07-08] MEDS: HEPARIN SOD (PORCINE) 5000 UNITS/ML VIAL SC ×3 (06:06→22:02)
[2017-07-08] MEDS: MIRALAX *UNIT DOSE* 17GM PACKET PO ×2 (08:15→21:00)
[2017-07-08] MEDS: FUROSEMIDE 40 MG/4 ML VIAL (J1940) IV ×2 (08:15→17:12)
[2017-07-08] MEDS: CHOLESTYRAMINE 4 GM PWD PKT PO (08:15)
[2017-07-08] MEDS: HumaLOG INSULIN (NovoLOG) PER UNIT SC ×4 (08:17→22:03)
[2017-07-08] MEDS: MULTIVITAMINS/MINERALS THERAP 1 TAB PO (08:18)
[2017-07-08] MEDS: SENOKOT S TAB PO ×2 (08:18→22:01)
[2017-07-08] MEDS: PRIMIDONE 50 MG TAB PO ×2 (08:18→22:11)
[2017-07-08] MEDS: LOSARTAN 25 MG TAB PO (08:18)
[2017-07-08] MEDS: OMEPRAZOLE 20 MG CAP PO (08:19)
[2017-07-08] MEDS: predniSONE 20 MG TAB PO (08:19)
[2017-07-08] MEDS: ATORVASTATIN 20 MG TAB PO (08:19)
[2017-07-08] MEDS: DOCUSATE SODIUM 100 MG CAP PO (08:19)
[2017-07-08] MEDS: ASPIRIN ENTERIC 325 MG TAB PO (08:19)
[2017-07-08] MEDS: CALCITRIOL 0.25 MCG CAP (S0169) PO (08:19)
[2017-07-08] MEDS: buPROPion **XL** TABLET 150MG (WELLBUTRIN XL) PO (08:19)
[2017-07-08] MEDS: GABAPENTIN 100 MG CAP PO ×3 (08:19→22:01)
[2017-07-08] MEDS: CLOPIDOGREL 75 MG TAB PO (08:19)
[2017-07-08] MEDS: NYSTATIN 100,000 UNITS/GM TOPICAL PWD 15 GM TOP (08:20)
[2017-07-08] MEDS: CARVedilol 6.25 MG TAB PO ×2 (08:20→22:02)
[2017-07-08] MEDS: VENLAFAXINE **XR** 75MG CAPSULE PO (08:22)
[2017-07-08 09:59] LABS: ANION GAP 5 MEQ/L (8-16); BLOOD UREA NITROGEN 29 MG/DL (7-18); CALCIUM LEVEL 8.7 MG/DL (8.8-10.2); CARBON DIOXIDE LEVEL 37 MEQ/L (21-32); CHLORIDE LEVEL 99 MEQ/L (98-107); CREATININE FOR GFR 1.34 MG/DL (0.55-1.30); GLOMERULAR FILTRATION RATE 41.4 (>39); GLUCOSE, FASTING 158 MG/DL (70-100); POTASSIUM SERUM 3.9 MEQ/L (3.5-5.1); SODIUM LEVEL 141 MEQ/L (136-145)
[2017-07-08 12:03] LABS: BEDSIDE GLUCOSE 184 MG/DL (83-110)
[2017-07-08 12:03] LABS: BEDSIDE GLUCOSE 184 MG/DL (83-110)
[2017-07-08 15:18] LABS: ABG HCO3 36.9 MEQ/L (22.0-26.0); ABG O2 SATURATION 90.5 % (95.0-99.0); ABG PARTIAL PRESSURE CO2 53.9 mmHg (35.0-45.0); ABG PARTIAL PRESSURE O2 57.7 mmHg (75.0-100.0); ABG STANDARD HCO3 34.6 MEQ/L (22.0-26.0); ABG TOTAL CO2 38.5 MEQ/L (23.0-31.0); ABG pH (ARTERIAL) 7.453 UNITS (7.350-7.450)
[2017-07-08 17:15] LABS: BEDSIDE GLUCOSE 351 MG/DL (83-110)
[2017-07-08 21:47] LABS: BEDSIDE GLUCOSE 328 MG/DL (83-110)
[2017-07-08] MEDS: LEVEMIR (INSULIN DETEMIR) 1 UNITS/0.01ML SC (22:04)
[2017-07-09] MEDS: IPRATROPIUM 0.5MG/ALBUTEROL 2.5MG INH SOL UD 3ML (DUONEB)(J7620) NEB ×4 (00:41→20:31)
[2017-07-09] MEDS: SLF 3 ML SYR IV ×3 (06:40→22:32)
[2017-07-09] MEDS: HEPARIN SOD (PORCINE) 5000 UNITS/ML VIAL SC ×3 (06:40→22:31)
[2017-07-09] MEDS: DOCUSATE SODIUM 100 MG CAP PO (08:33)
[2017-07-09] MEDS: CHOLESTYRAMINE 4 GM PWD PKT PO (08:33)
[2017-07-09] MEDS: FUROSEMIDE 40 MG/4 ML VIAL (J1940) IV ×2 (08:33→17:28)
[2017-07-09] MEDS: MIRALAX *UNIT DOSE* 17GM PACKET PO ×2 (08:33→21:00)
[2017-07-09] MEDS: CALCITRIOL 0.25 MCG CAP (S0169) PO (08:33)
[2017-07-09] MEDS: predniSONE 20 MG TAB PO (08:34)
[2017-07-09] MEDS: VENLAFAXINE **XR** 75MG CAPSULE PO (08:34)
[2017-07-09] MEDS: ASPIRIN ENTERIC 325 MG TAB PO (08:35)
[2017-07-09] MEDS: GABAPENTIN 100 MG CAP PO ×3 (08:35→22:28)
[2017-07-09] MEDS: CLOPIDOGREL 75 MG TAB PO (08:35)
[2017-07-09] MEDS: OMEPRAZOLE 20 MG CAP PO (08:35)
[2017-07-09] MEDS: PRIMIDONE 50 MG TAB PO ×2 (08:35→22:32)
[2017-07-09] MEDS: SENOKOT S TAB PO ×2 (08:36→22:30)
[2017-07-09] MEDS: MULTIVITAMINS/MINERALS THERAP 1 TAB PO (08:36)
[2017-07-09] MEDS: ATORVASTATIN 20 MG TAB PO (08:36)
[2017-07-09] MEDS: CARVedilol 6.25 MG TAB PO ×2 (08:37→22:30)
[2017-07-09] MEDS: LOSARTAN 25 MG TAB PO (08:38)
[2017-07-09] MEDS: HumaLOG INSULIN (NovoLOG) PER UNIT SC ×4 (08:49→22:32)
[2017-07-09] MEDS: buPROPion **XL** TABLET 150MG (WELLBUTRIN XL) PO (08:52)
[2017-07-09] MEDS: NYSTATIN 100,000 UNITS/GM TOPICAL PWD 15 GM TOP (09:00)
[2017-07-09 13:02] LABS: BEDSIDE GLUCOSE 135 MG/DL (83-110)
[2017-07-09 20:08] LABS: BEDSIDE GLUCOSE 153 MG/DL (83-110)
[2017-07-09 20:09] LABS: BEDSIDE GLUCOSE 355 MG/DL (83-110)
[2017-07-09] MEDS: LEVEMIR (INSULIN DETEMIR) 1 UNITS/0.01ML SC (22:31)
[2017-07-10] MEDS: IPRATROPIUM 0.5MG/ALBUTEROL 2.5MG INH SOL UD 3ML (DUONEB)(J7620) NEB ×2 (01:35→07:14)
[2017-07-10 06:34] LABS: BEDSIDE GLUCOSE 315 MG/DL (83-110)
[2017-07-10 06:39] LABS: ANION GAP 4 MEQ/L (8-16); BLOOD UREA NITROGEN 34 MG/DL (7-18); CALCIUM LEVEL 8.6 MG/DL (8.8-10.2); CARBON DIOXIDE LEVEL 38 MEQ/L (21-32); CHLORIDE LEVEL 102 MEQ/L (98-107); CREATININE FOR GFR 1.28 MG/DL (0.55-1.30); GLOMERULAR FILTRATION RATE 43.6 (>39); GLUCOSE, FASTING 106 MG/DL (70-100); MAGNESIUM LEVEL 2.3 MG/DL (1.8-2.4); POTASSIUM SERUM 3.7 MEQ/L (3.5-5.1); SODIUM LEVEL 144 MEQ/L (136-145)
[2017-07-10] MEDS: SLF 3 ML SYR IV (06:43)
[2017-07-10] MEDS: NYSTATIN 100,000 UNITS/GM TOPICAL PWD 15 GM TOP (09:00)
[2017-07-10] MEDS: FUROSEMIDE 40 MG/4 ML VIAL (J1940) IV (09:52)
[2017-07-10] MEDS: HumaLOG INSULIN (NovoLOG) PER UNIT SC ×2 (09:53→12:07)
[2017-07-10] MEDS: MIRALAX *UNIT DOSE* 17GM PACKET PO (09:53)
[2017-07-10] MEDS: CALCITRIOL 0.25 MCG CAP (S0169) PO (09:53)
[2017-07-10] MEDS: PRIMIDONE 50 MG TAB PO (09:54)
[2017-07-10] MEDS: SENOKOT S TAB PO (09:54)
[2017-07-10] MEDS: predniSONE 10 MG TAB PO (09:54)
[2017-07-10] MEDS: ASPIRIN ENTERIC 325 MG TAB PO (09:54)
[2017-07-10] MEDS: LOSARTAN 25 MG TAB PO (09:55)
[2017-07-10] MEDS: DOCUSATE SODIUM 100 MG CAP PO (09:55)
[2017-07-10] MEDS: CARVedilol 6.25 MG TAB PO (09:56)
[2017-07-10] MEDS: VENLAFAXINE **XR** 75MG CAPSULE PO (09:56)
[2017-07-10] MEDS: ATORVASTATIN 20 MG TAB PO (09:56)
[2017-07-10] MEDS: OMEPRAZOLE 20 MG CAP PO (09:57)
[2017-07-10] MEDS: CLOPIDOGREL 75 MG TAB PO (09:57)
[2017-07-10] MEDS: MULTIVITAMINS/MINERALS THERAP 1 TAB PO (09:59)
[2017-07-10] MEDS: GABAPENTIN 100 MG CAP PO (10:00)
[2017-07-10] MEDS: buPROPion **XL** TABLET 150MG (WELLBUTRIN XL) PO (10:00)
[2017-07-10] MEDS: CHOLESTYRAMINE 4 GM PWD PKT PO (12:07)
[2017-07-10 14:25] LABS: BEDSIDE GLUCOSE 168 MG/DL (83-110)
== END 2017-07-10 14:27 | DRG 291 ==
LOC: M PCU 07-02 13:03 → M MSPAV 07-08 19:20 → M ED 14:23 → M ED INP 18:45
DX: I13.0 Hypertensive heart and chronic kidney disease with heart failure and stage 1 through stage 4 chronic kidney disease, or unspecified chronic kidney disease (principal); I50.43 Acute on chronic combined systolic (congestive) and diastolic (congestive) heart failure; Z68.43 Body mass index [BMI] 50.0-59.9, adult; J44.1 Chronic obstructive pulmonary disease with (acute) exacerbation; E66.01 Morbid (severe) obesity due to excess calories; N18.3 Chronic kidney disease, stage 3 (moderate); E11.9 Type 2 diabetes mellitus without complications; Z79.899 Other long term (current) drug therapy; E78.5 Hyperlipidemia, unspecified; I87.2 Venous insufficiency (chronic) (peripheral); Z79.82 Long term (current) use of aspirin; Z79.4 Long term (current) use of insulin; K21.9 Gastro-esophageal reflux disease without esophagitis; Z88.0 Allergy status to penicillin; Z88.8 Allergy status to other drugs, medicaments and biological substances; Z88.2 Allergy status to sulfonamides; F32.9 Major depressive disorder, single episode, unspecified; K59.00 Constipation, unspecified; I25.10 Atherosclerotic heart disease of native coronary artery without angina pectoris; G47.33 Obstructive sleep apnea (adult) (pediatric); Z79.52 Long term (current) use of systemic steroids; I48.2 Chronic atrial fibrillation

== ENCOUNTER → 2017-07-11 | Outpatient (REF) ==
[2017-07-11 16:04] LABS: ANION GAP 6 MEQ/L (8-16); BLOOD UREA NITROGEN 32 MG/DL (7-18); CALCIUM LEVEL 8.7 MG/DL (8.8-10.2); CARBON DIOXIDE LEVEL 34 MEQ/L (21-32); CHLORIDE LEVEL 99 MEQ/L (98-107); CREATININE FOR GFR 1.41 MG/DL (0.55-1.30); GLUCOSE, FASTING 295 MG/DL (70-100); POTASSIUM SERUM 4.3 MEQ/L (3.5-5.1); SODIUM LEVEL 139 MEQ/L (136-145)
[2017-07-11 18:25] LABS: CPK CREATINE PHOSPHOKINASE 29 U/L (26-192); MB/CK RELATIVE INDEX 3.44 (< OR =4); TROPONIN I 0.02 NG/ML (< 0.10)
== END ==
LOC: SKLAB2 15:04
DX: R55 Syncope and collapse (principal)

== ENCOUNTER → 2017-07-12 | Outpatient (REF) | payer MEDICAID, MEDICARE | LOC: M EKG 09:30 | DX: Z00.00 Encounter for general adult medical examination without abnormal findings (principal) ==

== ENCOUNTER → 2017-07-14 | Outpatient (REF) ==
[2017-07-14 12:57] LABS: ALBUMIN 2.9 GM/DL (3.2-5.2); ALBUMIN/GLOBULIN RATIO 1.04 (1.00-1.93); ALKALINE PHOSPHATASE 126 U/L (45-117); ALT/SGPT 37 U/L (12-78); AMYLASE 44 U/L (25-115); ANION GAP 6 MEQ/L (8-16); AST/SGOT 38 U/L (7-37); BILIRUBIN,TOTAL 0.5 MG/DL (0.2-1.0); BLOOD UREA NITROGEN 24 MG/DL (7-18); CALCIUM LEVEL 8.3 MG/DL (8.8-10.2); CARBON DIOXIDE LEVEL 33 MEQ/L (21-32); CHLORIDE LEVEL 104 MEQ/L (98-107); CREATININE FOR GFR 1.24 MG/DL (0.55-1.30); GLOMERULAR FILTRATION RATE 45.3 (>39); GLUCOSE, FASTING 206 MG/DL (70-100); POTASSIUM SERUM 4.2 MEQ/L (3.5-5.1); SODIUM LEVEL 143 MEQ/L (136-145); TOTAL PROTEIN 5.7 GM/DL (6.4-8.2)
== END ==
LOC: SKLAB2 10:48
DX: I50.9 Heart failure, unspecified (principal)

== ENCOUNTER → 2017-08-05 | Outpatient (REF) | payer MEDICARE, MEDICAID | LOC: M LAB REF 16:27 | DX: D23.72 Other benign neoplasm of skin of left lower limb, including hip (principal); I87.312 Chronic venous hypertension (idiopathic) with ulcer of left lower extremity; L97.821 Non-pressure chronic ulcer of other part of left lower leg limited to breakdown of skin; L89.612 Pressure ulcer of right heel, stage 2; L89.893 Pressure ulcer of other site, stage 3; L88 Pyoderma gangrenosum | CPT/HCPCS: 88305 ==

== ENCOUNTER → 2017-08-07 | Outpatient (REF) ==
[2017-08-07 12:42] LABS: BASO # 0.1 10^3/uL (0.0-0.2); BASO % 0.6 % (0.0-1.0); EOS # 0.1 10^3/uL (0.0-0.50); HEMOGLOBIN 11.5 g/dl (12.0-16.0); IMMATURE GRANULOCYTE % 1.3 % (0-3.0); LYMPH # 0.9 10^3/uL (1.5-4.5); LYMPH % 7.3 % (24.0-44.0); MEAN CORPUSCULAR HEMOGLOBIN 28.3 pg (27.0-33.0); MEAN CORPUSCULAR HGB CONC 30.3 g/dl (32.0-36.5); MEAN CORPUSCULAR VOLUME 93.4 fl (80.0-96.0); MONO # 1.1 10^3/uL (0.0-0.8); MONO % 8.9 % (0.0-5.0); NEUTROPHILS # 9.6 10^3/uL (1.8-7.7); NEUTROPHILS % 80.9 % (36.0-66.0); PLATELET COUNT, AUTOMATED 255 10^3/uL (150-450); RED BLOOD COUNT 4.07 10^6/uL (4.00-5.40); RED CELL DISTRIBUTION WIDTH 16.4 % (11.5-14.5); WHITE BLOOD COUNT 11.9 10^3/uL (4.0-10.0)
[2017-08-07 13:39] LABS: ALBUMIN 3.2 GM/DL (3.2-5.2); ALKALINE PHOSPHATASE 124 U/L (45-117); ALT/SGPT 23 U/L (12-78); AMYLASE 51 U/L (25-115); ANION GAP 9 MEQ/L (8-16); AST/SGOT 26 U/L (7-37); BILIRUBIN,TOTAL 0.5 MG/DL (0.2-1.0); BLOOD UREA NITROGEN 30 MG/DL (7-18); CALCIUM LEVEL 8.8 MG/DL (8.8-10.2); CARBON DIOXIDE LEVEL 29 MEQ/L (21-32); CHLORIDE LEVEL 104 MEQ/L (98-107); CREATININE FOR GFR 1.44 MG/DL (0.55-1.30); GLOMERULAR FILTRATION RATE 38.1 (>39); GLUCOSE, FASTING 170 MG/DL (70-100); POTASSIUM SERUM 4.1 MEQ/L (3.5-5.1); SODIUM LEVEL 142 MEQ/L (136-145); TOTAL PROTEIN 6.1 GM/DL (6.4-8.2)
== END ==
LOC: SKLAB2 11:22
DX: R11.0 Nausea (principal)

== ENCOUNTER 2017-08-14 16:35 | Emergency (ER) | payer MEDICARE, MEDICAID ==
[2017-08-14] MEDS: NS 1,000 ML IV (17:27)
[2017-08-14] MEDS: ONDANSETRON 4MG/2ML VIAL (J2405) IV ×2 (17:28→20:45)
[2017-08-14 17:39] LABS: LACTIC ACID SEPSIS PROTOCOL 1.9 MMOL/L (0.4-2.0)
[2017-08-14 18:50] LABS: KETONE, URINE AUTO RFX NEGATIVE (NEGATIVE); MUCUS, URINE RFX SMALL (NEGATIVE); RBC, URINE AUTO RFX 3 /HPF (0-3); SPECIFIC GRAVITY UR AUTO RFX 1.012 (1.002-1.035); SQUAM EPITHELIAL CELL UR AURFX 5 /HPF (0-6)
[2017-08-14 18:58] LABS: LEUKOCYTE ESTERASE UR AUTO RFX 3+ (NEGATIVE); NITRITE, URINE AUTO RFX POSITIVE (NEGATIVE); WBC, URINE AUTO RFX 83 /HPF (0-3)
[2017-08-14] MEDS: CEFTRIAXONE SOD 1 GM in APPROPRIATE DILUENT 1 EA IV (19:31)
== END 2017-08-14 19:43 | disposition home or self-care (01) ==
LOC: M ED 16:35
DX: F41.9 Anxiety disorder, unspecified (principal); E11.9 Type 2 diabetes mellitus without complications; N39.0 Urinary tract infection, site not specified; I51.7 Cardiomegaly; I51.9 Heart disease, unspecified; I10 Essential (primary) hypertension; N18.9 Chronic kidney disease, unspecified; Z86.73 Personal history of transient ischemic attack (TIA), and cerebral infarction without residual deficits; Z79.82 Long term (current) use of aspirin; Z79.899 Other long term (current) drug therapy; Z79.4 Long term (current) use of insulin; Z88.0 Allergy status to penicillin; Z88.8 Allergy status to other drugs, medicaments and biological substances; Z88.2 Allergy status to sulfonamides
CPT/HCPCS: J2405

== ENCOUNTER → 2017-08-14 | Outpatient (REF) ==
[2017-08-14 14:10] LABS: HEMATOCRIT 38.6 % (36.0-47.0); HEMOGLOBIN 11.4 g/dl (12.0-16.0); MEAN CORPUSCULAR HEMOGLOBIN 27.5 pg (27.0-33.0); MEAN CORPUSCULAR HGB CONC 29.5 g/dl (32.0-36.5); MEAN CORPUSCULAR VOLUME 93.2 fl (80.0-96.0); PLATELET COUNT, AUTOMATED 257 10^3/uL (150-450); RED BLOOD COUNT 4.14 10^6/uL (4.00-5.40); RED CELL DISTRIBUTION WIDTH 15.9 % (11.5-14.5); WHITE BLOOD COUNT 24.7 10^3/uL (4.0-10.0)
[2017-08-14 14:43] LABS: ALBUMIN 3.1 GM/DL (3.2-5.2); ALBUMIN/GLOBULIN RATIO 0.97 (1.00-1.93); ALKALINE PHOSPHATASE 118 U/L (45-117); ALT/SGPT 21 U/L (12-78); AMYLASE 39 U/L (25-115); ANION GAP 9 MEQ/L (8-16); AST/SGOT 28 U/L (7-37); BILIRUBIN,TOTAL 0.8 MG/DL (0.2-1.0); BLOOD UREA NITROGEN 22 MG/DL (7-18); CALCIUM LEVEL 8.9 MG/DL (8.8-10.2); CARBON DIOXIDE LEVEL 27 MEQ/L (21-32); CHLORIDE LEVEL 102 MEQ/L (98-107); CREATININE FOR GFR 1.59 MG/DL (0.55-1.30); GLUCOSE, FASTING 129 MG/DL (70-100); POTASSIUM SERUM 4.3 MEQ/L (3.5-5.1); SODIUM LEVEL 138 MEQ/L (136-145); TOTAL PROTEIN 6.3 GM/DL (6.4-8.2)
== END ==
LOC: SKLAB2 13:00
DX: R11.2 Nausea with vomiting, unspecified (principal)

== ENCOUNTER → 2017-09-26 | Outpatient (REF) | payer MEDICARE, MEDICAID ==
[2017-09-26 19:48] LABS: BEDSIDE GLUCOSE CONFIRMATION 100 MG/DL (LESS THAN 200)
== END ==
LOC: M LAB 18:58
DX: N18.3 Chronic kidney disease, stage 3 (moderate) (principal); I50.40 Unspecified combined systolic (congestive) and diastolic (congestive) heart failure; E11.9 Type 2 diabetes mellitus without complications; I12.9 Hypertensive chronic kidney disease with stage 1 through stage 4 chronic kidney disease, or unspecified chronic kidney disease; I48.91 Unspecified atrial fibrillation
CPT/HCPCS: 82947

== ENCOUNTER → 2017-10-27 | Outpatient (REF) | payer MEDICARE, MEDICAID ==
[2017-10-27 15:02] LABS: HEMATOCRIT 32.8 % (36.0-47.0); HEMOGLOBIN 10.3 g/dl (12.0-15.5); MEAN CORPUSCULAR HEMOGLOBIN 29.3 pg (27.0-33.0); MEAN CORPUSCULAR HGB CONC 31.4 g/dl (32.0-36.5); MEAN CORPUSCULAR VOLUME 93.2 fl (80.0-96.0); PLATELET COUNT, AUTOMATED 235 10^3/uL (150-450); RED BLOOD COUNT 3.52 10^6/uL (4.00-5.40); RED CELL DISTRIBUTION WIDTH 14.8 % (11.5-14.5); WHITE BLOOD COUNT 6.7 10^3/uL (4.0-10.0)
[2017-10-27 15:21] LABS: ANION GAP 5 MEQ/L (8-16); BLOOD UREA NITROGEN 22 MG/DL (7-18); CALCIUM LEVEL 8.6 MG/DL (8.8-10.2); CARBON DIOXIDE LEVEL 30 MEQ/L (21-32); CHLORIDE LEVEL 108 MEQ/L (98-107); CREATININE FOR GFR 1.21 MG/DL (0.55-1.30); GLOMERULAR FILTRATION RATE 46.4 (>39); GLUCOSE, FASTING 96 MG/DL (70-100); POTASSIUM SERUM 4.5 MEQ/L (3.5-5.1); SODIUM LEVEL 143 MEQ/L (136-145)
== END ==
LOC: SKLAB2 14:11
DX: R11.2 Nausea with vomiting, unspecified (principal)
CPT/HCPCS: 93005

== ENCOUNTER → 2017-10-28 | Outpatient (REF) | payer MEDICARE, MEDICAID ==
[2017-10-28 22:40] LABS: APPEARANCE, URINE CLEAR (CLEAR); BACTERIA, URINE AUTO NEGATIVE (NEGATIVE); BILIRUBIN, URINE AUTO NEGATIVE (NEGATIVE); BLOOD, URINE BLOOD NEGATIVE (NEGATIVE); COLOR, URINE YELLOW (YELLOW); GLUCOSE, URINE (UA) AUTO NEGATIVE (NEGATIVE); KETONE, URINE AUTO NEGATIVE (NEGATIVE); LEUKOCYTE ESTERASE, URINE AUTO NEGATIVE (NEGATIVE); NITRITE, URINE AUTO NEGATIVE (NEGATIVE); PROTEIN, URINE AUTO NEGATIVE (NEGATIVE); RBC, URINE AUTO 2 /HPF (0-3); SPECIFIC GRAVITY URINE AUTO 1.006 (1.002-1.035); SQUAMOUS EPITHELIAL CELL UR AU 0 /HPF (0-6); UROBILINOGEN, URINE AUTO 0.2 mg/dL (0.0-2.0); WBC, URINE AUTO 0 /HPF (0-3)
== END ==
LOC: SKLAB2 21:58
DX: R11.2 Nausea with vomiting, unspecified (principal)
CPT/HCPCS: 81001

== ENCOUNTER 2017-10-30 11:15 | Emergency (ER) | payer MEDICARE, MEDICAID | END 2017-10-30 14:53 | disposition home or self-care (01) | LOC: M ED 11:15 | DX: M51.36 Other intervertebral disc degeneration, lumbar region (principal); G89.29 Other chronic pain; I13.0 Hypertensive heart and chronic kidney disease with heart failure and stage 1 through stage 4 chronic kidney disease, or unspecified chronic kidney disease; I50.9 Heart failure, unspecified; N18.9 Chronic kidney disease, unspecified; E11.9 Type 2 diabetes mellitus without complications; G62.9 Polyneuropathy, unspecified; G25.0 Essential tremor; E78.00 Pure hypercholesterolemia, unspecified; R42 Dizziness and giddiness; I25.2 Old myocardial infarction; F33.9 Major depressive disorder, recurrent, unspecified; F41.9 Anxiety disorder, unspecified; Z79.899 Other long term (current) drug therapy; Z79.82 Long term (current) use of aspirin; Z79.01 Long term (current) use of anticoagulants; Z98.890 Other specified postprocedural states; Z86.73 Personal history of transient ischemic attack (TIA), and cerebral infarction without residual deficits; Z95.5 Presence of coronary angioplasty implant and graft; Z85.3 Personal history of malignant neoplasm of breast; Z88.8 Allergy status to other drugs, medicaments and biological substances; Z91.02 Food additives allergy status; Z88.0 Allergy status to penicillin; Z88.1 Allergy status to other antibiotic agents; Z88.2 Allergy status to sulfonamides | CPT/HCPCS: 72110 ==

== ENCOUNTER → 2017-12-31 | Outpatient (REF) | payer MEDICARE, MEDICAID ==
[2017-12-31 09:46] LABS: BASO # 0.1 10^3/uL (0.0-0.2); BASO % 1.6 % (0.0-1.0); EOS # 0.2 10^3/uL (0.0-0.50); EOS % 4.6 % (0.0-3.0); HEMATOCRIT 35.6 % (36.0-47.0); HEMOGLOBIN 10.5 g/dl (12.0-15.5); IMMATURE GRANULOCYTE % 0.6 % (0-3.0); LYMPH # 1.1 10^3/uL (1.5-4.5); LYMPH % 21.6 % (24.0-44.0); MEAN CORPUSCULAR HEMOGLOBIN 24.6 pg (27.0-33.0); MEAN CORPUSCULAR HGB CONC 29.5 g/dl (32.0-36.5); MEAN CORPUSCULAR VOLUME 83.6 fl (80.0-96.0); MONO # 1.1 10^3/uL (0.0-0.8); NEUTROPHILS # 2.5 10^3/uL (1.8-7.7); NEUTROPHILS % 49.6 % (36.0-66.0); PLATELET COUNT, AUTOMATED 311 10^3/uL (150-450); RED BLOOD COUNT 4.26 10^6/uL (4.00-5.40); RED CELL DISTRIBUTION WIDTH 18.1 % (11.5-14.5)
[2017-12-31 10:26] LABS: ALBUMIN/GLOBULIN RATIO 0.81 (1.00-1.93); ALKALINE PHOSPHATASE 231 U/L (45-117); ALT/SGPT 20 U/L (12-78); ANION GAP 8 MEQ/L (8-16); AST/SGOT 23 U/L (7-37); BILIRUBIN,TOTAL 0.7 MG/DL (0.2-1.0); BLOOD UREA NITROGEN 24 MG/DL (7-18); CALCIUM LEVEL 8.3 MG/DL (8.8-10.2); CARBON DIOXIDE LEVEL 28 MEQ/L (21-32); CHLORIDE LEVEL 105 MEQ/L (98-107); CHOLESTEROL LEVEL 81 MG/DL (<200); CHOLESTEROL RISK RATIO 1.396 (<5); CREATININE FOR GFR 1.44 MG/DL (0.55-1.30); GLUCOSE, FASTING 137 MG/DL (70-100); HDL CHOLESTEROL 58 MG/DL (>40); LDL CHOLESTEROL 5.4 MG/DL (<100); NON-HDL-C 23 MG/DL; POTASSIUM SERUM 4.6 MEQ/L (3.5-5.1); SODIUM LEVEL 141 MEQ/L (136-145); TOTAL PROTEIN 6.7 GM/DL (6.4-8.2); TRIGLYCERIDES LEVEL 88 MG/DL (<150)
== END ==
LOC: SKLAB2 08:15
DX: N89.8 Other specified noninflammatory disorders of vagina (principal); I87.312 Chronic venous hypertension (idiopathic) with ulcer of left lower extremity; L97.822 Non-pressure chronic ulcer of other part of left lower leg with fat layer exposed; L88 Pyoderma gangrenosum
CPT/HCPCS: 80053

== ENCOUNTER → 2018-01-04 | Outpatient (REF) | payer MEDICARE, MEDICAID | LOC: SKLAB2 13:15 | DX: S81.802A Unspecified open wound, left lower leg, initial encounter (principal); Y99.8 Other external cause status; Y93.89 Activity, other specified; Y92.89 Other specified places as the place of occurrence of the external cause; X58.XXXA Exposure to other specified factors, initial encounter | CPT/HCPCS: 87186 ==

== ENCOUNTER → 2018-01-26 | Outpatient (CLI) | payer MEDICARE, MEDICAID | LOC: M RAD 11:35 | DX: S80.11XA Contusion of right lower leg, initial encounter (principal); W19.XXXA Unspecified fall, initial encounter; M79.661 Pain in right lower leg | CPT/HCPCS: 93971 ==

== ENCOUNTER → 2018-01-27 | Outpatient (REF) | payer MEDICARE, MEDICAID ==
[2018-01-27 14:54] LABS: HEMATOCRIT 31.4 % (36.0-47.0); HEMOGLOBIN 9.3 g/dl (12.0-15.5); MEAN CORPUSCULAR HEMOGLOBIN 23.5 pg (27.0-33.0); MEAN CORPUSCULAR HGB CONC 29.6 g/dl (32.0-36.5); MEAN CORPUSCULAR VOLUME 79.3 fl (80.0-96.0); PLATELET COUNT, AUTOMATED 296 10^3/uL (150-450); RED BLOOD COUNT 3.96 10^6/uL (4.00-5.40); RED CELL DISTRIBUTION WIDTH 19.2 % (11.5-14.5); WHITE BLOOD COUNT 4.2 10^3/uL (4.0-10.0)
== END ==
LOC: SKLAB2 07:00
DX: R31.9 Hematuria, unspecified (principal)
CPT/HCPCS: 85027

== ENCOUNTER → 2018-02-05 | Outpatient (REF) | payer MEDICARE, MEDICAID ==
[2018-02-05 08:51] LABS: HEMATOCRIT 36.3 % (36.0-47.0); HEMOGLOBIN 10.3 g/dl (12.0-15.5); MEAN CORPUSCULAR HEMOGLOBIN 22.3 pg (27.0-33.0); MEAN CORPUSCULAR HGB CONC 28.4 g/dl (32.0-36.5); MEAN CORPUSCULAR VOLUME 78.6 fl (80.0-96.0); PLATELET COUNT, AUTOMATED 344 10^3/uL (150-450); RED BLOOD COUNT 4.62 10^6/uL (4.00-5.40); RED CELL DISTRIBUTION WIDTH 19.7 % (11.5-14.5); WHITE BLOOD COUNT 5.5 10^3/uL (4.0-10.0)
== END ==
LOC: SKLAB2 08:00
DX: I50.9 Heart failure, unspecified (principal)

== ENCOUNTER → 2018-02-10 | Outpatient (REF) | payer MEDICARE, MEDICAID ==
[2018-02-10 13:14] LABS: ANION GAP 10 MEQ/L (8-16); BLOOD UREA NITROGEN 30 MG/DL (7-18); CALCIUM LEVEL 8.6 MG/DL (8.8-10.2); CARBON DIOXIDE LEVEL 28 MEQ/L (21-32); CHLORIDE LEVEL 105 MEQ/L (98-107); CREATININE FOR GFR 1.37 MG/DL (0.55-1.30); GLOMERULAR FILTRATION RATE 40.2 (>39); GLUCOSE, FASTING 76 MG/DL (70-100); SODIUM LEVEL 143 MEQ/L (136-145)
== END ==
LOC: SKLAB2 08:00
DX: I25.10 Atherosclerotic heart disease of native coronary artery without angina pectoris (principal); F32.9 Major depressive disorder, single episode, unspecified
CPT/HCPCS: 80048

== ENCOUNTER → 2018-03-12 | Outpatient (REF) | payer MEDICARE, MEDICAID ==
[2018-03-12 09:22] LABS: BASO # 0.1 10^3/uL (0.0-0.2); BASO % 1.4 % (0.0-1.0); EOS # 0.2 10^3/uL (0.0-0.50); EOS % 4.7 % (0.0-3.0); HEMATOCRIT 37.1 % (36.0-47.0); HEMOGLOBIN 10.3 g/dl (12.0-15.5); IMMATURE GRANULOCYTE % 0.6 % (0-3.0); LYMPH # 1.1 10^3/uL (1.5-4.5); LYMPH % 23.3 % (24.0-44.0); MEAN CORPUSCULAR HEMOGLOBIN 22.2 pg (27.0-33.0); MEAN CORPUSCULAR HGB CONC 27.8 g/dl (32.0-36.5); MEAN CORPUSCULAR VOLUME 79.8 fl (80.0-96.0); MONO # 0.9 10^3/uL (0.0-0.8); NEUTROPHILS # 2.5 10^3/uL (1.8-7.7); PLATELET COUNT, AUTOMATED 389 10^3/uL (150-450); RED BLOOD COUNT 4.65 10^6/uL (4.00-5.40); RED CELL DISTRIBUTION WIDTH 22.8 % (11.5-14.5); WHITE BLOOD COUNT 4.9 10^3/uL (4.0-10.0)
[2018-03-12 09:48] LABS: ALBUMIN 3.3 GM/DL (3.2-5.2); ANION GAP 11 MEQ/L (8-16); BLOOD UREA NITROGEN 26 MG/DL (7-18); CALCIUM LEVEL 8.7 MG/DL (8.8-10.2); CARBON DIOXIDE LEVEL 28 MEQ/L (21-32); CHLORIDE LEVEL 103 MEQ/L (98-107); CREATININE FOR GFR 1.34 MG/DL (0.55-1.30); GLOMERULAR FILTRATION RATE 41.3 (>39); GLUCOSE, FASTING 121 MG/DL (70-100); MAGNESIUM LEVEL 2.2 MG/DL (1.8-2.4); PHOSPHORUS LEVEL 3.9 MG/DL (2.5-4.9); SODIUM LEVEL 142 MEQ/L (136-145)
[2018-03-12 11:27] LABS: PTH INTACT 168.8 PG/ML (18.5-88.0)
== END ==
LOC: SKLAB2 08:00
DX: N18.9 Chronic kidney disease, unspecified (principal)
CPT/HCPCS: 83735

== ENCOUNTER → 2018-04-29 | Outpatient (REF) | payer MEDICARE, MEDICAID ==
[2018-04-29 13:24] LABS: HEMATOCRIT 37.8 % (36.0-47.0); HEMOGLOBIN 10.8 g/dl (12.0-15.5); MEAN CORPUSCULAR HEMOGLOBIN 22.4 pg (27.0-33.0); MEAN CORPUSCULAR HGB CONC 28.6 g/dl (32.0-36.5); MEAN CORPUSCULAR VOLUME 78.3 fl (80.0-96.0); PLATELET COUNT, AUTOMATED 259 10^3/uL (150-450); RED BLOOD COUNT 4.83 10^6/uL (4.00-5.40); RED CELL DISTRIBUTION WIDTH 21.4 % (11.5-14.5); WHITE BLOOD COUNT 4.8 10^3/uL (4.0-10.0)
[2018-04-29 13:46] LABS: ANION GAP 9 MEQ/L (8-16); BLOOD UREA NITROGEN 18 MG/DL (7-18); CALCIUM LEVEL 8.5 MG/DL (8.8-10.2); CARBON DIOXIDE LEVEL 31 MEQ/L (21-32); CHLORIDE LEVEL 102 MEQ/L (98-107); CREATININE FOR GFR 1.49 MG/DL (0.55-1.30); GLOMERULAR FILTRATION RATE 36.5 (>39); GLUCOSE, FASTING 189 MG/DL (70-100); POTASSIUM SERUM 3.2 MEQ/L (3.5-5.1); SODIUM LEVEL 142 MEQ/L (136-145); TROPONIN I 0.02 NG/ML (< 0.10)
== END ==
LOC: SKLAB2 12:16
DX: R07.9 Chest pain, unspecified (principal)
CPT/HCPCS: 71045

== ENCOUNTER → 2018-05-04 | Outpatient (REF) | payer MEDICARE, MEDICAID ==
[2018-05-04 09:44] LABS: ANION GAP 7 MEQ/L (8-16); BLOOD UREA NITROGEN 21 MG/DL (7-18); CARBON DIOXIDE LEVEL 30 MEQ/L (21-32); CHLORIDE LEVEL 101 MEQ/L (98-107); GLOMERULAR FILTRATION RATE 36.2 (>39); GLUCOSE, FASTING 98 MG/DL (70-100); POTASSIUM SERUM 3.6 MEQ/L (3.5-5.1); SODIUM LEVEL 138 MEQ/L (136-145)
== END ==
LOC: SKLAB2 07:00
DX: E87.6 Hypokalemia (principal)
CPT/HCPCS: 80048

== ENCOUNTER → 2018-05-27 | Outpatient (REF) | payer MEDICARE, MEDICAID | LOC: SKLAB2 11:28 | DX: A49.02 Methicillin resistant Staphylococcus aureus infection, unspecified site (principal) | CPT/HCPCS: 87081 ==

== ENCOUNTER → 2018-05-28 | Outpatient (REF) | payer MEDICARE, MEDICAID ==
[~2018-05-28] MED LIST changes: +ACEP650S PR; +ACET1TAB55 PO; +ALB2.5NEB INH; +ASPI-222 PO; -ASPI325T24 PO; +ASPI325T25 PO; -ASPI325T28 PO; +CARV6.25 PO; -EFFE150C PO; +EFFE150C2 PO; +ENEMENE16 PR; +GABA-1171 PO; -GABA-279 PO; -GABA-283 PO; +GABA-845 PO; -GLUC4CHW PO; +GLUC4CHW19 PO; +KEFL500C17 PO; +LASI40TA PO; +LIPITOR40 2 TABS; -LIPITOR40 [, 2 TABS]; +MILK12002 PO; -MILKSUS PO; +NYST10PW TOP; +NYST1POW9 TOP; +PRED10TA2 PO; +PRIM50TA6 PO; +QUES4POW2 PO; +SIME1CAP5 PO; +SPIR-10 PO; -SPIR25TA2 PO; +SULF1TAB93 PO; -VITA1CAP40 PO; +VITA50005 PO; -ZOFR20TA PO; +ZOFR4TAB14 PO; +ZOFR4TAB16 PO; -ZOFR4TAB3 PO; +[UNRECOGNIZED DRUG - CODE] PR
[2018-05-28 07:53] LABS: CALCIUM LEVEL 8.2 MG/DL (8.8-10.2); CREATININE FOR GFR 1.55 MG/DL (0.55-1.30); GLOMERULAR FILTRATION RATE 34.9 (>39); POTASSIUM SERUM 3.8 MEQ/L (3.5-5.1)
== END ==
LOC: SKLAB2 07:00
PROVIDERS: ATTEND Family Medicine
DX: I50.9 Heart failure, unspecified (principal)

== ENCOUNTER → 2018-06-03 | Outpatient (REF) | payer MEDICARE, MEDICAID | LOC: SKLAB2 13:04 | PROVIDERS: ATTEND Family Medicine | DX: Z22.322 Carrier or suspected carrier of Methicillin resistant Staphylococcus aureus (principal) ==

== ENCOUNTER → 2018-06-10 | Outpatient (REF) | payer MEDICARE, MEDICAID | LOC: SKLAB2 11:35 | PROVIDERS: ATTEND Family Medicine | DX: Z22.322 Carrier or suspected carrier of Methicillin resistant Staphylococcus aureus (principal) ==

== ENCOUNTER → 2018-07-13 | Outpatient (REF) | payer MEDICARE, MEDICAID ==
[~2018-07-13] MED LIST changes: -BENCRE3 TOP; +BENG1CRE3 TOP; -ENEMENE16 PR; +ENEMENE4 PR; -LASI40TA PO; +LASI40TA9 PO; +MILK120011 PO; -MILK12002 PO
[2018-07-13 14:05] LABS: CALCIUM LEVEL 8.9 MG/DL (8.8-10.2); CREATININE FOR GFR 1.59 MG/DL (0.55-1.30); GLOMERULAR FILTRATION RATE 33.9 (>39); POTASSIUM SERUM 4.5 MEQ/L (3.5-5.1)
== END ==
LOC: SKLAB2 11:43
PROVIDERS: ATTEND Family Medicine
DX: I50.9 Heart failure, unspecified (principal); I11.0 Hypertensive heart disease with heart failure

== ENCOUNTER → 2018-09-15 | Outpatient (REF) | payer MEDICARE, MEDICAID ==
[~2018-09-15] MED LIST changes: -/ADVA50050; -/GLIM4TA; -/WARF3TA; -/WARF4TA; -/WARF5TA; +ADVA1AER2; +AMAR1TAB6; +ASPI-255 PO; -ASPI325T25 PO; +COUM1TAB14; +COUM1TAB17; +COUM1TAB19; -CYCL5TA PO; +CYCL5TAB5 PO; +NYST-15 TOP; -NYST10PW TOP; +SENN1TAB41 PO; -SENN8.6T7 PO; -VENL150T PO; +VENL150T14 PO
[2018-09-15 15:34] LABS: BASO # 0.1 10^3/uL (0.0-0.2); BASO % 0.8 % (0.0-1.0); EOS % 0.1 % (0.0-3.0); HEMATOCRIT 34.3 % (36.0-47.0); LYMPH # 1.7 10^3/uL (1.5-4.5); LYMPH % 17.8 % (24.0-44.0); MEAN CORPUSCULAR HEMOGLOBIN 28.3 pg (27.0-33.0); MEAN CORPUSCULAR HGB CONC 32.1 g/dl (32.0-36.5); MEAN CORPUSCULAR VOLUME 88.2 fl (80.0-96.0); MONO # 1.2 10^3/uL (0.0-0.8); MONO % 12.3 % (0.0-5.0); NEUTROPHILS # 6.4 10^3/uL (1.8-7.7); NEUTROPHILS % 68.5 % (36.0-66.0); PLATELET COUNT, AUTOMATED 332 10^3/uL (150-450); RED BLOOD COUNT 3.89 10^6/uL (4.00-5.40); WHITE BLOOD COUNT 9.3 10^3/uL (4.0-10.0)
[2018-09-15 15:51] LABS: ALBUMIN 2.8 GM/DL (3.2-5.2); BILIRUBIN,TOTAL 0.5 MG/DL (0.2-1.0); C REACTIVE PROTEIN QUANTITATIV 5.92 MG/DL (0.00-0.30); CALCIUM LEVEL 9.3 MG/DL (8.8-10.2); CREATININE FOR GFR 2.95 MG/DL (0.55-1.30); GLOMERULAR FILTRATION RATE 16.6 (>39); POTASSIUM SERUM 5.1 MEQ/L (3.5-5.1); TOTAL PROTEIN 6.9 GM/DL (6.4-8.2)
[2018-09-15 15:53] LABS: ERYTHROCYTE SEDIMENTATION RATE 51 mm/hr (0-30)
== END ==
LOC: SKLAB2 10:29
PROVIDERS: ATTEND Family Medicine
DX: S81.801A Unspecified open wound, right lower leg, initial encounter (principal); Y99.8 Other external cause status; Y92.89 Other specified places as the place of occurrence of the external cause; Y93.89 Activity, other specified; X58.XXXA Exposure to other specified factors, initial encounter

== ENCOUNTER → 2018-09-17 | Outpatient (REF) | payer MEDICARE, MEDICAID ==
[2018-09-17 08:39] LABS: CREATININE FOR GFR 2.87 MG/DL (0.55-1.30); GLOMERULAR FILTRATION RATE 17.1 (>39); POTASSIUM SERUM 4.9 MEQ/L (3.5-5.1)
== END ==
LOC: SKLAB2 08:59
PROVIDERS: ATTEND Family Medicine
DX: E86.0 Dehydration (principal)

== ENCOUNTER → 2018-09-18 | Outpatient (REF) | payer MEDICARE, MEDICAID ==
[2018-09-18 08:52] LABS: CALCIUM LEVEL 8.6 MG/DL (8.8-10.2); CREATININE FOR GFR 2.73 MG/DL (0.55-1.30); GLOMERULAR FILTRATION RATE 18.2 (>39); POTASSIUM SERUM 5.1 MEQ/L (3.5-5.1)
== END ==
LOC: SKLAB2 07:30
PROVIDERS: ATTEND Family Medicine
DX: E86.0 Dehydration (principal)

== ENCOUNTER → 2018-09-21 | Outpatient (REF) | payer MEDICARE, MEDICAID ==
[2018-09-21 07:56] LABS: CALCIUM LEVEL 8.8 MG/DL (8.8-10.2); CREATININE FOR GFR 1.79 MG/DL (0.55-1.30); GLOMERULAR FILTRATION RATE 29.6 (>39); POTASSIUM SERUM 4.8 MEQ/L (3.5-5.1)
== END ==
LOC: SKLAB2 08:52
PROVIDERS: ATTEND Family Medicine
DX: E86.0 Dehydration (principal)

== ENCOUNTER → 2018-10-07 | Outpatient (REF) | payer MEDICARE, MEDICAID ==
[2018-10-07 09:56] LABS: BASO # 0.1 10^3/uL (0.0-0.2); BASO % 2.4 % (0.0-1.0); EOS # 0.8 10^3/uL (0.0-0.50); HEMATOCRIT 37.9 % (36.0-47.0); HEMOGLOBIN 11.8 g/dl (12.0-15.5); LYMPH # 1.8 10^3/uL (1.5-4.5); LYMPH % 32.7 % (24.0-44.0); MEAN CORPUSCULAR HEMOGLOBIN 28.8 pg (27.0-33.0); MEAN CORPUSCULAR HGB CONC 31.1 g/dl (32.0-36.5); MEAN CORPUSCULAR VOLUME 92.4 fl (80.0-96.0); MONO # 0.8 10^3/uL (0.0-0.8); MONO % 14.1 % (0.0-5.0); NEUTROPHILS % 35.6 % (36.0-66.0); PLATELET COUNT, AUTOMATED 293 10^3/uL (150-450); WHITE BLOOD COUNT 5.5 10^3/uL (4.0-10.0)
[2018-10-07 10:26] LABS: ALBUMIN 3.2 GM/DL (3.2-5.2); CALCIUM LEVEL 8.5 MG/DL (8.8-10.2); CREATININE FOR GFR 1.57 MG/DL (0.55-1.30); GLOMERULAR FILTRATION RATE 34.3 (>39); MAGNESIUM LEVEL 2.1 MG/DL (1.8-2.4); PHOSPHORUS LEVEL 3.6 MG/DL (2.5-4.9); POTASSIUM SERUM 4.4 MEQ/L (3.5-5.1)
[2018-10-07 11:10] LABS: APPEARANCE, URINE TURBID (CLEAR); BACTERIA, URINE AUTO NEGATIVE (NEGATIVE); BILIRUBIN, URINE AUTO NEGATIVE (NEGATIVE); BLOOD, URINE BLOOD NEGATIVE (NEGATIVE); COLOR, URINE YELLOW (YELLOW); GLUCOSE, URINE (UA) AUTO NEGATIVE (NEGATIVE); KETONE, URINE AUTO TRACE mg/dL (NEGATIVE); LEUKOCYTE ESTERASE, URINE AUTO 3+ (NEGATIVE); NITRITE, URINE AUTO NEGATIVE (NEGATIVE); PROTEIN, URINE AUTO 2+ mg/dL (NEGATIVE); RBC, URINE AUTO 31 /HPF (0-3); SPECIFIC GRAVITY URINE AUTO 1.014 (1.002-1.035); SQUAMOUS EPITHELIAL CELL UR AU 0 /HPF (0-6); WBC, URINE AUTO TNTC /HPF (0-3)
[2018-10-07 11:24] LABS: PTH INTACT 66.6 PG/ML (18.5-88.0)
== END ==
LOC: SKLAB2 08:55
PROVIDERS: ATTEND Family Medicine
DX: N18.9 Chronic kidney disease, unspecified (principal)

== ENCOUNTER → 2018-11-03 | Outpatient (REF) | payer MEDICARE, MEDICAID ==
[2018-11-03 07:35] LABS: CREATININE FOR GFR 1.41 MG/DL (0.55-1.30); GLOMERULAR FILTRATION RATE 38.8 (>39); POTASSIUM SERUM 4.2 MEQ/L (3.5-5.1)
== END ==
LOC: SKLAB3 07:00
PROVIDERS: ATTEND Family Medicine
DX: R60.9 Edema, unspecified (principal)

== ENCOUNTER → 2018-11-29 | Outpatient (REF) | payer MEDICARE, MEDICAID | LOC: SKLAB3 16:30 | PROVIDERS: ATTEND Family Medicine | DX: R73.01 Impaired fasting glucose (principal) ==